=== PATIENT | female | born 1980 | race Caucasian/White ===

== ENCOUNTER 2016-10-17 14:05 | Emergency (ER) | payer OTHER ==
[~2016-10-17] VITALS: Ht 162.6 cm; Wt 75.7 kg
[~2016-10-17 14:05] MED LIST: CARI350T PO; CHOL20002 PO; CHOL500014 PO; FENO145T32 PO; INSU100C5 SC; INSU100C5 SQ-INSULIN; INSU100V8 SQ; INSU300I SQ; LACT1CAP40 PO; LISI5TAB7 PO; METH-356 PO; OXYC15TA PO; ZOLP10TA PO
[2016-10-17 15:13] LABS: HEMOGLOBIN 13.6 g/dL (11.7-16.4)
[2016-10-17 15:17] LABS: PATH.CAST-FLAG NOT PRESENT; SPERM-FLAG NOT PRESENT; SRC-FLAG NOT PRESENT; XTAL-FLAG NOT PRESENT; YLC-FLAG NOT PRESENT
[2016-10-17 15:25] LABS: BLOOD UREA NITROGEN 14 mg/dL (7-18)
[2016-10-17] MEDS ORDERED: LOSA25TA2 PO (15:30)
[2016-10-17] MEDS ORDERED: FLUO10TA PO (15:30)
[2016-10-17] MEDS ORDERED: KETOROLAC 30 MG/1 ML IVPush ONE (16:00)
[2016-10-17] MEDS ORDERED: SODIUM CHLORIDE 0.9% 1,000ML IVBOLUS ONE (16:00)
[2016-10-17] MEDS ORDERED: SODIUM CHLORIDE FLUSH 10ML SYR IVF ONE (16:00)
[2016-10-17] MEDS ORDERED: HYDROmorphone 1 MG/ML, 1ML ONE ×3 (16:12→18:35)
[2016-10-17] MEDS ORDERED: KETOROLAC 30 MG/1 ML ONE (16:12)
[2016-10-17] MEDS: HYDROmorphone 1 MG/ML, 1ML IVPush PRN ×2 (16:14→17:15)
[2016-10-17 18:39] VITALS: BP 137/82
[2016-10-17] MEDS ORDERED: HYDROmorphone 2 MG/ML, 1ML IVPush PRN (19:00)
[2016-10-17] MEDS ORDERED: HYDROmorphone 2 MG/ML, 1ML IVPush ONE (19:00)
== END 2016-10-17 18:46 | disposition home or self-care (01) ==
LOC: ED 16:22
DX: N13.2 Hydronephrosis with renal and ureteral calculous obstruction (principal); N23 Unspecified renal colic; E11.65 Type 2 diabetes mellitus with hyperglycemia; M54.9 Dorsalgia, unspecified; G89.29 Other chronic pain; Z90.49 Acquired absence of other specified parts of digestive tract; Z88.6 Allergy status to analgesic agent
CPT/HCPCS: 36415; 74000; 74176; 80048; 81001; 82040; 84703; 85025; 96361; 96374; 96375; 96376; 99285; J1170; J1885; J7030

== ENCOUNTER → 2016-10-25 | Outpatient (CLI) | payer OTHER ==
[~2016-10-25] MED LIST changes: +FLUO10CA13 PO; +FLUO10TA PO; +GABA300C10 PO; +LOSA25TA2 PO; +NORG1TAB26 PO; +ONDA4TAB7 PO; +SENN1TAB4 PO
[2016-10-25 15:14] LABS: ASPARTATE AMINO TRANSFERASE 12 U/L (15-37); BLOOD UREA NITROGEN 31 mg/dL (7-18)
[2016-10-25 15:18] LABS: PATH.CAST-FLAG NOT PRESENT; SPERM-FLAG NOT PRESENT; SRC-FLAG NOT PRESENT; XTAL-FLAG NOT PRESENT; YLC-FLAG NOT PRESENT
== END | disposition home or self-care (01) ==
LOC: STAR 14:07
PROVIDERS: ATTEND Neurological Surgery
DX: Z01.818 Encounter for other preprocedural examination (principal); M51.36 Other intervertebral disc degeneration, lumbar region; R91.8 Other nonspecific abnormal finding of lung field
CPT/HCPCS: 36415; 71020; 80053; 81001; 85025; 85610; 85730; 93005

== ENCOUNTER → 2016-10-27 | Outpatient (CLI) | payer OTHER | END | disposition home or self-care (01) | LOC: CFH 15:26 | PROVIDERS: ATTEND Physician Assistant Surgical | DX: M48.07 Spinal stenosis, lumbosacral region (principal); M43.17 Spondylolisthesis, lumbosacral region | CPT/HCPCS: 72131 ==

== ENCOUNTER 2016-11-04 07:26 | Inpatient (IN) | payer OTHER ==
[~2016-11-04] VITALS: Ht 162.6 cm; Wt 80.5 kg
[~2016-11-04 07:26] MED LIST changes: +BACITRACIN 50,000 UNIT ONE; +BUPIVACAINE/PF 0.25% ONE; +BUPIVACAINE/PF-EPI 0.5% 1:200K ONE; +THROMBIN 5,000 UNIT VIAL TP ONE
[2016-11-04 08:24] VITALS: BP 133/80
[2016-11-04] MEDS ORDERED: LIDOCAINE 1%, 2ML ONE (08:40)
[2016-11-04 08:43] LABS: HCG UR OBC PASS
[2016-11-04] MEDS ORDERED: LACTATED RINGERS 1,000 ML IV SCH (08:45)
[2016-11-04] MEDS ORDERED: LIDOCAINE 1%, 2ML SQ PRN (09:00)
[2016-11-04] MEDS ORDERED: SCOPOLAMINE PATCH, 1.5MG PATCH.TD72 TD ONE ×2 (10:31)
[2016-11-04] MEDS ORDERED: FENTANYL PF 250 MCG/5ML ONE (10:35)
[2016-11-04] MEDS ORDERED: HYDROmorphone 2 MG/ML, 1ML ONE ×2 (10:35→14:19)
[2016-11-04] MEDS ORDERED: MEPERIDINE/PF 25MG/0.5ML IVPush PRN (11:30)
[2016-11-04] MEDS ORDERED: hydrALAzine 20 MG/ML, 1ML IV PRN (11:30)
[2016-11-04] MEDS ORDERED: LABETALOL 5MG/ML, 20ML IV PRN (11:30)
[2016-11-04] MEDS ORDERED: MIDAZOLAM 1 MG/ML, 2ML IV PRN (11:30)
[2016-11-04] MEDS ORDERED: ONDANSETRON 2MG/ML, 2ML IVPush PRN (11:30)
[2016-11-04] MEDS ORDERED: OXYcodone 5 MG/5 ML ORAL.SOL UDC PO PRN (11:30)
[2016-11-04] MEDS ORDERED: FENTANYL PF 100 MCG/2ML EPIDPUSH ONE (11:40)
[2016-11-04] MEDS ORDERED: FENTANYL PF 100 MCG/2ML ONE ×2 (12:36→15:32)
[2016-11-04] MEDS ORDERED: THROMBIN 5,000 UNIT VIAL TP ONE ×2 (12:46→12:48)
[2016-11-04] MEDS ORDERED: ONDANSETRON 4 MG TABLET PO PRN (14:00)
[2016-11-04] MEDS ORDERED: DIPHENHYDRAMINE 50 MG/ML, 1ML IVPush PRN (14:00)
[2016-11-04] MEDS ORDERED: SENNA/DOCUSATE TABLET PO PRN (14:00)
[2016-11-04] MEDS ORDERED: BISACODYL 10 MG SUPP PR PRN (14:00)
[2016-11-04] MEDS ORDERED: PHARMACY MAY ADJ FOR RENAL FX MC PRN (14:00)
[2016-11-04] MEDS ORDERED: CYCLOBENZAPRINE 10 MG TABLET ONE (14:07)
[2016-11-04] MEDS ORDERED: METHADONE 10 MG TABLET ONE (14:07)
[2016-11-04] MEDS: CYCLOBENZAPRINE 10 MG TABLET PO PRN (14:10)
[2016-11-04] MEDS: HYDROmorphone 1 MG/ML, 1ML IV PRN ×4 (14:15→15:01)
[2016-11-04] MEDS: FENTANYL PF 100 MCG/2ML IV PRN ×2 (14:55→15:32)
[2016-11-04] MEDS ORDERED: OXYcodone 5 MG/5 ML ORAL.SOL UDC ONE (15:29)
[2016-11-04] MEDS ORDERED: NORGESTIMATE ETHINYL ESTRADIOL HOMEMEDPO SCH (16:30)
[2016-11-04] MEDS: morphine SULFATE 10 MG/ML, 1ML IVPush PRN ×6 (16:41→22:16)
[2016-11-04] MEDS ORDERED: SUCCINYLCHOLINE 20 MG/ML, 10ML ONE (16:42)
[2016-11-04] MEDS ORDERED: ROCURONIUM 10 MG/ML ONE (16:42)
[2016-11-04] MEDS ORDERED: ONDANSETRON 2MG/ML, 2ML ONE (16:42)
[2016-11-04] MEDS ORDERED: PROPOFOL 10 MG/ML, 50ML ONE (16:42)
[2016-11-04] MEDS ORDERED: PROPOFOL 10 MG/ML, 20ML ONE (16:42)
[2016-11-04] MEDS ORDERED: CEFAZOLIN 1,000 MG ONE (16:42)
[2016-11-04] MEDS: CARISOPRODOL 350 MG TABLET PO SCH ×2 (16:43→20:03)
[2016-11-04] MEDS: INSULIN ASPART 100 UNITS/ML, PEN SQ-INSULIN SCH ×2 (16:51→21:00)
[2016-11-04] MEDS: NS + 20MEQ KCL 1,000 ML IV SCH (17:28)
[2016-11-04] MEDS: CEFAZOLIN PMX 1GM/50ML 50 ML IVPB SCH (18:46)
[2016-11-04] MEDS: OXYcodone IR 5MG TABLET PO PRN ×2 (18:46→22:57)
[2016-11-04 19:13] VITALS: BP 95/59
[2016-11-04] MEDS: FENOFIBRATE 145 MG TABLET PO SCH (20:03)
[2016-11-04] MEDS: LACTOBACILLUS CHEW TABLET PO SCH (20:03)
[2016-11-04] MEDS: SODIUM CHLORIDE FLUSH 10ML SYR IVF SCH (20:06)
[2016-11-04] MEDS: INSULIN GLARGINE SQ SCH (21:00)
[2016-11-04] MEDS ORDERED: INSULIN DETEMIR 100 UNITS/ML, PEN SQ-INSULIN SCH (21:00)
[2016-11-04] MEDS ORDERED: METHADONE 10 MG TABLET PO ONE (22:30)
[2016-11-04 23:28] VITALS: BP 92/54
[2016-11-05] MEDS: morphine SULFATE 10 MG/ML, 1ML IVPush PRN ×7 (00:14→14:04)
[2016-11-05] MEDS: CYCLOBENZAPRINE 10 MG TABLET PO PRN (00:14)
[2016-11-05 01:18] VITALS: BP 105/62
[2016-11-05] MEDS: OXYcodone IR 5MG TABLET PO PRN (03:18)
[2016-11-05] MEDS: CEFAZOLIN PMX 1GM/50ML 50 ML IVPB SCH (03:18)
[2016-11-05] MEDS: NS + 20MEQ KCL 1,000 ML IV SCH ×3 (05:34→17:20)
[2016-11-05] MEDS ORDERED: METHADONE 10 MG TABLET PO ONE (06:00)
[2016-11-05] MEDS: CARISOPRODOL 350 MG TABLET PO SCH ×4 (06:04→21:26)
[2016-11-05] MEDS: INSULIN ASPART 100 UNITS/ML, PEN SQ-INSULIN SCH ×4 (07:15→21:35)
[2016-11-05 07:35] VITALS: BP 111/73
[2016-11-05] MEDS: LOSARTAN 25MG TABLET PO SCH (08:15)
[2016-11-05] MEDS: METHOCARBAMOL 1,000 MG in DEXTROSE 5% 100 ML IV SCH ×2 (08:27→16:36)
[2016-11-05] MEDS: GABAPENTIN 300 MG CAPSULE PO SCH (08:27)
[2016-11-05] MEDS: SODIUM CHLORIDE FLUSH 10ML SYR IVF SCH ×2 (08:27→20:12)
[2016-11-05] MEDS: OXYcodone IR 30 MG TABLET PO SCH ×5 (08:27→23:58)
[2016-11-05] MEDS: SENNA/DOCUSATE TABLET PO SCH (08:28)
[2016-11-05] MEDS: CHOLECALCIFEROL 1,000 UNIT TABLET PO SCH (08:28)
[2016-11-05] MEDS: FLUOXETINE 10 MG CAP PO SCH (08:30)
[2016-11-05] MEDS ORDERED: NORGESTIMATE ETHINYL ESTRADIOL HOMEMEDPO SCH (09:00)
[2016-11-05] MEDS ORDERED: METHADONE 10 MG TABLET PO SCH (09:00)
[2016-11-05] MEDS: METHADONE 10 MG TABLET PO SCH ×3 (12:27→23:58)
[2016-11-05 14:30] VITALS: BP 103/60
[2016-11-05] MEDS: NORGESTIMATE ETHINYL ESTRADIOL HOMEMEDPO SCH (16:31)
[2016-11-05 20:08] VITALS: BP 93/56
[2016-11-05] MEDS: FENOFIBRATE 145 MG TABLET PO SCH (21:26)
[2016-11-05] MEDS: LACTOBACILLUS CHEW TABLET PO SCH (21:26)
[2016-11-05] MEDS: INSULIN GLARGINE SQ SCH (21:36)
[2016-11-06] MEDS: METHOCARBAMOL 1,000 MG in DEXTROSE 5% 100 ML IV SCH
[2016-11-06] MEDS: morphine SULFATE 10 MG/ML, 1ML IVPush PRN ×7 (01:46→22:44)
[2016-11-06 01:48] VITALS: BP 94/50
[2016-11-06] MEDS: OXYcodone IR 30 MG TABLET PO SCH ×5 (04:24→20:03)
[2016-11-06] MEDS: NS + 20MEQ KCL 1,000 ML IV SCH ×2 (05:40→16:43)
[2016-11-06] MEDS: CARISOPRODOL 350 MG TABLET PO SCH ×4 (05:40→20:13)
[2016-11-06] MEDS: METHADONE 10 MG TABLET PO SCH ×3 (05:41→17:57)
[2016-11-06 07:35] VITALS: BP 109/62
[2016-11-06] MEDS: INSULIN ASPART 100 UNITS/ML, PEN SQ-INSULIN SCH ×4 (07:47→20:18)
[2016-11-06] MEDS: METHOCARBAMOL 750 MG in DEXTROSE 5% 100 ML IV SCH ×3 (08:49→21:41)
[2016-11-06] MEDS: NORGESTIMATE ETHINYL ESTRADIOL HOMEMEDPO SCH (08:50)
[2016-11-06] MEDS: SODIUM CHLORIDE FLUSH 10ML SYR IVF SCH ×2 (08:50→21:41)
[2016-11-06] MEDS: LOSARTAN 25MG TABLET PO SCH (08:51)
[2016-11-06] MEDS: CHOLECALCIFEROL 1,000 UNIT TABLET PO SCH (08:51)
[2016-11-06] MEDS: GABAPENTIN 300 MG CAPSULE PO SCH (08:52)
[2016-11-06] MEDS: SENNA/DOCUSATE TABLET PO SCH (08:52)
[2016-11-06] MEDS: FLUOXETINE 10 MG CAP PO SCH (08:52)
[2016-11-06 13:10] VITALS: BP 97/59
[2016-11-06] MEDS: FENOFIBRATE 145 MG TABLET PO SCH (20:13)
[2016-11-06] MEDS: INSULIN GLARGINE SQ SCH (20:13)
[2016-11-06] MEDS: LACTOBACILLUS CHEW TABLET PO SCH (20:13)
[2016-11-06 21:00] VITALS: BP 95/64
[2016-11-07] MEDS: OXYcodone IR 30 MG TABLET PO SCH ×6 (00:04→21:10)
[2016-11-07] MEDS: ZOLPIDEM 10MG TABLET PO PRN ×2 (00:04→21:19)
[2016-11-07] MEDS: METHADONE 10 MG TABLET PO SCH ×4 (00:05→18:48)
[2016-11-07] MEDS: morphine SULFATE 10 MG/ML, 1ML IVPush PRN ×3 (00:06→08:52)
[2016-11-07] MEDS: NS + 20MEQ KCL 1,000 ML IV SCH ×3 (01:30→19:17)
[2016-11-07] MEDS: METHOCARBAMOL 750 MG in DEXTROSE 5% 100 ML IV SCH ×4 (02:22→21:19)
[2016-11-07 03:30] VITALS: BP 104/61
[2016-11-07] MEDS: CARISOPRODOL 350 MG TABLET PO SCH ×4 (05:53→21:11)
[2016-11-07 07:56] VITALS: BP 115/67
[2016-11-07] MEDS: INSULIN ASPART 100 UNITS/ML, PEN SQ-INSULIN SCH ×4 (08:44→21:19)
[2016-11-07] MEDS: NORGESTIMATE ETHINYL ESTRADIOL HOMEMEDPO SCH (08:45)
[2016-11-07] MEDS: FLUOXETINE 10 MG CAP PO SCH (08:46)
[2016-11-07] MEDS: LOSARTAN 25MG TABLET PO SCH (08:46)
[2016-11-07] MEDS: GABAPENTIN 300 MG CAPSULE PO SCH (08:46)
[2016-11-07] MEDS: SODIUM CHLORIDE FLUSH 10ML SYR IVF SCH ×2 (08:46→21:22)
[2016-11-07] MEDS: CHOLECALCIFEROL 1,000 UNIT TABLET PO SCH (08:47)
[2016-11-07] MEDS: SENNA/DOCUSATE TABLET PO SCH (08:47)
[2016-11-07] MEDS ORDERED: MAGNESIUM CITRATE 300ML ORAL SOL PO ONE (09:30)
[2016-11-07] MEDS ORDERED: KETOROLAC 30 MG/1 ML IVPush ONE (09:30)
[2016-11-07] MEDS ORDERED: MAGNESIUM CITRATE 300ML ORAL SOL PO PRN (11:30)
[2016-11-07] MEDS: KETOROLAC 30 MG/1 ML IVPush SCH ×2 (15:59→21:22)
[2016-11-07 16:10] VITALS: BP 100/63
[2016-11-07 19:05] VITALS: BP 117/73
[2016-11-07] MEDS: LACTOBACILLUS CHEW TABLET PO SCH (21:11)
[2016-11-07] MEDS: FENOFIBRATE 145 MG TABLET PO SCH (21:11)
[2016-11-07] MEDS: INSULIN GLARGINE SQ SCH (21:18)
[2016-11-08] MEDS: METHADONE 10 MG TABLET PO SCH ×3 (00:14→12:08)
[2016-11-08] MEDS: METHOCARBAMOL 750 MG in DEXTROSE 5% 100 ML IV SCH ×2 (00:45→09:41)
[2016-11-08] MEDS: NS + 20MEQ KCL 1,000 ML IV SCH (00:46)
[2016-11-08] MEDS: OXYcodone IR 30 MG TABLET PO SCH ×4 (01:05→13:20)
[2016-11-08] MEDS: KETOROLAC 30 MG/1 ML IVPush SCH (03:50)
[2016-11-08 03:54] VITALS: BP 103/61
[2016-11-08] MEDS: CARISOPRODOL 350 MG TABLET PO SCH ×2 (06:16→12:09)
[2016-11-08] MEDS: INSULIN ASPART 100 UNITS/ML, PEN SQ-INSULIN SCH ×2 (06:21→11:00)
[2016-11-08 07:09] VITALS: BP 90/57
[2016-11-08] MEDS: NORGESTIMATE ETHINYL ESTRADIOL HOMEMEDPO SCH (09:00)
[2016-11-08] MEDS: SODIUM CHLORIDE FLUSH 10ML SYR IVF SCH (09:00)
[2016-11-08] MEDS ORDERED: BISACODYL 10 MG SUPP PR ONE (09:30)
[2016-11-08] MEDS: LOSARTAN 25MG TABLET PO SCH (09:40)
[2016-11-08] MEDS: SENNA/DOCUSATE TABLET PO SCH (09:40)
[2016-11-08] MEDS: CHOLECALCIFEROL 1,000 UNIT TABLET PO SCH (09:40)
[2016-11-08] MEDS: GABAPENTIN 300 MG CAPSULE PO SCH (09:40)
[2016-11-08] MEDS: FLUOXETINE 10 MG CAP PO SCH (09:41)
[2016-11-08 12:47] VITALS: BP 102/66
[2016-11-08] MEDS ORDERED: OXYC30TA PO (14:16)
[2016-11-08] MEDS ORDERED: CARI350T PO (14:17)
[2016-11-08] MEDS ORDERED: SULF1TAB24 PO (14:18)
== END 2016-11-08 14:40 | disposition home or self-care (01) | DRG 460 ==
LOC: ORIP 07:26 → 4NOR 16:12 → DCLOUNGE 11-08 14:00
PROVIDERS: ADMIT Neurological Surgery; ATTEND Neurological Surgery
PROC: 0SG0071 Fusion of Lumbar Vertebral Joint with Autologous Tissue Substitute, Posterior Approach, Posterior Column, Open Approach (ICD-10-PCS; 2016-11-04)
PROC: 0SG3071 Fusion of Lumbosacral Joint with Autologous Tissue Substitute, Posterior Approach, Posterior Column, Open Approach (ICD-10-PCS; 2016-11-04)
PROC: 0ST20ZZ Resection of Lumbar Vertebral Disc, Open Approach (ICD-10-PCS; 2016-11-04)
PROC: 01NB0ZZ Release Lumbar Nerve, Open Approach (ICD-10-PCS; 2016-11-04)
PROC: 4A11X4G Monitoring of Peripheral Nervous Electrical Activity, Intraoperative, External Approach (ICD-10-PCS; 2016-11-04)
PROC: XRGB092 Fusion of Lumbar Vertebral Joint using Nanotextured Surface Interbody Fusion Device, Open Approach, New Technology Group 2 (ICD-10-PCS; principal; 2016-11-04 10:30)
DX: M48.06 Spinal stenosis, lumbar region (principal); M43.17 Spondylolisthesis, lumbosacral region; M43.16 Spondylolisthesis, lumbar region; G89.4 Chronic pain syndrome; M54.17 Radiculopathy, lumbosacral region; Z88.8 Allergy status to other drugs, medicaments and biological substances
CPT/HCPCS: 36415; 72100; 81025; 82962; 86850; 86900; C1713; J0690; J1170; J1815; J1885; J2405; J2704; J3010; J3480; J3490; C1751; C1762; J0330; J2270; J2800

== ENCOUNTER 2016-12-31 12:07 | Day surgery (SDC) | payer OTHER ==
[2016-12-29 08:57] VITALS: BP 137/93
[2016-12-29 09:31] LABS: PATH.CAST-FLAG NOT PRESENT; SPERM-FLAG NOT PRESENT; SRC-FLAG NOT PRESENT; XTAL-FLAG NOT PRESENT; YLC-FLAG NOT PRESENT
[2016-12-29 09:43] LABS: BLOOD UREA NITROGEN 18 mg/dL (7-18)
[2016-12-29 09:44] LABS: ASPARTATE AMINO TRANSFERASE 15 U/L (15-37)
[~2016-12-31] VITALS: Ht 162.6 cm; Wt 70.5 kg
[~2016-12-31 12:07] MED LIST changes: -BACITRACIN 50,000 UNIT ONE; -BUPIVACAINE/PF 0.25% ONE; -BUPIVACAINE/PF-EPI 0.5% 1:200K ONE; +OXYC30TA PO; +SULF1TAB24 PO; -THROMBIN 5,000 UNIT VIAL TP ONE
[2016-12-31 13:17] LABS: HCG UR OBC PASS
[2016-12-31] MEDS ORDERED: ROCURONIUM 10 MG/ML ONE (13:30)
[2016-12-31] MEDS ORDERED: PROPOFOL 10 MG/ML, 20ML ONE (13:30)
[2016-12-31] MEDS ORDERED: CEFAZOLIN 1,000 MG ONE (13:30)
[2016-12-31] MEDS ORDERED: ONDANSETRON 2MG/ML, 2ML ONE (13:30)
[2016-12-31] MEDS ORDERED: SUCCINYLCHOLINE 20 MG/ML, 10ML ONE (13:30)
[2016-12-31] MEDS ORDERED: PROPOFOL 10 MG/ML, 50ML ONE (13:30)
[2016-12-31] MEDS ORDERED: FENTANYL PF 100 MCG/2ML ONE ×3 (13:45→16:16)
[2016-12-31] MEDS ORDERED: LABETALOL 5MG/ML, 20ML IV PRN (14:00)
[2016-12-31] MEDS ORDERED: hydrALAzine 20 MG/ML, 1ML IV PRN (14:00)
[2016-12-31] MEDS ORDERED: MIDAZOLAM 1 MG/ML, 2ML IV PRN (14:00)
[2016-12-31] MEDS ORDERED: OXYcodone 5 MG/5 ML ORAL.SOL UDC PO PRN (14:00)
[2016-12-31] MEDS ORDERED: LACTATED RINGERS 1,000 ML IV SCH (14:00)
[2016-12-31] MEDS ORDERED: ONDANSETRON 2MG/ML, 2ML IVPush PRN ×2 (14:00→18:15)
[2016-12-31] MEDS ORDERED: OXYcodone 5 MG/5 ML ORAL.SOL UDC ONE (15:14)
[2016-12-31] MEDS: FENTANYL PF 100 MCG/2ML IV PRN ×4 (15:15→16:23)
[2016-12-31] MEDS ORDERED: PHENAZOPYRIDINE 200 MG TABLET PO ONE (15:30)
[2016-12-31] MEDS ORDERED: HYDROmorphone 2 MG/ML, 1ML ONE ×2 (15:36→16:16)
[2016-12-31] MEDS ORDERED: PHENAZOPYRIDINE 200 MG TABLET ONE (15:37)
[2016-12-31] MEDS: HYDROmorphone 1 MG/ML, 1ML IV PRN ×6 (15:42→16:34)
[2016-12-31] MEDS ORDERED: HYDROcodone/APAP 5/325 TABLET PO PRN (17:30)
[2016-12-31] MEDS ORDERED: OXYcodone IR 5MG TABLET PO PRN (18:15)
[2016-12-31 19:51] VITALS: BP 130/81
[2016-12-31] MEDS ORDERED: PHEN-418 PO (20:14)
[2016-12-31] MEDS ORDERED: HYDR-3240 PO (20:15)
== END 2016-12-31 20:30 | disposition home or self-care (01) ==
LOC: OUT 12:07 → 4NOR 17:18 → OUT 20:30
PROVIDERS: ATTEND Urology
DX: N20.2 Calculus of kidney with calculus of ureter (principal); E11.9 Type 2 diabetes mellitus without complications; Z98.890 Other specified postprocedural states
CPT/HCPCS: 36415; 52356; 74420; 80053; 81001; 81025; 82360; 82962; 87086; 88300; C1758; C1769; C2617; J0330; J0690; J1170; J2405; J2704; J3010; J7120

== ENCOUNTER 2017-07-14 09:30 | Inpatient (IN) | payer OTHER ==
[~2017-07-14] VITALS: Ht 162.6 cm; Wt 69.3 kg
[~2017-07-14 09:30] MED LIST changes: -CHOL500014 PO; +CHOL500045 PO; +HYDR-3240 PO; +PHEN-418 PO; +SENN-123 PO; -SENN1TAB4 PO
[2017-07-14] MEDS ORDERED: SODIUM CHLORIDE 0.9% 1,000 ML IV ONE (10:53)
[2017-07-14] MEDS ORDERED: INSU100I32 SQ (10:58)
[2017-07-14] MEDS ORDERED: ONDANSETRON 2MG/ML, 2ML IVPush ONE (11:00)
[2017-07-14] MEDS ORDERED: SODIUM CHLORIDE FLUSH 10ML SYR IVF ONE (11:00)
[2017-07-14] MEDS ORDERED: SODIUM CHLORIDE 0.9% 1,000ML IVBOLUS ONE (11:00)
[2017-07-14] MEDS ORDERED: HYDROmorphone 2 MG/ML, 1ML ONE ×5 (11:06→18:02)
[2017-07-14] MEDS ORDERED: ONDANSETRON 2MG/ML, 2ML ONE ×2 (11:06→17:04)
[2017-07-14] MEDS: HYDROmorphone 1 MG/ML, 1ML IVPush PRN ×2 (11:17→11:54)
[2017-07-14 11:18] LABS: BASOPHILS # (AUTO) 0.04 x10^3/uL (0-0.1); BASOPHILS % (AUTO) 1 % (0-1); EOSINOPHILS # (AUTO) 0.11 x10^3/uL (0-0.4); EOSINOPHILS % (AUTO) 1 % (1-7); LYMPHOCYTES # (AUTO) 1.45 x10^3/uL (1-3.4); LYMPHOCYTES % (AUTO) 19 % (22-44); MD NO; MEAN CORPUSCULAR HEMOGLOBIN 29.2 pg (27.0-34.8); MEAN CORPUSCULAR VOLUME 85.8 fL (80-100); MEAN PLATELET VOLUME 8.9 fL (7.4-10.4); MONOCYTES # (AUTO) 0.66 x10^3/uL (0.2-0.8); MONOCYTES % (AUTO) 9 % (2-9); NEUTROPHILS # (AUTO) 5.26 x10^3/uL (1.8-6.8); NEUTROPHILS % (AUTO) 70 % (42-75); PLATELET COUNT 228 x10^3/uL (130-400); RED BLOOD COUNT 4.67 x10^6/uL (3.82-5.3); RED CELL DISTRIBUTION WIDTH 13.4 % (9.6-15.2)
[2017-07-14 11:22] LABS: MICROSCOPIC AUTO
[2017-07-14 11:28] LABS: CULTURE INDICATED? YES
[2017-07-14 11:30] LABS: ALBUMIN 3.2 g/dL (3.4-5.0); ANION GAP 10 mmol/L (5-15); CALCIUM 8.5 mg/dL (8.5-10.1); CHLORIDE 98 mmol/L (98-107)
[2017-07-14 11:36] LABS: ALANINE AMINOTRANSFERASE 21 U/L (12-78); ALKALINE PHOSPHATASE 123 U/L (45-117); BILIRUBIN,TOTAL 0.3 mg/dL (0.2-1.0); CREATININE 0.91 mg/dL (0.55-1.02); TOTAL PROTEIN 6.9 g/dL (6.4-8.2)
[2017-07-14 11:44] LABS: ACETONE, SERUM Trace (10mg/dL) mg/dL (Negative)
[2017-07-14] MEDS ORDERED: OMNIPAQUE 350 MG/ML, 100ML BOTTLE ONE (12:20)
[2017-07-14] MEDS ORDERED: INSULIN REGULAR 100 UNITS/ML, 3ML VIAL IVPush ONE (13:00)
[2017-07-14] MEDS ORDERED: KETOROLAC 30 MG/1 ML IVPush ONE (13:00)
[2017-07-14] MEDS ORDERED: HYDROmorphone 1 MG/ML, 1ML IV ONE (14:00)
[2017-07-14] MEDS ORDERED: HYDROcodone/APAP 5/325 TABLET PO PRN (14:30)
[2017-07-14] MEDS ORDERED: CARISOPRODOL 350 MG TABLET PO PRN (14:30)
[2017-07-14] MEDS ORDERED: hydrALAzine 20 MG/ML, 1ML IVPush PRN (14:30)
[2017-07-14] MEDS ORDERED: ONDANSETRON 2MG/ML, 2ML IVPush PRN ×2 (14:30→16:30)
[2017-07-14] MEDS ORDERED: CIPROFLOXACIN LACTATE 200 MG in DEXTROSE 5% 100 ML IV SCH (14:30)
[2017-07-14] MEDS ORDERED: ACETAMINOPHEN 325 MG TABLET PO PRN ×2 (14:30→16:30)
[2017-07-14 15:29] LABS: HEMOGLOBIN A1C 9.3 % (4.2-6.3)
[2017-07-14 15:32] VITALS: BP 152/89
[2017-07-14] MEDS ORDERED: INSULIN ASPART 100 UNITS/ML, PEN SQ-INSULIN SCH (16:00)
[2017-07-14] MEDS ORDERED: ENOXAPARIN 40 MG/0.4 ML SQ SCH (16:00)
[2017-07-14] MEDS ORDERED: LIDOCAINE GEL 2%, 5ML ONE (16:09)
[2017-07-14] MEDS ORDERED: MIDAZOLAM 1 MG/ML, 2ML ONE (16:10)
[2017-07-14] MEDS ORDERED: FENTANYL PF 250 MCG/5ML ONE (16:10)
[2017-07-14] MEDS ORDERED: LIDOCAINE-MPF 2% ,5ML ONE (16:13)
[2017-07-14] MEDS ORDERED: SCOPOLAMINE PATCH, 1.5MG PATCH.TD72 TD ONE (16:23)
[2017-07-14] MEDS ORDERED: LORazepam 2 MG/ML, 1ML IVPush PRN (16:30)
[2017-07-14] MEDS ORDERED: DIAZEPAM 5 MG/ML, 2ML IVPush PRN (16:30)
[2017-07-14] MEDS ORDERED: hydrALAzine 20 MG/ML, 1ML IV PRN (16:30)
[2017-07-14] MEDS ORDERED: OXYcodone 5 MG/5 ML ORAL.SOL UDC PO PRN (16:30)
[2017-07-14] MEDS ORDERED: ALBUTEROL/IPRATROPIUM 2.5MG/0.5MG, 3 ML NPPB PRN (16:30)
[2017-07-14] MEDS ORDERED: FENTANYL PF 100 MCG/2ML IV PRN (16:30)
[2017-07-14] MEDS ORDERED: MEPERIDINE/PF 25MG/0.5ML IVPush PRN (16:30)
[2017-07-14] MEDS ORDERED: MIDAZOLAM 1 MG/ML, 2ML IV PRN (16:30)
[2017-07-14] MEDS ORDERED: LABETALOL 5MG/ML, 20ML IV PRN (16:30)
[2017-07-14] MEDS ORDERED: OMNIPAQUE 350 MG/ML, 50 ML BOTTLE IV ONE (16:57)
[2017-07-14] MEDS ORDERED: FENTANYL PF 500 MCG/10ML ONE (17:03)
[2017-07-14] MEDS ORDERED: CEFAZOLIN 1,000 MG ONE (17:04)
[2017-07-14] MEDS ORDERED: PROPOFOL 10 MG/ML, 20ML ONE (17:04)
[2017-07-14] MEDS ORDERED: DEXAMETHASONE 4 MG/ML, 1ML ONE (17:04)
[2017-07-14] MEDS ORDERED: SUCCINYLCHOLINE 20 MG/ML, 10ML ONE (17:04)
[2017-07-14] MEDS ORDERED: EPHEDRINE 50 MG/ML, 1ML ONE (17:04)
[2017-07-14] MEDS: HYDROmorphone 1 MG/ML, 1ML IV PRN ×6 (17:39→18:12)
[2017-07-14] MEDS ORDERED: hydrALAzine 20 MG/ML, 1ML ONE (18:02)
[2017-07-14] MEDS: CIPROFLOXACIN/PMX 400MG/200ML 200 ML IV SCH (19:17)
[2017-07-14] MEDS: SODIUM CHLORIDE 0.9% 1,000 ML IV SCH (19:17)
[2017-07-14] MEDS: morphine SULFATE 10 MG/ML, 1ML IVPush PRN ×2 (19:18→23:26)
[2017-07-14] MEDS ORDERED: OXYcodone IR 30 MG TABLET PO PRN (19:30)
[2017-07-14 20:00] VITALS: BP 137/84
[2017-07-14] MEDS: PHENAZOPYRIDINE 200 MG TABLET PO SCH (20:59)
[2017-07-14] MEDS ORDERED: INSULIN GLARGINE 100 UNITS/ML, PEN SQ-INSULIN SCH (21:00)
[2017-07-14] MEDS ORDERED: ZOLPIDEM 10MG TABLET PO SCH (21:00)
[2017-07-14] MEDS ORDERED: LACTOBACILLUS CHEW TABLET PO SCH (21:00)
[2017-07-14] MEDS ORDERED: FENOFIBRATE 145 MG TABLET PO SCH (21:00)
[2017-07-14] MEDS ORDERED: INSULIN DEGLUDEC 45 UNIT HOMEINJ SCH (21:00)
[2017-07-14] MEDS: INSULIN LISPRO 100 UNITS/ML, PEN SQ-INSULIN SCH (21:22)
[2017-07-14] MEDS ORDERED: METHADONE 10 MG TABLET PO SCH (22:30)
[2017-07-14 23:39] VITALS: BP 154/86
[2017-07-15 02:00] VITALS: BP 154/90
[2017-07-15 04:56] LABS: BASOPHILS # (AUTO) 0.02 x10^3/uL (0-0.1); BASOPHILS % (AUTO) 0 % (0-1); EOSINOPHILS # (AUTO) 0.05 x10^3/uL (0-0.4); EOSINOPHILS % (AUTO) 1 % (1-7); LYMPHOCYTES # (AUTO) 1.98 x10^3/uL (1-3.4); LYMPHOCYTES % (AUTO) 24 % (22-44); MD NO; MEAN CORPUSCULAR HEMOGLOBIN 29.4 pg (27.0-34.8); MEAN CORPUSCULAR VOLUME 86.4 fL (80-100); MEAN PLATELET VOLUME 8.5 fL (7.4-10.4); MONOCYTES # (AUTO) 0.63 x10^3/uL (0.2-0.8); MONOCYTES % (AUTO) 8 % (2-9); NEUTROPHILS % (AUTO) 68 % (42-75); PLATELET COUNT 202 x10^3/uL (130-400); RED BLOOD COUNT 3.85 x10^6/uL (3.82-5.3)
[2017-07-15 05:00] LABS: ANION GAP 5 mmol/L (5-15); CALCIUM 7.7 mg/dL (8.5-10.1); CHLORIDE 102 mmol/L (98-107); CREATININE 0.81 mg/dL (0.55-1.02)
[2017-07-15] MEDS: CIPROFLOXACIN/PMX 400MG/200ML 200 ML IV SCH (05:46)
[2017-07-15] MEDS: SODIUM CHLORIDE 0.9% 1,000 ML IV SCH (05:46)
[2017-07-15] MEDS: morphine SULFATE 10 MG/ML, 1ML IVPush PRN (06:01)
[2017-07-15 07:20] VITALS: BP 133/86
[2017-07-15] MEDS: INSULIN LISPRO 100 UNITS/ML, PEN SQ-INSULIN SCH (08:52)
[2017-07-15] MEDS: PHENAZOPYRIDINE 200 MG TABLET PO SCH (08:53)
[2017-07-15] MEDS ORDERED: GABAPENTIN 300 MG CAPSULE PO SCH (09:00)
[2017-07-15] MEDS ORDERED: LOSARTAN 25MG TABLET PO SCH (09:00)
[2017-07-15] MEDS ORDERED: SENNA/DOCUSATE TABLET PO SCH (09:00)
[2017-07-15] MEDS ORDERED: INSULIN GLARGINE 100 UNITS/ML, PEN SQ-INSULIN SCH (09:00)
[2017-07-15] MEDS ORDERED: NORGESTIMATE ETHINYL ESTRADIOL HOMEMEDPO SCH (09:00)
[2017-07-15] MEDS ORDERED: METHADONE 10 MG TABLET PO SCH (09:00)
[2017-07-15] MEDS ORDERED: FLUOXETINE 10 MG CAP PO SCH (09:00)
[2017-07-15] MEDS ORDERED: OXYcodone IR 5MG TABLET ONE (09:04)
[2017-07-15] MEDS ORDERED: KETO10TA PO (10:16)
[2017-07-15] MEDS ORDERED: CIPR500T3 PO (10:16)
[2017-07-15] MEDS ORDERED: SIMV20TA PO (10:18)
== END 2017-07-15 11:50 | disposition home or self-care (01) | DRG 669 ==
LOC: ED 10:44 → EDIP 13:49 → SUATTDRO 13:56 → 4NOR 15:07 → DCLOUNGE 07-15 11:39
PROVIDERS: ADMIT Internal Medicine; ATTEND Internal Medicine
PROC: 0TC68ZZ Extirpation of Matter from Right Ureter, Via Natural or Artificial Opening Endoscopic (ICD-10-PCS; principal; 2017-07-14 16:15)
DX: N13.2 Hydronephrosis with renal and ureteral calculous obstruction (principal); E10.65 Type 1 diabetes mellitus with hyperglycemia; E87.0 Hyperosmolality and hypernatremia; N39.0 Urinary tract infection, site not specified; E28.2 Polycystic ovarian syndrome; G89.29 Other chronic pain; I10 Essential (primary) hypertension; Z79.4 Long term (current) use of insulin; Z79.891 Long term (current) use of opiate analgesic; Z87.442 Personal history of urinary calculi; Z90.411 Acquired partial absence of pancreas; Z90.49 Acquired absence of other specified parts of digestive tract; Z88.8 Allergy status to other drugs, medicaments and biological substances
CPT/HCPCS: 36415; 74177; 76000; 80048; 80053; 81001; 82010; 82360; 82947; 82962; 83036; 83690; 84703; 85025; 87086; 88300; 96361; 96374; 96375; 96376; J0690; J0744; J1100; J1170; J1650; J2250; J2405; J2704; J3010; J3490; Q9967; J0330; J0360; J1815; J2270; J7030

== ENCOUNTER → 2017-08-03 | Outpatient (CLI) | payer OTHER ==
[~2017-08-03] MED LIST changes: +CIPR500T3 PO; +INSU100I32 SQ; +KETO10TA PO; +SIMV20TA PO
== END | disposition home or self-care (01) ==
LOC: CFH 12:11
PROVIDERS: ATTEND Urology
DX: N20.0 Calculus of kidney (principal); K59.00 Constipation, unspecified
CPT/HCPCS: 74018

== ENCOUNTER 2018-03-08 15:00 | Inpatient (IN) | payer OTHER ==
[~2018-03-08] VITALS: Ht 167.6 cm; Wt 70.3 kg
[~2018-03-08 15:00] MED LIST changes: -CHOL20002 PO; +CHOL200052 PO
[2018-03-08] MEDS ORDERED: SODIUM CHLORIDE 0.9% 1,000ML IVBOLUS ONE (15:30)
[2018-03-08 15:36] LABS: PH, VENOUS 7.445 pH (7.320-7.420)
[2018-03-08 15:43] LABS: BASOPHILS # (AUTO) 0.03 x10^3/uL (0-0.1); BASOPHILS % (AUTO) 0 % (0-1); EOSINOPHILS # (AUTO) 0.03 x10^3/uL (0-0.4); EOSINOPHILS % (AUTO) 0 % (1-7); LYMPHOCYTES # (AUTO) 0.96 x10^3/uL (1-3.4); LYMPHOCYTES % (AUTO) 10 % (22-44); MD NO; MEAN CORPUSCULAR HEMOGLOBIN 29.8 pg (27.0-34.8); MEAN CORPUSCULAR VOLUME 87.7 fL (80-100); MEAN PLATELET VOLUME 8.2 fL (7.4-10.4); MONOCYTES # (AUTO) 0.58 x10^3/uL (0.2-0.8); MONOCYTES % (AUTO) 6 % (2-9); NEUTROPHILS # (AUTO) 8.15 x10^3/uL (1.8-6.8); NEUTROPHILS % (AUTO) 84 % (42-75); PLATELET COUNT 278 x10^3/uL (130-400); RED BLOOD COUNT 4.44 x10^6/uL (3.82-5.3); RED CELL DISTRIBUTION WIDTH 13.7 % (9.6-15.2)
[2018-03-08 15:46] LABS: ALBUMIN 2.7 g/dL (3.4-5.0); ANION GAP 10 mmol/L (5-15); CALCIUM 9.3 mg/dL (8.5-10.1); CHLORIDE 93 mmol/L (98-107)
[2018-03-08 15:49] LABS: ALANINE AMINOTRANSFERASE 37 U/L (12-78); ALKALINE PHOSPHATASE 261 U/L (45-117); BILIRUBIN,TOTAL 0.2 mg/dL (0.2-1.0); CREATININE 1.02 mg/dL (0.55-1.02); TOTAL PROTEIN 6.7 g/dL (6.4-8.2)
[2018-03-08 15:53] LABS: MICROSCOPIC INDICATED
[2018-03-08 16:18] LABS: CULTURE INDICATED? NO
[2018-03-08 16:29] LABS: ACETONE, SERUM Moderate(40mg/dL) mg/dL (Negative)
[2018-03-08] MEDS: SODIUM CHLORIDE 0.9% 1,000 ML IV SCH ×2 (16:38→23:35)
[2018-03-08] MEDS ORDERED: DEXTROSE 4 GM TAB.CHEW PO PRN (17:00)
[2018-03-08] MEDS ORDERED: DEXTROSE 50%, 50ML SYRINGE IVPush PRN (17:00)
[2018-03-08] MEDS ORDERED: BISACODYL 10 MG SUPP PR PRN (17:00)
[2018-03-08] MEDS ORDERED: GLUCAGON 1 MG IM PRN (17:00)
[2018-03-08] MEDS ORDERED: INSULIN REGULAR 100 UNITS/ML, 3ML VIAL IVPush ONE (17:00)
[2018-03-08] MEDS ORDERED: POLYETHYLENE GLYCOL 17 GM PACKET PO PRN (17:00)
[2018-03-08] MEDS ORDERED: DOCUSATE 100 MG CAPSULE PO PRN (17:00)
[2018-03-08] MEDS ORDERED: ONDANSETRON 2MG/ML, 2ML IVPush PRN (17:00)
[2018-03-08] MEDS ORDERED: LABETALOL 5MG/ML, 20ML IVPush PRN (17:00)
[2018-03-08] MEDS ORDERED: hydrALAzine 20 MG/ML, 1ML IVPush PRN (17:00)
[2018-03-08] MEDS ORDERED: ENALAPRILAT 1.25 MG/ML, 2ML IVPush PRN (17:00)
[2018-03-08] MEDS ORDERED: INSULIN REGULAR 100 UNITS/ML, 3ML VIAL ONE (17:10)
[2018-03-08] MEDS ORDERED: OMNIPAQUE 350 MG/ML, 100ML BOTTLE ONE (17:30)
[2018-03-08 17:47] LABS: HEMOGLOBIN A1C 12.6 % (4.2-6.3)
[2018-03-08] MEDS: morphine SULFATE 10 MG/ML, 1ML IVPush PRN ×2 (18:47→21:28)
[2018-03-08 19:15] VITALS: BP 145/89
[2018-03-08] MEDS: ONDANSETRON ODT 4 MG PO PRN (19:52)
[2018-03-08] MEDS: SODIUM CHLORIDE FLUSH 10ML SYR IVF SCH (20:59)
[2018-03-08] MEDS: ENOXAPARIN 40 MG/0.4 ML SQ SCH (20:59)
[2018-03-08] MEDS: FAMOTIDINE 20 MG/2 ML IVPush SCH (20:59)
[2018-03-08] MEDS: INSULIN LISPRO 100 UNITS/ML, PEN SQ-INSULIN SCH (21:41)
[2018-03-08 22:04] LABS: CLOSTRIDIUM DIFFICILE ANTIGEN NEGATIVE; CLOSTRIDIUM DIFFICILE TOXIN NEGATIVE (Negative)
[2018-03-09 00:17] LABS: ANION GAP 4 mmol/L (5-15); CALCIUM 7.7 mg/dL (8.5-10.1); CHLORIDE 107 mmol/L (98-107); CREATININE 0.46 mg/dL (0.55-1.02)
[2018-03-09] MEDS: morphine SULFATE 10 MG/ML, 1ML IVPush PRN ×6 (00:51→20:47)
[2018-03-09 01:22] VITALS: BP 149/97
[2018-03-09] MEDS: INSULIN LISPRO 100 UNITS/ML, PEN SQ-INSULIN SCH ×4 (03:40→20:41)
[2018-03-09] MEDS: SODIUM CHLORIDE 0.9% 1,000 ML IV SCH ×3 (04:26→16:16)
[2018-03-09 05:20] LABS: BASOPHILS # (AUTO) 0.03 x10^3/uL (0-0.1); BASOPHILS % (AUTO) 0 % (0-1); EOSINOPHILS % (AUTO) 3 % (1-7); LYMPHOCYTES # (AUTO) 1.94 x10^3/uL (1-3.4); LYMPHOCYTES % (AUTO) 26 % (22-44); MD NO; MEAN CORPUSCULAR HEMOGLOBIN 29.2 pg (27.0-34.8); MEAN CORPUSCULAR HGB CONC 34.2 g/dL (32.4-35.8); MEAN CORPUSCULAR VOLUME 85.4 fL (80-100); MONOCYTES # (AUTO) 0.53 x10^3/uL (0.2-0.8); MONOCYTES % (AUTO) 7 % (2-9); NEUTROPHILS # (AUTO) 4.82 x10^3/uL (1.8-6.8); NEUTROPHILS % (AUTO) 64 % (42-75); PLATELET COUNT 239 x10^3/uL (130-400); RED BLOOD COUNT 3.93 x10^6/uL (3.82-5.3); RED CELL DISTRIBUTION WIDTH 13.8 % (9.6-15.2)
[2018-03-09 05:21] LABS: ANION GAP 6 mmol/L (5-15); CHLORIDE 105 mmol/L (98-107)
[2018-03-09 05:28] LABS: ALANINE AMINOTRANSFERASE 28 U/L (12-78); ALBUMIN 2.3 g/dL (3.4-5.0); ALKALINE PHOSPHATASE 175 U/L (45-117); BILIRUBIN,TOTAL 0.3 mg/dL (0.2-1.0); CALCIUM 7.3 mg/dL (8.5-10.1); CHOL/HDL RATIO 9.5; CHOLESTEROL, TOTAL 238 mg/dL (140-239); CREATININE 0.43 mg/dL (0.55-1.02); HDL CHOL % 11 % (28-40); HDL CHOLESTEROL (DIRECT) 25 mg/dL (40-60); TOTAL PROTEIN 5.9 g/dL (6.4-8.2); TRIGLYCERIDES 910 mg/dL (50-200)
[2018-03-09] MEDS ORDERED: POTASSIUM PHOSPHATE 44 MEQ in SODIUM CHLORIDE 0.9% 500 ML IV ONE (08:00)
[2018-03-09] MEDS ORDERED: MAGNESIUM SULFATE PMX 2GM/50ML 50 ML IV ONE (08:00)
[2018-03-09 08:30] VITALS: BP 148/67
[2018-03-09] MEDS: FAMOTIDINE 20 MG/2 ML IVPush SCH ×2 (09:00→20:47)
[2018-03-09] MEDS: SODIUM CHLORIDE FLUSH 10ML SYR IVF SCH ×2 (09:00→20:47)
[2018-03-09 13:51] VITALS: BP 156/95
[2018-03-09 20:36] VITALS: BP 162/100
[2018-03-09] MEDS: ENOXAPARIN 40 MG/0.4 ML SQ SCH (20:47)
[2018-03-10] VITALS (7 sets, daily range): BP systolic 143–160; BP diastolic 92–105
[2018-03-10] MEDS: SODIUM CHLORIDE 0.9% 1,000 ML IV SCH ×4 (00:03→20:49)
[2018-03-10] MEDS: morphine SULFATE 10 MG/ML, 1ML IVPush PRN ×2 (01:10→05:38)
[2018-03-10] MEDS: ONDANSETRON ODT 4 MG PO PRN (05:38)
[2018-03-10 05:54] LABS: BASOPHILS # (AUTO) 0.03 x10^3/uL (0-0.1); BASOPHILS % (AUTO) 0 % (0-1); EOSINOPHILS # (AUTO) 0.15 x10^3/uL (0-0.4); EOSINOPHILS % (AUTO) 2 % (1-7); LYMPHOCYTES # (AUTO) 1.07 x10^3/uL (1-3.4); LYMPHOCYTES % (AUTO) 15 % (22-44); MD NO; MEAN CORPUSCULAR HEMOGLOBIN 29.8 pg (27.0-34.8); MEAN CORPUSCULAR HGB CONC 34.7 g/dL (32.4-35.8); MEAN CORPUSCULAR VOLUME 85.8 fL (80-100); MEAN PLATELET VOLUME 7.4 fL (7.4-10.4); MONOCYTES # (AUTO) 0.58 x10^3/uL (0.2-0.8); MONOCYTES % (AUTO) 8 % (2-9); NEUTROPHILS # (AUTO) 5.21 x10^3/uL (1.8-6.8); NEUTROPHILS % (AUTO) 74 % (42-75); PLATELET COUNT 242 x10^3/uL (130-400); RED BLOOD COUNT 3.96 x10^6/uL (3.82-5.3); RED CELL DISTRIBUTION WIDTH 13.7 % (9.6-15.2)
[2018-03-10 06:19] LABS: CHLORIDE 104 mmol/L (98-107)
[2018-03-10 06:35] LABS: ALANINE AMINOTRANSFERASE 37 U/L (12-78); ALBUMIN 2.2 g/dL (3.4-5.0); ALKALINE PHOSPHATASE 154 U/L (45-117); ANION GAP 11 mmol/L (5-15); BILIRUBIN,TOTAL 0.3 mg/dL (0.2-1.0); CALCIUM 7.2 mg/dL (8.5-10.1); CREATININE 0.41 mg/dL (0.55-1.02); TOTAL PROTEIN 5.7 g/dL (6.4-8.2); TRIGLYCERIDES 831 mg/dL (50-200)
[2018-03-10] MEDS: LOSARTAN POTASSIUM 25 MG PO SCH (09:00)
[2018-03-10] MEDS: SODIUM CHLORIDE FLUSH 10ML SYR IVF SCH ×2 (09:00→20:48)
[2018-03-10] MEDS: INSULIN LISPRO 100 UNITS/ML, PEN SQ-INSULIN SCH ×4 (09:54→20:47)
[2018-03-10] MEDS: GABAPENTIN 300 MG CAPSULE PO SCH (09:54)
[2018-03-10] MEDS: FAMOTIDINE 20 MG/2 ML IVPush SCH ×2 (09:54→20:47)
[2018-03-10] MEDS: OXYcodone IR 5MG TABLET PO PRN ×2 (12:18→20:48)
[2018-03-10] MEDS: ENOXAPARIN 40 MG/0.4 ML SQ SCH (20:47)
[2018-03-10] MEDS ORDERED: NIACIN 500 MG TABLET.ER PO SCH (21:00)
[2018-03-10] MEDS ORDERED: ATORVASTATIN 40 MG TABLET PO SCH (21:00)
[2018-03-10] MEDS ORDERED: FENOFIBRATE 145 MG TABLET PO SCH (21:00)
[2018-03-10] MEDS ORDERED: ZOLPIDEM 10MG TABLET PO PRN (21:00)
[2018-03-10] MEDS ORDERED: SIMVASTATIN 20 MG TABLET PO SCH (21:00)
[2018-03-11 01:16] VITALS: BP 158/93
[2018-03-11] MEDS: OXYcodone IR 5MG TABLET PO PRN ×2 (04:54→12:28)
[2018-03-11 05:26] LABS: CHLORIDE 107 mmol/L (98-107)
[2018-03-11 05:32] LABS: ALANINE AMINOTRANSFERASE 32 U/L (12-78); ALBUMIN 2.4 g/dL (3.4-5.0); ALKALINE PHOSPHATASE 164 U/L (45-117); ANION GAP 6 mmol/L (5-15); BILIRUBIN,TOTAL 0.5 mg/dL (0.2-1.0); CALCIUM 7.9 mg/dL (8.5-10.1); CREATININE 0.54 mg/dL (0.55-1.02); TOTAL PROTEIN 6.1 g/dL (6.4-8.2); TRIGLYCERIDES 655 mg/dL (50-200)
[2018-03-11 07:53] VITALS: BP 153/94
[2018-03-11] MEDS: INSULIN LISPRO 100 UNITS/ML, PEN SQ-INSULIN SCH ×2 (08:40→12:29)
[2018-03-11] MEDS: GABAPENTIN 300 MG CAPSULE PO SCH (08:41)
[2018-03-11] MEDS: FAMOTIDINE 20 MG/2 ML IVPush SCH (08:42)
[2018-03-11] MEDS: SODIUM CHLORIDE FLUSH 10ML SYR IVF SCH (08:42)
[2018-03-11] MEDS: LOSARTAN POTASSIUM 25 MG PO SCH (08:43)
[2018-03-11] MEDS: ACETAMINOPHEN 325 MG TABLET PO PRN ×2 (08:53→12:28)
== END 2018-03-11 15:09 | disposition home or self-care (01) | DRG 637 ==
LOC: ED 16:06 → EDIP 16:07 → ED 16:16 → 3NE 18:03 → NICU 18:12
PROVIDERS: ADMIT Hospitalist; ATTEND Hospitalist
DX: E10.65 Type 1 diabetes mellitus with hyperglycemia (principal); K85.00 Idiopathic acute pancreatitis without necrosis or infection; F11.20 Opioid dependence, uncomplicated; E87.0 Hyperosmolality and hypernatremia; E87.1 Hypo-osmolality and hyponatremia; K86.1 Other chronic pancreatitis; G89.29 Other chronic pain; E86.0 Dehydration; E28.2 Polycystic ovarian syndrome; M54.9 Dorsalgia, unspecified; I10 Essential (primary) hypertension; F32.9 Major depressive disorder, single episode, unspecified; R00.0 Tachycardia, unspecified; E78.1 Pure hyperglyceridemia; E87.6 Hypokalemia; E83.42 Hypomagnesemia; E83.39 Other disorders of phosphorus metabolism; N20.0 Calculus of kidney; Z87.442 Personal history of urinary calculi; Z90.49 Acquired absence of other specified parts of digestive tract; Z79.4 Long term (current) use of insulin; Z79.899 Other long term (current) drug therapy; Z88.6 Allergy status to analgesic agent; Z88.8 Allergy status to other drugs, medicaments and biological substances
CPT/HCPCS: 36415; 84145; 99285; S0028; 74178; 80048; 80053; 80061; 81001; 82010; 82803; 82962; 83036; 83690; 83735; 83930; 84100; 84478; 85025; 87324; 96361; 96374; G0378; J1650; J1815; Q0162; Q9967; J2270; J3475; J7030; J7040

== ENCOUNTER 2018-07-13 20:34 | Inpatient (IN) | payer OTHER ==
[~2018-07-13] VITALS: Ht 157.5 cm; Wt 73.3 kg
[~2018-07-13 20:34] MED LIST changes: +BUSP5TAB2 PO; +LURA20TA PO; -METH-356 PO; +METH10TA2 PO
--- NOTE | 2018-07-13 20:45 | NUR ---
PT AMBULATED WITH STEADY GAIT TO ROOM FROM TRIAGE. PT REPORTS SHE GOT A "CILIAC BLOCK" TODAY TO TREAT HER PANCREATITIS. PT STATES BACK SPASMS STARTED AFTER PROCEDURE AND HAVE GOTTEN WORSE THROUGHOUT THE DAY. PT REPORTS SHE HAD THIS DONE X3 MONTHS AGO WELL BUT SHE HAD SOMA MUSCLE RELAXERS SHE TOOK LAST TIME WHICH HELP WITH THE BACK SPASMS. PT STATES SHE DOES NOT HAVE ANY SOMA AT THIS TIME AND DOES NOT GET MORE UNTIL "TUESDAY." PT REPORTS BACK PAIN FROM SPASMS CAUSED HER TO HAVE N/V. PT HAVING N/V IN ROOM. PT HAS BANDAGE TO BACK WHERE PT HAD PROCEDURE. PT STATES SHE HAD A "PANCREATITIS ATTACK" TODAY BEFORE THE PROCEDURE BUT SHE DID NOT TELL HER DR AND DID THE BLOCK ANYWAYS. PT A/OX4, BREATHING E/U. PT CONVERSING WELL. AWAITING MD LEE.
--- NOTE | 2018-07-13 20:48 | NUR ---
PT AMBULATED TO RESTROOM WITH STEADY GAIT FOR URINE SAMPLE.
--- NOTE | 2018-07-13 20:55 | NUR ---
PT AMBULATED BACK TO ROOM WITH STEADY GAIT. MD TO BEDSIDE FOR PT EVAL.
[2018-07-13] MEDS ORDERED: SODIUM CHLORIDE FLUSH 10ML SYR IVF ONE (21:00)
[2018-07-13] MEDS ORDERED: ONDANSETRON 2MG/ML, 2ML IVPush ONE (21:00)
[2018-07-13] MEDS ORDERED: SODIUM CHLORIDE 0.9% 1,000ML IVBOLUS ONE ×2 (21:00→23:00)
[2018-07-13 21:15] LABS: PH, VENOUS 7.504 pH (7.320-7.420)
--- NOTE | 2018-07-13 21:16 | NUR ---
IV PLACED. BLOOD DRAWN. URINE SENT TO LAB. PT RESTING IN BED WITH FAMILY AT BEDSIDE. PT TO HAVE MEDS.
[2018-07-13 21:17] LABS: BASOPHILS % (AUTO) 0 % (0-1); EOSINOPHILS % (AUTO) 0 % (1-7); LYMPHOCYTES % (AUTO) 7 % (22-44); MD NO; MEAN CORPUSCULAR HEMOGLOBIN 28.6 pg (27.0-34.8); MEAN CORPUSCULAR HGB CONC 33.8 g/dL (32.4-35.8); MEAN CORPUSCULAR VOLUME 84.7 fL (80-100); MEAN PLATELET VOLUME 8.2 fL (7.4-10.4); MONOCYTES # (AUTO) 0.44 x10^3/uL (0.2-0.8); MONOCYTES % (AUTO) 4 % (2-9); NEUTROPHILS # (AUTO) 9.85 x10^3/uL (1.8-6.8); NEUTROPHILS % (AUTO) 89 % (42-75); PLATELET COUNT 382 x10^3/uL (130-400); RED BLOOD COUNT 4.94 x10^6/uL (3.82-5.3); RED CELL DISTRIBUTION WIDTH 14.4 % (9.6-15.2)
[2018-07-13] MEDS ORDERED: ONDANSETRON 2MG/ML, 2ML ONE (21:18)
[2018-07-13] MEDS ORDERED: MORPHINE SULFATE 4 MG/ML, 1ML ONE ×2 (21:19→22:06)
[2018-07-13 21:23] LABS: ACETONE, SERUM Small (20mg/dL) mg/dL (Negative)
[2018-07-13] MEDS: MORPHINE SULFATE 4 MG/ML, 1ML IVPush PRN ×2 (21:24→22:09)
[2018-07-13 21:28] LABS: INTERNATIONAL NORMALIZED RATIO 0.93 (0.93-1.1); PROTHROMBIN TIME 9.9 Seconds (9.6-11.5)
[2018-07-13 21:29] LABS: ALANINE AMINOTRANSFERASE 59 U/L (12-78); ALBUMIN 2.9 g/dL (3.4-5.0); ANION GAP 13 mmol/L (5-15); CALCIUM 8.7 mg/dL (8.5-10.1); CHLORIDE 82 mmol/L (98-107); CREATININE 1.26 mg/dL (0.55-1.02)
[2018-07-13 21:32] LABS: ALKALINE PHOSPHATASE 265 U/L (45-117); BILIRUBIN,TOTAL 0.3 mg/dL (0.2-1.0); TOTAL PROTEIN 7.6 g/dL (6.4-8.2)
[2018-07-13 21:54] LABS: MICROSCOPIC AUTO
[2018-07-13 21:56] LABS: CULTURE INDICATED? NO
--- NOTE | 2018-07-13 21:56 | NUR ---
PT REPORTS SLIGHT IMPROVEMENT OF PAIN, 7/10 AT THIS TIME. NS CONTINUES TO INFUSE WITHOUT DIFFICULTY, APPROX 350MLS REMAINING. PT APPEARS COMFORTABLE, CONVERSING WITH FAMILY AT BEDSIDE. WILL MONITOR.
--- NOTE | 2018-07-13 22:16 | NUR ---
PT RECIEVED MORPHINE PER ORDERS, SEE EMAR. PT CBG CHECKED, READING "HIGH" ON METER. NOTIFIED. NO NEW ORDERS. PT REQUESTING ICE CHIPS. OK WITH PT HAVING ICE CHIPS, ICE CHIPS GIVEN TO PT.
--- NOTE | 2018-07-13 22:35 | NUR ---
MD TO BEDSIDE FOR PT UPDATE. PT TO HAVE MORE NS.
[2018-07-13] MEDS ORDERED: REGULAR INSULIN 62.5 UNITS in SODIUM CHLORIDE 0.9% 249.375 ML IV PRN (23:00)
--- NOTE | 2018-07-13 23:11 | NUR ---
insulin drip requested from pharmacy.
--- NOTE | 2018-07-13 23:37 | NUR ---
[facility] TO BEDSIDE FOR EVAL. INSULIN DRIP STARTED AT 5UNITS/HR, 20MLS/HR. INSULIN VERIFIED BY CORTNEY CARVALHO. BLOOD SUGAR 980 AT BLOOD DRAW, CBG JUST TAKEN STILL READING "HIGH' ON METER. WILL MONITOR.
[2018-07-13] MEDS: SODIUM CHLORIDE 0.9% 1,000 ML IV SCH (23:51)
--- NOTE | 2018-07-13 23:54 | NUR ---
SECOND IV PLACED, NS INFUSING. SECOND LITER TO BE HUNG WHEN FIRST COMPLETE, APPROX 100MLS REMAINING.
[2018-07-13] MEDS ORDERED: GABA-827 PO (23:57)
[2018-07-14] MEDS ORDERED: PROMETHAZINE 25 MG/ML, 1ML IM PRN
[2018-07-14] MEDS ORDERED: ACETAMINOPHEN 325 MG TABLET PO PRN
[2018-07-14] MEDS ORDERED: ONDANSETRON ODT 4 MG PO PRN
[2018-07-14] MEDS ORDERED: POLYETHYLENE GLYCOL 17 GM PACKET PO PRN
[2018-07-14] MEDS ORDERED: hydrALAzine 20 MG/ML, 1ML IVPush PRN
[2018-07-14] MEDS ORDERED: ONDANSETRON 2MG/ML, 2ML IVPush PRN
[2018-07-14] MEDS ORDERED: SIMVASTATIN 20 MG TABLET PO SCH
[2018-07-14] MEDS ORDERED: BISACODYL 10 MG SUPP PR PRN
--- NOTE | 2018-07-14 00:02 | NUR ---
insulin drip to be d/c per [facility] order. PT REQUESTING PAIN MEDS, [facility] TO BE NOTIFIED. REPORT TO DARÍO CARVALHO.
--- NOTE | 2018-07-14 00:04 | NUR ---
INSULIN DRIP STOPPED PER [facility] ORDER. AND SQ INSULIN TO BE INITIATED WHILE IN HOSPITAL. GIVEN ICE CHIPS PER PT REQUEST. NO IMMEDIATE NEEDS. VSS. CALL LIGHT WITHIN REACH. AWAITING ADMIT BED.
[2018-07-14 00:28] LABS: FREE T4 (FREE THYROXINE) 0.76 ng/dL (0.76-1.46); THYROID STIMULATING HORMONE 1.43 mIU/L (0.358-3.740)
[2018-07-14 00:33] LABS: HEMOGLOBIN A1C 11.6 % (4.2-6.3)
--- NOTE | 2018-07-14 00:41 | NUR ---
[facility] NOTIFIED OF PT PAIN AND REQUEST FOR PAIN MEDS. PER MD NO NEW ORDERS, GIVE TYLENOL ON EMAR.
--- NOTE | 2018-07-14 00:42 | NUR ---
REPORT FROM DARÍO CARVALHO.
--- NOTE | 2018-07-14 00:46 | NUR ---
THIS RN OFFERED PT TYLENOL. PT STATES TYLENOL DOES NOT HELP WITH HER PAIN, PT TAKES OXYCODONE AND MUSCLE RELAXERS AT HOME FOR PAIN CONTROL. PT STATES SHE DOES NOT WANT TO STAY IF HER PAIN WILL NOT BE TREATED, PT REQUESTING TO SPEAK WITH MD. GRAVES TO BEDSIDE AT THIS TIME TO SPEAK WITH PT.
--- NOTE | 2018-07-14 00:56 | NUR ---
PARTIAL REPORT GIVEN TO ESTIVEN CARVALHO. ESTIVEN STATES HE NEEDS TO SPEAK WITH HIS BOSS AND WILL CALL ME BACK.
--- NOTE | 2018-07-14 01:15 | NUR ---
AWAITING TO HEAR WHERE PT WILL BE ADMITTED TO. PER VICE PRESIDENT [facility] PT TO HAVE LANTUS IN ED. REQUEST SENT TO PHARMACY.
[2018-07-14] MEDS ORDERED: KETOROLAC 30 MG/1 ML ONE (01:16)
[2018-07-14] MEDS: KETOROLAC 30 MG/1 ML IVPush PRN (01:18)
--- NOTE | 2018-07-14 01:21 | NUR ---
CBG CHECKED, METER CONTINUES TO READ "HIGH".
[2018-07-14] MEDS: INSULIN GLARGINE 100 UNITS/ML, PEN SQ-INSULIN SCH (01:34)
--- NOTE | 2018-07-14 01:34 | NUR ---
PT RECIEVED LANTUS PER ORDERS, SEE EMAR. VERIFIED BY CORTNEY CARVALHO.
--- NOTE | 2018-07-14 01:44 | NUR ---
MD BEDOYA NOTIFIED OF PT BS 963. VERBAL ORDER TO GIVE 15 UNITS INSULIN PER SLIDING SCALE ORDERS X1 NOW, WAIT 1 HOUR THEN RECHECK BS.
[2018-07-14] MEDS ORDERED: INSULIN LISPRO 100 UNITS/ML, PEN ONE (01:48)
[2018-07-14] MEDS: INSULIN LISPRO 100 UNITS/ML, PEN SQ-INSULIN SCH ×3 (01:52→16:00)
--- NOTE | 2018-07-14 01:56 | NUR ---
PT RECIEVED HUMALOG 15UNITS PER SLIDING SCALE AND MD BEDOYA PER VERBAL ORDER. SEE EMAR. PT TO HAVE CBG CHECKED X1 HOUR. PT RESTING, BREATHNG E/U. DENIES NEEDS AT THIS TIME. WILL MONITOR. VSS.
--- NOTE | 2018-07-14 02:18 | NUR ---
PT TO RESTROOM WITH STEADY GAIT AND BACK TO ROOM. NO DISTRESS NOTED.
[2018-07-14] MEDS ORDERED: HEPARIN 5,000 UNITS/ML, 1ML ONE (02:49)
--- NOTE | 2018-07-14 02:51 | NUR ---
MED REQUEST SENT TO PHARMACY FOR MEDS DUE.
[2018-07-14] MEDS: HEPARIN 5,000 UNITS/ML, 1ML SQ SCH ×3 (02:53→22:14)
[2018-07-14] MEDS: FENOFIBRATE 145 MG TABLET PO SCH ×2 (03:03→22:13)
[2018-07-14] MEDS: BUSPIRONE 5 MG TABLET PO SCH ×3 (03:04→22:13)
--- NOTE | 2018-07-14 03:06 | NUR ---
PT RECIEVED REMAINDER OF MEDS ORDERED FOR 0000, PT STATES SHE DID NOT TAKE THOSE HS MEDS LAST NIGHT. CBG CONTINUES TO READ "HIGH", SERUM GLUCOSE TO BE TAKEN. PT AGREEABLE. PT RESTING COMFORTABLY. NS BOLUSES COMPLETED. WILL CONTINUE TO MONITOR.
--- NOTE | 2018-07-14 03:20 | NUR ---
BLOOD DRAWN FOR SERUM BS.
--- NOTE | 2018-07-14 03:35 | NUR ---
BS 813. MD BEDOYA NOTIFIED OF BS, NO NEW ORDERS, PER MD GIVE PT TIME FOR BS TO COME DOWN, CBG CHECK QHR.
--- NOTE | 2018-07-14 03:51 | NUR ---
PT PLACED ON HOSPITAL BED INSTEAD OF GURNEY, PILLOWS PROVIDED. PT RESTING COMFORTABLY. NO DISTRESS NOTED.
--- NOTE | 2018-07-14 04:28 | NUR ---
CBG 545. WILL CONTINUE TO MONITOR CBG. PT CONTINUES TO REST COMFORTABLY WATCHING TV. NO DISTRESS NOTED.
--- NOTE | 2018-07-14 05:06 | NUR ---
CBG 486, CALLING REPORT.
--- NOTE | 2018-07-14 05:16 | NUR ---
COMPLETED REPORT TO ESTIVEN CARVALHO. PT TO GO TO ROOM.
[2018-07-14 05:29] VITALS: BP 147/100
[2018-07-14] MEDS: SODIUM CHLORIDE 0.9% 1,000 ML IV SCH ×2 (06:31→08:02)
[2018-07-14 07:20] VITALS: BP 138/91
[2018-07-14 07:58] LABS: BASOPHILS # (AUTO) 0.03 x10^3/uL (0-0.1); BASOPHILS % (AUTO) 0 % (0-1); EOSINOPHILS # (AUTO) 0.08 x10^3/uL (0-0.4); EOSINOPHILS % (AUTO) 1 % (1-7); LYMPHOCYTES # (AUTO) 2.13 x10^3/uL (1-3.4); LYMPHOCYTES % (AUTO) 22 % (22-44); MD NO; MEAN CORPUSCULAR HEMOGLOBIN 28.2 pg (27.0-34.8); MEAN CORPUSCULAR HGB CONC 33.8 g/dL (32.4-35.8); MEAN CORPUSCULAR VOLUME 83.3 fL (80-100); MEAN PLATELET VOLUME 7.4 fL (7.4-10.4); MONOCYTES # (AUTO) 0.84 x10^3/uL (0.2-0.8); MONOCYTES % (AUTO) 9 % (2-9); NEUTROPHILS # (AUTO) 6.83 x10^3/uL (1.8-6.8); NEUTROPHILS % (AUTO) 69 % (42-75); PLATELET COUNT 326 x10^3/uL (130-400); RED BLOOD COUNT 3.91 x10^6/uL (3.82-5.3); RED CELL DISTRIBUTION WIDTH 13.8 % (9.6-15.2)
[2018-07-14 08:00] LABS: ALANINE AMINOTRANSFERASE 40 U/L (12-78); ALBUMIN 2.4 g/dL (3.4-5.0); ANION GAP 6 mmol/L (5-15); CALCIUM 8.1 mg/dL (8.5-10.1); CHLORIDE 102 mmol/L (98-107); CHOLESTEROL, TOTAL 196 mg/dL (140-239); CREATININE 0.82 mg/dL (0.55-1.02)
[2018-07-14 08:04] LABS: ALKALINE PHOSPHATASE 172 U/L (45-117); BILIRUBIN,TOTAL 0.2 mg/dL (0.2-1.0); HDL CHOLESTEROL (DIRECT) 20 mg/dL (40-60); TOTAL PROTEIN 5.8 g/dL (6.4-8.2); TRIGLYCERIDES 737 mg/dL (50-200)
[2018-07-14] MEDS: LOSARTAN 25MG TABLET PO SCH (09:00)
[2018-07-14] MEDS: LURASIDONE 20 MG TABLET PO SCH (09:00)
[2018-07-14] MEDS: GABAPENTIN 300 MG CAPSULE PO SCH (09:00)
[2018-07-14] MEDS: NORGESTIMATE ETHINYL ESTRADIOL HOMEMEDPO SCH (09:00)
[2018-07-14] MEDS: SENNA/DOCUSATE TABLET PO SCH (09:00)
[2018-07-14] MEDS ORDERED: POTASSIUM CHLORIDE 40 MEQ in SODIUM CHLORIDE 0.9% 500 ML IV ONE (11:00)
[2018-07-14] MEDS: OXYcodone IR 5MG TABLET PO PRN ×2 (13:16→22:15)
[2018-07-14 14:19] VITALS: BP 144/97
[2018-07-14 17:08] LABS: CHOL/HDL RATIO 9.8; HDL CHOL % 10 % (28-40)
[2018-07-14 19:00] VITALS: BP 126/78
[2018-07-14] MEDS ORDERED: SIMVASTATIN 40 MG TABLET PO SCH (21:00)
[2018-07-14] MEDS ORDERED: POTASSIUM CHLORIDE 20 MEQ TAB.ER.PRT PO ONE (21:00)
[2018-07-14] MEDS ORDERED: BUSPIRONE 10 MG TABLET ONE (22:03)
[2018-07-14] MEDS ORDERED: MAGNESIUM SULFATE PMX 2GM/50ML 50 ML IV ONE (22:30)
[2018-07-15] MEDS: INSULIN GLARGINE 100 UNITS/ML, PEN SQ-INSULIN SCH (00:28)
[2018-07-15] MEDS: INSULIN LISPRO 100 UNITS/ML, PEN SQ-INSULIN SCH ×3 (00:28→11:00)
[2018-07-15 00:33] VITALS: BP 151/91
[2018-07-15 05:00] LABS: BASOPHILS # (AUTO) 0.03 x10^3/uL (0-0.1); BASOPHILS % (AUTO) 0 % (0-1); EOSINOPHILS # (AUTO) 0.36 x10^3/uL (0-0.4); EOSINOPHILS % (AUTO) 5 % (1-7); LYMPHOCYTES # (AUTO) 2.54 x10^3/uL (1-3.4); LYMPHOCYTES % (AUTO) 32 % (22-44); MD NO; MEAN CORPUSCULAR HEMOGLOBIN 29.1 pg (27.0-34.8); MEAN CORPUSCULAR HGB CONC 34.7 g/dL (32.4-35.8); MEAN CORPUSCULAR VOLUME 83.8 fL (80-100); MEAN PLATELET VOLUME 7.9 fL (7.4-10.4); MONOCYTES % (AUTO) 6 % (2-9); NEUTROPHILS # (AUTO) 4.44 x10^3/uL (1.8-6.8); NEUTROPHILS % (AUTO) 56 % (42-75); PLATELET COUNT 284 x10^3/uL (130-400); RED BLOOD COUNT 3.62 x10^6/uL (3.82-5.3); RED CELL DISTRIBUTION WIDTH 14.3 % (9.6-15.2)
[2018-07-15 05:11] LABS: ANION GAP 5 mmol/L (5-15); CALCIUM 7.8 mg/dL (8.5-10.1); CHLORIDE 107 mmol/L (98-107)
[2018-07-15 05:13] LABS: CREATININE 0.45 mg/dL (0.55-1.02)
[2018-07-15] MEDS: KETOROLAC 30 MG/1 ML IVPush PRN (06:18)
[2018-07-15] MEDS: OXYcodone IR 5MG TABLET PO PRN ×2 (06:19→14:11)
[2018-07-15] MEDS: HEPARIN 5,000 UNITS/ML, 1ML SQ SCH ×2 (06:19→14:00)
[2018-07-15 06:36] VITALS: BP 138/91
[2018-07-15] MEDS ORDERED: BUSPIRONE 10 MG TABLET ONE (08:06)
[2018-07-15] MEDS: LURASIDONE 20 MG TABLET PO SCH (08:09)
[2018-07-15] MEDS: BUSPIRONE 5 MG TABLET PO SCH (08:10)
[2018-07-15] MEDS: GABAPENTIN 300 MG CAPSULE PO SCH (08:11)
[2018-07-15] MEDS: SENNA/DOCUSATE TABLET PO SCH (08:11)
[2018-07-15] MEDS: LOSARTAN 25MG TABLET PO SCH (08:11)
[2018-07-15] MEDS: NORGESTIMATE ETHINYL ESTRADIOL HOMEMEDPO SCH (08:11)
[2018-07-15] MEDS ORDERED: INSU100I11 SQ-INSULIN (13:56)
[2018-07-15] MEDS ORDERED: INSU100I13 SQ-INSULIN (13:56)
[2018-07-15] MEDS ORDERED: ONDA4TAB7 PO (13:56)
[2018-07-15 14:17] VITALS: BP 151/92
== END 2018-07-15 14:50 | disposition home or self-care (01) | DRG 637 ==
LOC: ED 21:20 → EDIP 23:05 → 4NOR 07-14 05:20
PROVIDERS: ADMIT Internal Medicine; ATTEND Internal Medicine
PROC: BD15YZZ Fluoroscopy of Upper GI using Other Contrast (ICD-10-PCS; principal; 2018-07-15)
DX: E11.00 Type 2 diabetes mellitus with hyperosmolarity without nonketotic hyperglycemic-hyperosmolar coma (NKHHC) (principal); E43 Unspecified severe protein-calorie malnutrition; N17.0 Acute kidney failure with tubular necrosis; K86.1 Other chronic pancreatitis; E78.1 Pure hyperglyceridemia; F32.9 Major depressive disorder, single episode, unspecified; I10 Essential (primary) hypertension; E66.9 Obesity, unspecified; Z79.4 Long term (current) use of insulin; Z87.442 Personal history of urinary calculi; Z90.49 Acquired absence of other specified parts of digestive tract; Z88.6 Allergy status to analgesic agent; Z87.891 Personal history of nicotine dependence; Z68.29 Body mass index [BMI] 29.0-29.9, adult
CPT/HCPCS: 36415; 74241; 78264; 80048; 80053; 80061; 80307; 81001; 82010; 82150; 82803; 82947; 82962; 83036; 83690; 83735; 83930; 84439; 84443; 84703; 85025; 85610; 85730; 99291; G0378; J1644; J1885; J2405; J3480; A9541; C9898; J1815; J3475; J7030; J7040

== ENCOUNTER 2018-08-11 18:50 | Emergency (ER) | payer OTHER ==
[~2018-08-11] VITALS: Ht 154.9 cm; Wt 76.0 kg
[~2018-08-11 18:50] MED LIST changes: +GABA-827 PO; +INSU100I11 SQ-INSULIN; +INSU100I13 SQ-INSULIN
--- NOTE | 2018-08-11 19:04 | NUR ---
Pt ambulated to room with EDT.
--- NOTE | 2018-08-11 19:06 | NUR ---
Dr. Lunsford at bedside to evaluate pt.
[2018-08-11] MEDS ORDERED: SODIUM CHLORIDE 0.9% 1,000 ML IV ONE (19:09)
--- NOTE | 2018-08-11 19:12 | NUR ---
PIV started, labs drawn and sent with screedman/laborer. Pt medicated per AUG.
[2018-08-11] MEDS ORDERED: ONDANSETRON 2MG/ML, 2ML ONE (19:15)
[2018-08-11] MEDS ORDERED: HYDROmorphone 1 MG/ML, 1ML ONE ×2 (19:15→20:08)
[2018-08-11] MEDS ORDERED: SODIUM CHLORIDE FLUSH 10ML SYR IVF ONE (19:30)
[2018-08-11] MEDS ORDERED: ONDANSETRON 2MG/ML, 2ML IVPush ONE (19:30)
[2018-08-11] MEDS: HYDROmorphone 2 MG/ML, 1ML IVPush PRN ×2 (19:30→20:40)
[2018-08-11 19:41] LABS: BASOPHILS # (AUTO) 0.02 x10^3/uL (0-0.1); BASOPHILS % (AUTO) 0 % (0-1); EOSINOPHILS % (AUTO) 1 % (1-7); LYMPHOCYTES # (AUTO) 1.03 x10^3/uL (1-3.4); LYMPHOCYTES % (AUTO) 13 % (22-44); MD NO; MEAN CORPUSCULAR HGB CONC 32.8 g/dL (32.4-35.8); MEAN CORPUSCULAR VOLUME 85.2 fL (80-100); MEAN PLATELET VOLUME 8.5 fL (7.4-10.4); MONOCYTES # (AUTO) 0.59 x10^3/uL (0.2-0.8); MONOCYTES % (AUTO) 8 % (2-9); NEUTROPHILS # (AUTO) 5.97 x10^3/uL (1.8-6.8); NEUTROPHILS % (AUTO) 77 % (42-75); PLATELET COUNT 306 x10^3/uL (130-400); RED BLOOD COUNT 4.28 x10^6/uL (3.82-5.3); RED CELL DISTRIBUTION WIDTH 14.9 % (9.6-15.2)
[2018-08-11 19:47] LABS: INTERNATIONAL NORMALIZED RATIO 0.93 (0.93-1.1); PROTHROMBIN TIME 9.9 Seconds (9.6-11.5)
[2018-08-11 19:48] LABS: ALANINE AMINOTRANSFERASE 40 U/L (12-78); ALBUMIN 2.7 g/dL (3.4-5.0); ANION GAP 9 mmol/L (5-15); CALCIUM 8.6 mg/dL (8.5-10.1); CHLORIDE 99 mmol/L (98-107)
[2018-08-11 19:51] LABS: ALKALINE PHOSPHATASE 219 U/L (45-117); CREATININE 1.25 mg/dL (0.55-1.02); TOTAL PROTEIN 6.9 g/dL (6.4-8.2)
[2018-08-11 19:55] LABS: BILIRUBIN,TOTAL < 0.1 mg/dL (0.2-1.0)
[2018-08-11 20:08] LABS: HCG UR SG 1.038 (1.003-1.030); MICROSCOPIC AUTO
[2018-08-11 20:09] LABS: CULTURE INDICATED? NO
[2018-08-11] MEDS ORDERED: INSULIN LISPRO 100 UNITS/ML, PEN ONE (20:14)
[2018-08-11 20:16] LABS: ACETONE, SERUM Negative (Negative)
--- NOTE | 2018-08-11 20:19 | NUR ---
Pt to imaging, with tech, via [place].
[2018-08-11] MEDS ORDERED: SODIUM CHLORIDE 0.9% 1,000ML IVBOLUS ONE (20:30)
[2018-08-11] MEDS ORDERED: INSULIN REGULAR 100 UNITS/ML, 3ML VIAL SQ-INSULIN ONE (20:30)
--- NOTE | 2018-08-11 20:41 | NUR ---
Pt medicated per MAR, with insulin. BS to be checked in 1 hour.
[2018-08-11] MEDS ORDERED: POTASSIUM CHLORIDE 20 MEQ TAB.ER.PRT PO ONE (21:30)
--- NOTE | 2018-08-11 21:45 | NUR ---
FS: 253. MD made aware, pt to be monitored for hypoglycemia, recheck BS in 1 hour.
[2018-08-11] MEDS ORDERED: POTASSIUM CHLORIDE 20 MEQ TAB.ER.PRT ONE (22:00)
--- NOTE | 2018-08-11 22:02 | NUR ---
Pt medicated per MAR for pain. Addendum: 08/12/18 at 0024 by RRODEMILIEUEZ Medicated per MAR for potassium replacement.
--- NOTE | 2018-08-11 22:09 | NUR ---
Dr. Lunsford at bedside to discuss ED findings and POC.
--- NOTE | 2018-08-11 22:45 | NUR ---
FS 150, made aware, pt to continue to be watched x 1 more hour.
[2018-08-11] MEDS ORDERED: KETOROLAC 30 MG/1 ML ONE (22:54)
[2018-08-11] MEDS ORDERED: KETOROLAC 30 MG/1 ML IVPush ONE (23:00)
--- NOTE | 2018-08-11 23:01 | NUR ---
Pt medicated, per MAR. Labs drawn.
--- NOTE | 2018-08-11 23:45 | NUR ---
FS 87, pt to be given juice and discharged. Pt given instructions to eat some food [facility].
[2018-08-11 23:57] VITALS: BP 135/84
--- NOTE | 2018-08-12 00:01 | NUR ---
Pt given juice.
--- NOTE | 2018-08-12 00:21 | NUR ---
Patient/Caregiver given discharge instructions and they have confirmed that they understand the instructions. Patient ambulatory with steady gait.
[2018-08-12] MEDS ORDERED: OMNIPAQUE 350 MG/ML, 100ML BOTTLE ONE (01:47)
== END 2018-08-12 00:28 | disposition home or self-care (01) ==
LOC: ED 19:05
DX: K52.9 Noninfective gastroenteritis and colitis, unspecified (principal); E10.65 Type 1 diabetes mellitus with hyperglycemia; G89.29 Other chronic pain; Z88.5 Allergy status to narcotic agent
CPT/HCPCS: 36415; 74177; 80053; 81001; 81025; 82010; 82962; 83605; 83690; 85025; 85610; 85730; 96361; 96372; 96374; 96375; 96376; 99284; J1170; J1885; J2405; J7030; Q9967

== ENCOUNTER 2018-09-02 00:35 | Emergency (ER) | payer OTHER ==
[~2018-09-02] VITALS: Ht 157.5 cm; Wt 73.1 kg
[2018-09-02 00:41] VITALS: BP 170/103
[2018-09-02] MEDS ORDERED: MORPHINE SULFATE 4 MG/ML, 1ML IVPush PRN (01:30)
[2018-09-02] MEDS ORDERED: ONDANSETRON 2MG/ML, 2ML IVPush ONE (01:30)
[2018-09-02] MEDS ORDERED: MORPHINE SULFATE 4 MG/ML, 1ML ONE ×2 (01:46→03:30)
[2018-09-02] MEDS ORDERED: ONDANSETRON 2MG/ML, 2ML ONE (01:46)
[2018-09-02 01:48] LABS: BASOPHILS # (AUTO) 0.02 x10^3/uL (0-0.1); BASOPHILS % (AUTO) 0 % (0-1); EOSINOPHILS # (AUTO) 0.15 x10^3/uL (0-0.4); EOSINOPHILS % (AUTO) 2 % (1-7); LYMPHOCYTES # (AUTO) 1.32 x10^3/uL (1-3.4); LYMPHOCYTES % (AUTO) 20 % (22-44); MD NO; MEAN CORPUSCULAR HEMOGLOBIN 27.8 pg (27.0-34.8); MEAN CORPUSCULAR HGB CONC 34.1 g/dL (32.4-35.8); MEAN CORPUSCULAR VOLUME 81.6 fL (80-100); MEAN PLATELET VOLUME 8.4 fL (7.4-10.4); MONOCYTES # (AUTO) 0.62 x10^3/uL (0.2-0.8); MONOCYTES % (AUTO) 9 % (2-9); NEUTROPHILS # (AUTO) 4.52 x10^3/uL (1.8-6.8); NEUTROPHILS % (AUTO) 68 % (42-75); PLATELET COUNT 273 x10^3/uL (130-400); RED BLOOD COUNT 4.28 x10^6/uL (3.82-5.3); RED CELL DISTRIBUTION WIDTH 15.3 % (9.6-15.2)
[2018-09-02 01:56] LABS: ALANINE AMINOTRANSFERASE 19 U/L (12-78); ALBUMIN 2.6 g/dL (3.4-5.0); ANION GAP 9 mmol/L (5-15); CALCIUM 8.3 mg/dL (8.5-10.1); CHLORIDE 93 mmol/L (98-107); CREATININE 1.04 mg/dL (0.55-1.02)
[2018-09-02 01:58] LABS: ALKALINE PHOSPHATASE 142 U/L (45-117); BILIRUBIN,TOTAL 0.2 mg/dL (0.2-1.0); TOTAL PROTEIN 6.5 g/dL (6.4-8.2)
[2018-09-02] MEDS ORDERED: INSULIN REGULAR 100 UNITS/ML, 3ML VIAL IVPush ONE (02:30)
[2018-09-02] MEDS ORDERED: SODIUM CHLORIDE 0.9% 1,000ML IVBOLUS ONE (02:30)
--- NOTE | 2018-09-02 02:30 | NUR ---
pt in gown in [facility]. pt attached to vs machines. iv access obtained. pt medicated per aug. call light is within reach at this time. mother at bs with pt.
[2018-09-02] MEDS ORDERED: INSULIN REGULAR 100 UNITS/ML, 3ML VIAL ONE (02:39)
--- NOTE | 2018-09-02 02:52 | NUR ---
pt medicated per mar.
--- NOTE | 2018-09-02 04:24 | NUR ---
pt d/c with d/c summary and scripts. all questions answered. pt ambulated to registration desk with steady gait for d/c home. pt denies any other needs pertaining to this visit.
== END 2018-09-02 04:35 | disposition home or self-care (01) ==
LOC: ED 03:50
DX: E10.65 Type 1 diabetes mellitus with hyperglycemia (principal); R11.2 Nausea with vomiting, unspecified; R10.13 Epigastric pain; R10.12 Left upper quadrant pain
CPT/HCPCS: 36415; 80053; 82962; 83690; 85025; 96374; 96375; 99283; J2405; J7030

== ENCOUNTER 2018-10-25 16:48 | Emergency (ER) | payer OTHER ==
[~2018-10-25] VITALS: Ht 157.5 cm; Wt 68.4 kg
--- NOTE | 2018-10-25 17:19 | NUR ---
URINE COLLECTED/SENT TO LAB. WAYS OPERATOR IN TO DRAW BLOOD. BP CUFF, PULSE OX IN PLACE, CALL LIGHT WITHIN REACH. WARM BLANKET PROVIDED.
[2018-10-25 17:29] LABS: BASOPHILS # (AUTO) 0.06 x10^3/uL (0-0.1); BASOPHILS % (AUTO) 1 % (0-1); EOSINOPHILS % (AUTO) 2 % (1-7); LYMPHOCYTES # (AUTO) 1.64 x10^3/uL (1-3.4); LYMPHOCYTES % (AUTO) 14 % (22-44); MD NO; MEAN CORPUSCULAR HEMOGLOBIN 28.3 pg (27.0-34.8); MEAN CORPUSCULAR HGB CONC 33.7 g/dL (32.4-35.8); MEAN CORPUSCULAR VOLUME 83.8 fL (80-100); MEAN PLATELET VOLUME 8.5 fL (7.4-10.4); MONOCYTES # (AUTO) 0.58 x10^3/uL (0.2-0.8); MONOCYTES % (AUTO) 5 % (2-9); NEUTROPHILS # (AUTO) 9.19 x10^3/uL (1.8-6.8); NEUTROPHILS % (AUTO) 79 % (42-75); PLATELET COUNT 326 x10^3/uL (130-400); RED BLOOD COUNT 4.91 x10^6/uL (3.82-5.3)
[2018-10-25 17:30] LABS: MICROSCOPIC AUTO
[2018-10-25 17:31] LABS: CULTURE INDICATED? YES
[2018-10-25 17:43] LABS: ALBUMIN 2.9 g/dL (3.4-5.0); ANION GAP 8 mmol/L (5-15); CALCIUM 8.9 mg/dL (8.5-10.1); CHLORIDE 102 mmol/L (98-107)
[2018-10-25 17:50] LABS: ALANINE AMINOTRANSFERASE 23 U/L (12-78); ALKALINE PHOSPHATASE 181 U/L (45-117); CREATININE 0.64 mg/dL (0.55-1.02); TOTAL PROTEIN 7.4 g/dL (6.4-8.2)
[2018-10-25 17:58] LABS: BILIRUBIN,TOTAL < 0.1 mg/dL (0.2-1.0)
[2018-10-25] MEDS ORDERED: SODIUM CHLORIDE 0.9% 1,000ML IVBOLUS ONE (18:00)
[2018-10-25] MEDS ORDERED: ONDANSETRON 2MG/ML, 2ML IVPush ONE (18:00)
[2018-10-25] MEDS ORDERED: SODIUM CHLORIDE FLUSH 10ML SYR IVF ONE (18:00)
[2018-10-25 18:11] LABS: ACETONE, SERUM Negative (Negative)
[2018-10-25] MEDS ORDERED: ONDANSETRON 2MG/ML, 2ML ONE (19:00)
[2018-10-25] MEDS ORDERED: MORPHINE SULFATE 4 MG/ML, 1ML ONE ×2 (19:01→19:36)
[2018-10-25] MEDS: MORPHINE SULFATE 4 MG/ML, 1ML IVPush PRN ×2 (19:05→19:38)
--- NOTE | 2018-10-25 19:05 | NUR ---
PT MEDICATED FOR 8/10 ABD PAIN, N/V. CALL LIGHT WITHIN REACH.
--- NOTE | 2018-10-25 19:19 | NUR ---
ADD ON ORDER XRAY.
--- NOTE | 2018-10-25 19:39 | NUR ---
PAIN RATED 7/10, PT REMEDICATED PER ERP ORDER
--- NOTE | 2018-10-25 20:09 | NUR ---
ADD ON CXR ORDER
[2018-10-25] MEDS ORDERED: METHYLNALTREXONE 12 MG/0.6 ML SYR SQ ONE (20:33)
--- NOTE | 2018-10-25 20:38 | NUR ---
PT STATES PAIN IMPROVED, RATED 6/10. RELISTOR GIVEN PER ERP ORDER. AWAITING DISCHARGE PAPERWORK.
[2018-10-25] MEDS ORDERED: METHYLNALTREXONE 12 MG/0.6 ML SQ ONE (21:00)
[2018-10-25 21:18] VITALS: BP 122/61
== END 2018-10-25 21:20 | disposition home or self-care (01) ==
LOC: ED 18:01
DX: K59.00 Constipation, unspecified (principal); R11.2 Nausea with vomiting, unspecified; G89.29 Other chronic pain; E10.65 Type 1 diabetes mellitus with hyperglycemia
CPT/HCPCS: 36415; 71046; 74021; 80053; 81001; 82010; 83690; 83735; 84703; 85025; 87077; 87086; 87147; 96372; 96374; 96375; 96376; 99284; J2405; J7030

== ENCOUNTER 2018-11-21 18:32 | Inpatient (IN) | payer OTHER ==
[~2018-11-21] VITALS: Ht 162.6 cm; Wt 73.4 kg
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
[2018-11-21] MEDS ORDERED: SODIUM CHLORIDE 0.9% 1,000ML IVBOLUS ONE (19:00)
--- NOTE | 2018-11-21 19:12 | NUR ---
REPORT RECEIVED FROM MAIA BETTENCOURT. ASSUMED CARE OF PT. PT RESTLESS AND MOANING. PT RESPONDS TO HER NAME BEING CALLED BUT IS NOT ANSWERING QUESTIONS APPROPRIATELY AT THIS TIME. PER DAUGHTER AT BEDSIDE, THIS IS SIMILAR TO HOW PATIENT ACTS WITH SOMA OVERDOSES. PER PT'S DAUGHTER AND FATHER IN LAW, PT HAS NEVER BEEN SUICIDAL OR EXPRESSED THOSE THOUGHTS RECENTLY. SKIN SLIGHTLY DIAPHORETIC, COOL TO TOUCH AND PINK. PT ON CONT BP, CARDIAC AND O2 MONITORS. WILL CONT TO MONITOR PT.
[2018-11-21 19:14] LABS: BASOPHILS # (AUTO) 0.01 x10^3/uL (0-0.1); BASOPHILS % (AUTO) 0 % (0-1); EOSINOPHILS # (AUTO) 0.05 x10^3/uL (0-0.4); EOSINOPHILS % (AUTO) 0 % (1-7); LYMPHOCYTES # (AUTO) 1.51 x10^3/uL (1-3.4); LYMPHOCYTES % (AUTO) 11 % (22-44); MD NO; MEAN CORPUSCULAR HEMOGLOBIN 28.8 pg (27.0-34.8); MEAN CORPUSCULAR HGB CONC 33.3 g/dL (32.4-35.8); MEAN CORPUSCULAR VOLUME 86.5 fL (80-100); MEAN PLATELET VOLUME 7.6 fL (7.4-10.4); MONOCYTES # (AUTO) 0.49 x10^3/uL (0.2-0.8); MONOCYTES % (AUTO) 4 % (2-9); NEUTROPHILS # (AUTO) 11.15 x10^3/uL (1.8-6.8); NEUTROPHILS % (AUTO) 84 % (42-75); PLATELET COUNT 411 x10^3/uL (130-400); RED BLOOD COUNT 4.74 x10^6/uL (3.82-5.3); RED CELL DISTRIBUTION WIDTH 16.3 % (9.6-15.2)
[2018-11-21] MEDS ORDERED: LORazepam 2 MG/ML, 1ML ONE ×2 (19:19→20:34)
[2018-11-21 19:21] LABS: ALBUMIN 2.9 g/dL (3.4-5.0); ANION GAP 11 mmol/L (5-15); CALCIUM 8.8 mg/dL (8.5-10.1); CHLORIDE 100 mmol/L (98-107)
[2018-11-21 19:23] LABS: SALICYLATE LEVEL < 1.7 mg/dL (2.8-20.0)
[2018-11-21 19:24] LABS: ACETAMINOPHEN < 2 mcg/mL (10-30); ALANINE AMINOTRANSFERASE 20 U/L (12-78); ALKALINE PHOSPHATASE 218 U/L (45-117); BILIRUBIN,TOTAL 0.2 mg/dL (0.2-1.0); CREATININE 0.91 mg/dL (0.55-1.02); TOTAL PROTEIN 7.3 g/dL (6.4-8.2)
[2018-11-21] MEDS ORDERED: LORazepam 2 MG/ML, 1ML IVPush ONE ×2 (19:30→21:00)
[2018-11-21 20:13] LABS: AMPHETAMINE SCREEN, URINE Negative (Negative); BARBITURATE SCREEN, URINE Negative (Negative); BENZODIAZEPINE SCREEN, URINE Negative (Negative); CANNABINOID SCREEN, URINE Negative (Negative); COCAINE SCREEN, URINE Negative (Negative); METHADONE SCREEN, URINE Negative (Negative); OPIATE SCREEN, URINE Positive (Negative)
[2018-11-21 20:21] LABS: MICROSCOPIC AUTO
--- NOTE | 2018-11-21 20:30 | NUR ---
PT CONT TO BE RESTLESS. PT IS AO X SELF BUT MAKES INCOMPREHENSIBLE SOUNDS IN RESPONSE. SKIN COOL TO TOUCH, DIAPHORETIC AND PINK. PT'S VS DIFFICULT TO ASSESS D/T PT'S RESTLESS MOVEMENTS, PULLING OFF STICKERS AND DIAPHORESIS. SITTER AT BEDSIDE WITH PT. DISCUSSED WITH XOCHITL MAY. WILL REMEDICATE PT ORDERED.
[2018-11-21 20:31] LABS: CULTURE INDICATED? YES
[2018-11-21 20:56] LABS: ACETONE, SERUM Negative (Negative)
[2018-11-21] MEDS ORDERED: SODIUM CHLORIDE 0.9%, 500ML IVBOLUS ONE (21:00)
[2018-11-21] MEDS ORDERED: INSULIN REGULAR 100 UNITS/ML, 3ML VIAL SQ-INSULIN ONE (21:00)
--- NOTE | 2018-11-21 21:01 | NUR ---
PT REMEDICATED WITH NO CHANGE IN MENTAL STATUS. PT CONT TO BE ALTERED, RESTLESS, AND UNABLE TO MONITOR OR RUN IVF D/T PT'S CONSTANT MUSCLES SPASMS, RESTLESSNESS AND PULLING OFF STICKERS. DISCUSSED WITH XOCHITL MAY AND PT MOVED TO TR04. REPORT TO MAIA CRUZ WHO ASSUMED CARE OF PT.
[2018-11-21] MEDS ORDERED: ACETAMINOPHEN 325 MG TABLET PO PRN (21:30)
[2018-11-21] MEDS ORDERED: PROPOFOL 10 MG/ML, 20ML IVPush ONE (21:30)
[2018-11-21] MEDS ORDERED: DOCUSATE 100 MG CAPSULE PO PRN (21:30)
[2018-11-21] MEDS ORDERED: BISACODYL 10 MG SUPP PR PRN (21:30)
[2018-11-21] MEDS ORDERED: ONDANSETRON ODT 4 MG PO PRN (21:30)
[2018-11-21] MEDS ORDERED: hydrALAzine 20 MG/ML, 1ML IVPush PRN (21:30)
[2018-11-21] MEDS ORDERED: PROPOFOL 100 ML IV SCH (21:30)
[2018-11-21] MEDS ORDERED: ONDANSETRON 2MG/ML, 2ML IVPush PRN (21:30)
[2018-11-21] MEDS ORDERED: POLYETHYLENE GLYCOL 17 GM PACKET PO PRN (21:30)
[2018-11-21] MEDS ORDERED: morphine SULFATE 10 MG/ML, 1ML IVPush PRN (21:30)
[2018-11-21] MEDS ORDERED: SUCCINYLCHOLINE 20 MG/ML, 10ML IVPush ONE (21:30)
[2018-11-21] MEDS ORDERED: PROMETHAZINE 25 MG/ML, 1ML IM PRN (21:30)
[2018-11-21] MEDS ORDERED: FAMOTIDINE 20 MG/2 ML ONE (21:44)
[2018-11-21] MEDS ORDERED: HEPARIN 5,000 UNITS/ML, 1ML ONE (21:44)
[2018-11-21] MEDS ORDERED: INSULIN SINGLE DOSE, ER SQ-INSULIN ONE (21:45)
[2018-11-21] MEDS: FAMOTIDINE 20 MG/2 ML IVPush SCH (21:46)
[2018-11-21] MEDS: HEPARIN 5,000 UNITS/ML, 1ML SQ SCH (21:46)
[2018-11-21] MEDS ORDERED: MIDAZOLAM 1 MG/ML, 5ML IVPush ONE (22:00)
[2018-11-21] MEDS ORDERED: FENTANYL PF 100 MCG/2ML ONE (22:04)
[2018-11-21 22:07] LABS: FREE T4 (FREE THYROXINE) 1.27 ng/dL (0.76-1.46); THYROID STIMULATING HORMONE 4.07 mIU/L (0.358-3.740)
[2018-11-21 22:15] LABS: HEMOGLOBIN A1C 12.4 % (4.2-6.3)
[2018-11-21] MEDS ORDERED: PHARMACY MAY ADJ FOR RENAL FX MC SCH (22:30)
[2018-11-21] MEDS ORDERED: LIDOCAINE-MPF 1%, 2ML ENDO PRN (22:30)
[2018-11-21] MEDS ORDERED: FENTANYL PF 100 MCG/2ML IVPush ONE (22:30)
[2018-11-21] MEDS ORDERED: VECURONIUM 10 MG IVPush ONE (22:30)
--- NOTE | 2018-11-21 22:50 | NUR ---
LATE ENTRY: PT REMAINED AGITATED DESPITE RECEIVING MAXIMUM DOSE OF PROPOFOL. ERMD ORDERED [id number] WHICH ALSO HAD NO EFFECT ON THE PTS AGITATION. PT REMAINED HYPERTENSIVE. MD INFORMED. PT GIVEN 100MCGFENTANYL AT WHICH POINT PT BECAME HYPOTENSIVE WITH SYSTOLIC IN THE 70S. MD INFORMED. NS GIVEN VIA PRESSURE BAG. PER MD BRING PT TO CT PRIOR TO TRANSPORT TO ADMIT BED. ERMD ORDERED VECURONIUM 10MG TO BE GIVEN PRIOR TO HEAD CT. VEC GIVEN. THIS RN, RT, AND SINKER WINDER ACCOMPANIED PT TO CT AND THEN TO CCU WITHOUT INCIDENT. BEDSIDE REPORT GIVEN TO TIA CCU RN.
[2018-11-21] MEDS: SODIUM CHLORIDE 0.9% 1,000 ML IV SCH (23:17)
[2018-11-22] MEDS ORDERED: PROPOFOL 10 MG/ML, 20ML ONE
[2018-11-22] MEDS ORDERED: VECURONIUM 10 MG ONE
[2018-11-22] MEDS ORDERED: SUCCINYLCHOLINE 20 MG/ML, 10ML ONE
[2018-11-22] MEDS ORDERED: PROPOFOL 10 MG/ML, 100ML IV ONE
[2018-11-22] MEDS ORDERED: MIDAZOLAM 1 MG/ML, 5ML ONE
[2018-11-22] MEDS: PROPOFOL 100 ML IV PRN ×2 (01:06→06:03)
[2018-11-22] MEDS ORDERED: INSULIN LISPRO 100 UNITS/ML, PEN SQ-INSULIN SCH (03:00)
[2018-11-22 04:20] LABS: BASOPHILS # (AUTO) 0.04 x10^3/uL (0-0.1); BASOPHILS % (AUTO) 0 % (0-1); EOSINOPHILS # (AUTO) 0.02 x10^3/uL (0-0.4); EOSINOPHILS % (AUTO) 0 % (1-7); LYMPHOCYTES # (AUTO) 1.58 x10^3/uL (1-3.4); LYMPHOCYTES % (AUTO) 13 % (22-44); MD NO; MEAN CORPUSCULAR HEMOGLOBIN 27.9 pg (27.0-34.8); MEAN CORPUSCULAR HGB CONC 32.1 g/dL (32.4-35.8); MEAN CORPUSCULAR VOLUME 86.9 fL (80-100); MEAN PLATELET VOLUME 7.4 fL (7.4-10.4); MONOCYTES # (AUTO) 0.65 x10^3/uL (0.2-0.8); MONOCYTES % (AUTO) 5 % (2-9); NEUTROPHILS # (AUTO) 10.34 x10^3/uL (1.8-6.8); NEUTROPHILS % (AUTO) 82 % (42-75); PLATELET COUNT 294 x10^3/uL (130-400); RED BLOOD COUNT 3.32 x10^6/uL (3.82-5.3); RED CELL DISTRIBUTION WIDTH 15.8 % (9.6-15.2)
[2018-11-22 04:29] LABS: ALBUMIN 1.9 g/dL (3.4-5.0); ANION GAP 6 mmol/L (5-15); CALCIUM 7.4 mg/dL (8.5-10.1); CHLORIDE 114 mmol/L (98-107)
[2018-11-22 04:35] LABS: ALANINE AMINOTRANSFERASE 15 U/L (12-78); ALKALINE PHOSPHATASE 139 U/L (45-117); CHOL/HDL RATIO 6.9; CHOLESTEROL, TOTAL 158 mg/dL (140-239); CREATININE 0.49 mg/dL (0.55-1.02); HDL CHOL % 15 % (28-40); HDL CHOLESTEROL (DIRECT) 23 mg/dL (40-60); TOTAL PROTEIN 4.9 g/dL (6.4-8.2); TRIGLYCERIDES 534 mg/dL (50-200)
[2018-11-22 04:37] LABS: BILIRUBIN,TOTAL < 0.1 mg/dL (0.2-1.0)
[2018-11-22] MEDS: HEPARIN 5,000 UNITS/ML, 1ML SQ SCH ×3 (05:49→21:02)
[2018-11-22] MEDS: SODIUM CHLORIDE 0.9% 1,000 ML IV SCH ×2 (06:03→13:22)
[2018-11-22] MEDS: INSULIN LISPRO 100 UNITS/ML, PEN SQ-INSULIN SCH ×4 (07:00→21:11)
[2018-11-22] MEDS: FAMOTIDINE 20 MG/2 ML IVPush SCH ×2 (08:00→21:01)
[2018-11-22] MEDS ORDERED: MAGNESIUM SULFATE PMX 2GM/50ML 50 ML IV ONE (09:00)
[2018-11-22] MEDS: PIPERACILLIN/TAZO/PMX 3.375GM 50 ML IV SCH ×3 (09:28→21:02)
[2018-11-22] MEDS: MIDAZOLAM HCL 25 MG in SODIUM CHLORIDE 0.9% 245 ML IV PRN ×2 (09:29→13:33)
[2018-11-22] MEDS ORDERED: DEXTROSE 50%, 50ML SYRINGE IVPush ONE ×3 (11:30→16:00)
[2018-11-22] MEDS: D5%-0.9% NACL 1,000 ML IV SCH (15:59)
[2018-11-22] MEDS: OXYcodone IR 5MG TABLET PO PRN ×2 (16:35→21:01)
[2018-11-23] MEDS: OXYcodone IR 5MG TABLET PO PRN ×4 (01:00→17:48)
[2018-11-23] MEDS: D5%-0.9% NACL 1,000 ML IV SCH (03:03)
[2018-11-23 04:31] LABS: BASOPHILS # (AUTO) 0.03 x10^3/uL (0-0.1); BASOPHILS % (AUTO) 0 % (0-1); EOSINOPHILS # (AUTO) 0.27 x10^3/uL (0-0.4); EOSINOPHILS % (AUTO) 3 % (1-7); LYMPHOCYTES # (AUTO) 1.62 x10^3/uL (1-3.4); LYMPHOCYTES % (AUTO) 16 % (22-44); MD NO; MEAN CORPUSCULAR HEMOGLOBIN 28.8 pg (27.0-34.8); MEAN CORPUSCULAR HGB CONC 33.1 g/dL (32.4-35.8); MEAN CORPUSCULAR VOLUME 87.2 fL (80-100); MEAN PLATELET VOLUME 7.3 fL (7.4-10.4); MONOCYTES # (AUTO) 0.54 x10^3/uL (0.2-0.8); MONOCYTES % (AUTO) 5 % (2-9); NEUTROPHILS # (AUTO) 7.87 x10^3/uL (1.8-6.8); NEUTROPHILS % (AUTO) 76 % (42-75); PLATELET COUNT 297 x10^3/uL (130-400); RED BLOOD COUNT 3.51 x10^6/uL (3.82-5.3); RED CELL DISTRIBUTION WIDTH 16.3 % (9.6-15.2)
[2018-11-23] MEDS: PIPERACILLIN/TAZO/PMX 3.375GM 50 ML IV SCH ×4 (05:02→22:21)
[2018-11-23] MEDS: HEPARIN 5,000 UNITS/ML, 1ML SQ SCH (05:02)
[2018-11-23] MEDS: INSULIN LISPRO 100 UNITS/ML, PEN SQ-INSULIN SCH ×4 (07:54→20:31)
[2018-11-23] MEDS: FAMOTIDINE 20 MG/2 ML IVPush SCH (08:59)
[2018-11-23 11:43] LABS: MEAN CORPUSCULAR HEMOGLOBIN 28.5 pg (27.0-34.8); MEAN CORPUSCULAR HGB CONC 32.7 g/dL (32.4-35.8); MEAN CORPUSCULAR VOLUME 87.3 fL (80-100); MEAN PLATELET VOLUME 7.3 fL (7.4-10.4); PLATELET COUNT 305 x10^3/uL (130-400); RED BLOOD COUNT 4.15 x10^6/uL (3.82-5.3); RED CELL DISTRIBUTION WIDTH 15.9 % (9.6-15.2)
[2018-11-23 11:48] LABS: ANION GAP 8 mmol/L (5-15); CALCIUM 8.1 mg/dL (8.5-10.1); CHLORIDE 106 mmol/L (98-107)
[2018-11-23 11:49] LABS: CREATININE 0.68 mg/dL (0.55-1.02)
[2018-11-23] MEDS: ENOXAPARIN 40 MG/0.4 ML SQ SCH (11:53)
[2018-11-23] MEDS: LOSARTAN 25MG TABLET PO SCH (11:54)
[2018-11-23 12:06] LABS: BASOPHILS # (AUTO) 0.02 x10^3/uL (0-0.1); BASOPHILS % (AUTO) 0 % (0-1); EOSINOPHILS # (AUTO) 0.22 x10^3/uL (0-0.4); EOSINOPHILS % (AUTO) 2 % (1-7); LYMPHOCYTES # (AUTO) 0.89 x10^3/uL (1-3.4); LYMPHOCYTES % (AUTO) 9 % (22-44); MD SCAN; MONOCYTES # (AUTO) 0.46 x10^3/uL (0.2-0.8); MONOCYTES % (AUTO) 5 % (2-9); NEUTROPHILS # (AUTO) 8.13 x10^3/uL (1.8-6.8); NEUTROPHILS % (AUTO) 84 % (42-75)
[2018-11-23] MEDS ORDERED: OXYcodone IR 5MG TABLET PO PRN (13:30)
[2018-11-23] MEDS: GABAPENTIN 400 MG CAPSULE PO SCH ×2 (16:38→19:39)
[2018-11-23] MEDS: FENOFIBRATE 145 MG TABLET PO SCH (19:39)
[2018-11-23] MEDS: SIMVASTATIN 20 MG TABLET PO SCH (19:39)
[2018-11-23 19:40] VITALS: BP 148/91
[2018-11-24] MEDS: OXYcodone IR 5MG TABLET PO PRN ×4 (00:05→19:23)
[2018-11-24 00:22] VITALS: BP 155/79
[2018-11-24] MEDS: PIPERACILLIN/TAZO/PMX 3.375GM 50 ML IV SCH ×2 (04:26→10:43)
[2018-11-24 05:59] LABS: BASOPHILS # (AUTO) 0.03 x10^3/uL (0-0.1); BASOPHILS % (AUTO) 0 % (0-1); EOSINOPHILS % (AUTO) 5 % (1-7); LYMPHOCYTES # (AUTO) 1.88 x10^3/uL (1-3.4); LYMPHOCYTES % (AUTO) 21 % (22-44); MD NO; MEAN CORPUSCULAR HGB CONC 33.4 g/dL (32.4-35.8); MEAN CORPUSCULAR VOLUME 86.6 fL (80-100); MONOCYTES # (AUTO) 0.67 x10^3/uL (0.2-0.8); MONOCYTES % (AUTO) 8 % (2-9); NEUTROPHILS # (AUTO) 5.82 x10^3/uL (1.8-6.8); NEUTROPHILS % (AUTO) 66 % (42-75); PLATELET COUNT 317 x10^3/uL (130-400); RED BLOOD COUNT 3.81 x10^6/uL (3.82-5.3); RED CELL DISTRIBUTION WIDTH 16.3 % (9.6-15.2)
[2018-11-24 06:08] LABS: CHLORIDE 107 mmol/L (98-107)
[2018-11-24 06:15] LABS: ANION GAP 8 mmol/L (5-15); CALCIUM 8.4 mg/dL (8.5-10.1); CREATININE 0.57 mg/dL (0.55-1.02); TRIGLYCERIDES 458 mg/dL (50-200)
[2018-11-24] MEDS: LOSARTAN 25MG TABLET PO SCH (08:36)
[2018-11-24] MEDS: GABAPENTIN 400 MG CAPSULE PO SCH ×3 (08:36→21:17)
[2018-11-24] MEDS: SENNA/DOCUSATE TABLET PO SCH (08:36)
[2018-11-24] MEDS: LURASIDONE 20 MG TABLET PO SCH ×3 (08:36→09:00)
[2018-11-24] MEDS: INSULIN LISPRO 100 UNITS/ML, PEN SQ-INSULIN SCH ×4 (08:37→21:16)
[2018-11-24 09:04] VITALS: BP 138/83
[2018-11-24] MEDS ORDERED: POTASSIUM CHLORIDE 40 MEQ in SODIUM CHLORIDE 0.9% 500 ML IV ONE (10:00)
[2018-11-24] MEDS: ENOXAPARIN 40 MG/0.4 ML SQ SCH (12:20)
[2018-11-24 13:39] VITALS: BP 151/90
[2018-11-24 19:20] VITALS: BP 143/93
[2018-11-24] MEDS: AMOXICILLIN/CLAV 875-125MG TABLET PO SCH (21:17)
[2018-11-24] MEDS: FENOFIBRATE 145 MG TABLET PO SCH (21:17)
[2018-11-24] MEDS: SIMVASTATIN 20 MG TABLET PO SCH (21:17)
[2018-11-25] MEDS: OXYcodone IR 5MG TABLET PO PRN ×3 (01:21→14:25)
[2018-11-25 01:52] VITALS: BP 151/89
[2018-11-25 06:15] LABS: BASOPHILS # (AUTO) 0.04 x10^3/uL (0-0.1); BASOPHILS % (AUTO) 1 % (0-1); EOSINOPHILS # (AUTO) 0.25 x10^3/uL (0-0.4); EOSINOPHILS % (AUTO) 3 % (1-7); LYMPHOCYTES # (AUTO) 1.53 x10^3/uL (1-3.4); LYMPHOCYTES % (AUTO) 21 % (22-44); MD NO; MEAN CORPUSCULAR HGB CONC 32.1 g/dL (32.4-35.8); MEAN CORPUSCULAR VOLUME 86.9 fL (80-100); MONOCYTES # (AUTO) 0.63 x10^3/uL (0.2-0.8); MONOCYTES % (AUTO) 9 % (2-9); NEUTROPHILS # (AUTO) 4.72 x10^3/uL (1.8-6.8); NEUTROPHILS % (AUTO) 66 % (42-75); PLATELET COUNT 310 x10^3/uL (130-400); RED CELL DISTRIBUTION WIDTH 15.7 % (9.6-15.2)
[2018-11-25 07:10] VITALS: BP 144/88
[2018-11-25] MEDS: AMOXICILLIN/CLAV 875-125MG TABLET PO SCH (08:48)
[2018-11-25] MEDS: GABAPENTIN 400 MG CAPSULE PO SCH ×2 (08:48→16:41)
[2018-11-25] MEDS: SENNA/DOCUSATE TABLET PO SCH (08:48)
[2018-11-25] MEDS: LOSARTAN 25MG TABLET PO SCH (08:48)
[2018-11-25] MEDS: LURASIDONE 20 MG TABLET PO SCH (08:48)
[2018-11-25] MEDS: INSULIN LISPRO 100 UNITS/ML, PEN SQ-INSULIN SCH ×3 (08:49→16:42)
[2018-11-25] MEDS: ENOXAPARIN 40 MG/0.4 ML SQ SCH (08:53)
[2018-11-25 14:22] VITALS: BP 146/93
[2018-11-25] MEDS ORDERED: AMOX1TAB12 PO (17:12)
== END 2018-11-25 18:36 | disposition home or self-care (01) | DRG 917 ==
LOC: ED 20:48 → EDIP 20:50 → CCU 22:30 → 3NE 11-23 14:58
PROVIDERS: ADMIT Internal Medicine; ATTEND Internal Medicine
PROC: 5A1935Z Respiratory Ventilation, Less than 24 Consecutive Hours (ICD-10-PCS; principal; 2018-11-21)
PROC: 0BH17EZ Insertion of Endotracheal Airway into Trachea, Via Natural or Artificial Opening (ICD-10-PCS; 2018-11-21)
DX: T42.8X1A Poisoning by antiparkinsonism drugs and other central muscle-tone depressants, accidental (unintentional), initial encounter (principal); E43 Unspecified severe protein-calorie malnutrition; G92 Toxic encephalopathy; J96.00 Acute respiratory failure, unspecified whether with hypoxia or hypercapnia; J18.1 Lobar pneumonia, unspecified organism; S22.32XA Fracture of one rib, left side, initial encounter for closed fracture; J90 Pleural effusion, not elsewhere classified; K86.1 Other chronic pancreatitis; Q33.0 Congenital cystic lung; D63.8 Anemia in other chronic diseases classified elsewhere; E11.43 Type 2 diabetes mellitus with diabetic autonomic (poly)neuropathy; E11.649 Type 2 diabetes mellitus with hypoglycemia without coma; E11.65 Type 2 diabetes mellitus with hyperglycemia; E28.2 Polycystic ovarian syndrome; E78.1 Pure hyperglyceridemia; F32.9 Major depressive disorder, single episode, unspecified; G89.29 Other chronic pain; M54.9 Dorsalgia, unspecified; Z88.5 Allergy status to narcotic agent; Z88.8 Allergy status to other drugs, medicaments and biological substances; I10 Essential (primary) hypertension; I45.81 Long QT syndrome; K31.84 Gastroparesis; N20.0 Calculus of kidney; X58.XXXA Exposure to other specified factors, initial encounter; Y93.89 Activity, other specified; Y92.89 Other specified places as the place of occurrence of the external cause; Y99.8 Other external cause status; Z68.27 Body mass index [BMI] 27.0-27.9, adult
CPT/HCPCS: 36415; 36600; 96361; 99291; J3490; J7042; 70450; 71045; 71250; 80048; 80053; 80061; 80307; 81001; 82010; 82550; 82803; 82962; 83036; 83735; 84100; 84439; 84443; 84478; 84703; 85025; 87070; 87081; 87086; 87147; 87205; 93005; 94002; 94003; 96374; 96375; 96376; G0378; J1644; J1650; J2250; J2543; J2704; J3010; J3480; J0330; J0360; J1815; J2060; J3475; J7030; J7040; J7050

== ENCOUNTER 2019-06-27 20:26 | Inpatient (IN) | payer OTHER ==
[~2019-06-27] VITALS: Ht 157.5 cm; Wt 73.9 kg
[~2019-06-27 20:26] MED LIST changes: +AMOX1TAB12 PO; -NORG1TAB26 PO; +NORG1TAB77 PO
--- NOTE | 2019-06-27 20:56 | NUR ---
PT REPORTS UPPER ABDOMINAL PAIN SINCE TUESDAY AFTER WAS ADMITTED TO HOSPITAL. PT REPORTS HX OF PANCREATITIS, WORSENING PAIN WITH STRESS. N/V/D SINCE THEN WELL. RESPIRATIONS EVEN AND UNLABORED ON RA. NO NOTED V/D SINCE COMING TO ED.
[2019-06-27] MEDS ORDERED: DULO60CA7 PO (21:02)
[2019-06-27] MEDS ORDERED: ONDANSETRON 2MG/ML, 2ML ONE (21:22)
[2019-06-27] MEDS ORDERED: FAMOTIDINE 20 MG/2 ML ONE (21:22)
[2019-06-27] MEDS ORDERED: HYDROmorphone 1 MG/ML, 1ML INJ ONE ×2 (21:22→23:46)
[2019-06-27] MEDS ORDERED: ONDANSETRON 2MG/ML, 2ML IVPush ONE (21:30)
[2019-06-27] MEDS ORDERED: FAMOTIDINE 20 MG/2 ML IV ONE (21:30)
[2019-06-27] MEDS ORDERED: SODIUM CHLORIDE FLUSH 10ML SYR IVF ONE (21:30)
[2019-06-27] MEDS ORDERED: SODIUM CHLORIDE 0.9% 1,000ML IVBOLUS ONE ×2 (21:30→23:00)
[2019-06-27] MEDS: HYDROmorphone 2 MG/ML, 1ML IVPush PRN ×2 (21:36→23:48)
[2019-06-27 21:45] LABS: BASOPHILS # (AUTO) 0.02 x10^3/uL (0-0.1); BASOPHILS % (AUTO) 0 % (0-1); EOSINOPHILS # (AUTO) 0.19 x10^3/uL (0-0.4); EOSINOPHILS % (AUTO) 3 % (1-7); LYMPHOCYTES # (AUTO) 1.49 x10^3/uL (1-3.4); LYMPHOCYTES % (AUTO) 22 % (22-44); MD NO; MEAN CORPUSCULAR HEMOGLOBIN 26.7 pg (27.0-34.8); MEAN CORPUSCULAR HGB CONC 33.3 g/dL (32.4-35.8); MEAN CORPUSCULAR VOLUME 80.1 fL (80-100); MEAN PLATELET VOLUME 7.7 fL (7.4-10.4); MONOCYTES # (AUTO) 0.45 x10^3/uL (0.2-0.8); MONOCYTES % (AUTO) 7 % (2-9); NEUTROPHILS # (AUTO) 4.65 x10^3/uL (1.8-6.8); NEUTROPHILS % (AUTO) 68 % (42-75); PLATELET COUNT 372 x10^3/uL (130-400); RED BLOOD COUNT 3.85 x10^6/uL (3.82-5.3); RED CELL DISTRIBUTION WIDTH 15.9 % (9.6-15.2)
[2019-06-27 21:56] LABS: ALANINE AMINOTRANSFERASE 28 U/L (12-78); ALBUMIN 2.3 g/dL (3.4-5.0); ANION GAP 6 mmol/L (5-15); CALCIUM 8.2 mg/dL (8.5-10.1); CHLORIDE 104 mmol/L (98-107)
[2019-06-27 21:59] LABS: ALKALINE PHOSPHATASE 215 U/L (45-117); BILIRUBIN,TOTAL 0.2 mg/dL (0.2-1.0); CREATININE 0.63 mg/dL (0.55-1.02); TOTAL PROTEIN 6.4 g/dL (6.4-8.2)
[2019-06-27] MEDS ORDERED: ENALAPRILAT 1.25 MG/ML, 2ML IV ONE (22:30)
--- NOTE | 2019-06-27 22:30 | NUR ---
PT AMBULATES WELL INDEPENDENTLY TO BATHROOM FOR UA. NAD NOTED AT THIS TIME.
[2019-06-27 22:50] LABS: MICROSCOPIC AUTO
[2019-06-27 22:52] LABS: CULTURE INDICATED? YES
--- NOTE | 2019-06-27 23:51 | NUR ---
PT C/O INCREASED PAIN, MEDICATED PER EMAR. LIGHTS DIMMED FOR PT COMFORT, TELEVISION ON. CHART UP FOR RECHECK.
--- NOTE | 2019-06-28 00:07 | NUR ---
Pt report from Mary jin. This rn to assume care of pt. Awaiting adm orders.
[2019-06-28] MEDS ORDERED: ONDANSETRON ODT 4 MG PO PRN (00:30)
[2019-06-28] MEDS ORDERED: POLYETHYLENE GLYCOL 17 GM PACKET PO PRN (00:30)
[2019-06-28] MEDS ORDERED: ACETAMINOPHEN 325 MG TABLET PO PRN (00:30)
[2019-06-28] MEDS: KETOROLAC 30 MG/1 ML IV PRN ×2 (02:12→19:45)
[2019-06-28] MEDS: D5%-0.45NACL+KCL 20MEQ 1,000 ML IV SCH ×2 (02:12→09:41)
[2019-06-28] MEDS: ENOXAPARIN 40 MG/0.4 ML SQ SCH (02:14)
[2019-06-28 02:21] VITALS: BP 163/92
[2019-06-28 02:26] VITALS: BP 163/92
[2019-06-28] MEDS ORDERED: HYDROmorphone 2 MG/ML, 1ML ONE ×4 (04:05→17:05)
[2019-06-28] MEDS: HYDROmorphone 1 MG/ML, 1ML INJ IV PRN ×5 (04:09→21:20)
[2019-06-28] MEDS ORDERED: INSULIN LISPRO 100 UNITS/ML, PEN SQ-INSULIN SCH (07:00)
[2019-06-28 07:15] VITALS: BP 166/102
[2019-06-28] MEDS: INSULIN LISPRO 100 UNITS/ML, PEN SQ-INSULIN SCH ×3 (07:30→20:32)
[2019-06-28 07:45] VITALS: BP 144/77
[2019-06-28] MEDS: ONDANSETRON 2MG/ML, 2ML IVPush PRN ×2 (08:19→17:19)
[2019-06-28 13:25] VITALS: BP 143/92
[2019-06-28 19:17] VITALS: BP 148/93
[2019-06-28 21:07] LABS: AMPHETAMINE SCREEN, URINE Negative (Negative); BARBITURATE SCREEN, URINE Negative (Negative); BENZODIAZEPINE SCREEN, URINE Positive (Negative); CANNABINOID SCREEN, URINE Negative (Negative); COCAINE SCREEN, URINE Negative (Negative); METHADONE SCREEN, URINE Negative (Negative); OPIATE SCREEN, URINE Positive (Negative)
[2019-06-28] MEDS: ZOLPIDEM 5MG TABLET PO PRN (22:57)
[2019-06-29 00:21] VITALS: BP 123/74
[2019-06-29] MEDS: INSULIN LISPRO 100 UNITS/ML, PEN SQ-INSULIN SCH ×5 (01:30→23:30)
[2019-06-29] MEDS ORDERED: HYDROmorphone 2 MG/ML, 1ML ONE ×6 (01:30→23:21)
[2019-06-29] MEDS: ONDANSETRON 2MG/ML, 2ML IVPush PRN ×3 (01:38→23:31)
[2019-06-29] MEDS: ENOXAPARIN 40 MG/0.4 ML SQ SCH (01:38)
[2019-06-29] MEDS: HYDROmorphone 1 MG/ML, 1ML INJ IV PRN ×6 (01:38→23:31)
[2019-06-29] MEDS: KETOROLAC 30 MG/1 ML IV PRN (05:20)
[2019-06-29 05:34] LABS: BASOPHILS # (AUTO) 0.03 x10^3/uL (0-0.1); BASOPHILS % (AUTO) 0 % (0-1); EOSINOPHILS # (AUTO) 0.16 x10^3/uL (0-0.4); EOSINOPHILS % (AUTO) 2 % (1-7); LYMPHOCYTES # (AUTO) 1.61 x10^3/uL (1-3.4); LYMPHOCYTES % (AUTO) 21 % (22-44); MD NO; MEAN CORPUSCULAR HEMOGLOBIN 26.4 pg (27.0-34.8); MEAN CORPUSCULAR HGB CONC 32.5 g/dL (32.4-35.8); MEAN CORPUSCULAR VOLUME 81.2 fL (80-100); MEAN PLATELET VOLUME 7.3 fL (7.4-10.4); MONOCYTES # (AUTO) 0.49 x10^3/uL (0.2-0.8); MONOCYTES % (AUTO) 7 % (2-9); NEUTROPHILS # (AUTO) 5.29 x10^3/uL (1.8-6.8); NEUTROPHILS % (AUTO) 70 % (42-75); PLATELET COUNT 303 x10^3/uL (130-400); RED BLOOD COUNT 3.52 x10^6/uL (3.82-5.3); RED CELL DISTRIBUTION WIDTH 15.8 % (9.6-15.2)
[2019-06-29 05:48] LABS: CHLORIDE 108 mmol/L (98-107)
[2019-06-29 05:55] LABS: ALANINE AMINOTRANSFERASE 22 U/L (12-78); ALKALINE PHOSPHATASE 147 U/L (45-117); ANION GAP 3 mmol/L (5-15); BILIRUBIN,TOTAL 0.2 mg/dL (0.2-1.0); CALCIUM 7.3 mg/dL (8.5-10.1); CREATININE 0.54 mg/dL (0.55-1.02)
[2019-06-29] MEDS: D5%-0.45NACL+KCL 20MEQ 1,000 ML IV SCH ×2 (09:28→15:48)
[2019-06-29 09:36] VITALS: BP 160/97
[2019-06-29 13:43] VITALS: BP 147/88
[2019-06-29 19:02] VITALS: BP 127/83
[2019-06-29] MEDS: ZOLPIDEM 5MG TABLET PO PRN (21:52)
[2019-06-29] MEDS: FENOFIBRATE 145 MG TABLET PO SCH (21:52)
[2019-06-30] MEDS: D5%-0.45NACL+KCL 20MEQ 1,000 ML IV SCH ×3 (00:11→16:28)
[2019-06-30 00:46] VITALS: BP 145/87
[2019-06-30] MEDS: ENOXAPARIN 40 MG/0.4 ML SQ SCH (01:24)
[2019-06-30] MEDS ORDERED: HYDROmorphone 2 MG/ML, 1ML ONE ×5 (05:41→22:18)
[2019-06-30] MEDS: KETOROLAC 30 MG/1 ML IV PRN ×2 (05:45→13:59)
[2019-06-30] MEDS: HYDROmorphone 1 MG/ML, 1ML INJ IV PRN ×5 (05:46→22:26)
[2019-06-30] MEDS: INSULIN LISPRO 100 UNITS/ML, PEN SQ-INSULIN SCH ×3 (05:46→18:00)
[2019-06-30 06:33] VITALS: BP 147/98
[2019-06-30 07:37] LABS: BASOPHILS # (AUTO) 0.02 x10^3/uL (0-0.1); BASOPHILS % (AUTO) 0 % (0-1); EOSINOPHILS # (AUTO) 0.16 x10^3/uL (0-0.4); EOSINOPHILS % (AUTO) 3 % (1-7); LYMPHOCYTES # (AUTO) 1.15 x10^3/uL (1-3.4); LYMPHOCYTES % (AUTO) 19 % (22-44); MD NO; MEAN CORPUSCULAR HEMOGLOBIN 26.5 pg (27.0-34.8); MEAN CORPUSCULAR HGB CONC 32.2 g/dL (32.4-35.8); MEAN CORPUSCULAR VOLUME 82.2 fL (80-100); MEAN PLATELET VOLUME 7.5 fL (7.4-10.4); MONOCYTES # (AUTO) 0.53 x10^3/uL (0.2-0.8); MONOCYTES % (AUTO) 9 % (2-9); NEUTROPHILS # (AUTO) 4.19 x10^3/uL (1.8-6.8); NEUTROPHILS % (AUTO) 69 % (42-75); PLATELET COUNT 289 x10^3/uL (130-400); RED CELL DISTRIBUTION WIDTH 16.2 % (9.6-15.2)
[2019-06-30 07:49] LABS: ALANINE AMINOTRANSFERASE 30 U/L (12-78); ALBUMIN 2.2 g/dL (3.4-5.0); ANION GAP 5 mmol/L (5-15); CALCIUM 7.8 mg/dL (8.5-10.1); CHLORIDE 115 mmol/L (98-107); CREATININE 0.47 mg/dL (0.55-1.02)
[2019-06-30 07:51] LABS: ALKALINE PHOSPHATASE 147 U/L (45-117); BILIRUBIN,TOTAL 0.2 mg/dL (0.2-1.0); TOTAL PROTEIN 5.4 g/dL (6.4-8.2)
[2019-06-30] MEDS: LOSARTAN 25MG TABLET PO SCH (08:22)
[2019-06-30] MEDS ORDERED: PANTOPRAZOLE 40 MG IV IVPush SCH (09:00)
[2019-06-30 12:14] VITALS: BP 144/95
[2019-06-30 19:46] VITALS: BP 148/95
[2019-06-30] MEDS: FENOFIBRATE 145 MG TABLET PO SCH (20:10)
[2019-06-30] MEDS: ONDANSETRON 2MG/ML, 2ML IVPush PRN (22:26)
[2019-07-01 00:15] VITALS: BP 148/92
[2019-07-01] MEDS: ZOLPIDEM 5MG TABLET PO PRN (00:32)
[2019-07-01] MEDS: D5%-0.45NACL+KCL 20MEQ 1,000 ML IV SCH ×3 (00:39→16:00)
[2019-07-01] MEDS: ENOXAPARIN 40 MG/0.4 ML SQ SCH (01:15)
[2019-07-01] MEDS ORDERED: HYDROmorphone 2 MG/ML, 1ML ONE ×5 (02:37→23:56)
[2019-07-01] MEDS: HYDROmorphone 1 MG/ML, 1ML INJ IV PRN ×5 (02:40→19:57)
[2019-07-01 05:54] LABS: BASOPHILS # (AUTO) 0.02 x10^3/uL (0-0.1); BASOPHILS % (AUTO) 1 % (0-1); EOSINOPHILS # (AUTO) 0.15 x10^3/uL (0-0.4); EOSINOPHILS % (AUTO) 3 % (1-7); LYMPHOCYTES # (AUTO) 1.48 x10^3/uL (1-3.4); LYMPHOCYTES % (AUTO) 27 % (22-44); MD NO; MEAN CORPUSCULAR VOLUME 81.2 fL (80-100); MEAN PLATELET VOLUME 8.2 fL (7.4-10.4); MONOCYTES # (AUTO) 0.55 x10^3/uL (0.2-0.8); MONOCYTES % (AUTO) 10 % (2-9); NEUTROPHILS # (AUTO) 3.31 x10^3/uL (1.8-6.8); NEUTROPHILS % (AUTO) 60 % (42-75); PLATELET COUNT 321 x10^3/uL (130-400); RED BLOOD COUNT 3.93 x10^6/uL (3.82-5.3); RED CELL DISTRIBUTION WIDTH 16.1 % (9.6-15.2)
[2019-07-01] MEDS: PANTOPROZOLE 40MG TABLET PO SCH (05:58)
[2019-07-01 06:04] LABS: ALANINE AMINOTRANSFERASE 32 U/L (12-78); ALBUMIN 2.4 g/dL (3.4-5.0); ANION GAP 3 mmol/L (5-15); CALCIUM 8.2 mg/dL (8.5-10.1); CHLORIDE 108 mmol/L (98-107); CREATININE 0.62 mg/dL (0.55-1.02)
[2019-07-01 06:06] LABS: ALKALINE PHOSPHATASE 153 U/L (45-117); BILIRUBIN,TOTAL 0.2 mg/dL (0.2-1.0)
[2019-07-01] MEDS: INSULIN LISPRO 100 UNITS/ML, PEN SQ-INSULIN SCH ×4 (06:09→16:47)
[2019-07-01] MEDS: KETOROLAC 30 MG/1 ML IV PRN (06:22)
[2019-07-01 06:38] VITALS: BP 138/87
[2019-07-01] MEDS: LOSARTAN 25MG TABLET PO SCH (07:40)
[2019-07-01 12:09] VITALS: BP 147/92
[2019-07-01] MEDS: FENOFIBRATE 145 MG TABLET PO SCH (19:57)
[2019-07-01 20:22] VITALS: BP 175/109
[2019-07-02] MEDS: D5%-0.45NACL+KCL 20MEQ 1,000 ML IV SCH (00:01)
[2019-07-02] MEDS: HYDROmorphone 1 MG/ML, 1ML INJ IV PRN ×6 (00:01→22:24)
[2019-07-02] MEDS: ENOXAPARIN 40 MG/0.4 ML SQ SCH (01:30)
[2019-07-02 01:58] VITALS: BP 136/81
[2019-07-02] MEDS: ZOLPIDEM 5MG TABLET PO PRN (02:16)
[2019-07-02] MEDS ORDERED: HYDROmorphone 2 MG/ML, 1ML ONE ×5 (05:17→22:22)
[2019-07-02] MEDS: PANTOPROZOLE 40MG TABLET PO SCH (05:22)
[2019-07-02] MEDS: INSULIN LISPRO 100 UNITS/ML, PEN SQ-INSULIN SCH ×4 (06:00→18:21)
[2019-07-02 07:10] VITALS: BP 134/79
[2019-07-02 07:26] LABS: ALANINE AMINOTRANSFERASE 26 U/L (12-78); ALBUMIN 2.2 g/dL (3.4-5.0); CALCIUM 8.3 mg/dL (8.5-10.1); CREATININE 0.51 mg/dL (0.55-1.02)
[2019-07-02 07:55] LABS: ANION GAP 3 mmol/L (5-15); CHLORIDE 112 mmol/L (98-107)
[2019-07-02 08:38] LABS: ALKALINE PHOSPHATASE 126 U/L (45-117); BILIRUBIN,TOTAL 0.1 mg/dL (0.2-1.0); TOTAL PROTEIN 5.3 g/dL (6.4-8.2)
[2019-07-02] MEDS: LOSARTAN 25MG TABLET PO SCH (09:31)
[2019-07-02] MEDS: GABAPENTIN 400 MG CAPSULE PO SCH ×3 (09:31→21:06)
[2019-07-02] MEDS: DULOXETINE 30 MG CAPSULE.DR PO SCH ×2 (09:31→21:06)
[2019-07-02 12:08] VITALS: BP 154/96
[2019-07-02 20:02] VITALS: BP 147/92
[2019-07-02] MEDS: FENOFIBRATE 145 MG TABLET PO SCH (21:06)
[2019-07-03] MEDS: ENOXAPARIN 40 MG/0.4 ML SQ SCH (00:14)
[2019-07-03] MEDS: ZOLPIDEM 5MG TABLET PO PRN (00:30)
[2019-07-03 02:11] VITALS: BP 136/81
[2019-07-03] MEDS ORDERED: HYDROmorphone 2 MG/ML, 1ML ONE ×3 (03:49→14:30)
[2019-07-03] MEDS: HYDROmorphone 1 MG/ML, 1ML INJ IV PRN ×3 (03:52→14:37)
[2019-07-03 05:30] LABS: BASOPHILS # (AUTO) 0.04 x10^3/uL (0-0.1); BASOPHILS % (AUTO) 1 % (0-1); EOSINOPHILS # (AUTO) 0.24 x10^3/uL (0-0.4); EOSINOPHILS % (AUTO) 4 % (1-7); LYMPHOCYTES # (AUTO) 1.72 x10^3/uL (1-3.4); LYMPHOCYTES % (AUTO) 26 % (22-44); MD NO; MEAN CORPUSCULAR HEMOGLOBIN 26.4 pg (27.0-34.8); MEAN CORPUSCULAR HGB CONC 32.4 g/dL (32.4-35.8); MEAN CORPUSCULAR VOLUME 81.6 fL (80-100); MEAN PLATELET VOLUME 8.2 fL (7.4-10.4); MONOCYTES # (AUTO) 0.61 x10^3/uL (0.2-0.8); MONOCYTES % (AUTO) 9 % (2-9); NEUTROPHILS % (AUTO) 60 % (42-75); PLATELET COUNT 350 x10^3/uL (130-400); RED BLOOD COUNT 3.71 x10^6/uL (3.82-5.3); RED CELL DISTRIBUTION WIDTH 16.1 % (9.6-15.2)
[2019-07-03 05:37] LABS: ANION GAP 4 mmol/L (5-15); CALCIUM 8.2 mg/dL (8.5-10.1); CHLORIDE 109 mmol/L (98-107)
[2019-07-03 05:40] LABS: CREATININE 0.67 mg/dL (0.55-1.02)
[2019-07-03] MEDS: PANTOPROZOLE 40MG TABLET PO SCH (06:04)
[2019-07-03] MEDS: OXYcodone IR 30 MG TABLET PO PRN ×2 (06:05→13:32)
[2019-07-03] MEDS: INSULIN LISPRO 100 UNITS/ML, PEN SQ-INSULIN SCH ×3 (06:05→13:31)
[2019-07-03 07:52] VITALS: BP 142/92
[2019-07-03] MEDS: DULOXETINE 30 MG CAPSULE.DR PO SCH (09:55)
[2019-07-03] MEDS: GABAPENTIN 400 MG CAPSULE PO SCH ×2 (09:55→17:05)
[2019-07-03] MEDS: LOSARTAN 25MG TABLET PO SCH (09:55)
[2019-07-03 13:00] VITALS: BP 144/96
[2019-07-03] MEDS ORDERED: INSU100I32 SQ (15:11)
[2019-07-03] MEDS ORDERED: OXYC5TAB3 PO (15:14)
[2019-07-03] MEDS ORDERED: FERR325T5 PO (15:21)
== END 2019-07-03 17:49 | disposition home or self-care (01) | DRG 439 ==
LOC: ED 21:26 → EDIP 06-28 00:15 → 3N 06-28 01:00
PROVIDERS: ADMIT Family Medicine; ATTEND Family Medicine
DX: K85.90 Acute pancreatitis without necrosis or infection, unspecified (principal); E44.0 Moderate protein-calorie malnutrition; D64.9 Anemia, unspecified; E10.65 Type 1 diabetes mellitus with hyperglycemia; E28.2 Polycystic ovarian syndrome; E78.1 Pure hyperglyceridemia; E78.5 Hyperlipidemia, unspecified; E83.51 Hypocalcemia; F32.9 Major depressive disorder, single episode, unspecified; G89.29 Other chronic pain; I10 Essential (primary) hypertension; Z88.5 Allergy status to narcotic agent; Z88.8 Allergy status to other drugs, medicaments and biological substances; K86.1 Other chronic pancreatitis; Z79.891 Long term (current) use of opiate analgesic; Z87.442 Personal history of urinary calculi; Z90.49 Acquired absence of other specified parts of digestive tract; Z68.29 Body mass index [BMI] 29.0-29.9, adult
CPT/HCPCS: 36415; J3490; 76700; 80048; 80053; 80307; 81001; 82962; 83036; 83690; 83735; 84100; 84478; 85025; 87086; 93005; G0378; J1170; J1650; J1885; J2405; C9113; J1815; J3480; J7030

== ENCOUNTER 2019-07-08 12:50 | Inpatient (IN) | payer OTHER ==
[~2019-07-08] VITALS: Ht 157.5 cm; Wt 72.7 kg
[~2019-07-08 12:50] MED LIST changes: +DULO60CA7 PO; +FERR325T5 PO; +OXYC5TAB3 PO
--- NOTE | 2019-07-08 12:58 | NUR ---
Blood glucose about 699 at this time. informed.
[2019-07-08] MEDS ORDERED: ONDANSETRON 2MG/ML, 2ML IVPush ONE (13:30)
[2019-07-08] MEDS ORDERED: SODIUM CHLORIDE 0.9% 1,000ML IVBOLUS ONE ×2 (13:30→14:00)
[2019-07-08] MEDS ORDERED: ONDANSETRON 2MG/ML, 2ML ONE (13:30)
[2019-07-08 13:31] LABS: PH, VENOUS 7.399 pH (7.320-7.420)
[2019-07-08 13:38] LABS: BASOPHILS # (AUTO) 0.03 x10^3/uL (0-0.1); BASOPHILS % (AUTO) 0 % (0-1); EOSINOPHILS # (AUTO) 0.02 x10^3/uL (0-0.4); EOSINOPHILS % (AUTO) 0 % (1-7); LYMPHOCYTES # (AUTO) 0.79 x10^3/uL (1-3.4); LYMPHOCYTES % (AUTO) 11 % (22-44); MD NO; MEAN CORPUSCULAR HEMOGLOBIN 25.8 pg (27.0-34.8); MEAN CORPUSCULAR HGB CONC 31.5 g/dL (32.4-35.8); MEAN CORPUSCULAR VOLUME 81.7 fL (80-100); MEAN PLATELET VOLUME 8.5 fL (7.4-10.4); MONOCYTES # (AUTO) 0.51 x10^3/uL (0.2-0.8); MONOCYTES % (AUTO) 7 % (2-9); NEUTROPHILS # (AUTO) 5.85 x10^3/uL (1.8-6.8); NEUTROPHILS % (AUTO) 81 % (42-75); PLATELET COUNT 348 x10^3/uL (130-400); RED BLOOD COUNT 4.82 x10^6/uL (3.82-5.3)
[2019-07-08] MEDS ORDERED: MORPHINE SULFATE 4 MG/ML, 1ML ONE (13:42)
[2019-07-08 13:45] LABS: ALANINE AMINOTRANSFERASE 17 U/L (12-78); ALBUMIN 3.2 g/dL (3.4-5.0); ANION GAP 13 mmol/L (5-15); CALCIUM 8.9 mg/dL (8.5-10.1); CHLORIDE 98 mmol/L (98-107); CREATININE 1.15 mg/dL (0.55-1.02)
[2019-07-08 13:47] LABS: ALKALINE PHOSPHATASE 186 U/L (45-117); BILIRUBIN,TOTAL 0.3 mg/dL (0.2-1.0); TOTAL PROTEIN 7.7 g/dL (6.4-8.2)
[2019-07-08 13:57] LABS: ACETONE, SERUM Moderate(40mg/dL) mg/dL (Negative)
--- NOTE | 2019-07-08 13:57 | NUR ---
REPORT RECEIVED FROM MAIA ECKERT. PLAN OF CARE DISCUSSED. PATIENT MEDICATED PER EMAR BY MAIA ECKERT.
--- NOTE | 2019-07-08 13:59 | NUR ---
PATIENT AMBULATORY WITH STEADY GAIT TO RESTROOM, PROVIDED PATIENT WITH URINE CUP AND GIVEN INSTRUCTIONS ON HOW TO OBTAIN CLEAN CATCH UA.
[2019-07-08] MEDS ORDERED: MORPHINE SULFATE 4 MG/ML, 1ML IVPush PRN (14:00)
--- NOTE | 2019-07-08 14:17 | NUR ---
UA COLLECTED AND SENT TO LAB, PATIENT BACK ON [facility], PLACED BACK ON 1.5L NC, CONTINUOUS SPO2 AND BP CUFF. NEEDS ADDRESSED AT THIS TIME. SECOND LITER OF IVF STARTED
[2019-07-08 14:23] LABS: MICROSCOPIC AUTO
[2019-07-08 14:25] LABS: CULTURE INDICATED? NO
[2019-07-08] MEDS ORDERED: HYDROmorphone 1 MG/ML, 1ML INJ ONE (14:28)
[2019-07-08] MEDS ORDERED: HYDROmorphone 1 MG/ML, 1ML INJ IV ONE (14:30)
[2019-07-08] MEDS ORDERED: SODIUM CHLORIDE 0.9% 100 ML IV ONE ×2 (14:30)
--- NOTE | 2019-07-08 14:45 | NUR ---
PATIENT MEDICATED PER EMAR, TOLERATED WELL. VSS, NAD, GIVEN ICE CHIPS. NEEDS ADDRESSED
[2019-07-08] MEDS ORDERED: INSULIN REGULAR 100 UNITS/ML, 3ML VIAL IVPush ONE (15:00)
--- NOTE | 2019-07-08 15:15 | NUR ---
PATIENT MEDICATED PER EMAR, TOELRATED WELL. STATES PAIN IS DOWN TO 7/10, WHICH IS HER BASELINE. PATIENT TO BE ADMITTED. ROMA MACKAY, CALL LIGHT IN REACH Addendum: 07/08/19 at 1536 by JOSE FINGER STICK GLUCOSE DONE PRIOR TO GIVEN INSULIN PER EMAR. RESULTS ARE GREATER THAN 600 AT THIS TIME.
[2019-07-08] MEDS ORDERED: hydrALAzine 20 MG/ML, 1ML IVPush PRN (15:30)
[2019-07-08] MEDS ORDERED: LABETALOL 5MG/ML, 20ML IVPush PRN (15:30)
[2019-07-08 15:51] LABS: ANION GAP 7 mmol/L (5-15); CALCIUM 7.8 mg/dL (8.5-10.1); CHLORIDE 105 mmol/L (98-107); CHOLESTEROL, TOTAL 178 mg/dL (140-239); TRIGLYCERIDES 348 mg/dL (50-200); VLDL CHOLESTEROL 70 mg/dL (0-25)
[2019-07-08 15:53] LABS: CHOL/HDL RATIO 8.1; HDL CHOL % 12 % (28-40); HDL CHOLESTEROL (DIRECT) 22 mg/dL (40-60); LDL CHOLESTEROL,CALCULATED 86 mg/dL (54-169); LDL/HDL RATIO 3.9 (0.5-3.0)
--- NOTE | 2019-07-08 15:57 | NUR ---
MED REC DONE BY ADMITTING MD. REPEAT LABS DRAWN, BLOOD GLOCOSE PULLED OFF THAT.
--- NOTE | 2019-07-08 16:14 | NUR ---
CRITICAL CALLED FROM LAB. BLOOD GLUCOSE 573. ADMITTING RNMARY NOTIFIED.
[2019-07-08 16:45] VITALS: BP 145/90
[2019-07-08] MEDS ORDERED: HYDROmorphone 1 MG/ML, 1ML INJ IV PRN (17:00)
[2019-07-08] MEDS: HEPARIN 5,000 UNITS/ML, 1ML SQ SCH (17:15)
[2019-07-08] MEDS: GABAPENTIN 400 MG CAPSULE PO SCH ×2 (17:15→21:27)
[2019-07-08] MEDS: SODIUM CHLORIDE 0.9% 1,000 ML IV SCH ×3 (17:15→19:50)
[2019-07-08] MEDS ORDERED: HYDROmorphone 2 MG/ML, 1ML IV PRN (17:30)
[2019-07-08] MEDS: INSULIN GLARGINE 100 UNITS/ML, PEN SQ-INSULIN SCH ×2 (17:46→21:00)
[2019-07-08] MEDS: INSULIN LISPRO 100 UNITS/ML, PEN SQ-INSULIN SCH ×2 (17:47→21:31)
[2019-07-08] MEDS: OXYcodone IR 5MG TABLET PO PRN ×2 (17:55→22:14)
[2019-07-08] MEDS: HYDROmorphone 2 MG/ML, 1ML IV PRN ×3 (18:42→23:22)
[2019-07-08 19:15] VITALS: BP 137/82
[2019-07-08] MEDS ORDERED: GLUCAGON 1 MG IM PRN (19:30)
[2019-07-08 21:18] LABS: ANION GAP 6 mmol/L (5-15); CALCIUM 7.3 mg/dL (8.5-10.1); CHLORIDE 113 mmol/L (98-107); CREATININE 0.55 mg/dL (0.55-1.02)
[2019-07-08] MEDS: SODIUM CHLORIDE FLUSH 10ML SYR IVF SCH (21:27)
[2019-07-08] MEDS: ZOLPIDEM 10MG TABLET PO SCH (21:27)
[2019-07-08] MEDS: DULOXETINE 30 MG CAPSULE.DR PO SCH (21:27)
[2019-07-08] MEDS: DEXTROSE 50%, 50ML SYRINGE IVPush PRN (22:12)
[2019-07-08] MEDS: ONDANSETRON 2MG/ML, 2ML IVPush PRN (22:26)
[2019-07-08] MEDS: morphine SULFATE 10 MG/ML, 1ML IVPush PRN (22:27)
[2019-07-09 00:12] VITALS: BP 131/79
[2019-07-09] MEDS: OXYcodone IR 5MG TABLET PO PRN ×2 (02:30→14:22)
[2019-07-09] MEDS: HEPARIN 5,000 UNITS/ML, 1ML SQ SCH ×3 (02:30→16:42)
[2019-07-09] MEDS: DEXTROSE 50%, 50ML SYRINGE IVPush PRN ×3 (02:39→18:15)
[2019-07-09 03:06] LABS: BASOPHILS # (AUTO) 0.04 x10^3/uL (0-0.1); BASOPHILS % (AUTO) 1 % (0-1); EOSINOPHILS # (AUTO) 0.18 x10^3/uL (0-0.4); EOSINOPHILS % (AUTO) 3 % (1-7); LYMPHOCYTES # (AUTO) 2.01 x10^3/uL (1-3.4); LYMPHOCYTES % (AUTO) 30 % (22-44); MD NO; MEAN CORPUSCULAR HEMOGLOBIN 25.9 pg (27.0-34.8); MEAN CORPUSCULAR HGB CONC 32.6 g/dL (32.4-35.8); MEAN CORPUSCULAR VOLUME 79.7 fL (80-100); MEAN PLATELET VOLUME 7.6 fL (7.4-10.4); MONOCYTES # (AUTO) 0.81 x10^3/uL (0.2-0.8); MONOCYTES % (AUTO) 12 % (2-9); NEUTROPHILS # (AUTO) 3.57 x10^3/uL (1.8-6.8); NEUTROPHILS % (AUTO) 54 % (42-75); PLATELET COUNT 277 x10^3/uL (130-400); RED BLOOD COUNT 3.61 x10^6/uL (3.82-5.3); RED CELL DISTRIBUTION WIDTH 15.9 % (9.6-15.2)
[2019-07-09 03:12] LABS: ALANINE AMINOTRANSFERASE 23 U/L (12-78); ALBUMIN 2.4 g/dL (3.4-5.0); ANION GAP 8 mmol/L (5-15); CALCIUM 7.4 mg/dL (8.5-10.1); CHLORIDE 112 mmol/L (98-107); CREATININE 0.53 mg/dL (0.55-1.02)
[2019-07-09 03:13] LABS: ALKALINE PHOSPHATASE 130 U/L (45-117); BILIRUBIN,TOTAL 0.1 mg/dL (0.2-1.0); TOTAL PROTEIN 5.6 g/dL (6.4-8.2)
[2019-07-09] MEDS: DEXTROSE 4 GM TAB.CHEW PO PRN (03:48)
[2019-07-09] MEDS: HYDROmorphone 2 MG/ML, 1ML IV PRN ×5 (03:48→20:47)
[2019-07-09] MEDS: morphine SULFATE 10 MG/ML, 1ML IVPush PRN (06:04)
[2019-07-09 07:12] VITALS: BP 139/85
[2019-07-09] MEDS: GABAPENTIN 400 MG CAPSULE PO SCH ×3 (08:06→20:38)
[2019-07-09] MEDS: AMLODIPINE 5 MG TABLET PO SCH (08:06)
[2019-07-09] MEDS: DULOXETINE 30 MG CAPSULE.DR PO SCH ×2 (08:06→20:39)
[2019-07-09] MEDS ORDERED: POTASSIUM CHLORIDE 40 MEQ in SODIUM CHLORIDE 0.9% 500 ML IV ONE (08:30)
[2019-07-09 08:44] LABS: ANION GAP 6 mmol/L (5-15); CALCIUM 7.3 mg/dL (8.5-10.1); CHLORIDE 112 mmol/L (98-107); CREATININE 0.53 mg/dL (0.55-1.02)
[2019-07-09] MEDS: SODIUM CHLORIDE FLUSH 10ML SYR IVF SCH ×2 (09:00→20:41)
[2019-07-09] MEDS ORDERED: LOSARTAN 25MG TABLET PO SCH (09:00)
[2019-07-09 12:38] VITALS: BP 124/83
[2019-07-09] MEDS: INSULIN LISPRO 100 UNITS/ML, PEN SQ-INSULIN SCH ×3 (14:00→20:47)
[2019-07-09] MEDS: POTASSIUM CHLORIDE 20 MEQ TAB.ER.PRT PO SCH (16:41)
[2019-07-09] MEDS: D5%-0.45% NACL 1,000 ML IV SCH (17:48)
[2019-07-09 18:09] LABS: ANION GAP 6 mmol/L (5-15); CALCIUM 7.5 mg/dL (8.5-10.1); CHLORIDE 110 mmol/L (98-107); CREATININE 0.64 mg/dL (0.55-1.02)
[2019-07-09 20:01] VITALS: BP 134/86
[2019-07-09] MEDS: ZOLPIDEM 10MG TABLET PO SCH (20:38)
[2019-07-10] MEDS: HYDROmorphone 2 MG/ML, 1ML IV PRN ×6 (01:22→22:04)
[2019-07-10] MEDS: HEPARIN 5,000 UNITS/ML, 1ML SQ SCH ×3 (01:25→16:48)
[2019-07-10 02:26] VITALS: BP 132/70
[2019-07-10] MEDS: D5%-0.45% NACL 1,000 ML IV SCH (03:06)
[2019-07-10 06:03] LABS: BASOPHILS # (AUTO) 0.03 x10^3/uL (0-0.1); BASOPHILS % (AUTO) 1 % (0-1); EOSINOPHILS # (AUTO) 0.34 x10^3/uL (0-0.4); EOSINOPHILS % (AUTO) 8 % (1-7); LYMPHOCYTES # (AUTO) 1.49 x10^3/uL (1-3.4); LYMPHOCYTES % (AUTO) 35 % (22-44); MD NO; MEAN CORPUSCULAR HEMOGLOBIN 26.1 pg (27.0-34.8); MEAN CORPUSCULAR HGB CONC 32.1 g/dL (32.4-35.8); MEAN CORPUSCULAR VOLUME 81.3 fL (80-100); MEAN PLATELET VOLUME 8.2 fL (7.4-10.4); MONOCYTES # (AUTO) 0.47 x10^3/uL (0.2-0.8); MONOCYTES % (AUTO) 11 % (2-9); NEUTROPHILS # (AUTO) 1.96 x10^3/uL (1.8-6.8); NEUTROPHILS % (AUTO) 46 % (42-75); PLATELET COUNT 239 x10^3/uL (130-400); RED BLOOD COUNT 3.65 x10^6/uL (3.82-5.3); RED CELL DISTRIBUTION WIDTH 15.9 % (9.6-15.2)
[2019-07-10 06:12] LABS: ALBUMIN 2.3 g/dL (3.4-5.0); ANION GAP 5 mmol/L (5-15); CALCIUM 7.9 mg/dL (8.5-10.1); CHLORIDE 108 mmol/L (98-107)
[2019-07-10 06:15] LABS: ALANINE AMINOTRANSFERASE 53 U/L (12-78); ALKALINE PHOSPHATASE 123 U/L (45-117); BILIRUBIN,TOTAL 0.3 mg/dL (0.2-1.0); CREATININE 0.51 mg/dL (0.55-1.02); TOTAL PROTEIN 5.5 g/dL (6.4-8.2)
[2019-07-10] MEDS: ONDANSETRON 2MG/ML, 2ML IVPush PRN (07:40)
[2019-07-10] MEDS: INSULIN LISPRO 100 UNITS/ML, PEN SQ-INSULIN SCH ×4 (07:40→20:53)
[2019-07-10] MEDS: DULOXETINE 30 MG CAPSULE.DR PO SCH ×2 (07:41→20:53)
[2019-07-10] MEDS: SODIUM CHLORIDE FLUSH 10ML SYR IVF SCH ×2 (07:41→20:53)
[2019-07-10] MEDS: GABAPENTIN 400 MG CAPSULE PO SCH ×3 (07:41→20:53)
[2019-07-10] MEDS: AMLODIPINE 5 MG TABLET PO SCH (07:41)
[2019-07-10] MEDS: POTASSIUM CHLORIDE 20 MEQ TAB.ER.PRT PO SCH ×2 (07:41→16:48)
[2019-07-10 08:44] VITALS: BP 136/87
[2019-07-10 12:58] VITALS: BP 120/83
[2019-07-10 19:01] VITALS: BP 129/81
[2019-07-10] MEDS: OXYcodone IR 5MG TABLET PO PRN (20:52)
[2019-07-10] MEDS ORDERED: INSULIN GLARGINE 100 UNITS/ML, PEN SQ-INSULIN SCH (21:00)
[2019-07-10] MEDS: ZOLPIDEM 10MG TABLET PO SCH (23:15)
[2019-07-11 00:44] VITALS: BP 106/73
[2019-07-11] MEDS: HEPARIN 5,000 UNITS/ML, 1ML SQ SCH ×3 (01:15→16:09)
[2019-07-11] MEDS: HYDROmorphone 2 MG/ML, 1ML IV PRN ×5 (03:57→20:00)
[2019-07-11] MEDS: ONDANSETRON 2MG/ML, 2ML IVPush PRN ×2 (04:50→14:35)
[2019-07-11 06:33] LABS: ALANINE AMINOTRANSFERASE 44 U/L (12-78); ALBUMIN 2.5 g/dL (3.4-5.0); ANION GAP 2 mmol/L (5-15); CALCIUM 8.7 mg/dL (8.5-10.1); CHLORIDE 110 mmol/L (98-107); CREATININE 0.49 mg/dL (0.55-1.02)
[2019-07-11 06:35] LABS: ALKALINE PHOSPHATASE 125 U/L (45-117); BILIRUBIN,TOTAL 0.2 mg/dL (0.2-1.0); TOTAL PROTEIN 5.8 g/dL (6.4-8.2)
[2019-07-11] MEDS: INSULIN LISPRO 100 UNITS/ML, PEN SQ-INSULIN SCH ×4 (07:00→21:00)
[2019-07-11 07:47] VITALS: BP 125/81
[2019-07-11] MEDS: DULOXETINE 30 MG CAPSULE.DR PO SCH ×2 (08:11→20:00)
[2019-07-11] MEDS: AMLODIPINE 5 MG TABLET PO SCH (08:11)
[2019-07-11] MEDS: GABAPENTIN 400 MG CAPSULE PO SCH ×3 (08:11→20:00)
[2019-07-11] MEDS: SODIUM CHLORIDE FLUSH 10ML SYR IVF SCH ×2 (08:11→20:01)
[2019-07-11] MEDS: OXYcodone IR 5MG TABLET PO PRN ×2 (10:34→22:00)
[2019-07-11 12:47] VITALS: BP 127/85
[2019-07-11 19:13] VITALS: BP 115/77
[2019-07-11] MEDS: ZOLPIDEM 10MG TABLET PO SCH (20:00)
[2019-07-11] MEDS ORDERED: INSULIN GLARGINE 100 UNITS/ML, PEN SQ-INSULIN SCH (21:00)
[2019-07-11] MEDS: DEXTROSE 50%, 50ML SYRINGE IVPush PRN (21:35)
[2019-07-12] MEDS: HYDROmorphone 2 MG/ML, 1ML IV PRN ×6 (00:13→22:30)
[2019-07-12 00:33] VITALS: BP 134/88
[2019-07-12] MEDS: HEPARIN 5,000 UNITS/ML, 1ML SQ SCH ×3 (01:15→16:44)
[2019-07-12] MEDS: OXYcodone IR 5MG TABLET PO PRN ×2 (06:12→16:41)
[2019-07-12] MEDS: INSULIN LISPRO 100 UNITS/ML, PEN SQ-INSULIN SCH ×4 (07:00→21:00)
[2019-07-12 07:35] VITALS: BP 134/88
[2019-07-12] MEDS: AMLODIPINE 5 MG TABLET PO SCH (08:00)
[2019-07-12] MEDS: GABAPENTIN 400 MG CAPSULE PO SCH ×3 (08:00→21:08)
[2019-07-12] MEDS ORDERED: D5%-0.45% NACL 1,000 ML IV SCH (08:00)
[2019-07-12] MEDS: SODIUM CHLORIDE FLUSH 10ML SYR IVF SCH ×2 (08:01→21:00)
[2019-07-12] MEDS: DULOXETINE 30 MG CAPSULE.DR PO SCH ×2 (08:01→21:07)
[2019-07-12] MEDS: ONDANSETRON 2MG/ML, 2ML IVPush PRN (09:49)
[2019-07-12 13:26] VITALS: BP 116/75
[2019-07-12] MEDS: DEXTROSE 4 GM TAB.CHEW PO PRN (16:56)
[2019-07-12 19:57] VITALS: BP 131/86
[2019-07-12] MEDS: ZOLPIDEM 10MG TABLET PO SCH (21:07)
[2019-07-13] MEDS: HEPARIN 5,000 UNITS/ML, 1ML SQ SCH ×3 (01:15→17:15)
[2019-07-13 01:33] VITALS: BP 117/78
[2019-07-13] MEDS: HYDROmorphone 2 MG/ML, 1ML IV PRN ×5 (02:46→19:29)
[2019-07-13 06:48] LABS: MEAN CORPUSCULAR HEMOGLOBIN 25.7 pg (27.0-34.8); MEAN CORPUSCULAR HGB CONC 31.9 g/dL (32.4-35.8); MEAN CORPUSCULAR VOLUME 80.5 fL (80-100); RED BLOOD COUNT 3.73 x10^6/uL (3.82-5.3); RED CELL DISTRIBUTION WIDTH 16.2 % (9.6-15.2)
[2019-07-13 06:50] LABS: ALANINE AMINOTRANSFERASE 22 U/L (12-78); ALBUMIN 2.2 g/dL (3.4-5.0); ANION GAP 7 mmol/L (5-15); CALCIUM 8.2 mg/dL (8.5-10.1); CHLORIDE 105 mmol/L (98-107); CREATININE 0.54 mg/dL (0.55-1.02)
[2019-07-13 06:52] LABS: ALKALINE PHOSPHATASE 109 U/L (45-117); BILIRUBIN,TOTAL < 0.1 mg/dL (0.2-1.0); TOTAL PROTEIN 5.4 g/dL (6.4-8.2)
[2019-07-13] MEDS: INSULIN LISPRO 100 UNITS/ML, PEN SQ-INSULIN SCH ×4 (07:00→19:59)
[2019-07-13 07:55] LABS: MEAN PLATELET VOLUME 9.3 fL (7.4-10.4)
[2019-07-13 07:56] LABS: MD YES; PLATELET COUNT 152 x10^3/uL (130-400)
[2019-07-13 07:58] LABS: BASOS#(MANUAL) 0.07 x10^3/uL (0-0.1); BASOS% (MANUAL) 1 % (0-1); EOS#(MANUAL) 0.36 x10^3/uL (0.0-0.4); EOS% (MANUAL) 5 % (1-7); LYMPH#(MANUAL) 2.63 x10^3/uL (1-3.4); LYMPHS% (MANUAL) 37 % (22-44); MONOS#(MANUAL) 0.36 x10^3/uL (0.3-2.7); MONOS% (MANUAL) 5 % (2-9); REACTIVE LYMPHS # (MANUAL) 0.07 x10^3/uL (0-0); REACTIVE LYMPHS % (MANUAL) 1 % (0-0); SEG#(MANUAL) 3.62 x10^3/uL (1.8-6.8); SEGS% (MANUAL) 51 % (42-75)
[2019-07-13 08:00] LABS: <PLATELET ESTIMATE> ADEQUATE; <PLT MORPHOLOGY> NORMAL PLT MORPH; ANISOCYTOSIS 1+; POLYCHROMASIA 1+
[2019-07-13] MEDS: GABAPENTIN 400 MG CAPSULE PO SCH ×3 (08:02→19:58)
[2019-07-13] MEDS: DULOXETINE 30 MG CAPSULE.DR PO SCH ×2 (08:02→19:58)
[2019-07-13] MEDS: AMLODIPINE 5 MG TABLET PO SCH (08:02)
[2019-07-13] MEDS: SODIUM CHLORIDE FLUSH 10ML SYR IVF SCH ×2 (08:03→19:58)
[2019-07-13 09:10] VITALS: BP 123/85
[2019-07-13 12:45] VITALS: BP 120/79
[2019-07-13] MEDS ORDERED: LORazepam 1MG TABLET ONE (13:16)
[2019-07-13] MEDS: PANCRELIPASE 24,000 CAPSULE.DR PO SCH ×2 (13:16→17:35)
[2019-07-13] MEDS ORDERED: LORazepam 1MG TABLET PO ONE (13:30)
[2019-07-13] MEDS: OMEPRAZOLE 10 MG CAPSULE.DR PO SCH (17:36)
[2019-07-13] MEDS: ZOLPIDEM 10MG TABLET PO SCH (19:58)
[2019-07-13 20:24] VITALS: BP 108/75
[2019-07-14] MEDS: HEPARIN 5,000 UNITS/ML, 1ML SQ SCH ×3 (01:15→16:12)
[2019-07-14 02:13] VITALS: BP 135/82
[2019-07-14] MEDS: HYDROmorphone 2 MG/ML, 1ML IV PRN ×5 (02:24→20:01)
[2019-07-14] MEDS: OXYcodone IR 5MG TABLET PO PRN (04:24)
[2019-07-14] MEDS: INSULIN LISPRO 100 UNITS/ML, PEN SQ-INSULIN SCH ×4 (07:00→20:38)
[2019-07-14 08:09] VITALS: BP 143/93
[2019-07-14] MEDS: GABAPENTIN 400 MG CAPSULE PO SCH ×3 (08:12→20:01)
[2019-07-14] MEDS: OMEPRAZOLE 10 MG CAPSULE.DR PO SCH ×2 (08:12→16:11)
[2019-07-14] MEDS: PANCRELIPASE 24,000 CAPSULE.DR PO SCH ×3 (08:12→16:11)
[2019-07-14] MEDS: AMLODIPINE 5 MG TABLET PO SCH (08:13)
[2019-07-14] MEDS: DULOXETINE 30 MG CAPSULE.DR PO SCH ×2 (08:13→20:01)
[2019-07-14] MEDS ORDERED: PINK LADY ENEMA 490 ML BOTTLE PR ONE (08:30)
[2019-07-14] MEDS: ONDANSETRON 2MG/ML, 2ML IVPush PRN (12:08)
[2019-07-14] MEDS: SODIUM CHLORIDE FLUSH 10ML SYR IVF SCH ×2 (12:29→20:01)
[2019-07-14 13:30] VITALS: BP 120/78
[2019-07-14 19:10] VITALS: BP 116/70
[2019-07-14] MEDS: ZOLPIDEM 10MG TABLET PO SCH (20:00)
[2019-07-15] MEDS: HYDROmorphone 2 MG/ML, 1ML IV PRN ×4 (00:02→13:55)
[2019-07-15 00:56] VITALS: BP 102/63
[2019-07-15] MEDS: HEPARIN 5,000 UNITS/ML, 1ML SQ SCH ×2 (01:15→08:38)
[2019-07-15] MEDS: INSULIN LISPRO 100 UNITS/ML, PEN SQ-INSULIN SCH ×2 (07:00→12:33)
[2019-07-15 07:33] VITALS: BP 105/67
[2019-07-15] MEDS: PANCRELIPASE 24,000 CAPSULE.DR PO SCH ×2 (08:28→12:33)
[2019-07-15] MEDS: AMLODIPINE 5 MG TABLET PO SCH (08:28)
[2019-07-15] MEDS: GABAPENTIN 400 MG CAPSULE PO SCH (08:28)
[2019-07-15] MEDS: DULOXETINE 30 MG CAPSULE.DR PO SCH (08:29)
[2019-07-15] MEDS: OMEPRAZOLE 10 MG CAPSULE.DR PO SCH (08:29)
[2019-07-15] MEDS: SODIUM CHLORIDE FLUSH 10ML SYR IVF SCH (08:29)
[2019-07-15] MEDS: OXYcodone IR 5MG TABLET PO PRN ×2 (08:30→08:32)
[2019-07-15] MEDS ORDERED: DOCUSATE 100 MG CAPSULE PO SCH (09:00)
[2019-07-15] MEDS ORDERED: LIPA1CAP61 PO (11:43)
[2019-07-15] MEDS ORDERED: OMEP10CA5 PO (11:43)
[2019-07-15] MEDS ORDERED: ONDA4TAB7 PO (11:43)
[2019-07-15 14:20] VITALS: BP 116/70
[2019-07-15] MEDS ORDERED: MAGNESIUM HYDROXIDE 8%, 30ML UDC PO SCH (21:00)
== END 2019-07-15 15:40 | disposition home or self-care (01) | DRG 682 ==
LOC: ED 13:19 → EDIP 15:27 → 3N 15:44 → DCLOUNGE 07-15 15:34
PROVIDERS: ADMIT Internal Medicine; ATTEND Internal Medicine
DX: N17.9 Acute kidney failure, unspecified (principal); K85.90 Acute pancreatitis without necrosis or infection, unspecified; K86.1 Other chronic pancreatitis; E10.65 Type 1 diabetes mellitus with hyperglycemia; G89.29 Other chronic pain; E10.43 Type 1 diabetes mellitus with diabetic autonomic (poly)neuropathy; K31.84 Gastroparesis; F32.9 Major depressive disorder, single episode, unspecified; E10.649 Type 1 diabetes mellitus with hypoglycemia without coma; E86.0 Dehydration; K52.9 Noninfective gastroenteritis and colitis, unspecified; E87.6 Hypokalemia; K59.00 Constipation, unspecified; I10 Essential (primary) hypertension; Z79.4 Long term (current) use of insulin; Z88.6 Allergy status to analgesic agent; Z88.8 Allergy status to other drugs, medicaments and biological substances; Z90.411 Acquired partial absence of pancreas; Z79.899 Other long term (current) drug therapy
CPT/HCPCS: 36415; 74018; 74181; 76705; 80048; 80053; 80061; 80307; 81001; 82010; 82803; 82947; 82962; 83036; 83690; 83930; 85025; 96361; 96374; 96375; G0378; J1170; J1644; J1815; J2405; J3480; J2270; J7030; J7040

== ENCOUNTER 2019-07-23 21:12 | Emergency (ER) | payer OTHER ==
[~2019-07-23] VITALS: Ht 157.5 cm; Wt 67.6 kg
[~2019-07-23 21:12] MED LIST changes: +LIPA1CAP61 PO; +OMEP10CA5 PO
--- NOTE | 2019-07-23 21:36 | NUR ---
PT C/O N/V/D WITH HX OF SAME, WAS SEEN X1 WEEK AGO IN ED FOR SAME. PT REPORTS NO RELIEF. DENIES OTHER C/O AT THIS TIME. PT CONNECTED TO ALL MONITORING, CALL LIGHT WITHIN REACH, ALL SAFETY MEASURES IN PLACE.
[2019-07-23] MEDS ORDERED: ONDANSETRON 2MG/ML, 2ML ONE (21:43)
[2019-07-23] MEDS ORDERED: MORPHINE SULFATE 4 MG/ML, 1ML ONE ×2 (21:43→22:36)
[2019-07-23] MEDS: MORPHINE SULFATE 4 MG/ML, 1ML IVPush PRN (21:55)
[2019-07-23 21:57] LABS: BASOPHILS # (AUTO) 0.04 x10^3/uL (0-0.1); BASOPHILS % (AUTO) 1 % (0-1); EOSINOPHILS # (AUTO) 0.22 x10^3/uL (0-0.4); EOSINOPHILS % (AUTO) 3 % (1-7); LYMPHOCYTES # (AUTO) 1.38 x10^3/uL (1-3.4); LYMPHOCYTES % (AUTO) 17 % (22-44); MD NO; MEAN CORPUSCULAR HEMOGLOBIN 25.7 pg (27.0-34.8); MEAN CORPUSCULAR HGB CONC 31.7 g/dL (32.4-35.8); MEAN PLATELET VOLUME 8.1 fL (7.4-10.4); MONOCYTES # (AUTO) 0.58 x10^3/uL (0.2-0.8); MONOCYTES % (AUTO) 7 % (2-9); NEUTROPHILS # (AUTO) 6.14 x10^3/uL (1.8-6.8); NEUTROPHILS % (AUTO) 74 % (42-75); PLATELET COUNT 360 x10^3/uL (130-400); RED BLOOD COUNT 4.16 x10^6/uL (3.82-5.3); RED CELL DISTRIBUTION WIDTH 16.9 % (9.6-15.2)
[2019-07-23] MEDS ORDERED: ONDANSETRON 2MG/ML, 2ML IVPush ONE (22:00)
[2019-07-23 22:06] LABS: MICROSCOPIC INDICATED
[2019-07-23 22:10] LABS: ALANINE AMINOTRANSFERASE 18 U/L (12-78); ALBUMIN 2.8 g/dL (3.4-5.0); ANION GAP 8 mmol/L (5-15); CALCIUM 8.2 mg/dL (8.5-10.1); CHLORIDE 91 mmol/L (98-107); CREATININE 1.05 mg/dL (0.55-1.02)
[2019-07-23 22:15] LABS: ALKALINE PHOSPHATASE 160 U/L (45-117); BILIRUBIN,TOTAL 0.2 mg/dL (0.2-1.0); TOTAL PROTEIN 7.1 g/dL (6.4-8.2); TROPONIN I < 0.015 ng/mL (0.000-0.045)
[2019-07-23 22:17] LABS: CULTURE INDICATED? NO
[2019-07-23] MEDS ORDERED: INSULIN SINGLE DOSE, ER ONE (22:55)
[2019-07-23] MEDS ORDERED: INSULIN REGULAR 100 UNITS/ML, 3ML VIAL IVPush ONE (23:00)
[2019-07-23] MEDS ORDERED: SODIUM CHLORIDE 0.9% 1,000ML IVBOLUS ONE (23:00)
[2019-07-23 23:12] VITALS: BP 155/98
[2019-07-24] MEDS: MORPHINE SULFATE 4 MG/ML, 1ML IVPush PRN (00:26)
== END 2019-07-24 00:41 | disposition home or self-care (01) ==
LOC: ED 22:08
DX: R10.13 Epigastric pain (principal); R11.2 Nausea with vomiting, unspecified; E11.65 Type 2 diabetes mellitus with hyperglycemia; I10 Essential (primary) hypertension; E78.5 Hyperlipidemia, unspecified; Z90.49 Acquired absence of other specified parts of digestive tract
CPT/HCPCS: 36415; 80053; 81001; 82962; 83690; 84484; 84703; 85025; 93005; 96361; 96374; 96375; 96376; 99284; J1815; J2270; J2405; J7030

== ENCOUNTER 2019-08-26 11:38 | Inpatient (IN) | payer OTHER ==
[~2019-08-26] VITALS: Ht 157.5 cm; Wt 76.3 kg
--- NOTE | 2019-08-26 11:51 | NUR ---
PT BROUGHT BACK FROM TRIAGE WITH CHIEF COMPLAINT OF RIGHT ABDOMEN PAIN RADIATING TO RIGHT BACK. PATIENT IS ALERT, ORIENTED, WARM AND DRY.
--- NOTE | 2019-08-26 12:00 | NUR ---
PAIN STARTED TUESDAY, PT REPORTS N/V BUT DENIES CP, & SOB, OR RECENT TRAUMA. XOCHITL ADHIKARI AT BEDSIDE TO EVALUATE.
[2019-08-26 12:21] LABS: MEAN CORPUSCULAR HEMOGLOBIN 25.9 pg (27.0-34.8); MEAN CORPUSCULAR HGB CONC 31.8 g/dL (32.4-35.8); MEAN CORPUSCULAR VOLUME 81.4 fL (80-100); PLATELET COUNT 269 x10^3/uL (130-400); RED BLOOD COUNT 4.22 x10^6/uL (3.82-5.3); RED CELL DISTRIBUTION WIDTH 18.5 % (9.6-15.2)
[2019-08-26] MEDS ORDERED: HYDROmorphone 1 MG/ML, 1ML INJ ONE ×3 (12:21→15:04)
[2019-08-26] MEDS ORDERED: ONDANSETRON 2MG/ML, 2ML ONE (12:21)
[2019-08-26] MEDS: HYDROmorphone 2 MG/ML, 1ML IVPush PRN ×7 (12:22→21:37)
--- NOTE | 2019-08-26 12:28 | NUR ---
PT TO IMAGING
[2019-08-26 12:30] LABS: ALBUMIN 2.7 g/dL (3.4-5.0); ANION GAP 7 mmol/L (5-15); CALCIUM 8.5 mg/dL (8.5-10.1); CHLORIDE 108 mmol/L (98-107)
[2019-08-26] MEDS ORDERED: ONDANSETRON 2MG/ML, 2ML IVPush ONE (12:30)
[2019-08-26] MEDS ORDERED: SODIUM CHLORIDE 0.9% 1,000ML IVBOLUS ONE (12:30)
[2019-08-26] MEDS ORDERED: SODIUM CHLORIDE FLUSH 10ML SYR IVF ONE (12:30)
[2019-08-26 12:34] LABS: MICROSCOPIC AUTO
[2019-08-26 12:35] LABS: CULTURE INDICATED? NO
[2019-08-26 12:36] LABS: ALANINE AMINOTRANSFERASE 32 U/L (12-78); ALKALINE PHOSPHATASE 120 U/L (45-117); BILIRUBIN,TOTAL 0.2 mg/dL (0.2-1.0); CREATININE 0.74 mg/dL (0.55-1.02); TOTAL PROTEIN 6.3 g/dL (6.4-8.2)
[2019-08-26 12:40] LABS: BASOPHILS # (AUTO) 0.02 x10^3/uL (0-0.1); BASOPHILS % (AUTO) 0 % (0-1); EOSINOPHILS # (AUTO) 0.19 x10^3/uL (0-0.4); EOSINOPHILS % (AUTO) 1 % (1-7); LYMPHOCYTES # (AUTO) 0.69 x10^3/uL (1-3.4); LYMPHOCYTES % (AUTO) 4 % (22-44); MD SCAN; MONOCYTES # (AUTO) 0.55 x10^3/uL (0.2-0.8); MONOCYTES % (AUTO) 3 % (2-9); NEUTROPHILS # (AUTO) 17.86 x10^3/uL (1.8-6.8); NEUTROPHILS % (AUTO) 93 % (42-75)
--- NOTE | 2019-08-26 13:12 | NUR ---
PTS FSBS MONITOR ALARMING LOW, RECHECKED WITH [facility] GLUCOMETER- FRBS 47. XOCHITL ADHIKARI NOTIFIED.
[2019-08-26] MEDS ORDERED: DEXTROSE 50%, 50ML SYRINGE ONE (13:13)
[2019-08-26] MEDS ORDERED: DEXTROSE 50%, 50ML SYRINGE IVPush ONE (13:30)
--- NOTE | 2019-08-26 13:34 | NUR ---
REPORT RECEIVED FROM MAIA OCAMPO.
--- NOTE | 2019-08-26 13:50 | NUR ---
PT CURRENTLY RESTING ON GURNEY. NO ACUTE DISTRESS NOTED. PT AO X 4. SKIN PWD. RESP EVEN AND UNLABORED. BS RECHECKED AND IS CURRENTLY 94. XOCHITL ADHIKARI NOTIFIED. NO NEW ORDERS RECEIVED. PT REQUESTED AND WAS PROVIDED WITH SOME ICE CHIPS WITH OKAY BY XOCHITL ADHIKARI. PT AND FAMILY AT BEDSIDE AWARE WE ARE WAITING FOR RESULTS. PT DENIES ANY OTHER NEEDS AT THIS TIME. CALL LIGHT WITHIN REACH. WILL CONT TO MONITOR PT.
[2019-08-26] MEDS ORDERED: PIPERACILLIN/TAZO/PMX 3.375GM 50 ML ONE (14:15)
[2019-08-26] MEDS ORDERED: ALPR0.5T7 PO (14:29)
[2019-08-26] MEDS ORDERED: PIPERACILLIN/TAZO/PMX 3.375GM 50 ML IV ONE (14:30)
[2019-08-26] MEDS ORDERED: VANCOMYCIN PER PHARMACY MC PRN (14:30)
[2019-08-26] MEDS ORDERED: VANCOMYCIN 1,500 MG in SODIUM CHLORIDE 0.9% 250 ML IV ONE (14:30)
--- NOTE | 2019-08-26 14:37 | NUR ---
ADMITTING MD FRIAS AT BEDSIDE FOR EVAL. PT AWARE THAT WE ARE WAITING FOR ADMISSION. PT AO X 4. SKIN PWD. RESP EVEN AND UNLABORED. FAMILY AT BEDSIDE. CALL LIGHT WITHIN REACH.
[2019-08-26] MEDS ORDERED: ACETAMINOPHEN 325 MG TABLET PO PRN (15:00)
[2019-08-26] MEDS: SODIUM CHLORIDE 0.9% 1,000 ML IV SCH (15:11)
--- NOTE | 2019-08-26 15:15 | NUR ---
PT'S PERSONAL GLUCOMETER READING 50'S. FS FROM HOSPITAL GLUCOMETER 41. CALLED ADMITTING MD FRIAS. PT PROVIDED WITH JUICE AND SNACKS. MEAL TRAY ORDERED. PT SLIGHTLY SHAKING. NO CONFUSION OR DIAPHORESIS NOTED AT THIS TIME. PT AO X 4. SKIN PWD. RESP EVEN AND UNLABORED. PT AND FAMILY AWARE WE ARE WAITING FOR ADMISSION. CALL LIGHT WITHIN REACH.
[2019-08-26] MEDS ORDERED: ENOXAPARIN 40 MG/0.4 ML ONE (15:23)
[2019-08-26] MEDS: ENOXAPARIN 40 MG/0.4 ML SQ SCH (15:27)
[2019-08-26 15:49] LABS: HCT (SEDRATE) 34.3 % (34.6-47.8)
--- NOTE | 2019-08-26 16:02 | NUR ---
BLOOD SUGAR IMPROVED TO 101. ADMITTING MD FRIAS NOTIFIED. NO NEW ORDERS RECEIVED.
[2019-08-26] MEDS: INSULIN LISPRO 100 UNITS/ML, PEN SQ-INSULIN SCH ×2 (16:11→20:39)
[2019-08-26] MEDS ORDERED: GABAPENTIN 400 MG CAPSULE ONE (16:12)
[2019-08-26] MEDS: GABAPENTIN 400 MG CAPSULE PO SCH ×2 (16:14→20:39)
--- NOTE | 2019-08-26 16:15 | NUR ---
REPORT TO MAIA JEROME ON MED/SURG.
[2019-08-26] MEDS: OMEPRAZOLE 10 MG CAPSULE.DR PO SCH (16:55)
[2019-08-26] MEDS: PANCRELIPASE 24,000 CAPSULE.DR PO SCH (16:55)
[2019-08-26] MEDS: CEFTRIAXONE PMX 2GM/50ML 50 ML IV SCH (17:21)
[2019-08-26] MEDS ORDERED: OXYcodone IR 5MG TABLET PO PRN (18:00)
[2019-08-26 19:20] VITALS: BP 131/83
[2019-08-26] MEDS: DULOXETINE 30 MG CAPSULE.DR PO SCH (20:39)
[2019-08-26] MEDS: ZOLPIDEM 10MG TABLET PO SCH (20:39)
[2019-08-26] MEDS: FENOFIBRATE 145 MG TABLET PO SCH (20:39)
[2019-08-27] MEDS: SODIUM CHLORIDE 0.9% 1,000 ML IV SCH ×3 (00:40→16:26)
[2019-08-27] MEDS: HYDROmorphone 2 MG/ML, 1ML IVPush PRN ×5 (01:02→14:08)
[2019-08-27 03:24] VITALS: BP 127/83
[2019-08-27 05:30] LABS: ANION GAP 3 mmol/L (5-15); CALCIUM 7.5 mg/dL (8.5-10.1); CHLORIDE 113 mmol/L (98-107); CREATININE 0.62 mg/dL (0.55-1.02)
[2019-08-27 05:36] LABS: MEAN CORPUSCULAR HEMOGLOBIN 26.5 pg (27.0-34.8); MEAN CORPUSCULAR HGB CONC 32.5 g/dL (32.4-35.8); MEAN CORPUSCULAR VOLUME 81.6 fL (80-100); MEAN PLATELET VOLUME 8.8 fL (7.4-10.4); PLATELET COUNT 198 x10^3/uL (130-400); RED BLOOD COUNT 3.32 x10^6/uL (3.82-5.3); RED CELL DISTRIBUTION WIDTH 18.7 % (9.6-15.2)
[2019-08-27 06:09] LABS: BASOPHILS # (AUTO) 0.01 x10^3/uL (0-0.1); BASOPHILS % (AUTO) 0 % (0-1); EOSINOPHILS # (AUTO) 0.34 x10^3/uL (0-0.4); EOSINOPHILS % (AUTO) 2 % (1-7); LYMPHOCYTES # (AUTO) 1.34 x10^3/uL (1-3.4); LYMPHOCYTES % (AUTO) 8 % (22-44); MD SCAN; MONOCYTES # (AUTO) 0.93 x10^3/uL (0.2-0.8); MONOCYTES % (AUTO) 6 % (2-9); NEUTROPHILS # (AUTO) 14.25 x10^3/uL (1.8-6.8); NEUTROPHILS % (AUTO) 85 % (42-75)
[2019-08-27] MEDS: INSULIN LISPRO 100 UNITS/ML, PEN SQ-INSULIN SCH ×4 (07:48→21:00)
[2019-08-27] MEDS: AZITHROMYCIN 500 MG TABLET PO SCH (07:49)
[2019-08-27] MEDS: LOSARTAN 25MG TABLET PO SCH (07:49)
[2019-08-27] MEDS: OMEPRAZOLE 10 MG CAPSULE.DR PO SCH ×2 (07:49→17:32)
[2019-08-27] MEDS: PANCRELIPASE 24,000 CAPSULE.DR PO SCH ×3 (07:49→17:32)
[2019-08-27] MEDS: DULOXETINE 30 MG CAPSULE.DR PO SCH ×2 (07:49→20:38)
[2019-08-27] MEDS: GABAPENTIN 400 MG CAPSULE PO SCH ×3 (07:49→20:38)
[2019-08-27 07:56] VITALS: BP 151/98
[2019-08-27 15:47] VITALS: BP 146/90
[2019-08-27] MEDS: ENOXAPARIN 40 MG/0.4 ML SQ SCH (16:25)
[2019-08-27] MEDS: CEFTRIAXONE PMX 2GM/50ML 50 ML IV SCH (18:30)
[2019-08-27] MEDS: OXYcodone IR 5MG TABLET PO PRN (19:17)
[2019-08-27 20:22] VITALS: BP 147/91
[2019-08-27] MEDS: FENOFIBRATE 145 MG TABLET PO SCH (20:37)
[2019-08-27] MEDS: ZOLPIDEM 10MG TABLET PO SCH (20:38)
[2019-08-28 00:48] VITALS: BP 160/91
[2019-08-28] MEDS: OXYcodone IR 5MG TABLET PO PRN ×4 (01:00→21:01)
[2019-08-28] MEDS: SODIUM CHLORIDE 0.9% 1,000 ML IV SCH ×2 (01:01→16:21)
[2019-08-28 05:12] LABS: ALANINE AMINOTRANSFERASE 23 U/L (12-78); ALBUMIN 2.1 g/dL (3.4-5.0); ANION GAP 3 mmol/L (5-15); CALCIUM 7.7 mg/dL (8.5-10.1); CHLORIDE 107 mmol/L (98-107); CREATININE 0.64 mg/dL (0.55-1.02)
[2019-08-28 05:14] LABS: ALKALINE PHOSPHATASE 85 U/L (45-117); BILIRUBIN,TOTAL 0.3 mg/dL (0.2-1.0); TOTAL PROTEIN 5.4 g/dL (6.4-8.2)
[2019-08-28 05:18] LABS: BASOPHILS # (AUTO) 0.03 x10^3/uL (0-0.1); BASOPHILS % (AUTO) 0 % (0-1); EOSINOPHILS # (AUTO) 0.37 x10^3/uL (0-0.4); EOSINOPHILS % (AUTO) 4 % (1-7); LYMPHOCYTES # (AUTO) 1.33 x10^3/uL (1-3.4); LYMPHOCYTES % (AUTO) 14 % (22-44); MD NO; MEAN CORPUSCULAR HEMOGLOBIN 26.2 pg (27.0-34.8); MEAN CORPUSCULAR VOLUME 81.8 fL (80-100); MEAN PLATELET VOLUME 8.6 fL (7.4-10.4); MONOCYTES # (AUTO) 0.67 x10^3/uL (0.2-0.8); MONOCYTES % (AUTO) 7 % (2-9); NEUTROPHILS # (AUTO) 7.47 x10^3/uL (1.8-6.8); NEUTROPHILS % (AUTO) 76 % (42-75); PLATELET COUNT 225 x10^3/uL (130-400); RED BLOOD COUNT 3.35 x10^6/uL (3.82-5.3); RED CELL DISTRIBUTION WIDTH 18.9 % (9.6-15.2)
[2019-08-28] MEDS: OMEPRAZOLE 10 MG CAPSULE.DR PO SCH ×2 (07:38→16:43)
[2019-08-28] MEDS: AZITHROMYCIN 500 MG TABLET PO SCH (07:39)
[2019-08-28] MEDS: LOSARTAN 25MG TABLET PO SCH (07:39)
[2019-08-28] MEDS: GABAPENTIN 400 MG CAPSULE PO SCH ×3 (07:39→21:01)
[2019-08-28] MEDS: DULOXETINE 30 MG CAPSULE.DR PO SCH ×2 (07:39→21:00)
[2019-08-28] MEDS: PANCRELIPASE 24,000 CAPSULE.DR PO SCH ×3 (07:39→16:43)
[2019-08-28] MEDS: INSULIN LISPRO 100 UNITS/ML, PEN SQ-INSULIN SCH ×4 (08:03→21:07)
[2019-08-28] MEDS ORDERED: FERROUS SULFATE 325 MG TABLET PO SCH (09:00)
[2019-08-28 13:49] VITALS: BP 187/112
[2019-08-28] MEDS: hydrALAzine 20 MG/ML, 1ML IV PRN (13:53)
[2019-08-28] MEDS ORDERED: ONDANSETRON 2MG/ML, 2ML IVPush PRN (15:00)
[2019-08-28] MEDS: ENOXAPARIN 40 MG/0.4 ML SQ SCH (15:00)
[2019-08-28] MEDS ORDERED: ONDANSETRON 0.8 MG/ML ORAL SOL PO PRN (15:30)
[2019-08-28] MEDS: CEFTRIAXONE PMX 2GM/50ML 50 ML IV SCH (18:48)
[2019-08-28 19:18] VITALS: BP 166/109
[2019-08-28] MEDS: ZOLPIDEM 10MG TABLET PO SCH (21:01)
[2019-08-28] MEDS: FENOFIBRATE 145 MG TABLET PO SCH (21:01)
[2019-08-29 01:52] VITALS: BP 116/73
[2019-08-29] MEDS: SODIUM CHLORIDE 0.9% 1,000 ML IV SCH (02:13)
[2019-08-29 05:51] LABS: BASOPHILS # (AUTO) 0.06 x10^3/uL (0-0.1); BASOPHILS % (AUTO) 1 % (0-1); EOSINOPHILS # (AUTO) 0.17 x10^3/uL (0-0.4); EOSINOPHILS % (AUTO) 2 % (1-7); LYMPHOCYTES # (AUTO) 1.45 x10^3/uL (1-3.4); LYMPHOCYTES % (AUTO) 20 % (22-44); MD NO; MEAN CORPUSCULAR HGB CONC 32.4 g/dL (32.4-35.8); MEAN CORPUSCULAR VOLUME 80.2 fL (80-100); MONOCYTES # (AUTO) 0.61 x10^3/uL (0.2-0.8); MONOCYTES % (AUTO) 9 % (2-9); NEUTROPHILS # (AUTO) 4.82 x10^3/uL (1.8-6.8); NEUTROPHILS % (AUTO) 68 % (42-75); PLATELET COUNT 239 x10^3/uL (130-400); RED BLOOD COUNT 3.91 x10^6/uL (3.82-5.3); RED CELL DISTRIBUTION WIDTH 18.6 % (9.6-15.2)
[2019-08-29 05:59] LABS: ANION GAP 2 mmol/L (5-15); CALCIUM 8.5 mg/dL (8.5-10.1); CHLORIDE 109 mmol/L (98-107)
[2019-08-29 07:07] VITALS: BP 170/107
[2019-08-29] MEDS: INSULIN LISPRO 100 UNITS/ML, PEN SQ-INSULIN SCH (07:50)
[2019-08-29] MEDS: OMEPRAZOLE 10 MG CAPSULE.DR PO SCH (07:51)
[2019-08-29] MEDS: AZITHROMYCIN 500 MG TABLET PO SCH (07:51)
[2019-08-29] MEDS: DULOXETINE 30 MG CAPSULE.DR PO SCH (07:51)
[2019-08-29] MEDS: PANCRELIPASE 24,000 CAPSULE.DR PO SCH (07:51)
[2019-08-29] MEDS: hydrALAzine 20 MG/ML, 1ML IV PRN (07:51)
[2019-08-29] MEDS: OXYcodone IR 5MG TABLET PO PRN (07:52)
[2019-08-29] MEDS: LOSARTAN 25MG TABLET PO SCH (07:52)
[2019-08-29] MEDS: GABAPENTIN 400 MG CAPSULE PO SCH (07:52)
[2019-08-29] MEDS ORDERED: AZIT500T10 PO (08:57)
[2019-08-29] MEDS ORDERED: CEFD300C37 PO (08:57)
== END 2019-08-29 10:21 | disposition home or self-care (01) | DRG 871 ==
LOC: ED 12:31 → EDIP 14:32 → 3N 16:25 → DCLOUNGE 08-29 10:18
PROVIDERS: ADMIT Internal Medicine Infectious Disease; ATTEND Hospitalist
DX: A41.9 Sepsis, unspecified organism (principal); J18.0 Bronchopneumonia, unspecified organism; K86.1 Other chronic pancreatitis; E10.649 Type 1 diabetes mellitus with hypoglycemia without coma; I10 Essential (primary) hypertension; R09.1 Pleurisy; E28.2 Polycystic ovarian syndrome; G89.29 Other chronic pain; Z79.4 Long term (current) use of insulin; Z87.442 Personal history of urinary calculi
CPT/HCPCS: 36415; 71045; 74022; 76700; 80048; 80053; 81001; 82962; 83605; 83690; 83735; 84100; 84703; 85025; 85651; 86140; 86738; 87040; 87449; 93005; 96361; 96365; 96372; 96375; 96376; 99291; G0378; J0696; J1170; J1650; J2405; J2543; J3370; J0360; J7030; J7050

== ENCOUNTER 2019-09-28 20:27 | Emergency (ER) | payer OTHER ==
[~2019-09-28] VITALS: Ht 162.6 cm; Wt 67.6 kg
[~2019-09-28 20:27] MED LIST changes: +ALPR0.5T7 PO; +AZIT500T10 PO; +CEFD300C37 PO
[2019-09-28] MEDS: MORPHINE SULFATE 4 MG/ML, 1ML IVPush PRN ×2 (21:00→22:17)
[2019-09-28] MEDS ORDERED: ONDANSETRON 2MG/ML, 2ML ONE (21:10)
[2019-09-28] MEDS ORDERED: MORPHINE SULFATE 4 MG/ML, 1ML ONE ×2 (21:10→22:14)
[2019-09-28 21:14] LABS: BASOPHILS # (AUTO) 0.03 x10^3/uL (0-0.1); BASOPHILS % (AUTO) 0 % (0-1); EOSINOPHILS # (AUTO) 0.14 x10^3/uL (0-0.4); EOSINOPHILS % (AUTO) 2 % (1-7); LYMPHOCYTES # (AUTO) 1.74 x10^3/uL (1-3.4); LYMPHOCYTES % (AUTO) 19 % (22-44); MD NO; MEAN CORPUSCULAR HEMOGLOBIN 26.4 pg (27.0-34.8); MEAN CORPUSCULAR HGB CONC 32.7 g/dL (32.4-35.8); MEAN CORPUSCULAR VOLUME 80.5 fL (80-100); MEAN PLATELET VOLUME 8.1 fL (7.4-10.4); MONOCYTES # (AUTO) 0.66 x10^3/uL (0.2-0.8); MONOCYTES % (AUTO) 7 % (2-9); NEUTROPHILS # (AUTO) 6.43 x10^3/uL (1.8-6.8); NEUTROPHILS % (AUTO) 71 % (42-75); PLATELET COUNT 248 x10^3/uL (130-400); RED BLOOD COUNT 4.52 x10^6/uL (3.82-5.3); RED CELL DISTRIBUTION WIDTH 18.6 % (9.6-15.2)
[2019-09-28] MEDS ORDERED: ONDANSETRON 2MG/ML, 2ML IVPush ONE (21:30)
[2019-09-28] MEDS ORDERED: SODIUM CHLORIDE FLUSH 10ML SYR IVF ONE (21:30)
[2019-09-28 22:02] LABS: ALANINE AMINOTRANSFERASE 18 U/L (12-78); ALBUMIN 2.8 g/dL (3.4-5.0); ALKALINE PHOSPHATASE 110 U/L (45-117); ANION GAP 5 mmol/L (5-15); BILIRUBIN,TOTAL 0.2 mg/dL (0.2-1.0); CALCIUM 8.8 mg/dL (8.5-10.1); CHLORIDE 106 mmol/L (98-107); CREATININE 0.76 mg/dL (0.55-1.02); TOTAL PROTEIN 6.6 g/dL (6.4-8.2)
--- NOTE | 2019-09-28 22:10 | NUR ---
PT MEDICATED PRIOR TO CT. PT STATES PAIN MEDICINE IS NOT EFFECTIVE. PROVIDER NOTIFIED. VITALS WNL. MONITOR IN PLACE.
[2019-09-28 22:27] LABS: MICROSCOPIC AUTO
[2019-09-28 22:29] LABS: CULTURE INDICATED? YES
--- NOTE | 2019-09-28 22:59 | NUR ---
PT LYING IN BED MOANING. NON PHARMACOLOGICAL METHODS DENIES BY PT.
[2019-09-28] MEDS ORDERED: HYDROmorphone 1 MG/ML, 1ML INJ IVPush ONE (23:00)
[2019-09-28] MEDS ORDERED: HYDROmorphone 1 MG/ML, 1ML INJ ONE (23:02)
[2019-09-28] MEDS ORDERED: OMNIPAQUE 350 MG/ML, 100ML BOTTLE ONE (23:08)
[2019-09-28 23:20] VITALS: BP 131/85
== END 2019-09-28 23:23 | disposition home or self-care (01) ==
LOC: ED 22:33
DX: K86.1 Other chronic pancreatitis (principal); K59.00 Constipation, unspecified; E78.5 Hyperlipidemia, unspecified; G89.29 Other chronic pain; E11.65 Type 2 diabetes mellitus with hyperglycemia
CPT/HCPCS: 36415; 74177; 80053; 81001; 83690; 84703; 85025; 87086; 93005; 96374; 96375; 96376; 99285; J1170; J2270; J2405; Q9967

== ENCOUNTER 2019-10-08 02:37 | Inpatient (IN) | payer OTHER ==
[~2019-10-08] VITALS: Ht 157.5 cm; Wt 72.0 kg
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
[2019-10-08 03:26] LABS: CULTURE INDICATED? NO; MICROSCOPIC AUTO
[2019-10-08] MEDS ORDERED: HYDROmorphone 1 MG/ML, 1ML INJ ONE ×2 (03:39→04:36)
[2019-10-08] MEDS ORDERED: ONDANSETRON 2MG/ML, 2ML ONE (03:40)
[2019-10-08 03:48] LABS: HCG UR SG 1.034 (1.003-1.030)
[2019-10-08 03:52] LABS: BASOPHILS # (AUTO) 0.05 x10^3/uL (0-0.1); BASOPHILS % (AUTO) 1 % (0-1); EOSINOPHILS # (AUTO) 0.07 x10^3/uL (0-0.4); EOSINOPHILS % (AUTO) 1 % (1-7); LYMPHOCYTES % (AUTO) 13 % (22-44); MD NO; MEAN CORPUSCULAR HEMOGLOBIN 26.5 pg (27.0-34.8); MEAN CORPUSCULAR HGB CONC 32.5 g/dL (32.4-35.8); MEAN CORPUSCULAR VOLUME 81.4 fL (80-100); MEAN PLATELET VOLUME 8.9 fL (7.4-10.4); MONOCYTES # (AUTO) 0.54 x10^3/uL (0.2-0.8); MONOCYTES % (AUTO) 7 % (2-9); NEUTROPHILS # (AUTO) 6.14 x10^3/uL (1.8-6.8); NEUTROPHILS % (AUTO) 79 % (42-75); PLATELET COUNT 303 x10^3/uL (130-400); RED CELL DISTRIBUTION WIDTH 17.9 % (9.6-15.2)
[2019-10-08] MEDS ORDERED: HYDROmorphone 2 MG/ML, 1ML IVPush PRN (04:00)
[2019-10-08] MEDS ORDERED: ONDANSETRON 2MG/ML, 2ML IVPush ONE (04:00)
[2019-10-08] MEDS ORDERED: SODIUM CHLORIDE 0.9% 1,000ML IVBOLUS ONE ×2 (04:00→05:30)
[2019-10-08 04:02] LABS: ALANINE AMINOTRANSFERASE 24 U/L (12-78); ALBUMIN 2.8 g/dL (3.4-5.0); ANION GAP 7 mmol/L (5-15); CALCIUM 9.3 mg/dL (8.5-10.1); CHLORIDE 89 mmol/L (98-107); CREATININE 1.06 mg/dL (0.55-1.02)
[2019-10-08 04:04] LABS: ALKALINE PHOSPHATASE 235 U/L (45-117); BILIRUBIN,TOTAL 0.2 mg/dL (0.2-1.0); TOTAL PROTEIN 7.4 g/dL (6.4-8.2)
[2019-10-08] MEDS ORDERED: INSULIN LISPRO 100 UNIT/ML, 3ML VIAL SQ-INSULIN ONE (04:30)
--- NOTE | 2019-10-08 04:32 | NUR ---
PT. AMBULATED TO BR WITH STEADY GAIT. PT. RECONNECTED TO MONITORS AND IVF INFUSING WELL. PT. AWARE OF NEED FOR INSULIN R/T BLOOD GLUCOSE. VS UPDATED. PT. REPORTS SINCE SHE HASN'T BEEN FEELING WELL SHE HAS NOT BEEN TAKING FSBS AT HOME AND ONLY TAKING LONG ACTING INSULIN, NO SHORT ACTING. EDUCATION ON IMPORTANCE OF MANAGING BLOOD SUGAR PROVIDED. PT. VERBALIZED UNDERSTANDING.
[2019-10-08] MEDS ORDERED: INSULIN LISPRO SINGLE DOSE, ER SQ-INSULIN ONE (04:35)
--- NOTE | 2019-10-08 04:42 | NUR ---
UNABLE TO SCAN HUMALOG; DOUBLE VERIFICATION DONE WITH MAIA BARRIENTOS FOR BLOOD GLUCOSE OF [phone].
[2019-10-08] MEDS ORDERED: HYDROmorphone 1 MG/ML, 1ML INJ IV ONE (05:00)
--- NOTE | 2019-10-08 05:48 | NUR ---
REPORT WAS CALLED TO MAIA BLAIR. FLOOR READY FOR PT. TRANSPORT. PT. TO CT VIA ANÍBAL AT THIS TIME. WILL TRANSPORT TO FLOOR UPON RETURN FROM CT.
[2019-10-08] MEDS ORDERED: ONDANSETRON 2MG/ML, 2ML IVPush PRN (06:00)
[2019-10-08] MEDS ORDERED: ACETAMINOPHEN 325 MG TABLET PO PRN (06:00)
[2019-10-08 06:20] VITALS: BP 151/93
[2019-10-08] MEDS: SODIUM CHLORIDE 0.9% 1,000 ML IV SCH ×2 (06:27→14:01)
[2019-10-08] MEDS: morphine SULFATE 10 MG/ML, 1ML IVPush PRN ×5 (06:28→21:07)
[2019-10-08] MEDS ORDERED: DEXTROSE 50%, 50ML SYRINGE IVPush PRN (08:00)
[2019-10-08] MEDS ORDERED: GLUCAGON 1 MG IM PRN (08:00)
[2019-10-08] MEDS ORDERED: DEXTROSE 4 GM TAB.CHEW PO PRN (08:00)
[2019-10-08 09:27] LABS: ANION GAP 4 mmol/L (5-15); CALCIUM 9.2 mg/dL (8.5-10.1); CHLORIDE 101 mmol/L (98-107); CREATININE 0.66 mg/dL (0.55-1.02)
[2019-10-08] MEDS: DULOXETINE 30 MG CAPSULE.DR PO SCH ×2 (09:36→21:06)
[2019-10-08] MEDS: PANTOPRAZOLE 40 MG IV IVPush SCH (09:36)
[2019-10-08] MEDS: PANCRELIPASE 24,000 CAPSULE.DR PO SCH ×3 (09:37→17:21)
[2019-10-08] MEDS: GABAPENTIN 400 MG CAPSULE PO SCH ×3 (09:37→21:06)
[2019-10-08] MEDS: LOSARTAN 50MG TABLET PO SCH (09:37)
[2019-10-08] MEDS: SODIUM CHLORIDE FLUSH 10ML SYR IVF SCH ×2 (09:38→21:06)
[2019-10-08] MEDS: INSULIN GLARGINE 100 UNITS/ML, PEN SQ-INSULIN SCH (09:38)
[2019-10-08] MEDS ORDERED: OXYcodone IR 5MG TABLET PO PRN (10:30)
[2019-10-08] MEDS ORDERED: KETOROLAC 30 MG/1 ML IM PRN (10:30)
[2019-10-08] MEDS: INSULIN LISPRO 100 UNITS/ML, PEN SQ-INSULIN SCH ×3 (11:57→21:00)
[2019-10-08] MEDS: ENOXAPARIN 40 MG/0.4 ML SQ SCH (11:57)
[2019-10-08 16:22] VITALS: BP 143/84
[2019-10-08 20:52] VITALS: BP 119/76
[2019-10-08] MEDS ORDERED: ZOLPIDEM 10MG TABLET PO SCH (21:00)
[2019-10-08] MEDS: FENOFIBRATE 145 MG TABLET PO SCH (21:06)
[2019-10-08 22:14] VITALS: BP 122/75
[2019-10-08] MEDS: ZOLPIDEM 10MG TABLET PO PRN (22:14)
[2019-10-09] MEDS: morphine SULFATE 10 MG/ML, 1ML IVPush PRN ×3 (00:21→07:41)
[2019-10-09] MEDS: SODIUM CHLORIDE 0.9% 1,000 ML IV SCH ×3 (00:22→20:13)
[2019-10-09 02:09] VITALS: BP 131/85
[2019-10-09 05:14] LABS: CHLORIDE 108 mmol/L (98-107)
[2019-10-09 05:16] LABS: BASOPHILS # (AUTO) 0.04 x10^3/uL (0-0.1); BASOPHILS % (AUTO) 1 % (0-1); EOSINOPHILS # (AUTO) 0.29 x10^3/uL (0-0.4); EOSINOPHILS % (AUTO) 5 % (1-7); LYMPHOCYTES # (AUTO) 1.87 x10^3/uL (1-3.4); LYMPHOCYTES % (AUTO) 34 % (22-44); MD NO; MEAN CORPUSCULAR HEMOGLOBIN 26.9 pg (27.0-34.8); MEAN CORPUSCULAR HGB CONC 33.2 g/dL (32.4-35.8); MEAN CORPUSCULAR VOLUME 81.2 fL (80-100); MEAN PLATELET VOLUME 8.4 fL (7.4-10.4); MONOCYTES # (AUTO) 0.44 x10^3/uL (0.2-0.8); MONOCYTES % (AUTO) 8 % (2-9); NEUTROPHILS # (AUTO) 2.85 x10^3/uL (1.8-6.8); NEUTROPHILS % (AUTO) 52 % (42-75); PLATELET COUNT 252 x10^3/uL (130-400); RED BLOOD COUNT 3.96 x10^6/uL (3.82-5.3); RED CELL DISTRIBUTION WIDTH 18.2 % (9.6-15.2)
[2019-10-09 05:18] LABS: ANION GAP 4 mmol/L (5-15); CREATININE 0.53 mg/dL (0.55-1.02)
[2019-10-09] MEDS: INSULIN LISPRO 100 UNITS/ML, PEN SQ-INSULIN SCH ×4 (07:00→20:14)
[2019-10-09 07:16] VITALS: BP 155/95
[2019-10-09] MEDS: DULOXETINE 30 MG CAPSULE.DR PO SCH ×2 (07:41→20:12)
[2019-10-09] MEDS: PANCRELIPASE 24,000 CAPSULE.DR PO SCH ×3 (07:41→16:40)
[2019-10-09] MEDS: SODIUM CHLORIDE FLUSH 10ML SYR IVF SCH ×2 (08:44→20:13)
[2019-10-09] MEDS: INSULIN GLARGINE 100 UNITS/ML, PEN SQ-INSULIN SCH (08:44)
[2019-10-09] MEDS: LOSARTAN 50MG TABLET PO SCH (08:45)
[2019-10-09] MEDS: GABAPENTIN 400 MG CAPSULE PO SCH ×3 (08:45→20:12)
[2019-10-09] MEDS: PANTOPRAZOLE 40 MG IV IVPush SCH (08:45)
[2019-10-09] MEDS ORDERED: OXYcodone IR 5MG TABLET PO PRN ×2 (10:30→16:30)
[2019-10-09] MEDS: PREGABALIN 75 MG CAPSULE PO SCH ×2 (11:24→20:12)
[2019-10-09] MEDS: ENOXAPARIN 40 MG/0.4 ML SQ SCH (12:01)
[2019-10-09] MEDS: MORPHINE SULFATE 4 MG/ML, 1ML IVPush PRN ×4 (12:01→21:35)
[2019-10-09 13:54] VITALS: BP 134/83
[2019-10-09 19:08] VITALS: BP 148/93
[2019-10-09] MEDS: FENOFIBRATE 145 MG TABLET PO SCH (20:12)
[2019-10-09] MEDS: ZOLPIDEM 10MG TABLET PO PRN (21:34)
[2019-10-10] MEDS: MORPHINE SULFATE 4 MG/ML, 1ML IVPush PRN ×6 (00:35→20:23)
[2019-10-10 00:41] VITALS: BP 146/97
[2019-10-10] MEDS: SODIUM CHLORIDE 0.9% 1,000 ML IV SCH (04:54)
[2019-10-10 05:24] LABS: BASOPHILS # (AUTO) 0.03 x10^3/uL (0-0.1); BASOPHILS % (AUTO) 1 % (0-1); EOSINOPHILS # (AUTO) 0.28 x10^3/uL (0-0.4); EOSINOPHILS % (AUTO) 6 % (1-7); LYMPHOCYTES # (AUTO) 1.59 x10^3/uL (1-3.4); LYMPHOCYTES % (AUTO) 31 % (22-44); MD NO; MEAN CORPUSCULAR HGB CONC 33.1 g/dL (32.4-35.8); MEAN CORPUSCULAR VOLUME 81.6 fL (80-100); MEAN PLATELET VOLUME 8.3 fL (7.4-10.4); MONOCYTES % (AUTO) 10 % (2-9); NEUTROPHILS # (AUTO) 2.68 x10^3/uL (1.8-6.8); NEUTROPHILS % (AUTO) 53 % (42-75); PLATELET COUNT 256 x10^3/uL (130-400); RED BLOOD COUNT 3.86 x10^6/uL (3.82-5.3); RED CELL DISTRIBUTION WIDTH 18.1 % (9.6-15.2)
[2019-10-10 05:34] LABS: ALANINE AMINOTRANSFERASE 29 U/L (12-78); ALKALINE PHOSPHATASE 121 U/L (45-117); BILIRUBIN,TOTAL 0.3 mg/dL (0.2-1.0); CREATININE 0.55 mg/dL (0.55-1.02); TOTAL PROTEIN 5.3 g/dL (6.4-8.2)
[2019-10-10 05:45] LABS: ANION GAP 4 mmol/L (5-15); CHLORIDE 111 mmol/L (98-107)
[2019-10-10] MEDS: INSULIN LISPRO 100 UNITS/ML, PEN SQ-INSULIN SCH ×4 (08:10→20:26)
[2019-10-10 08:11] VITALS: BP 147/92
[2019-10-10] MEDS: DULOXETINE 30 MG CAPSULE.DR PO SCH ×2 (08:14→20:23)
[2019-10-10] MEDS: PREGABALIN 75 MG CAPSULE PO SCH ×2 (08:14→20:23)
[2019-10-10] MEDS: PANTOPRAZOLE 40 MG IV IVPush SCH (08:14)
[2019-10-10] MEDS: PANCRELIPASE 24,000 CAPSULE.DR PO SCH ×3 (08:15→17:14)
[2019-10-10] MEDS: SODIUM CHLORIDE FLUSH 10ML SYR IVF SCH ×2 (08:15→20:31)
[2019-10-10] MEDS: GABAPENTIN 400 MG CAPSULE PO SCH ×3 (08:15→20:26)
[2019-10-10] MEDS: LOSARTAN 50MG TABLET PO SCH (08:15)
[2019-10-10] MEDS: INSULIN GLARGINE 100 UNITS/ML, PEN SQ-INSULIN SCH (08:36)
[2019-10-10] MEDS: OXYcodone IR 5MG TABLET PO PRN ×2 (11:55→23:27)
[2019-10-10] MEDS: KETOROLAC 30 MG/1 ML IV PRN (11:55)
[2019-10-10] MEDS: ENOXAPARIN 40 MG/0.4 ML SQ SCH (11:56)
[2019-10-10 14:35] VITALS: BP 180/111
[2019-10-10 15:30] VITALS: BP 174/102
[2019-10-10] MEDS: hydrALAzine 20 MG/ML, 1ML IV PRN (15:41)
[2019-10-10] MEDS ORDERED: OXYcodone IR 5MG TABLET PO PRN (16:30)
[2019-10-10 17:12] VITALS: BP 142/87
[2019-10-10 19:55] VITALS: BP 153/95
[2019-10-10] MEDS: FENOFIBRATE 145 MG TABLET PO SCH (20:23)
[2019-10-10] MEDS: ZOLPIDEM 10MG TABLET PO PRN (20:27)
[2019-10-11] VITALS (8 sets, daily range): BP systolic 125–185; BP diastolic 88–108
[2019-10-11] MEDS: MORPHINE SULFATE 4 MG/ML, 1ML IVPush PRN ×7 (00:28→23:00)
[2019-10-11] MEDS: KETOROLAC 30 MG/1 ML IV PRN ×3 (05:06→21:07)
[2019-10-11 05:32] LABS: ANION GAP 3 mmol/L (5-15); CALCIUM 7.7 mg/dL (8.5-10.1); CHLORIDE 111 mmol/L (98-107)
[2019-10-11] MEDS: PANTOPRAZOLE 40MG TABLET PO SCH (05:35)
[2019-10-11] MEDS ORDERED: SODIUM CHLORIDE 0.9% 1,000 ML IV SCH (05:46)
[2019-10-11] MEDS: INSULIN LISPRO 100 UNITS/ML, PEN SQ-INSULIN SCH ×4 (07:59→21:10)
[2019-10-11] MEDS: DULOXETINE 30 MG CAPSULE.DR PO SCH ×2 (08:15→21:08)
[2019-10-11] MEDS: PANCRELIPASE 24,000 CAPSULE.DR PO SCH ×3 (08:15→16:58)
[2019-10-11] MEDS: GABAPENTIN 400 MG CAPSULE PO SCH ×3 (08:15→21:08)
[2019-10-11] MEDS: LOSARTAN 50MG TABLET PO SCH (08:15)
[2019-10-11] MEDS: PREGABALIN 75 MG CAPSULE PO SCH ×2 (08:15→21:08)
[2019-10-11] MEDS: INSULIN GLARGINE 100 UNITS/ML, PEN SQ-INSULIN SCH (08:16)
[2019-10-11] MEDS: SODIUM CHLORIDE FLUSH 10ML SYR IVF SCH ×2 (08:16→21:09)
[2019-10-11] MEDS ORDERED: ONDANSETRON ODT 4 MG PO PRN (11:00)
[2019-10-11] MEDS: ENOXAPARIN 40 MG/0.4 ML SQ SCH (12:52)
[2019-10-11] MEDS: OXYcodone IR 5MG TABLET PO PRN ×2 (12:53→21:08)
[2019-10-11] MEDS: hydrALAzine 20 MG/ML, 1ML IV PRN (15:39)
[2019-10-11] MEDS: FENOFIBRATE 145 MG TABLET PO SCH (21:08)
[2019-10-12 00:26] VITALS: BP 121/82
[2019-10-12] MEDS: OXYcodone IR 5MG TABLET PO PRN ×3 (03:13→20:02)
[2019-10-12] MEDS: PANTOPRAZOLE 40MG TABLET PO SCH (06:32)
[2019-10-12] MEDS: MORPHINE SULFATE 4 MG/ML, 1ML IVPush PRN ×5 (06:36→20:44)
[2019-10-12] MEDS: INSULIN LISPRO 100 UNITS/ML, PEN SQ-INSULIN SCH ×5 (07:00→21:10)
[2019-10-12 07:28] VITALS: BP 161/101
[2019-10-12] MEDS: PREGABALIN 75 MG CAPSULE PO SCH ×2 (07:48→20:01)
[2019-10-12] MEDS: GABAPENTIN 400 MG CAPSULE PO SCH ×3 (07:48→20:03)
[2019-10-12] MEDS: PANCRELIPASE 24,000 CAPSULE.DR PO SCH ×3 (07:48→17:17)
[2019-10-12] MEDS: DULOXETINE 30 MG CAPSULE.DR PO SCH ×2 (07:49→20:02)
[2019-10-12] MEDS: LOSARTAN 50MG TABLET PO SCH (07:49)
[2019-10-12] MEDS: SODIUM CHLORIDE FLUSH 10ML SYR IVF SCH ×2 (07:50→20:07)
[2019-10-12] MEDS: INSULIN GLARGINE 100 UNITS/ML, PEN SQ-INSULIN SCH (07:54)
[2019-10-12] MEDS: ENOXAPARIN 40 MG/0.4 ML SQ SCH (11:55)
[2019-10-12 13:58] VITALS: BP 148/84
[2019-10-12] MEDS ORDERED: SODIUM CHLORIDE 0.9% 1,000 ML IV ONE (17:30)
[2019-10-12] MEDS ORDERED: INSULIN LISPRO 100 UNITS/ML, PEN SQ-INSULIN ONE (17:30)
[2019-10-12 19:26] VITALS: BP 148/96
[2019-10-12] MEDS: ZOLPIDEM 10MG TABLET PO PRN (20:01)
[2019-10-12] MEDS: FENOFIBRATE 145 MG TABLET PO SCH (20:01)
[2019-10-13] MEDS: MORPHINE SULFATE 4 MG/ML, 1ML IVPush PRN ×4 (00:17→09:29)
[2019-10-13 00:20] VITALS: BP 124/86
[2019-10-13] MEDS: OXYcodone IR 5MG TABLET PO PRN ×2 (02:12→08:32)
[2019-10-13] MEDS: PANTOPRAZOLE 40MG TABLET PO SCH (06:23)
[2019-10-13 06:41] VITALS: BP 158/88
[2019-10-13] MEDS: INSULIN LISPRO 100 UNITS/ML, PEN SQ-INSULIN SCH ×2 (08:05→11:35)
[2019-10-13] MEDS: PANCRELIPASE 24,000 CAPSULE.DR PO SCH ×2 (08:05→11:35)
[2019-10-13] MEDS: SODIUM CHLORIDE FLUSH 10ML SYR IVF SCH (08:30)
[2019-10-13] MEDS: LOSARTAN 50MG TABLET PO SCH (08:30)
[2019-10-13] MEDS: PREGABALIN 75 MG CAPSULE PO SCH (08:31)
[2019-10-13] MEDS: DULOXETINE 30 MG CAPSULE.DR PO SCH (08:32)
[2019-10-13] MEDS: GABAPENTIN 400 MG CAPSULE PO SCH (08:32)
[2019-10-13] MEDS: INSULIN GLARGINE 100 UNITS/ML, PEN SQ-INSULIN SCH (08:33)
[2019-10-13 08:35] VITALS: BP 148/89
[2019-10-13] MEDS: ENOXAPARIN 40 MG/0.4 ML SQ SCH (11:35)
[2019-10-13] MEDS ORDERED: LOSA25TA2 PO (12:13)
== END 2019-10-13 12:26 | disposition home or self-care (01) | DRG 438 ==
LOC: ED 04:51 → EDIP 05:09 → 3N 06:07
PROVIDERS: ADMIT Internal Medicine; ATTEND Internal Medicine
DX: K85.90 Acute pancreatitis without necrosis or infection, unspecified (principal); E43 Unspecified severe protein-calorie malnutrition; S22.41XA Multiple fractures of ribs, right side, initial encounter for closed fracture; F13.20 Sedative, hypnotic or anxiolytic dependence, uncomplicated; E10.43 Type 1 diabetes mellitus with diabetic autonomic (poly)neuropathy; E10.65 Type 1 diabetes mellitus with hyperglycemia; K86.1 Other chronic pancreatitis; E78.5 Hyperlipidemia, unspecified; G89.29 Other chronic pain; I10 Essential (primary) hypertension; K31.84 Gastroparesis; K76.0 Fatty (change of) liver, not elsewhere classified; E28.2 Polycystic ovarian syndrome; F41.9 Anxiety disorder, unspecified; W18.2XXA Fall in (into) shower or empty bathtub, initial encounter; F32.9 Major depressive disorder, single episode, unspecified; Z79.899 Other long term (current) drug therapy; Z88.8 Allergy status to other drugs, medicaments and biological substances; Z87.442 Personal history of urinary calculi; Z90.49 Acquired absence of other specified parts of digestive tract; Z88.5 Allergy status to narcotic agent; Y93.E1 Activity, personal bathing and showering; Y92.098 Other place in other non-institutional residence as the place of occurrence of the external cause; Y99.8 Other external cause status; Z68.29 Body mass index [BMI] 29.0-29.9, adult
CPT/HCPCS: 36415; 71045; 71250; 76705; 80048; 80053; 81001; 81025; 82947; 82962; 83036; 83690; 85025; 93005; 96361; 96372; 96374; 96375; G0378; J1170; J1650; J1885; J2405; C9113; J0360; J1815; J2270; J7030

== ENCOUNTER 2019-10-16 03:48 | Emergency (ER) | payer OTHER ==
[~2019-10-16] VITALS: Ht 157.5 cm; Wt 68.0 kg
--- NOTE | 2019-10-16 04:16 | NUR ---
pt ambulates to room from triage with steady gait.
[2019-10-16] MEDS ORDERED: HYDROmorphone 1 MG/ML, 1ML INJ ONE (04:49)
[2019-10-16] MEDS ORDERED: FAMOTIDINE 20 MG/2 ML ONE (04:49)
[2019-10-16] MEDS ORDERED: ONDANSETRON 2MG/ML, 2ML ONE (04:49)
[2019-10-16] MEDS ORDERED: ONDANSETRON 2MG/ML, 2ML IVPush ONE (05:00)
[2019-10-16] MEDS ORDERED: SODIUM CHLORIDE 0.9% 1,000ML IVBOLUS ONE (05:00)
[2019-10-16] MEDS ORDERED: FAMOTIDINE 20 MG/2 ML IV ONE (05:00)
[2019-10-16] MEDS ORDERED: HYDROmorphone 2 MG/ML, 1ML IVPush PRN (05:00)
--- NOTE | 2019-10-16 05:03 | NUR ---
IV ACCESS ESTABLISHED. LABS DRAWN. PT MEDICATED PER AUG. PT RESTING IN [facility] AT THIS TIME;
[2019-10-16 05:12] LABS: BASOPHILS # (AUTO) 0.03 x10^3/uL (0-0.1); BASOPHILS % (AUTO) 0 % (0-1); EOSINOPHILS # (AUTO) 0.13 x10^3/uL (0-0.4); EOSINOPHILS % (AUTO) 2 % (1-7); LYMPHOCYTES # (AUTO) 1.18 x10^3/uL (1-3.4); LYMPHOCYTES % (AUTO) 14 % (22-44); MD NO; MEAN CORPUSCULAR HEMOGLOBIN 26.8 pg (27.0-34.8); MEAN CORPUSCULAR HGB CONC 32.8 g/dL (32.4-35.8); MEAN CORPUSCULAR VOLUME 81.6 fL (80-100); MEAN PLATELET VOLUME 8.9 fL (7.4-10.4); MONOCYTES # (AUTO) 0.63 x10^3/uL (0.2-0.8); MONOCYTES % (AUTO) 7 % (2-9); NEUTROPHILS # (AUTO) 6.78 x10^3/uL (1.8-6.8); NEUTROPHILS % (AUTO) 78 % (42-75); PLATELET COUNT 274 x10^3/uL (130-400); RED CELL DISTRIBUTION WIDTH 18.2 % (9.6-15.2)
[2019-10-16 05:17] LABS: ALANINE AMINOTRANSFERASE 24 U/L (12-78); ALBUMIN 2.8 g/dL (3.4-5.0); ANION GAP 8 mmol/L (5-15); CALCIUM 8.7 mg/dL (8.5-10.1); CHLORIDE 101 mmol/L (98-107)
[2019-10-16 05:22] LABS: ALKALINE PHOSPHATASE 171 U/L (45-117); CREATININE 0.99 mg/dL (0.55-1.02); TOTAL PROTEIN 6.8 g/dL (6.4-8.2)
[2019-10-16 05:23] LABS: BILIRUBIN,TOTAL < 0.1 mg/dL (0.2-1.0)
[2019-10-16] MEDS ORDERED: INSULIN SINGLE DOSE, ER ONE (05:45)
--- NOTE | 2019-10-16 05:51 | NUR ---
PT VSS. PT MEDICATED WITH INSULIN PER AUG. DR VÁZQUEZ AT BS
[2019-10-16 05:57] VITALS: BP 155/97
[2019-10-16] MEDS ORDERED: OXYcodone IR 5MG TABLET PO ONE (06:00)
[2019-10-16] MEDS ORDERED: INSULIN SINGLE DOSE, ER SQ-INSULIN ONE (06:00)
[2019-10-16] MEDS ORDERED: OXYcodone IR 5MG TABLET ONE (06:02)
--- NOTE | 2019-10-16 06:09 | NUR ---
PT MEDICATED PER MAR.
[2019-10-16] MEDS ORDERED: INSULIN REGULAR 100 UNITS/ML, 3ML VIAL SQ-INSULIN SCH (07:00)
--- NOTE | 2019-10-16 07:05 | NUR ---
PT D/C WITH D/C SUMMARY AND SCRIPTS. ALL QUESTIONS ANSWERED. PT AMBULATES TO REGISTRATION DESK WI STEADY GAIT FOR D/C HOME. PT DENIES ANY OTHER NEEDS PERTAINING TO THIS VISIT.
== END 2019-10-16 07:07 | disposition home or self-care (01) ==
LOC: ED 05:20
DX: G89.29 Other chronic pain (principal); R10.13 Epigastric pain; E10.65 Type 1 diabetes mellitus with hyperglycemia; R11.2 Nausea with vomiting, unspecified; I10 Essential (primary) hypertension
CPT/HCPCS: 36415; 76700; 80053; 82962; 83690; 84703; 85025; 96361; 96374; 96375; 99284; J1815; J2405; J3490; J7030

== ENCOUNTER 2019-10-17 14:11 | Emergency (ER) | payer OTHER ==
[~2019-10-17] VITALS: Ht 157.5 cm; Wt 68.1 kg
--- NOTE | 2019-10-17 14:37 | NUR ---
outbound telemarketer note: POC glucose check done; 366. ekg completed in triage.
[2019-10-17] MEDS ORDERED: ONDANSETRON 2MG/ML, 2ML ONE (14:59)
[2019-10-17] MEDS ORDERED: HYDROmorphone 1 MG/ML, 1ML INJ ONE ×2 (14:59→16:58)
[2019-10-17] MEDS ORDERED: SODIUM CHLORIDE FLUSH 10ML SYR IVF ONE (15:00)
[2019-10-17] MEDS ORDERED: ONDANSETRON 2MG/ML, 2ML IVPush ONE (15:00)
[2019-10-17] MEDS ORDERED: SODIUM CHLORIDE 0.9% 1,000ML IVBOLUS ONE (15:00)
[2019-10-17 15:08] LABS: BASOPHILS # (AUTO) 0.03 x10^3/uL (0-0.1); BASOPHILS % (AUTO) 1 % (0-1); EOSINOPHILS # (AUTO) 0.09 x10^3/uL (0-0.4); EOSINOPHILS % (AUTO) 1 % (1-7); LYMPHOCYTES # (AUTO) 1.08 x10^3/uL (1-3.4); LYMPHOCYTES % (AUTO) 17 % (22-44); MD NO; MEAN CORPUSCULAR HEMOGLOBIN 27.2 pg (27.0-34.8); MEAN CORPUSCULAR HGB CONC 32.9 g/dL (32.4-35.8); MEAN CORPUSCULAR VOLUME 82.4 fL (80-100); MEAN PLATELET VOLUME 8.3 fL (7.4-10.4); MONOCYTES # (AUTO) 0.45 x10^3/uL (0.2-0.8); MONOCYTES % (AUTO) 7 % (2-9); NEUTROPHILS # (AUTO) 4.83 x10^3/uL (1.8-6.8); NEUTROPHILS % (AUTO) 75 % (42-75); PLATELET COUNT 270 x10^3/uL (130-400); RED BLOOD COUNT 4.51 x10^6/uL (3.82-5.3); RED CELL DISTRIBUTION WIDTH 17.9 % (9.6-15.2)
[2019-10-17 15:17] LABS: ALANINE AMINOTRANSFERASE 18 U/L (12-78); ALBUMIN 2.9 g/dL (3.4-5.0); ANION GAP 5 mmol/L (5-15); CALCIUM 8.9 mg/dL (8.5-10.1); CHLORIDE 104 mmol/L (98-107)
[2019-10-17 15:22] LABS: ALKALINE PHOSPHATASE 152 U/L (45-117); BILIRUBIN,TOTAL 0.2 mg/dL (0.2-1.0); CREATININE 0.75 mg/dL (0.55-1.02); TOTAL PROTEIN 6.5 g/dL (6.4-8.2)
[2019-10-17] MEDS: HYDROmorphone 2 MG/ML, 1ML IVPush PRN ×2 (15:26→17:02)
--- NOTE | 2019-10-17 15:35 | NUR ---
PT HAS CO ABDOMINAL PAIN, N/V. LUQ PAIN. PT STATES IT STARTED LAST NIGHT, TRIED TO GO TO [facility], BUT THEY COULD NOT HELP HER. BLOOD SUGARS HAVE BEEN HIGH 200-300. PT STATES SHE HAS HARD TIME CONTROLLING SUGARS. A1C IS 8. MD AT BEDSIDE IV ESTABLISHED. MEDICATED PER ORDERS
[2019-10-17 16:07] LABS: MICROSCOPIC AUTO
[2019-10-17 16:10] LABS: CULTURE INDICATED? NO
[2019-10-17] MEDS ORDERED: INSULIN REGULAR 100 UNITS/ML, 3ML VIAL SQ-INSULIN ONE (16:30)
[2019-10-17 16:53] VITALS: BP 170/96
[2019-10-17] MEDS ORDERED: INSULIN SINGLE DOSE, ER ONE (16:59)
--- NOTE | 2019-10-17 17:11 | NUR ---
MEDICATED FOR PAIN PER ORDERS. READY TO DC SOON. VSS
--- NOTE | 2019-10-17 17:31 | NUR ---
Patient/Caregiver given discharge instructions and they have confirmed that they understand the instructions. Patient ambulatory with steady gait.
== END 2019-10-17 17:48 | disposition home or self-care (01) ==
LOC: ED 14:41
DX: R10.13 Epigastric pain (principal); E11.65 Type 2 diabetes mellitus with hyperglycemia; I10 Essential (primary) hypertension; E78.5 Hyperlipidemia, unspecified; M19.90 Unspecified osteoarthritis, unspecified site; Z90.49 Acquired absence of other specified parts of digestive tract
CPT/HCPCS: 80053; 81001; 82962; 83690; 84703; 85025; 93005; 96361; 96374; 96375; 96376; 99284; J1170; J1815; J2405; J7030

== ENCOUNTER 2019-10-18 22:45 | Emergency (ER) | payer OTHER ==
[~2019-10-18] VITALS: Ht 157.5 cm; Wt 69.3 kg
--- NOTE | 2019-10-18 23:11 | NUR ---
CALLED FOR ROOM, NO ANSWER, NEXT PT ROOMED.
--- NOTE | 2019-10-18 23:13 | NUR ---
jose rafael mcwilliams screener: urine collected, labeled with pt. and sent to lab.
[2019-10-18 23:21] LABS: BASOPHILS # (AUTO) 0.02 x10^3/uL (0-0.1); BASOPHILS % (AUTO) 0 % (0-1); EOSINOPHILS # (AUTO) 0.04 x10^3/uL (0-0.4); EOSINOPHILS % (AUTO) 1 % (1-7); LYMPHOCYTES # (AUTO) 1.19 x10^3/uL (1-3.4); LYMPHOCYTES % (AUTO) 16 % (22-44); MD NO; MEAN CORPUSCULAR HEMOGLOBIN 26.7 pg (27.0-34.8); MEAN CORPUSCULAR HGB CONC 32.4 g/dL (32.4-35.8); MEAN CORPUSCULAR VOLUME 82.4 fL (80-100); MEAN PLATELET VOLUME 9.1 fL (7.4-10.4); MONOCYTES # (AUTO) 0.72 x10^3/uL (0.2-0.8); MONOCYTES % (AUTO) 10 % (2-9); NEUTROPHILS # (AUTO) 5.59 x10^3/uL (1.8-6.8); NEUTROPHILS % (AUTO) 74 % (42-75); PLATELET COUNT 294 x10^3/uL (130-400); RED BLOOD COUNT 4.85 x10^6/uL (3.82-5.3); RED CELL DISTRIBUTION WIDTH 17.1 % (9.6-15.2)
[2019-10-18 23:24] LABS: CULTURE INDICATED? NO; MICROSCOPIC AUTO
[2019-10-18 23:33] LABS: ALANINE AMINOTRANSFERASE 24 U/L (12-78); ALBUMIN 3.2 g/dL (3.4-5.0); ANION GAP 8 mmol/L (5-15); CALCIUM 9.1 mg/dL (8.5-10.1); CHLORIDE 94 mmol/L (98-107); CREATININE 1.19 mg/dL (0.55-1.02)
[2019-10-18 23:37] LABS: ALKALINE PHOSPHATASE 212 U/L (45-117); BILIRUBIN,TOTAL 0.1 mg/dL (0.2-1.0); TOTAL PROTEIN 7.5 g/dL (6.4-8.2)
--- NOTE | 2019-10-18 23:47 | NUR ---
LAB CALLS WITH 740 MD KEVIN AWARE
[2019-10-19] MEDS ORDERED: SODIUM CHLORIDE 0.9% 1,000ML IVBOLUS ONE
[2019-10-19] MEDS ORDERED: INSULIN REGULAR 100 UNITS/ML, 3ML VIAL IV ONE
[2019-10-19 00:04] LABS: ACETONE, SERUM Trace (Negative)
[2019-10-19] MEDS ORDERED: INSULIN SINGLE DOSE, ER ONE (00:11)
[2019-10-19 00:13] LABS: PH, VENOUS 7.411 pH (7.320-7.420)
[2019-10-19] MEDS ORDERED: ONDANSETRON 2MG/ML, 2ML ONE (00:41)
[2019-10-19] MEDS ORDERED: HYDROmorphone 1 MG/ML, 1ML INJ ONE ×2 (00:41→01:56)
[2019-10-19] MEDS: HYDROmorphone 2 MG/ML, 1ML IVPush PRN ×2 (00:43→01:59)
[2019-10-19] MEDS ORDERED: ONDANSETRON 2MG/ML, 2ML IVPush ONE (01:00)
[2019-10-19 01:01] VITALS: BP 145/98
--- NOTE | 2019-10-19 02:15 | NUR ---
FSBS 422 PRIOR TO FRANCK MINOR UPDATED
== END 2019-10-19 02:17 | disposition home or self-care (01) ==
LOC: ED 10-19 00:13
DX: R10.13 Epigastric pain (principal); R11.2 Nausea with vomiting, unspecified; E87.1 Hypo-osmolality and hyponatremia; E11.65 Type 2 diabetes mellitus with hyperglycemia; I10 Essential (primary) hypertension; E78.5 Hyperlipidemia, unspecified
CPT/HCPCS: 36415; 80053; 81001; 82010; 82803; 82962; 83690; 84703; 85025; 96361; 96374; 96375; 96376; 99284; J1170; J1815; J2405; J7030

== ENCOUNTER 2019-10-26 22:38 | Emergency (ER) | payer OTHER ==
[~2019-10-26] VITALS: Ht 157.5 cm; Wt 71.1 kg
[2019-10-26] MEDS ORDERED: SODIUM CHLORIDE FLUSH 10ML SYR IVF ONE (23:00)
[2019-10-26] MEDS ORDERED: ONDANSETRON 2MG/ML, 2ML IVPush ONE (23:00)
[2019-10-26] MEDS ORDERED: ONDANSETRON 2MG/ML, 2ML ONE (23:09)
[2019-10-26] MEDS ORDERED: MORPHINE SULFATE 4 MG/ML, 1ML ONE (23:09)
[2019-10-26 23:21] LABS: BASOPHILS # (AUTO) 0.03 x10^3/uL (0-0.1); BASOPHILS % (AUTO) 0 % (0-1); EOSINOPHILS # (AUTO) 0.03 x10^3/uL (0-0.4); EOSINOPHILS % (AUTO) 0 % (1-7); LYMPHOCYTES # (AUTO) 1.11 x10^3/uL (1-3.4); LYMPHOCYTES % (AUTO) 13 % (22-44); MD NO; MEAN CORPUSCULAR HEMOGLOBIN 27.2 pg (27.0-34.8); MEAN CORPUSCULAR HGB CONC 33.1 g/dL (32.4-35.8); MEAN CORPUSCULAR VOLUME 82.1 fL (80-100); MEAN PLATELET VOLUME 8.4 fL (7.4-10.4); MONOCYTES # (AUTO) 0.83 x10^3/uL (0.2-0.8); MONOCYTES % (AUTO) 9 % (2-9); NEUTROPHILS # (AUTO) 6.91 x10^3/uL (1.8-6.8); NEUTROPHILS % (AUTO) 78 % (42-75); PLATELET COUNT 276 x10^3/uL (130-400); RED BLOOD COUNT 4.33 x10^6/uL (3.82-5.3)
[2019-10-26] MEDS: MORPHINE SULFATE 4 MG/ML, 1ML IVPush PRN (23:29)
[2019-10-26] MEDS ORDERED: SODIUM CHLORIDE 0.9% 1,000ML IVBOLUS ONE (23:30)
--- NOTE | 2019-10-26 23:30 | NUR ---
PT RESTING ON GURNEY, TEARFUL. MONITORS APPLIED, SIDERAIL SUP X2, CALL LIGHT WITHIN REACH. IV SITE STARTED, PT REFUSED MORPHINE STATED " THEY ALWAYS GIVE ME DILAUDID BECAUSE MORPHINE DOES NOT WORK, REQUESTING DOCTOR CHANGE PAIN MED ORDER, ERP UPDATED, NO NEW ORDERS RECEIVED AT THIS TIME. PT MEDICATED PER AUG. PT TO CT
[2019-10-26 23:31] LABS: ALBUMIN 2.6 g/dL (3.4-5.0); ANION GAP 9 mmol/L (5-15); CALCIUM 8.7 mg/dL (8.5-10.1); CHLORIDE 97 mmol/L (98-107)
[2019-10-26 23:34] LABS: MICROSCOPIC AUTO
[2019-10-26 23:35] LABS: CULTURE INDICATED? NO
[2019-10-26 23:37] LABS: ALANINE AMINOTRANSFERASE 25 U/L (12-78); ALKALINE PHOSPHATASE 143 U/L (45-117); BILIRUBIN,TOTAL 0.3 mg/dL (0.2-1.0); CREATININE 1.08 mg/dL (0.55-1.02); TOTAL PROTEIN 6.7 g/dL (6.4-8.2)
[2019-10-26] MEDS ORDERED: OMNIPAQUE 350 MG/ML, 100ML BOTTLE ONE (23:48)
--- NOTE | 2019-10-27 00:14 | NUR ---
PT CRYING INSURANCE CLAIMS CLERK LIGHT, REQUESTING MORE PAIN MEDICATION, STATED THE MORPHINE DOES NOT WORK BUT THEN PT AGREES TO ANOTHER DOSE
[2019-10-27] MEDS ORDERED: MORPHINE SULFATE 4 MG/ML, 1ML ONE ×2 (00:16→00:39)
[2019-10-27] MEDS: MORPHINE SULFATE 4 MG/ML, 1ML IVPush PRN (00:18)
[2019-10-27] MEDS ORDERED: INSULIN SINGLE DOSE, ER ONE (00:25)
[2019-10-27] MEDS ORDERED: INSULIN SINGLE DOSE, ER IVPush ONE (00:30)
[2019-10-27 00:35] VITALS: BP 157/97
--- NOTE | 2019-10-27 00:36 | NUR ---
ERP AT PT'S BEDSIDE FOR RECHECK
[2019-10-27] MEDS: morphine SULFATE 10 MG/ML, 1ML IVPush ONE (00:43)
--- NOTE | 2019-10-27 00:44 | NUR ---
PT MEDICATED WITH 4 MG IV MORPHINE PER ERP VERBAL ORDER
== END 2019-10-27 00:54 | disposition home or self-care (01) ==
LOC: ED 23:10
DX: N83.291 Other ovarian cyst, right side (principal); N20.1 Calculus of ureter; E10.65 Type 1 diabetes mellitus with hyperglycemia; R93.5 Abnormal findings on diagnostic imaging of other abdominal regions, including retroperitoneum; E78.5 Hyperlipidemia, unspecified; I10 Essential (primary) hypertension; Z90.49 Acquired absence of other specified parts of digestive tract
CPT/HCPCS: 36415; 74177; 80053; 81001; 83690; 84703; 85025; 96374; 96375; 96376; 99285; J1815; J2270; J2405; J7030; Q9967; 96361

== ENCOUNTER 2019-11-09 02:33 | Inpatient (IN) | payer OTHER ==
[~2019-11-09] VITALS: Ht 157.5 cm; Wt 71.4 kg
--- NOTE | 2019-11-09 02:55 | NUR ---
PA AT BEDSIDE
[2019-11-09] MEDS ORDERED: SODIUM CHLORIDE FLUSH 10ML SYR IVF ONE (03:00)
[2019-11-09] MEDS ORDERED: ONDANSETRON 2MG/ML, 2ML IVPush ONE (03:00)
[2019-11-09] MEDS ORDERED: MORPHINE SULFATE 4 MG/ML, 1ML IVPush PRN ×2 (03:00→05:30)
[2019-11-09] MEDS ORDERED: SODIUM CHLORIDE 0.9% 1,000ML IVBOLUS ONE (03:00)
[2019-11-09] MEDS ORDERED: ONDANSETRON 2MG/ML, 2ML ONE (03:01)
[2019-11-09] MEDS ORDERED: MORPHINE SULFATE 4 MG/ML, 1ML ONE ×2 (03:01→05:17)
--- NOTE | 2019-11-09 03:16 | NUR ---
PIV STARTED FLUIDS INFUSING, PT MEDICATE PER MAR, US AT BS NOW.
[2019-11-09 03:23] LABS: MEAN CORPUSCULAR HEMOGLOBIN 26.7 pg (27.0-34.8); MEAN CORPUSCULAR HGB CONC 32.7 g/dL (32.4-35.8); MEAN CORPUSCULAR VOLUME 81.6 fL (80-100); PLATELET COUNT 432 x10^3/uL (130-400); RED BLOOD COUNT 5.36 x10^6/uL (3.82-5.3); RED CELL DISTRIBUTION WIDTH 17.3 % (9.6-15.2)
[2019-11-09 03:34] LABS: ALANINE AMINOTRANSFERASE 29 U/L (12-78); ALBUMIN 3.6 g/dL (3.4-5.0); ANION GAP 8 mmol/L (5-15); CALCIUM 9.9 mg/dL (8.5-10.1); CHLORIDE 99 mmol/L (98-107); CREATININE 2.01 mg/dL (0.55-1.02)
[2019-11-09 03:39] LABS: ALKALINE PHOSPHATASE 186 U/L (45-117); BILIRUBIN,TOTAL 0.4 mg/dL (0.2-1.0); TOTAL PROTEIN 8.8 g/dL (6.4-8.2)
[2019-11-09 04:13] LABS: BASOPHILS # (AUTO) 0.07 x10^3/uL (0-0.1); BASOPHILS % (AUTO) 0 % (0-1); EOSINOPHILS # (AUTO) 0.29 x10^3/uL (0-0.4); EOSINOPHILS % (AUTO) 2 % (1-7); LYMPHOCYTES # (AUTO) 3.09 x10^3/uL (1-3.4); LYMPHOCYTES % (AUTO) 16 % (22-44); MD SCAN; MONOCYTES # (AUTO) 1.26 x10^3/uL (0.2-0.8); MONOCYTES % (AUTO) 7 % (2-9); NEUTROPHILS # (AUTO) 14.23 x10^3/uL (1.8-6.8); NEUTROPHILS % (AUTO) 75 % (42-75)
--- NOTE | 2019-11-09 04:35 | NUR ---
PT REPORTS IMPROVEMENT IN PAIN AND NAUSEA
--- NOTE | 2019-11-09 04:35 | NUR ---
PT UP TO RESTROOM FOR URINE SAMPLE AT THIS TIME
[2019-11-09 04:50] LABS: MICROSCOPIC AUTO
[2019-11-09] MEDS ORDERED: CEFTRIAXONE PMX 1GM/50ML 50 ML IV ONE (05:00)
[2019-11-09] MEDS ORDERED: CEFTRIAXONE PMX 1GM/50ML 50 ML ONE (05:08)
--- NOTE | 2019-11-09 05:15 | NUR ---
PT MEDICATED PER KERRY ABParish HUNG AT THIS TIME, CECY
--- NOTE | 2019-11-09 06:57 | NUR ---
REPORT RECEIVED FROM NITA CARVALHO. ADMITTING PROVIDER IN ROOM.
[2019-11-09] MEDS ORDERED: ONDANSETRON 2MG/ML, 2ML IVPush PRN (07:00)
[2019-11-09] MEDS ORDERED: POLYETHYLENE GLYCOL 17 GM PACKET PO PRN (07:00)
[2019-11-09] MEDS ORDERED: SODIUM CHLORIDE 0.9% 1,000 ML IV SCH (07:00)
[2019-11-09] MEDS ORDERED: ONDANSETRON ODT 4 MG PO PRN (07:00)
[2019-11-09] MEDS: INSULIN LISPRO 100 UNITS/ML, PEN SQ-INSULIN SCH ×4 (07:00→20:09)
[2019-11-09] MEDS ORDERED: ACETAMINOPHEN 500 MG TABLET PO PRN (07:00)
[2019-11-09] MEDS ORDERED: CEFTRIAXONE PMX 1GM/50ML 50 ML IV SCH (07:00)
[2019-11-09] MEDS ORDERED: BISACODYL 10 MG SUPP PR PRN (07:00)
[2019-11-09] MEDS: HEPARIN 5,000 UNITS/ML, 1ML SQ SCH ×3 (07:00→22:37)
--- NOTE | 2019-11-09 07:03 | NUR ---
PER NITA AVIATION ELECTRICIAN MD DID NOT WANT BLOOD CULTURES. ABX HUNG AT 0512, ADMITTING PROVIDER ORDERED CULTURES AT 0634. NOTIFIED THAT ABX HAVE BEEN GIVEN ALREADY, STATES HE STILL WANTS CULTURES DRAWN.
--- NOTE | 2019-11-09 07:22 | NUR ---
ASKED IF HE WOULD BE ORDERING LACTIC, HE REPORTS NOT AT THIS TIME DUE TO VS BEING STABLE.
--- NOTE | 2019-11-09 07:31 | NUR ---
ATTEMPT TO CALL HEATHER CARVALHO FOR REPORT. UNAVAILABLE AT THIS TIME. WILL CALL ME BACK.
--- NOTE | 2019-11-09 07:48 | NUR ---
REPORT GIVEN TO HEATHER CARVALHO, PT IS READY FOR TRANSPORT AT THIS TIME.
[2019-11-09 08:41] VITALS: BP 101/75
[2019-11-09 08:44] VITALS: BP 101/75
[2019-11-09] MEDS: PANCRELIPASE 24,000 CAPSULE.DR PO SCH ×3 (09:20→16:29)
[2019-11-09] MEDS: OMEPRAZOLE 10 MG CAPSULE.DR PO SCH ×2 (09:20→16:29)
[2019-11-09] MEDS: FERROUS SULFATE 325 MG TABLET PO SCH (09:20)
[2019-11-09] MEDS: DULOXETINE 30 MG CAPSULE.DR PO SCH ×2 (09:20→21:44)
[2019-11-09] MEDS: TAMSULOSIN 0.4 MG CAP.ER.24H PO SCH (09:20)
[2019-11-09] MEDS: HYDROmorphone 2 MG/ML, 1ML IVPush PRN ×5 (09:20→23:11)
[2019-11-09] MEDS: GABAPENTIN 400 MG CAPSULE PO SCH ×3 (09:21→21:44)
[2019-11-09] MEDS: SODIUM CHLORIDE 0.9% 1,000 ML IV SCH ×2 (09:21→17:41)
[2019-11-09] MEDS: SENNA/DOCUSATE TABLET PO SCH (09:21)
[2019-11-09 12:50] VITALS: BP 102/66
[2019-11-09 18:44] VITALS: BP 118/77
[2019-11-09] MEDS: ZOLPIDEM 10MG TABLET PO SCH (21:44)
[2019-11-09] MEDS: FENOFIBRATE 145 MG TABLET PO SCH (21:44)
[2019-11-09] MEDS: INSULIN GLARGINE 100 UNITS/ML, PEN SQ-INSULIN SCH (21:45)
[2019-11-10] MEDS: HYDROmorphone 2 MG/ML, 1ML IVPush PRN ×7 (02:09→21:46)
[2019-11-10 02:30] VITALS: BP 116/76
[2019-11-10 04:03] VITALS: BP 116/76
[2019-11-10] MEDS: SODIUM CHLORIDE 0.9% 1,000 ML IV SCH ×2 (05:01→15:09)
[2019-11-10 05:06] LABS: BASOPHILS # (AUTO) 0.03 x10^3/uL (0-0.1); BASOPHILS % (AUTO) 0 % (0-1); EOSINOPHILS # (AUTO) 0.29 x10^3/uL (0-0.4); EOSINOPHILS % (AUTO) 4 % (1-7); LYMPHOCYTES # (AUTO) 1.88 x10^3/uL (1-3.4); LYMPHOCYTES % (AUTO) 28 % (22-44); MD NO; MEAN CORPUSCULAR HEMOGLOBIN 26.6 pg (27.0-34.8); MEAN CORPUSCULAR HGB CONC 32.3 g/dL (32.4-35.8); MEAN CORPUSCULAR VOLUME 82.3 fL (80-100); MEAN PLATELET VOLUME 8.2 fL (7.4-10.4); MONOCYTES % (AUTO) 9 % (2-9); NEUTROPHILS # (AUTO) 3.96 x10^3/uL (1.8-6.8); NEUTROPHILS % (AUTO) 59 % (42-75); PLATELET COUNT 256 x10^3/uL (130-400); RED BLOOD COUNT 3.81 x10^6/uL (3.82-5.3)
[2019-11-10 05:08] LABS: ALBUMIN 2.2 g/dL (3.4-5.0); ANION GAP 5 mmol/L (5-15); CALCIUM 7.8 mg/dL (8.5-10.1); CHLORIDE 106 mmol/L (98-107)
[2019-11-10 05:12] LABS: ALANINE AMINOTRANSFERASE 18 U/L (12-78); ALKALINE PHOSPHATASE 106 U/L (45-117); CREATININE 0.62 mg/dL (0.55-1.02); TOTAL PROTEIN 5.6 g/dL (6.4-8.2)
[2019-11-10 05:37] LABS: BILIRUBIN,TOTAL < 0.1 mg/dL (0.2-1.0)
[2019-11-10] MEDS: INSULIN LISPRO 100 UNITS/ML, PEN SQ-INSULIN SCH ×4 (07:00→20:38)
[2019-11-10] MEDS: HEPARIN 5,000 UNITS/ML, 1ML SQ SCH ×3 (07:00→23:00)
[2019-11-10 08:13] VITALS: BP 122/82
[2019-11-10] MEDS: DULOXETINE 30 MG CAPSULE.DR PO SCH ×2 (08:19→21:34)
[2019-11-10] MEDS: GABAPENTIN 400 MG CAPSULE PO SCH ×3 (08:19→21:35)
[2019-11-10] MEDS: SENNA/DOCUSATE TABLET PO SCH (08:19)
[2019-11-10] MEDS: PANCRELIPASE 24,000 CAPSULE.DR PO SCH ×3 (08:19→17:20)
[2019-11-10] MEDS: TAMSULOSIN 0.4 MG CAP.ER.24H PO SCH (08:19)
[2019-11-10] MEDS: OMEPRAZOLE 10 MG CAPSULE.DR PO SCH ×2 (08:19→17:20)
[2019-11-10] MEDS: CEFTRIAXONE PMX 1GM/50ML 50 ML IV SCH (09:47)
[2019-11-10 13:27] VITALS: BP 130/89
[2019-11-10 19:09] VITALS: BP 121/79
[2019-11-10] MEDS: INSULIN GLARGINE 100 UNITS/ML, PEN SQ-INSULIN SCH (20:38)
[2019-11-10] MEDS: ZOLPIDEM 10MG TABLET PO SCH (21:35)
[2019-11-10] MEDS: FENOFIBRATE 145 MG TABLET PO SCH (21:35)
[2019-11-11] MEDS: SODIUM CHLORIDE 0.9% 1,000 ML IV SCH (00:43)
[2019-11-11 00:44] VITALS: BP 177/108
[2019-11-11] MEDS: HYDROmorphone 2 MG/ML, 1ML IVPush PRN ×3 (00:52→06:53)
[2019-11-11 04:55] LABS: BASOPHILS # (AUTO) 0.02 x10^3/uL (0-0.1); BASOPHILS % (AUTO) 0 % (0-1); EOSINOPHILS # (AUTO) 0.17 x10^3/uL (0-0.4); EOSINOPHILS % (AUTO) 3 % (1-7); LYMPHOCYTES # (AUTO) 1.69 x10^3/uL (1-3.4); LYMPHOCYTES % (AUTO) 28 % (22-44); MD NO; MEAN CORPUSCULAR HGB CONC 32.8 g/dL (32.4-35.8); MEAN CORPUSCULAR VOLUME 82.4 fL (80-100); MEAN PLATELET VOLUME 8.1 fL (7.4-10.4); MONOCYTES # (AUTO) 0.54 x10^3/uL (0.2-0.8); MONOCYTES % (AUTO) 9 % (2-9); NEUTROPHILS # (AUTO) 3.68 x10^3/uL (1.8-6.8); NEUTROPHILS % (AUTO) 60 % (42-75); PLATELET COUNT 223 x10^3/uL (130-400); RED BLOOD COUNT 3.78 x10^6/uL (3.82-5.3)
[2019-11-11 05:03] LABS: ANION GAP 4 mmol/L (5-15); CALCIUM 7.9 mg/dL (8.5-10.1); CHLORIDE 107 mmol/L (98-107)
[2019-11-11 05:05] LABS: CREATININE 0.69 mg/dL (0.55-1.02)
[2019-11-11] MEDS: INSULIN LISPRO 100 UNITS/ML, PEN SQ-INSULIN SCH ×4 (07:00→20:57)
[2019-11-11] MEDS: HEPARIN 5,000 UNITS/ML, 1ML SQ SCH ×3 (07:00→21:10)
[2019-11-11 07:25] VITALS: BP_SYST 164; BP_SYST 171; BP_DIAS 101; BP_DIAS 103
[2019-11-11] MEDS: CEFTRIAXONE PMX 1GM/50ML 50 ML IV SCH (07:52)
[2019-11-11] MEDS: GABAPENTIN 400 MG CAPSULE PO SCH ×3 (07:53→20:52)
[2019-11-11] MEDS: PANCRELIPASE 24,000 CAPSULE.DR PO SCH ×3 (07:53→16:21)
[2019-11-11] MEDS: SENNA/DOCUSATE TABLET PO SCH (07:53)
[2019-11-11] MEDS: OMEPRAZOLE 10 MG CAPSULE.DR PO SCH ×2 (07:53→16:21)
[2019-11-11] MEDS: DULOXETINE 30 MG CAPSULE.DR PO SCH ×2 (07:54→20:52)
[2019-11-11] MEDS: FERROUS SULFATE 325 MG TABLET PO SCH (07:54)
[2019-11-11] MEDS: TAMSULOSIN 0.4 MG CAP.ER.24H PO SCH (07:54)
[2019-11-11] MEDS ORDERED: KETOROLAC 30 MG/1 ML IVPush PRN (09:30)
[2019-11-11] MEDS ORDERED: HYDROmorphone 2 MG/ML, 1ML IVPush PRN (10:00)
[2019-11-11] MEDS: OXYcodone IR 30 MG TABLET PO PRN ×2 (10:42→17:14)
[2019-11-11] MEDS: HYDROmorphone 1 MG/ML, 1ML INJ IVPush PRN ×3 (12:52→19:11)
[2019-11-11 14:15] VITALS: BP 108/70
[2019-11-11 18:57] VITALS: BP 132/87
[2019-11-11] MEDS: FENOFIBRATE 145 MG TABLET PO SCH (20:52)
[2019-11-11] MEDS: ZOLPIDEM 10MG TABLET PO SCH (20:52)
[2019-11-11] MEDS: CEFDINIR 300 MG CAPSULE PO SCH (20:52)
[2019-11-11] MEDS: INSULIN GLARGINE 100 UNITS/ML, PEN SQ-INSULIN SCH (21:09)
[2019-11-12] MEDS: HYDROmorphone 1 MG/ML, 1ML INJ IVPush PRN ×3 (01:23→12:56)
[2019-11-12 01:45] VITALS: BP 138/90
[2019-11-12] MEDS: OXYcodone IR 30 MG TABLET PO PRN (04:02)
[2019-11-12] MEDS: HEPARIN 5,000 UNITS/ML, 1ML SQ SCH (07:00)
[2019-11-12] MEDS: INSULIN LISPRO 100 UNITS/ML, PEN SQ-INSULIN SCH ×2 (07:00→11:00)
[2019-11-12 07:33] VITALS: BP 130/88
[2019-11-12] MEDS: OMEPRAZOLE 10 MG CAPSULE.DR PO SCH (07:41)
[2019-11-12] MEDS: CEFDINIR 300 MG CAPSULE PO SCH (07:41)
[2019-11-12] MEDS: DULOXETINE 30 MG CAPSULE.DR PO SCH (07:42)
[2019-11-12] MEDS: PANCRELIPASE 24,000 CAPSULE.DR PO SCH ×2 (07:42→11:08)
[2019-11-12] MEDS: GABAPENTIN 400 MG CAPSULE PO SCH (07:42)
[2019-11-12] MEDS: SENNA/DOCUSATE TABLET PO SCH (07:43)
[2019-11-12] MEDS: TAMSULOSIN 0.4 MG CAP.ER.24H PO SCH (07:43)
[2019-11-12] MEDS ORDERED: CEFD300C37 PO (09:19)
[2019-11-12] MEDS ORDERED: INSU100I13 SQ-INSULIN (09:19)
[2019-11-12] MEDS ORDERED: TAMS-11 PO (09:19)
== END 2019-11-12 13:26 | disposition home or self-care (01) | DRG 871 ==
LOC: ED 06:28 → EDIP 06:41 → 3N 08:02
PROVIDERS: ADMIT Family Medicine; ATTEND Family Medicine
DX: A41.9 Sepsis, unspecified organism (principal); N17.0 Acute kidney failure with tubular necrosis; K86.1 Other chronic pancreatitis; D50.9 Iron deficiency anemia, unspecified; E10.22 Type 1 diabetes mellitus with diabetic chronic kidney disease; E10.43 Type 1 diabetes mellitus with diabetic autonomic (poly)neuropathy; K31.84 Gastroparesis; E78.5 Hyperlipidemia, unspecified; F32.9 Major depressive disorder, single episode, unspecified; G89.29 Other chronic pain; K59.00 Constipation, unspecified; N18.9 Chronic kidney disease, unspecified; I12.9 Hypertensive chronic kidney disease with stage 1 through stage 4 chronic kidney disease, or unspecified chronic kidney disease; N20.0 Calculus of kidney; N30.91 Cystitis, unspecified with hematuria; Z79.4 Long term (current) use of insulin; Z88.8 Allergy status to other drugs, medicaments and biological substances; Z88.6 Allergy status to analgesic agent; Z82.49 Family history of ischemic heart disease and other diseases of the circulatory system
CPT/HCPCS: 36415; 74176; 76770; 80048; 80053; 81001; 82962; 83605; 83690; 84703; 85025; 87040; 87086; 96361; 96365; 96375; 96376; 99285; G0378; J0696; J1170; J1885; J2405; J1815; J2270; J7030

== ENCOUNTER 2019-12-04 21:34 | Emergency (ER) | payer OTHER ==
[~2019-12-04] VITALS: Ht 157.5 cm; Wt 64.1 kg
[~2019-12-04 21:34] MED LIST changes: -OXYC15TA PO; +OXYC15TA3 PO; -OXYC30TA PO; +OXYC30TA3 PO; +TAMS-11 PO
[2019-12-04 21:41] VITALS: BP 150/94
[2019-12-04 22:16] LABS: HCG UR SG 1.036 (1.003-1.030)
--- NOTE | 2019-12-04 22:27 | NUR ---
CT PENDING NEG. HCG.
[2019-12-04] MEDS ORDERED: MORPHINE SULFATE 4 MG/ML, 1ML IVPush PRN ×2 (22:30)
[2019-12-04] MEDS ORDERED: ONDANSETRON 2MG/ML, 2ML IVPush ONE ×2 (22:30→23:30)
[2019-12-04] MEDS ORDERED: SODIUM CHLORIDE FLUSH 10ML SYR IVF ONE (22:30)
[2019-12-04] MEDS ORDERED: ONDANSETRON 2MG/ML, 2ML ONE ×2 (22:31→23:30)
[2019-12-04] MEDS ORDERED: MORPHINE SULFATE 4 MG/ML, 1ML ONE ×2 (22:31→23:30)
[2019-12-04 22:40] LABS: MICROSCOPIC INDICATED
[2019-12-04 22:57] LABS: BASOPHILS # (AUTO) 0.03 x10^3/uL (0-0.1); BASOPHILS % (AUTO) 0 % (0-1); EOSINOPHILS # (AUTO) 0.09 x10^3/uL (0-0.4); EOSINOPHILS % (AUTO) 1 % (1-7); LYMPHOCYTES # (AUTO) 1.48 x10^3/uL (1-3.4); LYMPHOCYTES % (AUTO) 21 % (22-44); MD NO; MEAN CORPUSCULAR HEMOGLOBIN 27.5 pg (27.0-34.8); MEAN CORPUSCULAR HGB CONC 33.3 g/dL (32.4-35.8); MEAN CORPUSCULAR VOLUME 82.6 fL (80-100); MEAN PLATELET VOLUME 9.5 fL (7.4-10.4); MONOCYTES # (AUTO) 0.39 x10^3/uL (0.2-0.8); MONOCYTES % (AUTO) 5 % (2-9); NEUTROPHILS # (AUTO) 5.22 x10^3/uL (1.8-6.8); NEUTROPHILS % (AUTO) 72 % (42-75); PLATELET COUNT 251 x10^3/uL (130-400); RED BLOOD COUNT 4.78 x10^6/uL (3.82-5.3); RED CELL DISTRIBUTION WIDTH 16.8 % (9.6-15.2)
[2019-12-04 22:58] LABS: ALBUMIN 2.9 g/dL (3.4-5.0); ANION GAP 9 mmol/L (5-15); CALCIUM 8.6 mg/dL (8.5-10.1); CHLORIDE 94 mmol/L (98-107); CREATININE 1.12 mg/dL (0.55-1.02)
[2019-12-04 23:11] LABS: ALANINE AMINOTRANSFERASE 39 U/L (12-78)
[2019-12-04 23:12] LABS: BILIRUBIN, DIRECT < 0.1 mg/dL (0.1-0.2)
[2019-12-04] MEDS ORDERED: INSULIN SINGLE DOSE, ER ONE (23:13)
[2019-12-04 23:14] LABS: ALKALINE PHOSPHATASE 217 U/L (45-117); BILIRUBIN,INDIRECT 0.2 mg/dL (0.0-2.0); BILIRUBIN,TOTAL 0.3 mg/dL (0.2-1.0); TOTAL PROTEIN 7.1 g/dL (6.4-8.2)
[2019-12-04] MEDS ORDERED: MORPHINE SULFATE 4 MG/ML, 1ML IVPush ONE (23:30)
[2019-12-04] MEDS ORDERED: SODIUM CHLORIDE 0.9% 1,000ML IVBOLUS ONE (23:30)
--- NOTE | 2019-12-04 23:51 | NUR ---
Pt states her pain is unrelieved by the additional pain medications. Pt states she is "scared to go home because of the pain." Pt educated on pain management goals and realistic expectations.
[2019-12-05] MEDS ORDERED: ONDANSETRON 2MG/ML, 2ML ONE (00:11)
[2019-12-05] MEDS ORDERED: HYDROmorphone 2 MG/ML, 1ML ONE (00:11)
--- NOTE | 2019-12-05 00:24 | NUR ---
Pt given dc/rx. Pt signeed controlled substance prescription informed consent paperwork. Pt ambulated to dc desk without assistance
--- NOTE | 2019-12-05 00:26 | NUR ---
Blood sugar 149 on dc
[2019-12-05] MEDS ORDERED: HYDROmorphone 1 MG/ML, 1ML INJ IV ONE (00:30)
[2019-12-05] MEDS ORDERED: ONDANSETRON 2MG/ML, 2ML IVPush ONE (00:30)
[2019-12-05] MEDS ORDERED: INSULIN REGULAR 100 UNITS/ML, 3ML VIAL SQ-INSULIN SCH (07:00)
== END 2019-12-05 00:28 | disposition home or self-care (01) ==
LOC: ED 23:03
DX: N20.0 Calculus of kidney (principal); R11.0 Nausea; R10.9 Unspecified abdominal pain; I10 Essential (primary) hypertension; E11.9 Type 2 diabetes mellitus without complications; E78.5 Hyperlipidemia, unspecified; M19.90 Unspecified osteoarthritis, unspecified site; Z90.49 Acquired absence of other specified parts of digestive tract
CPT/HCPCS: 36415; 74176; 80048; 80076; 81001; 81025; 82040; 82962; 83690; 85025; 87086; 96361; 96374; 96375; 96376; 99284; J1170; J1815; J2270; J2405; J7030

== ENCOUNTER 2019-12-10 20:59 | Inpatient (IN) | payer OTHER ==
[~2019-12-10] VITALS: Ht 160 cm; Wt 71.1 kg
--- NOTE | 2019-12-10 21:17 | NUR ---
FSBS IN TRIAGE READS "HI"
[2019-12-10] MEDS ORDERED: ONDANSETRON 2MG/ML, 2ML IVPush ONE (21:30)
[2019-12-10] MEDS ORDERED: HYDROmorphone 1 MG/ML, 1ML INJ ONE ×2 (21:50→22:30)
[2019-12-10] MEDS ORDERED: ONDANSETRON 2MG/ML, 2ML ONE (21:50)
[2019-12-10 21:54] LABS: BASOPHILS # (AUTO) 0.02 x10^3/uL (0-0.1); BASOPHILS % (AUTO) 0 % (0-1); EOSINOPHILS # (AUTO) 0.17 x10^3/uL (0-0.4); EOSINOPHILS % (AUTO) 2 % (1-7); LYMPHOCYTES # (AUTO) 1.33 x10^3/uL (1-3.4); LYMPHOCYTES % (AUTO) 17 % (22-44); MD NO; MEAN CORPUSCULAR HGB CONC 32.3 g/dL (32.4-35.8); MEAN CORPUSCULAR VOLUME 86.7 fL (80-100); MEAN PLATELET VOLUME 9.6 fL (7.4-10.4); MONOCYTES # (AUTO) 0.58 x10^3/uL (0.2-0.8); MONOCYTES % (AUTO) 8 % (2-9); NEUTROPHILS # (AUTO) 5.68 x10^3/uL (1.8-6.8); NEUTROPHILS % (AUTO) 73 % (42-75); PLATELET COUNT 300 x10^3/uL (130-400); RED BLOOD COUNT 4.74 x10^6/uL (3.82-5.3); RED CELL DISTRIBUTION WIDTH 16.5 % (9.6-15.2)
[2019-12-10] MEDS ORDERED: SODIUM CHLORIDE 0.9% 1,000ML IVBOLUS ONE ×2 (22:00→23:00)
[2019-12-10 22:01] LABS: ALBUMIN 3.1 g/dL (3.4-5.0); ANION GAP 10 mmol/L (5-15); CHLORIDE 80 mmol/L (98-107)
[2019-12-10 22:04] LABS: ALANINE AMINOTRANSFERASE 34 U/L (12-78); ALKALINE PHOSPHATASE 261 U/L (45-117); BILIRUBIN,TOTAL 0.3 mg/dL (0.2-1.0); CREATININE 1.47 mg/dL (0.55-1.02); TOTAL PROTEIN 7.4 g/dL (6.4-8.2)
[2019-12-10] MEDS: HYDROmorphone 2 MG/ML, 1ML IVPush PRN ×2 (22:09→22:35)
--- NOTE | 2019-12-10 22:14 | NUR ---
Patient presents to ER c/o left flank pain x 3 hours. Patient states pain came on suddenly. She has had N/V with it. Patient has a hx of kidney stones. She states she passed one recently. Patient is in obvious pain. Respirations even and unlabored. Medicated patient per aug.
--- NOTE | 2019-12-10 22:14 | NUR ---
Izabel MACKEY RN INFORMED OF CRITICAL RESULTS.
[2019-12-10 22:22] LABS: MICROSCOPIC NOT IND
[2019-12-10] MEDS ORDERED: INSULIN SINGLE DOSE, ER ONE (22:56)
[2019-12-10] MEDS ORDERED: INSULIN SINGLE DOSE, ER SQ-INSULIN ONE (23:00)
--- NOTE | 2019-12-10 23:25 | NUR ---
REPORT FROM MAIA GREENBERG. PT CARE ASSUMED.
--- NOTE | 2019-12-10 23:28 | NUR ---
Report given to MAIA Dumont. Care transferred.
--- NOTE | 2019-12-11 00:01 | NUR ---
PT UP TO RESTROOM AND BACK, NO ASSISTANCE NECESSARY. CALL LIGHT IN REACH.
[2019-12-11] MEDS: INSULIN GLARGINE 100 UNITS/ML, PEN SQ-INSULIN SCH ×2 (00:30→22:56)
[2019-12-11 00:57] LABS: ANION GAP 7 mmol/L (5-15); CALCIUM 8.7 mg/dL (8.5-10.1); CHLORIDE 93 mmol/L (98-107); CREATININE 1.16 mg/dL (0.55-1.02)
[2019-12-11] MEDS ORDERED: HYDROmorphone 1 MG/ML, 1ML INJ ONE (01:07)
[2019-12-11] MEDS: HYDROmorphone 2 MG/ML, 1ML IV PRN ×6 (01:09→22:55)
[2019-12-11] MEDS: SODIUM CHLORIDE 0.9% 1,000 ML IV SCH ×4 (02:50→22:46)
[2019-12-11 03:12] VITALS: BP 105/68
[2019-12-11] MEDS ORDERED: ONDANSETRON 2MG/ML, 2ML IVPush ONE (03:30)
[2019-12-11] MEDS ORDERED: hydrALAzine 20 MG/ML, 1ML IVPush PRN (04:00)
[2019-12-11] MEDS ORDERED: ACETAMINOPHEN 325 MG TABLET PO PRN (04:00)
[2019-12-11] MEDS ORDERED: ONDANSETRON 2MG/ML, 2ML IVPush PRN (04:00)
[2019-12-11] MEDS: OXYcodone IR 5MG TABLET PO PRN ×3 (05:12→21:04)
[2019-12-11 06:07] LABS: ANION GAP 4 mmol/L (5-15); CALCIUM 8.8 mg/dL (8.5-10.1); CHLORIDE 102 mmol/L (98-107)
[2019-12-11 06:09] LABS: CREATININE 0.81 mg/dL (0.55-1.02)
[2019-12-11] MEDS: INSULIN LISPRO 100 UNITS/ML, PEN SQ-INSULIN SCH ×4 (06:26→22:44)
[2019-12-11 07:10] VITALS: BP 99/60
[2019-12-11] MEDS: DULOXETINE 30 MG CAPSULE.DR PO SCH ×2 (07:43→22:41)
[2019-12-11] MEDS: GABAPENTIN 400 MG CAPSULE PO SCH ×3 (07:43→22:42)
[2019-12-11] MEDS: OMEPRAZOLE 10 MG CAPSULE.DR PO SCH ×2 (07:43→16:31)
[2019-12-11] MEDS: PANCRELIPASE 24,000 CAPSULE.DR PO SCH ×3 (07:43→16:35)
[2019-12-11] MEDS: LOSARTAN 25MG TABLET PO SCH (07:45)
[2019-12-11] MEDS ORDERED: KETOROLAC 30 MG/1 ML IVPush PRN (08:30)
[2019-12-11] MEDS ORDERED: FERROUS SULFATE 325 MG TABLET PO SCH (09:00)
[2019-12-11] MEDS ORDERED: LACTULOSE 10 GM/15 ML UDC PO PRN (11:30)
[2019-12-11] MEDS: DOCUSATE 100 MG CAPSULE PO SCH ×2 (12:19→22:41)
[2019-12-11 13:50] VITALS: BP 115/77
[2019-12-11 19:20] VITALS: BP 109/71
[2019-12-11] MEDS ORDERED: ZOLPIDEM 10MG TABLET PO SCH (21:00)
[2019-12-11] MEDS ORDERED: FENOFIBRATE 145 MG TABLET PO SCH (21:00)
[2019-12-12 01:10] VITALS: BP 127/79
[2019-12-12] MEDS: HYDROmorphone 2 MG/ML, 1ML IV PRN ×2 (02:53→08:35)
[2019-12-12] MEDS: SODIUM CHLORIDE 0.9% 1,000 ML IV SCH (05:04)
[2019-12-12 05:13] LABS: BASOPHILS # (AUTO) 0.02 x10^3/uL (0-0.1); BASOPHILS % (AUTO) 0 % (0-1); EOSINOPHILS # (AUTO) 0.23 x10^3/uL (0-0.4); EOSINOPHILS % (AUTO) 4 % (1-7); LYMPHOCYTES # (AUTO) 1.69 x10^3/uL (1-3.4); LYMPHOCYTES % (AUTO) 30 % (22-44); MD NO; MEAN CORPUSCULAR HEMOGLOBIN 27.7 pg (27.0-34.8); MEAN CORPUSCULAR HGB CONC 33.1 g/dL (32.4-35.8); MEAN CORPUSCULAR VOLUME 83.9 fL (80-100); MEAN PLATELET VOLUME 8.6 fL (7.4-10.4); MONOCYTES # (AUTO) 0.54 x10^3/uL (0.2-0.8); MONOCYTES % (AUTO) 10 % (2-9); NEUTROPHILS # (AUTO) 3.13 x10^3/uL (1.8-6.8); NEUTROPHILS % (AUTO) 56 % (42-75); PLATELET COUNT 194 x10^3/uL (130-400); RED BLOOD COUNT 3.65 x10^6/uL (3.82-5.3); RED CELL DISTRIBUTION WIDTH 17.1 % (9.6-15.2)
[2019-12-12 05:19] LABS: ANION GAP 2 mmol/L (5-15); CALCIUM 7.7 mg/dL (8.5-10.1); CHLORIDE 108 mmol/L (98-107); CREATININE 0.59 mg/dL (0.55-1.02)
[2019-12-12] MEDS: INSULIN LISPRO 100 UNITS/ML, PEN SQ-INSULIN SCH (07:00)
[2019-12-12 08:06] VITALS: BP 126/83
[2019-12-12] MEDS: DULOXETINE 30 MG CAPSULE.DR PO SCH (08:34)
[2019-12-12] MEDS: GABAPENTIN 400 MG CAPSULE PO SCH (08:34)
[2019-12-12] MEDS: PANCRELIPASE 24,000 CAPSULE.DR PO SCH (08:34)
[2019-12-12] MEDS: OMEPRAZOLE 10 MG CAPSULE.DR PO SCH (08:34)
[2019-12-12] MEDS: LOSARTAN 25MG TABLET PO SCH (08:35)
[2019-12-12] MEDS: DOCUSATE 100 MG CAPSULE PO SCH (08:36)
[2019-12-12] MEDS ORDERED: INSU100I13 SQ-INSULIN (09:12)
== END 2019-12-12 10:35 | disposition home or self-care (01) | DRG 637 ==
LOC: ED 23:19 → EDIP 12-11 00:06 → 4NE 12-11 02:14 → 3N 12-11 15:10 → DCLOUNGE 12-12 10:30
PROVIDERS: ADMIT Family Medicine; ATTEND Family Medicine
DX: E10.65 Type 1 diabetes mellitus with hyperglycemia (principal); N17.0 Acute kidney failure with tubular necrosis; K86.1 Other chronic pancreatitis; F11.20 Opioid dependence, uncomplicated; E10.43 Type 1 diabetes mellitus with diabetic autonomic (poly)neuropathy; E10.649 Type 1 diabetes mellitus with hypoglycemia without coma; E78.5 Hyperlipidemia, unspecified; E86.0 Dehydration; F32.9 Major depressive disorder, single episode, unspecified; F41.9 Anxiety disorder, unspecified; G89.29 Other chronic pain; I10 Essential (primary) hypertension; K31.84 Gastroparesis; K59.00 Constipation, unspecified; N20.0 Calculus of kidney; Z79.4 Long term (current) use of insulin; Z82.49 Family history of ischemic heart disease and other diseases of the circulatory system; Z87.442 Personal history of urinary calculi; Z87.440 Personal history of urinary (tract) infections; Z87.01 Personal history of pneumonia (recurrent)
CPT/HCPCS: 36415; 74176; 76770; 80048; 80053; 81003; 82962; 83036; 83690; 83930; 85025; G0378; J1170; J2405; J1815; J7030

== ENCOUNTER 2019-12-30 05:58 | Emergency (ER) | payer OTHER ==
[~2019-12-30] VITALS: Ht 157.5 cm; Wt 65.0 kg
[2019-12-30] MEDS ORDERED: ONDANSETRON ODT 4 MG ONE ×2 (06:07→09:13)
--- NOTE | 2019-12-30 06:10 | NUR ---
ZOFRAN GIVEN IN TRIAGE
[2019-12-30] MEDS ORDERED: ONDANSETRON ODT 4 MG PO ONE ×2 (06:30→09:30)
[2019-12-30 06:42] LABS: BASOPHILS # (AUTO) 0.03 x10^3/uL (0-0.1); BASOPHILS % (AUTO) 0 % (0-1); EOSINOPHILS # (AUTO) 0.21 x10^3/uL (0-0.4); EOSINOPHILS % (AUTO) 3 % (1-7); LYMPHOCYTES # (AUTO) 1.75 x10^3/uL (1-3.4); LYMPHOCYTES % (AUTO) 23 % (22-44); MD NO; MEAN CORPUSCULAR HEMOGLOBIN 28.3 pg (27.0-34.8); MEAN CORPUSCULAR HGB CONC 33.4 g/dL (32.4-35.8); MEAN CORPUSCULAR VOLUME 84.8 fL (80-100); MEAN PLATELET VOLUME 8.1 fL (7.4-10.4); MONOCYTES # (AUTO) 0.38 x10^3/uL (0.2-0.8); MONOCYTES % (AUTO) 5 % (2-9); NEUTROPHILS # (AUTO) 5.21 x10^3/uL (1.8-6.8); NEUTROPHILS % (AUTO) 69 % (42-75); PLATELET COUNT 284 x10^3/uL (130-400); RED BLOOD COUNT 4.82 x10^6/uL (3.82-5.3); RED CELL DISTRIBUTION WIDTH 17.7 % (9.6-15.2)
[2019-12-30 06:53] LABS: ALANINE AMINOTRANSFERASE 28 U/L (12-78); ANION GAP 5 mmol/L (5-15); CALCIUM 9.4 mg/dL (8.5-10.1); CHLORIDE 106 mmol/L (98-107)
[2019-12-30 06:54] LABS: ACETONE, SERUM Trace (Negative)
--- NOTE | 2019-12-30 06:55 | NUR ---
LIMB DRIVER: PT TO TRIAGE ROOM AND EKG COMPLETED. URINE CUP GIVEN AND DIRECTIONS FOR CLEAN CATCH REVIEWED.
--- NOTE | 2019-12-30 06:57 | NUR ---
SKIFF OPERATOR: PT RPTS NAUSEA IMPROVED AFTER ZOFRAN
[2019-12-30 07:02] LABS: ALKALINE PHOSPHATASE 154 U/L (45-117); BILIRUBIN,TOTAL 0.2 mg/dL (0.2-1.0); TOTAL PROTEIN 7.3 g/dL (6.4-8.2)
--- NOTE | 2019-12-30 07:08 | NUR ---
BANKING SERVICES ADVISOR: URINED COLLECTED AND SENT TO LAB
[2019-12-30 07:28] LABS: MICROSCOPIC INDICATED
--- NOTE | 2019-12-30 08:28 | NUR ---
Pt to room from [facility], ambulatory with steady gait.
--- NOTE | 2019-12-30 08:40 | NUR ---
First contact with pt. Pt c/o epigastric pain with N/V since last night. Pt rates pain 8/10 currently. Pt states hx of pancreatitis. Pt able to position self for comfort in bed, denies other needs.
[2019-12-30 09:10] VITALS: BP 146/94
== END 2019-12-30 09:17 | disposition home or self-care (01) ==
LOC: ED 09:02
DX: N30.00 Acute cystitis without hematuria (principal); R10.13 Epigastric pain; R00.0 Tachycardia, unspecified; E78.5 Hyperlipidemia, unspecified; E11.9 Type 2 diabetes mellitus without complications
CPT/HCPCS: 36415; 76700; 80053; 81001; 82010; 82803; 82962; 83690; 85025; 87086; 93005; 99285; Q0162

== ENCOUNTER 2020-01-01 21:44 | Inpatient (IN) | payer OTHER ==
[~2020-01-01] VITALS: Ht 157.5 cm; Wt 79.9 kg
--- NOTE | 2020-01-01 22:01 | NUR ---
HR 120s. PT IN ACUTE DISTRESS D/T R FLANK PAIN. EKG DONE IN TRIAGE.
--- NOTE | 2020-01-01 22:09 | NUR ---
PT AMBULATED TO BR, INSTRUCTED ON CLEAN CATCH URINE SAMPLE.
[2020-01-01] MEDS ORDERED: KETOROLAC 60 MG/2 ML ONE ×2 (22:21→23:50)
[2020-01-01] MEDS ORDERED: ONDANSETRON ODT 4 MG ONE (22:21)
[2020-01-01 22:25] LABS: BASOPHILS # (AUTO) 0.04 x10^3/uL (0-0.1); BASOPHILS % (AUTO) 1 % (0-1); EOSINOPHILS # (AUTO) 0.12 x10^3/uL (0-0.4); EOSINOPHILS % (AUTO) 2 % (1-7); LYMPHOCYTES # (AUTO) 1.02 x10^3/uL (1-3.4); LYMPHOCYTES % (AUTO) 15 % (22-44); MD NO; MEAN CORPUSCULAR HEMOGLOBIN 28.1 pg (27.0-34.8); MEAN CORPUSCULAR HGB CONC 31.5 g/dL (32.4-35.8); MEAN CORPUSCULAR VOLUME 89.1 fL (80-100); MEAN PLATELET VOLUME 8.6 fL (7.4-10.4); MONOCYTES # (AUTO) 0.46 x10^3/uL (0.2-0.8); MONOCYTES % (AUTO) 7 % (2-9); NEUTROPHILS # (AUTO) 5.19 x10^3/uL (1.8-6.8); NEUTROPHILS % (AUTO) 76 % (42-75); PLATELET COUNT 249 x10^3/uL (130-400); RED BLOOD COUNT 4.32 x10^6/uL (3.82-5.3); RED CELL DISTRIBUTION WIDTH 16.9 % (9.6-15.2)
[2020-01-01 22:30] LABS: HCG UR SG 1.037 (1.003-1.030); MICROSCOPIC NOT IND
[2020-01-01] MEDS ORDERED: KETOROLAC 30 MG/1 ML IM ONE (22:30)
[2020-01-01] MEDS ORDERED: ONDANSETRON ODT 4 MG PO ONE (22:30)
--- NOTE | 2020-01-01 22:30 | NUR ---
PT REFUSING TORADOL AND CT IMAGING. REPORTS "I HAVE A KIDNEY STONE, I WANT FLOMAX AND TO GO HOME". PT EDUCATED THAT FLOMAX WILL NOT HELP IF PT DOESN'T HAVE KIDNEY STONE, VERBALIZED UNDERSTANDING.
[2020-01-01 22:36] LABS: ALBUMIN 2.6 g/dL (3.4-5.0); ANION GAP 9 mmol/L (5-15); CALCIUM 7.5 mg/dL (8.5-10.1); CHLORIDE 96 mmol/L (98-107); CREATININE 1.39 mg/dL (0.55-1.02)
[2020-01-01] MEDS ORDERED: INSULIN SINGLE DOSE, ER ONE (22:52)
[2020-01-01] MEDS ORDERED: SODIUM CHLORIDE 0.9% 1,000ML IVBOLUS ONE (23:00)
[2020-01-01] MEDS ORDERED: SODIUM CHLORIDE FLUSH 10ML SYR IVF ONE (23:00)
[2020-01-01] MEDS ORDERED: INSULIN REGULAR 100 UNITS/ML, 3ML VIAL SQ-INSULIN ONE (23:00)
--- NOTE | 2020-01-01 23:25 | NUR ---
PT UPDATED ON LAB RESULTS, NOW CONSENTING TO CT AND WANTS TORADOL.
[2020-01-02] MEDS ORDERED: hydrALAzine 20 MG/ML, 1ML IVPush PRN (00:30)
[2020-01-02] MEDS ORDERED: OXYcodone IR 5MG TABLET PO PRN (00:30)
[2020-01-02] MEDS ORDERED: METHOCARBAMOL 500 MG TABLET PO PRN (00:30)
[2020-01-02] MEDS ORDERED: ACETAMINOPHEN 325 MG TABLET PO PRN (00:30)
[2020-01-02] MEDS ORDERED: DOCUSATE 100 MG CAPSULE PO PRN (00:30)
[2020-01-02] MEDS ORDERED: KETOROLAC 30 MG/1 ML IM PRN (00:30)
[2020-01-02] MEDS: HEPARIN 5,000 UNITS/ML, 1ML SQ SCH ×3 (00:30→16:53)
[2020-01-02] MEDS ORDERED: TAMSULOSIN 0.4 MG CAP.ER.24H PO ONE (00:30)
[2020-01-02] MEDS ORDERED: HYDROmorphone 2 MG/ML, 1ML IVPush PRN (00:30)
[2020-01-02] MEDS ORDERED: INSULIN GLARGINE 100 UNITS/ML, PEN SQ-INSULIN SCH ×2 (00:30→21:00)
[2020-01-02] MEDS ORDERED: KETOROLAC 30 MG/1 ML IVPush ONE (00:30)
[2020-01-02] MEDS: SODIUM CHLORIDE 0.9% 1,000 ML IV SCH ×4 (01:20→14:53)
[2020-01-02] MEDS: FENOFIBRATE 145 MG TABLET PO SCH ×2 (02:06→21:19)
[2020-01-02] MEDS: HYDROmorphone 2 MG/ML, 1ML IVPush PRN ×8 (02:06→21:21)
[2020-01-02 03:51] VITALS: BP 143/95
[2020-01-02] MEDS: ZOLPIDEM 10MG TABLET PO SCH ×2 (03:53→22:15)
[2020-01-02] MEDS: ONDANSETRON 2MG/ML, 2ML IVPush PRN (05:29)
[2020-01-02] MEDS ORDERED: INSULIN LISPRO 100 UNITS/ML, PEN SQ-INSULIN SCH (07:00)
[2020-01-02] MEDS ORDERED: INSULIN REGULAR 100 UNITS/ML, 3ML VIAL SQ-INSULIN SCH (07:00)
[2020-01-02 07:30] VITALS: BP 153/99
[2020-01-02] MEDS ORDERED: OMEPRAZOLE 10 MG CAPSULE.DR PO SCH (07:30)
[2020-01-02] MEDS: GABAPENTIN 400 MG CAPSULE PO SCH ×3 (08:39→21:19)
[2020-01-02] MEDS: FERROUS SULFATE 325 MG TABLET PO SCH (08:39)
[2020-01-02] MEDS: LOSARTAN 100 MG TAB PO SCH (08:39)
[2020-01-02] MEDS: PANCRELIPASE 24,000 CAPSULE.DR PO SCH ×3 (08:39→16:52)
[2020-01-02] MEDS: NORGESTIMATE ETHINYL ESTRADIOL HOMEMEDPO SCH (08:40)
[2020-01-02 09:01] LABS: BASOPHILS # (AUTO) 0.03 x10^3/uL (0-0.1); BASOPHILS % (AUTO) 0 % (0-1); EOSINOPHILS # (AUTO) 0.22 x10^3/uL (0-0.4); EOSINOPHILS % (AUTO) 3 % (1-7); LYMPHOCYTES # (AUTO) 1.68 x10^3/uL (1-3.4); LYMPHOCYTES % (AUTO) 26 % (22-44); MD NO; MEAN CORPUSCULAR HEMOGLOBIN 28.1 pg (27.0-34.8); MEAN CORPUSCULAR HGB CONC 32.3 g/dL (32.4-35.8); MEAN CORPUSCULAR VOLUME 86.8 fL (80-100); MEAN PLATELET VOLUME 8.7 fL (7.4-10.4); MONOCYTES # (AUTO) 0.46 x10^3/uL (0.2-0.8); MONOCYTES % (AUTO) 7 % (2-9); NEUTROPHILS % (AUTO) 64 % (42-75); PLATELET COUNT 215 x10^3/uL (130-400); RED BLOOD COUNT 4.01 x10^6/uL (3.82-5.3); RED CELL DISTRIBUTION WIDTH 16.6 % (9.6-15.2)
[2020-01-02 09:04] LABS: CALCIUM 7.6 mg/dL (8.5-10.1); CHLORIDE 109 mmol/L (98-107)
[2020-01-02 09:05] LABS: CREATININE 0.66 mg/dL (0.55-1.02)
[2020-01-02] MEDS: INSULIN LISPRO 100 UNITS/ML, PEN SQ-INSULIN SCH ×4 (09:05→21:20)
[2020-01-02 09:52] LABS: ANION GAP 5 mmol/L (5-15)
[2020-01-02 13:56] VITALS: BP 143/84
[2020-01-02 16:00] LABS: MICROSCOPIC AUTO
[2020-01-02] MEDS ORDERED: GADOTERATE 7.5 MMOL/15 ML SYR ONE (16:15)
[2020-01-02 19:15] VITALS: BP_SYST 93
[2020-01-02] MEDS: LACTOBACILLUS CHEW TABLET PO SCH (21:19)
[2020-01-03 00:17] VITALS: BP 141/90
[2020-01-03] MEDS: HEPARIN 5,000 UNITS/ML, 1ML SQ SCH ×4 (00:30→16:20)
[2020-01-03] MEDS: SODIUM CHLORIDE 0.9% 1,000 ML IV SCH ×3 (00:32→21:33)
[2020-01-03] MEDS: HYDROmorphone 2 MG/ML, 1ML IVPush PRN ×8 (00:32→22:30)
[2020-01-03 05:32] LABS: BASOPHILS # (AUTO) 0.06 x10^3/uL (0-0.1); BASOPHILS % (AUTO) 1 % (0-1); EOSINOPHILS # (AUTO) 0.43 x10^3/uL (0-0.4); EOSINOPHILS % (AUTO) 4 % (1-7); LYMPHOCYTES # (AUTO) 2.29 x10^3/uL (1-3.4); LYMPHOCYTES % (AUTO) 23 % (22-44); MD NO; MEAN CORPUSCULAR HGB CONC 32.5 g/dL (32.4-35.8); MEAN CORPUSCULAR VOLUME 86.1 fL (80-100); MEAN PLATELET VOLUME 8.6 fL (7.4-10.4); MONOCYTES # (AUTO) 0.65 x10^3/uL (0.2-0.8); MONOCYTES % (AUTO) 7 % (2-9); NEUTROPHILS # (AUTO) 6.56 x10^3/uL (1.8-6.8); NEUTROPHILS % (AUTO) 66 % (42-75); PLATELET COUNT 221 x10^3/uL (130-400); RED BLOOD COUNT 3.84 x10^6/uL (3.82-5.3); RED CELL DISTRIBUTION WIDTH 16.8 % (9.6-15.2)
[2020-01-03 05:37] LABS: ANION GAP 4 mmol/L (5-15); C-REACTIVE PROTEIN, QUANT 0.48 mg/dL (0.02-0.49); CALCIUM 8.6 mg/dL (8.5-10.1); CHLORIDE 109 mmol/L (98-107); CREATININE 0.51 mg/dL (0.55-1.02)
[2020-01-03 05:38] LABS: HCT (SEDRATE) 33.1 % (34.6-47.8)
[2020-01-03] MEDS: ONDANSETRON 2MG/ML, 2ML IVPush PRN ×3 (06:38→22:30)
[2020-01-03] MEDS: INSULIN LISPRO 100 UNITS/ML, PEN SQ-INSULIN SCH ×4 (07:00→21:11)
[2020-01-03 07:12] VITALS: BP 131/81
[2020-01-03] MEDS: PANCRELIPASE 24,000 CAPSULE.DR PO SCH ×3 (08:29→16:16)
[2020-01-03] MEDS: GABAPENTIN 400 MG CAPSULE PO SCH ×3 (08:29→21:29)
[2020-01-03] MEDS: LOSARTAN 100 MG TAB PO SCH (08:29)
[2020-01-03] MEDS: NORGESTIMATE ETHINYL ESTRADIOL HOMEMEDPO SCH (08:59)
[2020-01-03] MEDS: INSULIN GLARGINE 100 UNITS/ML, PEN SQ-INSULIN SCH (09:50)
[2020-01-03 14:06] VITALS: BP 142/84
[2020-01-03] MEDS ORDERED: OMNIPAQUE 350 MG/ML, 100ML BOTTLE ONE (16:06)
[2020-01-03 16:20] LABS: OCCULT BLOOD NEGATIVE (NEGATIVE)
[2020-01-03 16:55] LABS: STOOL FOR LEUKOCYTES FEW (2-5/HPF) (NEGATIVE)
[2020-01-03 19:50] VITALS: BP 144/89
[2020-01-03] MEDS ORDERED: INSULIN GLARGINE 100 UNITS/ML, PEN SQ-INSULIN SCH (21:00)
[2020-01-03] MEDS: FENOFIBRATE 145 MG TABLET PO SCH (21:29)
[2020-01-03] MEDS: LACTOBACILLUS CHEW TABLET PO SCH (21:29)
[2020-01-03] MEDS: ZOLPIDEM 10MG TABLET PO SCH (21:33)
[2020-01-04] MEDS: HEPARIN 5,000 UNITS/ML, 1ML SQ SCH ×3 (00:30→16:30)
[2020-01-04] MEDS: HYDROmorphone 2 MG/ML, 1ML IVPush PRN ×7 (01:38→20:58)
[2020-01-04 01:55] VITALS: BP 120/81
[2020-01-04] MEDS: INSULIN LISPRO 100 UNITS/ML, PEN SQ-INSULIN SCH ×4 (07:00→20:58)
[2020-01-04] MEDS: FERROUS SULFATE 325 MG TABLET PO SCH (07:32)
[2020-01-04] MEDS: LOSARTAN 100 MG TAB PO SCH (07:32)
[2020-01-04] MEDS: PANCRELIPASE 24,000 CAPSULE.DR PO SCH ×3 (07:32→15:43)
[2020-01-04] MEDS: GABAPENTIN 400 MG CAPSULE PO SCH ×3 (07:32→20:58)
[2020-01-04] MEDS: SODIUM CHLORIDE 0.9% 1,000 ML IV SCH ×2 (07:33→17:19)
[2020-01-04] MEDS: NORGESTIMATE ETHINYL ESTRADIOL HOMEMEDPO SCH (07:34)
[2020-01-04 07:37] VITALS: BP 148/95
[2020-01-04] MEDS: INSULIN GLARGINE 100 UNITS/ML, PEN SQ-INSULIN SCH (09:00)
[2020-01-04] MEDS: ONDANSETRON 2MG/ML, 2ML IVPush PRN ×2 (09:20→19:34)
[2020-01-04 13:49] VITALS: BP 130/85
[2020-01-04 18:58] VITALS: BP 113/73
[2020-01-04] MEDS: FENOFIBRATE 145 MG TABLET PO SCH (20:57)
[2020-01-04] MEDS: LACTOBACILLUS CHEW TABLET PO SCH (20:58)
[2020-01-04] MEDS ORDERED: INSULIN GLARGINE 100 UNITS/ML, PEN SQ-INSULIN SCH ×2 (21:00)
[2020-01-04] MEDS: ZOLPIDEM 10MG TABLET PO SCH (21:39)
[2020-01-05] MEDS: HYDROmorphone 2 MG/ML, 1ML IVPush PRN ×6 (00:29→20:04)
[2020-01-05] MEDS: HEPARIN 5,000 UNITS/ML, 1ML SQ SCH ×3 (00:30→16:30)
[2020-01-05 01:27] VITALS: BP 108/70
[2020-01-05] MEDS: SODIUM CHLORIDE 0.9% 1,000 ML IV SCH ×2 (03:48→16:02)
[2020-01-05] MEDS: INSULIN LISPRO 100 UNITS/ML, PEN SQ-INSULIN SCH ×4 (07:00→21:34)
[2020-01-05 07:28] VITALS: BP 135/85
[2020-01-05 08:01] LABS: ANION GAP 3 mmol/L (5-15); CALCIUM 8.6 mg/dL (8.5-10.1); CHLORIDE 110 mmol/L (98-107); CREATININE 0.57 mg/dL (0.55-1.02)
[2020-01-05] MEDS: LOSARTAN 100 MG TAB PO SCH (08:09)
[2020-01-05] MEDS: PANCRELIPASE 24,000 CAPSULE.DR PO SCH ×3 (08:10→16:02)
[2020-01-05] MEDS: GABAPENTIN 400 MG CAPSULE PO SCH ×3 (08:10→21:33)
[2020-01-05] MEDS: NORGESTIMATE ETHINYL ESTRADIOL HOMEMEDPO SCH (08:15)
[2020-01-05] MEDS: INSULIN GLARGINE 100 UNITS/ML, PEN SQ-INSULIN SCH ×2 (08:16→21:34)
[2020-01-05] MEDS ORDERED: ERYTHROMYCIN 250 MG in SODIUM CHLORIDE 0.9% 100 ML IV SCH (09:30)
[2020-01-05] MEDS: ERYTHROMYCIN 250 MG in SODIUM CHLORIDE 0.9% 100 ML IV SCH ×2 (10:26→17:20)
[2020-01-05 13:24] VITALS: BP 137/85
[2020-01-05 19:55] VITALS: BP 113/74
[2020-01-05] MEDS: LACTOBACILLUS CHEW TABLET PO SCH (21:33)
[2020-01-05] MEDS: FENOFIBRATE 145 MG TABLET PO SCH (21:33)
[2020-01-05] MEDS: ZOLPIDEM 10MG TABLET PO SCH (22:09)
[2020-01-06] MEDS: HYDROmorphone 2 MG/ML, 1ML IVPush PRN ×5 (00:17→20:16)
[2020-01-06 00:20] VITALS: BP 119/71
[2020-01-06] MEDS: HEPARIN 5,000 UNITS/ML, 1ML SQ SCH ×4 (00:30→23:43)
[2020-01-06] MEDS: ERYTHROMYCIN 250 MG in SODIUM CHLORIDE 0.9% 100 ML IV SCH ×3 (01:38→17:26)
[2020-01-06] MEDS: SODIUM CHLORIDE 0.9% 1,000 ML IV SCH ×2 (01:38→14:54)
[2020-01-06] MEDS: ONDANSETRON 2MG/ML, 2ML IVPush PRN ×2 (04:00→14:43)
[2020-01-06] MEDS: INSULIN LISPRO 100 UNITS/ML, PEN SQ-INSULIN SCH ×4 (07:00→23:39)
[2020-01-06 07:28] VITALS: BP 116/74
[2020-01-06] MEDS: PANCRELIPASE 24,000 CAPSULE.DR PO SCH ×3 (07:46→16:45)
[2020-01-06] MEDS: LOSARTAN 100 MG TAB PO SCH (07:46)
[2020-01-06] MEDS: NORGESTIMATE ETHINYL ESTRADIOL HOMEMEDPO SCH (07:46)
[2020-01-06] MEDS: GABAPENTIN 400 MG CAPSULE PO SCH ×3 (07:46→22:11)
[2020-01-06] MEDS: INSULIN GLARGINE 100 UNITS/ML, PEN SQ-INSULIN SCH ×2 (10:34→23:38)
[2020-01-06 14:23] VITALS: BP 123/82
[2020-01-06 19:16] VITALS: BP 140/84
[2020-01-06] MEDS: ZOLPIDEM 10MG TABLET PO SCH (22:11)
[2020-01-06] MEDS: FENOFIBRATE 145 MG TABLET PO SCH (22:11)
[2020-01-06] MEDS: LACTOBACILLUS CHEW TABLET PO SCH (22:11)
[2020-01-06] MEDS ORDERED: HYDROmorphone 2MG TABLET ONE (22:51)
[2020-01-06] MEDS: HYDROmorphone 4MG TABLET PO PRN (23:04)
[2020-01-07 00:28] VITALS: BP 149/88
[2020-01-07] MEDS: HYDROmorphone 2 MG/ML, 1ML IVPush PRN ×6 (00:34→22:53)
[2020-01-07] MEDS: ERYTHROMYCIN 250 MG in SODIUM CHLORIDE 0.9% 100 ML IV SCH (01:25)
[2020-01-07] MEDS: SODIUM CHLORIDE 0.9% 1,000 ML IV SCH ×2 (01:28→14:49)
[2020-01-07] MEDS ORDERED: HYDROmorphone 2MG TABLET ONE ×3 (02:55→11:22)
[2020-01-07] MEDS: HYDROmorphone 4MG TABLET PO PRN ×2 (03:01→06:45)
[2020-01-07] MEDS: HEPARIN 5,000 UNITS/ML, 1ML SQ SCH ×2 (08:11→15:54)
[2020-01-07] MEDS: NORGESTIMATE ETHINYL ESTRADIOL HOMEMEDPO SCH (08:12)
[2020-01-07] MEDS: INSULIN GLARGINE 100 UNITS/ML, PEN SQ-INSULIN SCH ×2 (08:33→21:12)
[2020-01-07] MEDS: INSULIN LISPRO 100 UNITS/ML, PEN SQ-INSULIN SCH ×4 (08:34→21:12)
[2020-01-07] MEDS: GABAPENTIN 400 MG CAPSULE PO SCH ×3 (08:34→20:53)
[2020-01-07] MEDS: LOSARTAN 100 MG TAB PO SCH (08:34)
[2020-01-07] MEDS: PANCRELIPASE 24,000 CAPSULE.DR PO SCH ×3 (08:35→16:45)
[2020-01-07 09:24] VITALS: BP 158/93
[2020-01-07 14:11] VITALS: BP 142/89
[2020-01-07] MEDS: HYDROmorphone 2MG TABLET PO PRN ×2 (14:48→19:32)
[2020-01-07] MEDS: ZOLPIDEM 10MG TABLET PO SCH (20:53)
[2020-01-07] MEDS: FENOFIBRATE 145 MG TABLET PO SCH (20:53)
[2020-01-07] MEDS: LACTOBACILLUS CHEW TABLET PO SCH (20:53)
[2020-01-07 21:13] VITALS: BP 145/90
[2020-01-08] MEDS: HEPARIN 5,000 UNITS/ML, 1ML SQ SCH ×2 (00:30→08:26)
[2020-01-08] MEDS: HYDROmorphone 2MG TABLET PO PRN ×2 (00:34→08:22)
[2020-01-08] MEDS: SODIUM CHLORIDE 0.9% 1,000 ML IV SCH ×2 (00:38→09:54)
[2020-01-08 00:41] VITALS: BP 125/80
[2020-01-08] MEDS: HYDROmorphone 2 MG/ML, 1ML IVPush PRN (05:52)
[2020-01-08 06:44] VITALS: BP 127/80
[2020-01-08] MEDS: PANCRELIPASE 24,000 CAPSULE.DR PO SCH (08:22)
[2020-01-08] MEDS: GABAPENTIN 400 MG CAPSULE PO SCH (08:22)
[2020-01-08] MEDS: INSULIN GLARGINE 100 UNITS/ML, PEN SQ-INSULIN SCH (08:23)
[2020-01-08] MEDS: INSULIN LISPRO 100 UNITS/ML, PEN SQ-INSULIN SCH (08:24)
[2020-01-08] MEDS: NORGESTIMATE ETHINYL ESTRADIOL HOMEMEDPO SCH (08:26)
[2020-01-08] MEDS ORDERED: LOSARTAN 50MG TABLET PO SCH (09:00)
== END 2020-01-08 10:57 | disposition home or self-care (01) | DRG 638 ==
LOC: ED 22:01 → EDIP 01-02 00:11 → 3N 01-02 01:29 → DCLOUNGE 01-08 10:47
PROVIDERS: ADMIT Internal Medicine; ATTEND Family Medicine
DX: E10.65 Type 1 diabetes mellitus with hyperglycemia (principal); N17.9 Acute kidney failure, unspecified; K86.1 Other chronic pancreatitis; F41.9 Anxiety disorder, unspecified; F32.9 Major depressive disorder, single episode, unspecified; R63.1 Polydipsia; K21.9 Gastro-esophageal reflux disease without esophagitis; E87.8 Other disorders of electrolyte and fluid balance, not elsewhere classified; E80.6 Other disorders of bilirubin metabolism; E10.41 Type 1 diabetes mellitus with diabetic mononeuropathy; E10.43 Type 1 diabetes mellitus with diabetic autonomic (poly)neuropathy; K86.89 Other specified diseases of pancreas; E78.1 Pure hyperglyceridemia; G89.29 Other chronic pain; E78.5 Hyperlipidemia, unspecified; E28.2 Polycystic ovarian syndrome; N20.0 Calculus of kidney; Z90.49 Acquired absence of other specified parts of digestive tract; Z88.8 Allergy status to other drugs, medicaments and biological substances; Z79.4 Long term (current) use of insulin
CPT/HCPCS: 36415; 72158; 74176; 74177; 80048; 81001; 81003; 81025; 82040; 82272; 82947; 82962; 83036; 83690; 83735; 84443; 85025; 85651; 86140; 87046; 87427; 89055; 93005; 96361; 96374; G0378; J1170; J1364; J1644; J1885; J2405; Q0162; Q9967; A9575; J1815; J7030

== ENCOUNTER 2020-01-21 13:45 | Emergency (ER) | payer OTHER ==
[~2020-01-21] VITALS: Ht 157.5 cm; Wt 68.3 kg
[2020-01-21] MEDS ORDERED: SODIUM CHLORIDE 0.9% 1,000ML IVBOLUS ONE (14:30)
[2020-01-21 14:51] LABS: BASOPHILS # (AUTO) 0.02 x10^3/uL (0-0.1); BASOPHILS % (AUTO) 0 % (0-1); EOSINOPHILS # (AUTO) 0.11 x10^3/uL (0-0.4); EOSINOPHILS % (AUTO) 2 % (1-7); LYMPHOCYTES # (AUTO) 0.92 x10^3/uL (1-3.4); LYMPHOCYTES % (AUTO) 13 % (22-44); MD NO; MEAN CORPUSCULAR HEMOGLOBIN 27.5 pg (27.0-34.8); MEAN CORPUSCULAR HGB CONC 32.3 g/dL (32.4-35.8); MEAN PLATELET VOLUME 8.1 fL (7.4-10.4); MONOCYTES # (AUTO) 0.45 x10^3/uL (0.2-0.8); MONOCYTES % (AUTO) 6 % (2-9); NEUTROPHILS # (AUTO) 5.85 x10^3/uL (1.8-6.8); NEUTROPHILS % (AUTO) 80 % (42-75); PH, VENOUS 7.428 pH (7.320-7.420); PLATELET COUNT 313 x10^3/uL (130-400); RED BLOOD COUNT 4.36 x10^6/uL (3.82-5.3); RED CELL DISTRIBUTION WIDTH 16.4 % (9.6-15.2)
[2020-01-21 15:08] LABS: ALANINE AMINOTRANSFERASE 29 U/L (12-78); ALBUMIN 2.4 g/dL (3.4-5.0); ANION GAP 10 mmol/L (5-15); CHLORIDE 101 mmol/L (98-107); CREATININE 1.15 mg/dL (0.55-1.02)
[2020-01-21 15:10] LABS: ALKALINE PHOSPHATASE 117 U/L (45-117); BILIRUBIN,TOTAL 0.2 mg/dL (0.2-1.0); TOTAL PROTEIN 6.8 g/dL (6.4-8.2)
[2020-01-21 15:23] LABS: ACETONE, SERUM Negative (Negative)
[2020-01-21] MEDS ORDERED: ONDANSETRON ODT 4 MG PO ONE (15:30)
--- NOTE | 2020-01-21 15:42 | NUR ---
THIS NURSE ATTEMPTED TO PLACE AN IV x 2, PT HAS DIFFICULT VASCULATURE. ULTRASOUND LINE REQUESTED, SUPPLIES AT BEDSIDE. PT DENIES ANY FURTHER NEEDS OR CONCERNS. CALL LIGHT IN REACH.
[2020-01-21 16:00] LABS: MICROSCOPIC INDICATED
[2020-01-21] MEDS ORDERED: KETOROLAC 30 MG/1 ML ONE (16:09)
[2020-01-21] MEDS ORDERED: ONDANSETRON ODT 4 MG ONE (16:09)
[2020-01-21] MEDS ORDERED: HYDROmorphone 1 MG/ML, 1ML INJ ONE ×2 (16:10→17:11)
[2020-01-21] MEDS: HYDROmorphone 1 MG/ML, 1ML INJ IVPush PRN ×2 (16:16→17:17)
[2020-01-21] MEDS ORDERED: KETOROLAC 30 MG/1 ML IVPush ONE (17:00)
[2020-01-21 17:07] LABS: HCG UR SG 1.039 (1.003-1.030)
[2020-01-21 17:18] VITALS: BP 124/70
--- NOTE | 2020-01-21 17:18 | NUR ---
erp at bedside for reeval of pt condition. pt denies any needs or concerns at this time.call light in reach.
== END 2020-01-21 17:47 | disposition home or self-care (01) ==
LOC: ED 17:09
DX: R10.9 Unspecified abdominal pain (principal); E11.65 Type 2 diabetes mellitus with hyperglycemia; R11.2 Nausea with vomiting, unspecified; R00.0 Tachycardia, unspecified; E78.5 Hyperlipidemia, unspecified; M19.90 Unspecified osteoarthritis, unspecified site
CPT/HCPCS: 36415; 74018; 76770; 80053; 81001; 81025; 82010; 82803; 82962; 83690; 85025; 96361; 96374; 96375; 96376; 99285; J1170; J1885; J7030; Q0162

== ENCOUNTER 2020-01-22 02:41 | Emergency (ER) | payer OTHER ==
[~2020-01-22] VITALS: Ht 157.5 cm; Wt 71.6 kg
[2020-01-22] MEDS ORDERED: METHYLNALTREXONE 12 MG/0.6 ML SYR SQ STA (03:11)
[2020-01-22] MEDS ORDERED: ONDANSETRON ODT 4 MG ONE (03:12)
[2020-01-22] MEDS ORDERED: OXYcodone/APAP 5/325MG TABLET ONE (03:13)
[2020-01-22] MEDS ORDERED: METHYLNALTREXONE 12 MG/0.6 ML SYR SQ ONE (03:14)
--- NOTE | 2020-01-22 03:25 | NUR ---
pt refusing relistor and percocet at this time stating she "does no want a shot and can't keep anything orally down and would prefer IV"
[2020-01-22 03:29] LABS: MICROSCOPIC NOT IND
[2020-01-22] MEDS ORDERED: OXYcodone/APAP 5/325MG TABLET PO ONE (03:30)
[2020-01-22] MEDS ORDERED: ONDANSETRON ODT 4 MG PO ONE (03:30)
[2020-01-22] MEDS ORDERED: MORPHINE SULFATE 4 MG/ML, 1ML IVPush ONE (03:30)
[2020-01-22] MEDS ORDERED: MORPHINE SULFATE 4 MG/ML, 1ML ONE (03:33)
[2020-01-22 03:44] LABS: MEAN CORPUSCULAR HEMOGLOBIN 27.6 pg (27.0-34.8); MEAN CORPUSCULAR HGB CONC 31.8 g/dL (32.4-35.8); MEAN PLATELET VOLUME 8.6 fL (7.4-10.4); PLATELET COUNT 259 x10^3/uL (130-400); RED BLOOD COUNT 3.93 x10^6/uL (3.82-5.3)
[2020-01-22 03:53] LABS: ALANINE AMINOTRANSFERASE 23 U/L (12-78); ALBUMIN 2.3 g/dL (3.4-5.0); ANION GAP 11 mmol/L (5-15); CALCIUM 7.9 mg/dL (8.5-10.1); CHLORIDE 92 mmol/L (98-107); CREATININE 1.39 mg/dL (0.55-1.02)
[2020-01-22 03:55] LABS: ALKALINE PHOSPHATASE 136 U/L (45-117); BILIRUBIN,TOTAL 0.2 mg/dL (0.2-1.0); TOTAL PROTEIN 6.3 g/dL (6.4-8.2)
[2020-01-22 04:03] LABS: BASOPHILS # (AUTO) 0.05 x10^3/uL (0-0.1); BASOPHILS % (AUTO) 0 % (0-1); EOSINOPHILS # (AUTO) 0.15 x10^3/uL (0-0.4); EOSINOPHILS % (AUTO) 1 % (1-7); LYMPHOCYTES # (AUTO) 1.01 x10^3/uL (1-3.4); LYMPHOCYTES % (AUTO) 9 % (22-44); MD SCAN; MONOCYTES % (AUTO) 7 % (2-9); NEUTROPHILS # (AUTO) 8.94 x10^3/uL (1.8-6.8); NEUTROPHILS % (AUTO) 82 % (42-75)
[2020-01-22] MEDS ORDERED: INSULIN SINGLE DOSE, ER ONE (04:10)
--- NOTE | 2020-01-22 04:20 | NUR ---
fingerstick bgl >600 on hospital glucometer. Insulin administered per aug
[2020-01-22] MEDS ORDERED: INSULIN SINGLE DOSE, ER IVPush ONE (04:30)
[2020-01-22] MEDS ORDERED: SODIUM CHLORIDE 0.9% 1,000ML IVBOLUS ONE (04:30)
[2020-01-22] MEDS ORDERED: ONDANSETRON 2MG/ML, 2ML ONE (05:18)
[2020-01-22] MEDS ORDERED: KETOROLAC 30 MG/1 ML ONE (05:26)
[2020-01-22] MEDS ORDERED: KETOROLAC 30 MG/1 ML IVPush ONE (05:30)
[2020-01-22] MEDS ORDERED: ONDANSETRON 2MG/ML, 2ML IVPush ONE (05:30)
[2020-01-22 06:04] VITALS: BP 162/98
== END 2020-01-22 06:06 | disposition home or self-care (01) ==
LOC: ED 03:00
DX: E10.65 Type 1 diabetes mellitus with hyperglycemia (principal); E10.43 Type 1 diabetes mellitus with diabetic autonomic (poly)neuropathy; K31.84 Gastroparesis; R11.2 Nausea with vomiting, unspecified; R10.84 Generalized abdominal pain; R31.9 Hematuria, unspecified; I10 Essential (primary) hypertension; E78.5 Hyperlipidemia, unspecified; M19.90 Unspecified osteoarthritis, unspecified site; Z90.49 Acquired absence of other specified parts of digestive tract
CPT/HCPCS: 36415; 80053; 81003; 82962; 83690; 85025; 96361; 96374; 96375; 99284; J1815; J1885; J2270; J2405; J7030; Q0162

== ENCOUNTER 2020-01-23 20:40 | Inpatient (IN) | payer OTHER ==
[~2020-01-23] VITALS: Ht 157.5 cm; Wt 73.1 kg
--- NOTE | 2020-01-23 21:30 | NUR ---
BULB BRANDER: PT. TO ROOM FROM LOBBY AT THIS TIME.
[2020-01-23] MEDS ORDERED: HYDROmorphone 1 MG/ML, 1ML INJ ONE (21:55)
[2020-01-23] MEDS ORDERED: ONDANSETRON 2MG/ML, 2ML ONE (21:55)
[2020-01-23] MEDS ORDERED: SODIUM CHLORIDE FLUSH 10ML SYR IVF ONE (22:00)
[2020-01-23] MEDS ORDERED: SODIUM CHLORIDE 0.9% 1,000ML IVBOLUS ONE (22:00)
[2020-01-23] MEDS ORDERED: HYDROmorphone 2 MG/ML, 1ML IVPush PRN (22:00)
[2020-01-23] MEDS ORDERED: ONDANSETRON 2MG/ML, 2ML IVPush ONE (22:00)
[2020-01-23 22:01] LABS: MICROSCOPIC NOT IND
[2020-01-23 22:34] LABS: ALBUMIN 2.5 g/dL (3.4-5.0); ANION GAP 8 mmol/L (5-15); CALCIUM 8.2 mg/dL (8.5-10.1); CHLORIDE 98 mmol/L (98-107)
[2020-01-23 22:39] LABS: ALANINE AMINOTRANSFERASE 22 U/L (12-78); ALKALINE PHOSPHATASE 149 U/L (45-117); BILIRUBIN,TOTAL 0.2 mg/dL (0.2-1.0); CREATININE 1.07 mg/dL (0.55-1.02); TOTAL PROTEIN 6.7 g/dL (6.4-8.2)
[2020-01-23 22:40] LABS: BASOPHILS # (AUTO) 0.03 x10^3/uL (0-0.1); BASOPHILS % (AUTO) 1 % (0-1); EOSINOPHILS # (AUTO) 0.18 x10^3/uL (0-0.4); EOSINOPHILS % (AUTO) 3 % (1-7); LYMPHOCYTES # (AUTO) 1.72 x10^3/uL (1-3.4); LYMPHOCYTES % (AUTO) 29 % (22-44); MD SCAN; MEAN CORPUSCULAR HEMOGLOBIN 27.5 pg (27.0-34.8); MEAN CORPUSCULAR HGB CONC 32.4 g/dL (32.4-35.8); MEAN PLATELET VOLUME 9.1 fL (7.4-10.4); MONOCYTES # (AUTO) 0.68 x10^3/uL (0.2-0.8); MONOCYTES % (AUTO) 12 % (2-9); NEUTROPHILS # (AUTO) 3.27 x10^3/uL (1.8-6.8); NEUTROPHILS % (AUTO) 56 % (42-75); PLATELET COUNT 287 x10^3/uL (130-400); RED BLOOD COUNT 4.13 x10^6/uL (3.82-5.3); RED CELL DISTRIBUTION WIDTH 16.6 % (9.6-15.2)
[2020-01-23 22:54] LABS: ACETONE, SERUM Negative (Negative)
[2020-01-23] MEDS ORDERED: INSULIN REGULAR 100 UNITS/ML, 3ML VIAL IV ONE (23:00)
[2020-01-23] MEDS ORDERED: INSULIN LISPRO SINGLE DOSE, ER SQ-INSULIN ONE (23:00)
[2020-01-23 23:05] LABS: PH, VENOUS 7.343 pH (7.320-7.420)
[2020-01-24] MEDS ORDERED: HYDROmorphone 1 MG/ML, 1ML INJ ONE (00:13)
[2020-01-24] MEDS ORDERED: SODIUM CHLORIDE FLUSH 10ML SYR IVF PRN (01:30)
[2020-01-24] MEDS ORDERED: GABAPENTIN 300 MG CAPSULE PO PRN (02:00)
[2020-01-24] MEDS ORDERED: ACETAMINOPHEN 325 MG TABLET PO PRN (02:00)
[2020-01-24] MEDS ORDERED: LABETALOL 5MG/ML, 20ML IVPush PRN (02:00)
[2020-01-24] MEDS ORDERED: ONDANSETRON 2MG/ML, 2ML IVPush PRN (02:00)
[2020-01-24] MEDS ORDERED: ZOLPIDEM 10MG TABLET PO PRN (03:00)
[2020-01-24] MEDS: HYDROmorphone 2 MG/ML, 1ML IVPush PRN ×6 (03:11→23:06)
[2020-01-24] MEDS: SODIUM CHLORIDE 0.9% 1,000 ML IV SCH ×2 (03:12→09:51)
[2020-01-24 03:13] VITALS: BP 125/84
[2020-01-24 05:10] LABS: AMPHETAMINE SCREEN, URINE Negative (Negative); BARBITURATE SCREEN, URINE Negative (Negative); BENZODIAZEPINE SCREEN, URINE Positive (Negative); CANNABINOID SCREEN, URINE Negative (Negative); COCAINE SCREEN, URINE Negative (Negative); METHADONE SCREEN, URINE Negative (Negative); OPIATE SCREEN, URINE Positive (Negative)
[2020-01-24] MEDS: INSULIN LISPRO 100 UNITS/ML, PEN SQ-INSULIN SCH ×4 (07:00→20:09)
[2020-01-24] MEDS: OMEPRAZOLE 10 MG CAPSULE.DR PO SCH ×2 (07:30→20:18)
[2020-01-24 07:51] VITALS: BP 124/85
[2020-01-24] MEDS: LOSARTAN 100 MG TAB PO SCH (09:00)
[2020-01-24] MEDS: PANCRELIPASE 24,000 CAPSULE.DR PO SCH ×3 (10:21→17:00)
[2020-01-24] MEDS: DULOXETINE 30 MG CAPSULE.DR PO SCH ×2 (10:21→20:18)
[2020-01-24 15:25] VITALS: BP 132/82
[2020-01-24] MEDS ORDERED: MAGNESIUM HYDROXIDE 8%, 30ML UDC PO PRN (16:30)
[2020-01-24] MEDS ORDERED: SENNA/DOCUSATE TABLET PO PRN (16:30)
[2020-01-24] MEDS ORDERED: FENOFIBRATE 145 MG TABLET PO SCH (21:00)
[2020-01-24] MEDS ORDERED: INSULIN GLARGINE 100 UNITS/ML, PEN SQ-INSULIN SCH (21:00)
[2020-01-24 21:28] VITALS: BP 152/93
[2020-01-25 00:15] VITALS: BP 170/116
[2020-01-25 00:25] VITALS: BP 170/110
[2020-01-25 02:09] VITALS: BP 143/92
[2020-01-25] MEDS: HYDROmorphone 2 MG/ML, 1ML IVPush PRN ×3 (03:24→13:29)
[2020-01-25 05:50] LABS: BASOPHILS # (AUTO) 0.02 x10^3/uL (0-0.1); BASOPHILS % (AUTO) 1 % (0-1); EOSINOPHILS # (AUTO) 0.25 x10^3/uL (0-0.4); EOSINOPHILS % (AUTO) 5 % (1-7); LYMPHOCYTES # (AUTO) 1.44 x10^3/uL (1-3.4); LYMPHOCYTES % (AUTO) 26 % (22-44); MD NO; MEAN CORPUSCULAR HEMOGLOBIN 27.6 pg (27.0-34.8); MEAN CORPUSCULAR HGB CONC 32.4 g/dL (32.4-35.8); MEAN PLATELET VOLUME 8.2 fL (7.4-10.4); MONOCYTES # (AUTO) 0.65 x10^3/uL (0.2-0.8); MONOCYTES % (AUTO) 12 % (2-9); NEUTROPHILS # (AUTO) 3.15 x10^3/uL (1.8-6.8); NEUTROPHILS % (AUTO) 57 % (42-75); PLATELET COUNT 235 x10^3/uL (130-400); RED BLOOD COUNT 3.76 x10^6/uL (3.82-5.3); RED CELL DISTRIBUTION WIDTH 16.3 % (9.6-15.2)
[2020-01-25 05:52] LABS: ANION GAP 5 mmol/L (5-15); CALCIUM 7.7 mg/dL (8.5-10.1); CHLORIDE 110 mmol/L (98-107); CREATININE 0.51 mg/dL (0.55-1.02)
[2020-01-25 06:34] VITALS: BP 142/92
[2020-01-25] MEDS: INSULIN LISPRO 100 UNITS/ML, PEN SQ-INSULIN SCH ×2 (07:00→11:00)
[2020-01-25] MEDS ORDERED: LOSARTAN 50MG TABLET ONE (08:40)
[2020-01-25] MEDS: DULOXETINE 30 MG CAPSULE.DR PO SCH (08:47)
[2020-01-25] MEDS: PANCRELIPASE 24,000 CAPSULE.DR PO SCH ×2 (08:47→13:29)
[2020-01-25] MEDS: LOSARTAN 100 MG TAB PO SCH (08:48)
[2020-01-25] MEDS: OMEPRAZOLE 10 MG CAPSULE.DR PO SCH (08:48)
[2020-01-25 12:07] VITALS: BP 152/99
== END 2020-01-25 15:45 | disposition home or self-care (01) | DRG 638 ==
LOC: ED 23:11 → INTOOBSV 01-24 01:10 → EDIP 01-24 01:10 → 3N 01-24 02:37 → OBSVTOIN 01-24 09:38 → DCLOUNGE 01-25 15:44
PROVIDERS: ADMIT Family Medicine; ATTEND Hospitalist
DX: E10.65 Type 1 diabetes mellitus with hyperglycemia (principal); K86.1 Other chronic pancreatitis; E10.43 Type 1 diabetes mellitus with diabetic autonomic (poly)neuropathy; E78.1 Pure hyperglyceridemia; E78.5 Hyperlipidemia, unspecified; F32.9 Major depressive disorder, single episode, unspecified; K31.84 Gastroparesis; K73.9 Chronic hepatitis, unspecified; Z79.899 Other long term (current) drug therapy; I10 Essential (primary) hypertension; G89.29 Other chronic pain; K21.9 Gastro-esophageal reflux disease without esophagitis; K59.03 Drug induced constipation; F41.9 Anxiety disorder, unspecified; T40.2X5A Adverse effect of other opioids, initial encounter; Z79.4 Long term (current) use of insulin; Z87.442 Personal history of urinary calculi; Z91.14 Patient's other noncompliance with medication regimen; Y92.89 Other specified places as the place of occurrence of the external cause
CPT/HCPCS: 36415; 80048; 80053; 80307; 81003; 82010; 82803; 82962; 83036; 83690; 84703; 85025; G0378; J1170; J1815; J2405; J7030

== ENCOUNTER 2020-01-29 03:14 | Emergency (ER) | payer OTHER ==
[~2020-01-29] VITALS: Ht 157.5 cm; Wt 70.9 kg
[2020-01-29] MEDS ORDERED: MORPHINE SULFATE 4 MG/ML, 1ML IVPush PRN (04:00)
[2020-01-29] MEDS ORDERED: ONDANSETRON 2MG/ML, 2ML IVPush ONE (04:00)
[2020-01-29] MEDS ORDERED: SODIUM CHLORIDE 0.9% 1,000ML IVBOLUS ONE (04:00)
[2020-01-29] MEDS ORDERED: ONDANSETRON 2MG/ML, 2ML ONE (04:09)
[2020-01-29] MEDS ORDERED: MORPHINE SULFATE 4 MG/ML, 1ML ONE (04:09)
[2020-01-29 04:10] LABS: BASOPHILS # (AUTO) 0.02 x10^3/uL (0-0.1); BASOPHILS % (AUTO) 0 % (0-1); EOSINOPHILS # (AUTO) 0.35 x10^3/uL (0-0.4); EOSINOPHILS % (AUTO) 3 % (1-7); LYMPHOCYTES # (AUTO) 1.95 x10^3/uL (1-3.4); LYMPHOCYTES % (AUTO) 19 % (22-44); MD NO; MEAN CORPUSCULAR HEMOGLOBIN 27.6 pg (27.0-34.8); MEAN CORPUSCULAR VOLUME 83.6 fL (80-100); MEAN PLATELET VOLUME 8.4 fL (7.4-10.4); MONOCYTES # (AUTO) 0.51 x10^3/uL (0.2-0.8); MONOCYTES % (AUTO) 5 % (2-9); NEUTROPHILS # (AUTO) 7.27 x10^3/uL (1.8-6.8); NEUTROPHILS % (AUTO) 72 % (42-75); PLATELET COUNT 333 x10^3/uL (130-400); RED CELL DISTRIBUTION WIDTH 16.2 % (9.6-15.2)
[2020-01-29 04:19] LABS: ALBUMIN 2.6 g/dL (3.4-5.0); ANION GAP 7 mmol/L (5-15); CALCIUM 8.3 mg/dL (8.5-10.1); CHLORIDE 101 mmol/L (98-107)
[2020-01-29 04:22] LABS: ALANINE AMINOTRANSFERASE 26 U/L (12-78); ALKALINE PHOSPHATASE 143 U/L (45-117); BILIRUBIN,TOTAL 0.2 mg/dL (0.2-1.0); CREATININE 0.69 mg/dL (0.55-1.02); TOTAL PROTEIN 6.6 g/dL (6.4-8.2)
--- NOTE | 2020-01-29 05:03 | NUR ---
PT RESTING IN BED, PT MEDICATED PER EMAR. PT ON MONITOR, MACHINE STITCHER WILL CONTINUE TO MONITOR PT
[2020-01-29 06:20] VITALS: BP 132/76
== END 2020-01-29 06:23 | disposition home or self-care (01) ==
LOC: ED 04:28
DX: E10.65 Type 1 diabetes mellitus with hyperglycemia (principal); K31.84 Gastroparesis; G89.29 Other chronic pain; R10.13 Epigastric pain; R11.2 Nausea with vomiting, unspecified; E78.5 Hyperlipidemia, unspecified; I10 Essential (primary) hypertension; Z90.49 Acquired absence of other specified parts of digestive tract
CPT/HCPCS: 36415; 80053; 83690; 85025; 96361; 96374; 96375; 99284; J2270; J2405; J7030

== ENCOUNTER 2020-01-30 23:27 | Inpatient (IN) | payer OTHER ==
[~2020-01-30] VITALS: Ht 157.5 cm; Wt 72.0 kg
[2020-01-31] MEDS ORDERED: ONDANSETRON 2MG/ML, 2ML IVPush ONE
[2020-01-31] MEDS ORDERED: SODIUM CHLORIDE 0.9% 1,000ML IVBOLUS ONE
--- NOTE | 2020-01-31 | NUR ---
THIS IS A 39 YO FEMALE COMING IN FOR "PANCREAS PAIN" X 3 DAYS, PATIENT WAS HOSPITALIZED HERE END OF DECEMBER FOR SAME, STATES "I WAS DISCHARGED SOONER THAN I WAS SUPPOSED TO BECAUSE I HAD AN APPT WITH MY GI DOCTOR THE FOLLOWING DAY". C/O EPIGASTRIC/ R AND L UQ ABD PAIN WITH N/V/D AND INABILITY TO TOLERATE FLUIDS OR FOODS. MONITORING IN PLACE. VSS, BUT HYPERTENSIVE. ERP AWARE. CALL LIGHT IN REACH
[2020-01-31] MEDS ORDERED: HYDROmorphone 1 MG/ML, 1ML INJ ONE ×2 (00:11→01:22)
[2020-01-31] MEDS ORDERED: ONDANSETRON 2MG/ML, 2ML ONE (00:11)
[2020-01-31] MEDS: HYDROmorphone 1 MG/ML, 1ML INJ IVPush PRN ×2 (00:13→01:25)
--- NOTE | 2020-01-31 00:15 | NUR ---
PIV PLACED, MEDICATED PER EMAR
[2020-01-31 00:24] LABS: MD NO; MONOCYTES % (AUTO) 10 % (2-9); RED BLOOD COUNT 4.32 x10^6/uL (3.82-5.3)
[2020-01-31 00:28] LABS: PH, VENOUS 7.425 pH (7.320-7.420)
[2020-01-31 00:33] LABS: BASOPHILS # (AUTO) 0.02 x10^3/uL (0-0.1); BASOPHILS % (AUTO) 0 % (0-1); EOSINOPHILS # (AUTO) 0.03 x10^3/uL (0-0.4); EOSINOPHILS % (AUTO) 1 % (1-7); LYMPHOCYTES # (AUTO) 1.11 x10^3/uL (1-3.4); LYMPHOCYTES % (AUTO) 18 % (22-44); MEAN CORPUSCULAR HEMOGLOBIN 27.7 pg (27.0-34.8); MEAN CORPUSCULAR HGB CONC 33.3 g/dL (32.4-35.8); MEAN CORPUSCULAR VOLUME 82.9 fL (80-100); MEAN PLATELET VOLUME 8.6 fL (7.4-10.4); NEUTROPHILS # (AUTO) 4.29 x10^3/uL (1.8-6.8); NEUTROPHILS % (AUTO) 71 % (42-75); PLATELET COUNT 289 x10^3/uL (130-400); RED CELL DISTRIBUTION WIDTH 15.7 % (9.6-15.2)
[2020-01-31 00:39] LABS: ALANINE AMINOTRANSFERASE 31 U/L (12-78); ALBUMIN 2.5 g/dL (3.4-5.0); ANION GAP 9 mmol/L (5-15); CALCIUM 8.3 mg/dL (8.5-10.1); CHLORIDE 97 mmol/L (98-107); CREATININE 1.09 mg/dL (0.55-1.02)
[2020-01-31 00:40] LABS: ALKALINE PHOSPHATASE 156 U/L (45-117); BILIRUBIN,TOTAL 0.2 mg/dL (0.2-1.0); TOTAL PROTEIN 6.6 g/dL (6.4-8.2)
[2020-01-31 00:49] LABS: ACETONE, SERUM Small (20mg/dL) (Negative)
[2020-01-31] MEDS ORDERED: INSULIN SINGLE DOSE, ER IVPush ONE (01:00)
[2020-01-31] MEDS ORDERED: INSULIN SINGLE DOSE, ER SQ-INSULIN ONE (01:00)
[2020-01-31] MEDS ORDERED: INSULIN SINGLE DOSE, ER ONE ×3 (01:04→01:09)
--- NOTE | 2020-01-31 01:17 | NUR ---
SCANNER NOT WORKING DUE TO WAY INSULIN ORDER PLACED, VERIFIED BY MAIA GALINDO RIGHT MEDICATION TO BE ADMINISTERED. 5 RIGHTS COMPLETED.
--- NOTE | 2020-01-31 01:25 | NUR ---
PATIENT MEDICATED PER EMAR FOR RETURNING PAIN
[2020-01-31] MEDS: SODIUM CHLORIDE 0.9% 1,000 ML IV SCH ×4 (01:27→21:15)
[2020-01-31] MEDS ORDERED: BISACODYL 10 MG SUPP PR PRN (01:30)
[2020-01-31] MEDS ORDERED: ACETAMINOPHEN 325 MG TABLET PO PRN (01:30)
[2020-01-31] MEDS ORDERED: ONDANSETRON ODT 4 MG PO PRN (01:30)
[2020-01-31] MEDS ORDERED: POLYETHYLENE GLYCOL 17 GM PACKET PO PRN (01:30)
[2020-01-31] MEDS: HEPARIN 5,000 UNITS/ML, 1ML SQ SCH ×3 (01:30→17:30)
[2020-01-31] MEDS ORDERED: PROMETHAZINE 25 MG/ML, 1ML IM PRN (01:30)
--- NOTE | 2020-01-31 01:50 | NUR ---
REPORT GIVEN TO MAIA SANDOVAL. PLAN OF CARE DISCUSSED. SECOND LITER INFUSING AT TIME OF TRANSFER
[2020-01-31] MEDS ORDERED: INSULIN GLARGINE 100 UNITS/ML, PEN SQ-INSULIN SCH ×2 (02:00→09:00)
[2020-01-31 02:10] LABS: FREE T4 (FREE THYROXINE) 0.83 ng/dL (0.76-1.46)
[2020-01-31 02:24] VITALS: BP 124/86
[2020-01-31] MEDS: INSULIN LISPRO 100 UNITS/ML, PEN SQ-INSULIN SCH ×5 (02:36→19:54)
[2020-01-31] MEDS: morphine SULFATE 10 MG/ML, 1ML IVPush PRN ×6 (04:54→22:51)
[2020-01-31 07:04] VITALS: BP 102/71
[2020-01-31] MEDS ORDERED: DEXTROSE 50%, 50ML SYRINGE IVPush ONE (08:06)
[2020-01-31] MEDS: SENNA/DOCUSATE TABLET PO SCH (09:00)
[2020-01-31] MEDS: LOSARTAN 100 MG TAB PO SCH (09:00)
[2020-01-31] MEDS ORDERED: LOSARTAN 50MG TABLET ONE (09:26)
[2020-01-31] MEDS: GABAPENTIN 400 MG CAPSULE PO SCH ×3 (10:20→19:48)
[2020-01-31] MEDS: DULOXETINE 30 MG CAPSULE.DR PO SCH ×2 (10:20→19:48)
[2020-01-31] MEDS: FERROUS SULFATE 325 MG TABLET PO SCH (10:20)
[2020-01-31] MEDS: OMEPRAZOLE 10 MG CAPSULE.DR PO SCH ×2 (10:20→16:55)
[2020-01-31] MEDS: PANCRELIPASE 24,000 CAPSULE.DR PO SCH ×3 (10:20→16:55)
[2020-01-31 12:13] VITALS: BP 145/65
[2020-01-31] MEDS: ONDANSETRON 2MG/ML, 2ML IVPush PRN (16:54)
[2020-01-31 18:45] VITALS: BP 139/94
[2020-01-31] MEDS: FENOFIBRATE 145 MG TABLET PO SCH (19:48)
[2020-01-31] MEDS: INSULIN GLARGINE 100 UNITS/ML, PEN SQ-INSULIN SCH (19:49)
[2020-01-31] MEDS: ZOLPIDEM 10MG TABLET PO SCH (21:15)
[2020-02-01 01:12] VITALS: BP 158/99
[2020-02-01] MEDS: HEPARIN 5,000 UNITS/ML, 1ML SQ SCH ×3 (01:27→16:54)
[2020-02-01] MEDS: morphine SULFATE 10 MG/ML, 1ML IVPush PRN ×6 (01:51→23:26)
[2020-02-01] MEDS: SODIUM CHLORIDE 0.9% 1,000 ML IV SCH (03:56)
[2020-02-01] MEDS ORDERED: OXYcodone IR 30 MG TABLET PO PRN (07:00)
[2020-02-01 07:12] LABS: ALBUMIN 2.3 g/dL (3.4-5.0); ANION GAP 3 mmol/L (5-15); CALCIUM 7.9 mg/dL (8.5-10.1); CHLORIDE 110 mmol/L (98-107)
[2020-02-01 07:15] LABS: ALANINE AMINOTRANSFERASE 28 U/L (12-78); ALKALINE PHOSPHATASE 110 U/L (45-117); BILIRUBIN,TOTAL 0.1 mg/dL (0.2-1.0); CHOL/HDL RATIO 5.5; CHOLESTEROL, TOTAL 177 mg/dL (140-239); CREATININE 0.47 mg/dL (0.55-1.02); HDL CHOL % 18 % (28-40); HDL CHOLESTEROL (DIRECT) 32 mg/dL (40-60); LDL CHOLESTEROL,CALCULATED 90 mg/dL (54-169); LDL/HDL RATIO 2.8 (0.5-3.0); TOTAL PROTEIN 5.6 g/dL (6.4-8.2); TRIGLYCERIDES 274 mg/dL (50-200); VLDL CHOLESTEROL 55 mg/dL (0-25)
[2020-02-01 07:18] LABS: BASOPHILS # (AUTO) 0.04 x10^3/uL (0-0.1); BASOPHILS % (AUTO) 1 % (0-1); EOSINOPHILS # (AUTO) 0.31 x10^3/uL (0-0.4); EOSINOPHILS % (AUTO) 4 % (1-7); LYMPHOCYTES # (AUTO) 1.82 x10^3/uL (1-3.4); LYMPHOCYTES % (AUTO) 24 % (22-44); MD NO; MEAN CORPUSCULAR HEMOGLOBIN 27.5 pg (27.0-34.8); MEAN CORPUSCULAR HGB CONC 32.6 g/dL (32.4-35.8); MEAN CORPUSCULAR VOLUME 84.4 fL (80-100); MEAN PLATELET VOLUME 8.2 fL (7.4-10.4); MONOCYTES # (AUTO) 0.71 x10^3/uL (0.2-0.8); MONOCYTES % (AUTO) 10 % (2-9); NEUTROPHILS # (AUTO) 4.56 x10^3/uL (1.8-6.8); NEUTROPHILS % (AUTO) 61 % (42-75); PLATELET COUNT 249 x10^3/uL (130-400); RED CELL DISTRIBUTION WIDTH 15.8 % (9.6-15.2)
[2020-02-01 08:02] VITALS: BP 182/118
[2020-02-01] MEDS ORDERED: LOSARTAN 50MG TABLET ONE (08:17)
[2020-02-01] MEDS: PANCRELIPASE 24,000 CAPSULE.DR PO SCH ×3 (08:28→16:53)
[2020-02-01] MEDS: OMEPRAZOLE 10 MG CAPSULE.DR PO SCH ×2 (08:28→16:54)
[2020-02-01] MEDS: DULOXETINE 30 MG CAPSULE.DR PO SCH ×2 (08:28→21:33)
[2020-02-01] MEDS: SENNA/DOCUSATE TABLET PO SCH (08:28)
[2020-02-01] MEDS: GABAPENTIN 400 MG CAPSULE PO SCH ×3 (08:29→21:33)
[2020-02-01] MEDS: LOSARTAN 100 MG TAB PO SCH (08:29)
[2020-02-01] MEDS: INSULIN LISPRO 100 UNITS/ML, PEN SQ-INSULIN SCH ×3 (11:00→21:34)
[2020-02-01] MEDS ORDERED: INSULIN LISPRO 100 UNITS/ML, PEN SQ-INSULIN SCH (11:00)
[2020-02-01] MEDS: OXYcodone IR 30 MG TABLET PO PRN (11:45)
[2020-02-01 13:39] VITALS: BP 173/105
[2020-02-01] MEDS ORDERED: ENALAPRILAT 1.25 MG/ML, 2ML IV PRN (14:30)
[2020-02-01] MEDS: hydrALAzine 20 MG/ML, 1ML IVPush PRN (17:08)
[2020-02-01 17:27] VITALS: BP 158/98
[2020-02-01 19:37] VITALS: BP 152/100
[2020-02-01] MEDS: FENOFIBRATE 145 MG TABLET PO SCH (21:33)
[2020-02-01] MEDS: INSULIN GLARGINE 100 UNITS/ML, PEN SQ-INSULIN SCH (21:34)
[2020-02-01] MEDS: ZOLPIDEM 10MG TABLET PO SCH (22:15)
[2020-02-02 00:14] VITALS: BP 161/96
[2020-02-02] MEDS: HEPARIN 5,000 UNITS/ML, 1ML SQ SCH ×3 (00:59→16:58)
[2020-02-02] MEDS: morphine SULFATE 10 MG/ML, 1ML IVPush PRN ×4 (02:51→21:25)
[2020-02-02] MEDS: ONDANSETRON 2MG/ML, 2ML IVPush PRN (04:09)
[2020-02-02 05:59] LABS: BASOPHILS # (AUTO) 0.03 x10^3/uL (0-0.1); BASOPHILS % (AUTO) 0 % (0-1); EOSINOPHILS # (AUTO) 0.27 x10^3/uL (0-0.4); EOSINOPHILS % (AUTO) 5 % (1-7); LYMPHOCYTES # (AUTO) 1.54 x10^3/uL (1-3.4); LYMPHOCYTES % (AUTO) 26 % (22-44); MD NO; MEAN CORPUSCULAR HEMOGLOBIN 27.5 pg (27.0-34.8); MEAN CORPUSCULAR HGB CONC 32.7 g/dL (32.4-35.8); MEAN CORPUSCULAR VOLUME 84.1 fL (80-100); MEAN PLATELET VOLUME 8.4 fL (7.4-10.4); MONOCYTES # (AUTO) 0.63 x10^3/uL (0.2-0.8); MONOCYTES % (AUTO) 11 % (2-9); NEUTROPHILS % (AUTO) 59 % (42-75); PLATELET COUNT 256 x10^3/uL (130-400); RED BLOOD COUNT 3.93 x10^6/uL (3.82-5.3); RED CELL DISTRIBUTION WIDTH 15.6 % (9.6-15.2)
[2020-02-02] MEDS: INSULIN LISPRO 100 UNITS/ML, PEN SQ-INSULIN SCH ×4 (07:00→21:27)
[2020-02-02 07:54] VITALS: BP 180/126
[2020-02-02] MEDS: LOSARTAN 100 MG TAB PO SCH (09:00)
[2020-02-02] MEDS: SENNA/DOCUSATE TABLET PO SCH (09:00)
[2020-02-02] MEDS ORDERED: LOSARTAN 50MG TABLET ONE (09:01)
[2020-02-02] MEDS: DULOXETINE 30 MG CAPSULE.DR PO SCH ×2 (09:13→21:12)
[2020-02-02] MEDS: OMEPRAZOLE 10 MG CAPSULE.DR PO SCH ×2 (09:13→16:57)
[2020-02-02] MEDS: FERROUS SULFATE 325 MG TABLET PO SCH (09:14)
[2020-02-02] MEDS: GABAPENTIN 400 MG CAPSULE PO SCH ×3 (09:14→21:25)
[2020-02-02] MEDS: PANCRELIPASE 24,000 CAPSULE.DR PO SCH ×3 (09:14→16:58)
[2020-02-02] MEDS: hydrALAzine 20 MG/ML, 1ML IVPush PRN (09:14)
[2020-02-02] MEDS ORDERED: MORPHINE SULFATE 4 MG/ML, 1ML ONE (13:38)
[2020-02-02 13:52] VITALS: BP 154/104
[2020-02-02] MEDS: OXYcodone IR 30 MG TABLET PO PRN (16:59)
[2020-02-02 19:00] VITALS: BP 123/78
[2020-02-02] MEDS: ZOLPIDEM 10MG TABLET PO SCH (21:00)
[2020-02-02] MEDS: FENOFIBRATE 145 MG TABLET PO SCH (21:12)
[2020-02-02] MEDS: INSULIN GLARGINE 100 UNITS/ML, PEN SQ-INSULIN SCH (21:27)
[2020-02-03 00:07] VITALS: BP 146/91
[2020-02-03] MEDS: HEPARIN 5,000 UNITS/ML, 1ML SQ SCH ×2 (01:30→10:16)
[2020-02-03] MEDS: morphine SULFATE 10 MG/ML, 1ML IVPush PRN ×2 (03:41→10:16)
[2020-02-03 06:27] VITALS: BP 148/90
[2020-02-03] MEDS: PANCRELIPASE 24,000 CAPSULE.DR PO SCH ×2 (07:40→12:14)
[2020-02-03] MEDS: OMEPRAZOLE 10 MG CAPSULE.DR PO SCH (07:40)
[2020-02-03] MEDS: OXYcodone IR 30 MG TABLET PO PRN (07:55)
[2020-02-03] MEDS: SENNA/DOCUSATE TABLET PO SCH (08:51)
[2020-02-03] MEDS: DULOXETINE 30 MG CAPSULE.DR PO SCH (08:51)
[2020-02-03] MEDS: GABAPENTIN 400 MG CAPSULE PO SCH (08:52)
[2020-02-03] MEDS: INSULIN LISPRO 100 UNITS/ML, PEN SQ-INSULIN SCH ×2 (08:53→12:28)
[2020-02-03] MEDS: LOSARTAN 100 MG TAB PO SCH (10:16)
[2020-02-03] MEDS: ONDANSETRON 2MG/ML, 2ML IVPush PRN (12:09)
[2020-02-03 12:42] VITALS: BP 144/96
== END 2020-02-03 14:25 | disposition home or self-care (01) | DRG 73 ==
LOC: ED 23:58 → EDIP 01-31 01:27 → 3N 01-31 02:00 → DCLOUNGE 02-03 14:17
PROVIDERS: ADMIT Internal Medicine; ATTEND Hospitalist
DX: E10.43 Type 1 diabetes mellitus with diabetic autonomic (poly)neuropathy (principal); N17.0 Acute kidney failure with tubular necrosis; E87.1 Hypo-osmolality and hyponatremia; K86.1 Other chronic pancreatitis; N39.0 Urinary tract infection, site not specified; E10.65 Type 1 diabetes mellitus with hyperglycemia; E78.1 Pure hyperglyceridemia; E78.5 Hyperlipidemia, unspecified; E86.0 Dehydration; F32.9 Major depressive disorder, single episode, unspecified; F41.9 Anxiety disorder, unspecified; G89.29 Other chronic pain; I10 Essential (primary) hypertension; K21.9 Gastro-esophageal reflux disease without esophagitis; K31.84 Gastroparesis; K59.03 Drug induced constipation; K73.9 Chronic hepatitis, unspecified; T40.2X5A Adverse effect of other opioids, initial encounter; E16.2 Hypoglycemia, unspecified; E28.2 Polycystic ovarian syndrome; G62.9 Polyneuropathy, unspecified; K08.89 Other specified disorders of teeth and supporting structures; M19.90 Unspecified osteoarthritis, unspecified site; Y92.009 Unspecified place in unspecified non-institutional (private) residence as the place of occurrence of the external cause; Z79.4 Long term (current) use of insulin; Z79.84 Long term (current) use of oral hypoglycemic drugs; E10.40 Type 1 diabetes mellitus with diabetic neuropathy, unspecified; Z79.899 Other long term (current) drug therapy; Z98.891 History of uterine scar from previous surgery; Z90.49 Acquired absence of other specified parts of digestive tract
CPT/HCPCS: 36415; 80053; 80061; 82010; 82803; 82947; 82962; 83036; 83690; 83735; 84100; 84439; 84443; 85025; G0378; J1170; J1644; J2405; J0360; J1815; J2270; J7030

== ENCOUNTER 2020-02-08 21:32 | Emergency (ER) | payer OTHER ==
[~2020-02-08] VITALS: Ht 157.5 cm; Wt 52.2 kg
--- NOTE | 2020-02-08 22:56 | NUR ---
Pt presents to ed c/o "pancreas pain". States has had pancreatitis since 11 y/o and admitted usually once per month. States admitted last week for pancreatitis. States epigastric and R side abd pain since yesterday. Monitoring applied. VSS. Call light within reach. ERP at bedside for assessment.
[2020-02-08] MEDS ORDERED: HYDROmorphone 2 MG/ML, 1ML ONE (23:09)
[2020-02-08] MEDS ORDERED: ONDANSETRON 2MG/ML, 2ML ONE (23:12)
[2020-02-08] MEDS: HYDROmorphone 2 MG/ML, 1ML IVPush PRN (23:16)
[2020-02-08] MEDS ORDERED: SODIUM CHLORIDE 0.9% 1,000ML IVBOLUS ONE (23:30)
[2020-02-08] MEDS ORDERED: ONDANSETRON 2MG/ML, 2ML IVPush ONE (23:30)
[2020-02-08] MEDS ORDERED: SODIUM CHLORIDE FLUSH 10ML SYR IVF ONE (23:30)
[2020-02-09 00:04] LABS: BASOPHILS # (AUTO) 0.03 x10^3/uL (0-0.1); BASOPHILS % (AUTO) 0 % (0-1); EOSINOPHILS # (AUTO) 0.17 x10^3/uL (0-0.4); EOSINOPHILS % (AUTO) 2 % (1-7); LYMPHOCYTES # (AUTO) 1.09 x10^3/uL (1-3.4); LYMPHOCYTES % (AUTO) 15 % (22-44); MD NO; MEAN CORPUSCULAR HEMOGLOBIN 27.7 pg (27.0-34.8); MEAN CORPUSCULAR HGB CONC 32.9 g/dL (32.4-35.8); MEAN CORPUSCULAR VOLUME 84.1 fL (80-100); MONOCYTES # (AUTO) 0.51 x10^3/uL (0.2-0.8); MONOCYTES % (AUTO) 7 % (2-9); NEUTROPHILS # (AUTO) 5.58 x10^3/uL (1.8-6.8); NEUTROPHILS % (AUTO) 76 % (42-75); PLATELET COUNT 237 x10^3/uL (130-400); RED BLOOD COUNT 4.21 x10^6/uL (3.82-5.3); RED CELL DISTRIBUTION WIDTH 15.5 % (9.6-15.2)
[2020-02-09 00:14] LABS: ALBUMIN 2.7 g/dL (3.4-5.0); ANION GAP 5 mmol/L (5-15); CALCIUM 8.9 mg/dL (8.5-10.1); CHLORIDE 91 mmol/L (98-107)
[2020-02-09 00:20] LABS: ALANINE AMINOTRANSFERASE 21 U/L (12-78); ALKALINE PHOSPHATASE 201 U/L (45-117); BILIRUBIN,TOTAL 0.3 mg/dL (0.2-1.0); CREATININE 1.07 mg/dL (0.55-1.02); TOTAL PROTEIN 6.6 g/dL (6.4-8.2)
[2020-02-09 00:37] LABS: MICROSCOPIC NOT IND
--- NOTE | 2020-02-09 00:45 | NUR ---
Break RN. assumed care of pt on behalf of primary RN for lunch break only. pt esting in position of comfort with lights dimmed. watching videos on he phone. no apparent distress at this time. no family at bedside
[2020-02-09] MEDS ORDERED: INSULIN REGULAR 100 UNITS/ML, 3ML VIAL SQ-INSULIN ONE ×2 (01:00→02:30)
[2020-02-09] MEDS ORDERED: SODIUM CHLORIDE 0.9% 1,000ML IVBOLUS ONE ×2 (01:00→02:30)
[2020-02-09] MEDS ORDERED: INSULIN SINGLE DOSE, ER ONE (01:11)
[2020-02-09] MEDS: HYDROmorphone 2 MG/ML, 1ML IVPush PRN ×2 (01:29→01:42)
[2020-02-09] MEDS ORDERED: HALOPERIDOL 5 MG/ML ONE (01:29)
[2020-02-09] MEDS ORDERED: HALOPERIDOL 5 MG/ML IV ONE (01:30)
--- NOTE | 2020-02-09 01:42 | NUR ---
Pa at bedside for reassessmen of pt. Pa states not to give 2nd dose of dilaudid and give other medication per mar.
--- NOTE | 2020-02-09 02:02 | NUR ---
PT FSBG reads "hi" after insulin admin. Pa aware.
--- NOTE | 2020-02-09 02:33 | NUR ---
Pa states to "hold off on NS and insulin just ordered" until new cmp comes back w/ updated sugar.
[2020-02-09 03:27] VITALS: BP 117/63
== END 2020-02-09 04:36 | disposition home or self-care (01) ==
LOC: ED 23:22
DX: G89.29 Other chronic pain (principal); R10.84 Generalized abdominal pain; R11.2 Nausea with vomiting, unspecified; E11.65 Type 2 diabetes mellitus with hyperglycemia; E87.1 Hypo-osmolality and hyponatremia; Z90.49 Acquired absence of other specified parts of digestive tract
CPT/HCPCS: 36415; 80053; 81003; 82947; 83690; 84703; 85025; 96361; 96374; 96375; 99285; J1170; J1630; J1815; J2405; J7030

== ENCOUNTER 2020-02-10 23:58 | Emergency (ER) | payer OTHER ==
[~2020-02-10] VITALS: Ht 157.5 cm; Wt 68.4 kg
[2020-02-11] MEDS ORDERED: ONDANSETRON ODT 4 MG PO ONE (00:30)
[2020-02-11] MEDS ORDERED: ONDANSETRON ODT 4 MG ONE (00:32)
[2020-02-11 00:40] LABS: BASOPHILS # (AUTO) 0.02 x10^3/uL (0-0.1); BASOPHILS % (AUTO) 0 % (0-1); EOSINOPHILS # (AUTO) 0.12 x10^3/uL (0-0.4); EOSINOPHILS % (AUTO) 2 % (1-7); LYMPHOCYTES # (AUTO) 1.15 x10^3/uL (1-3.4); LYMPHOCYTES % (AUTO) 14 % (22-44); MD NO; MEAN CORPUSCULAR HEMOGLOBIN 28.2 pg (27.0-34.8); MEAN CORPUSCULAR HGB CONC 32.3 g/dL (32.4-35.8); MEAN CORPUSCULAR VOLUME 87.5 fL (80-100); MEAN PLATELET VOLUME 9.8 fL (7.4-10.4); MONOCYTES # (AUTO) 0.48 x10^3/uL (0.2-0.8); MONOCYTES % (AUTO) 6 % (2-9); NEUTROPHILS # (AUTO) 6.25 x10^3/uL (1.8-6.8); NEUTROPHILS % (AUTO) 78 % (42-75); PLATELET COUNT 299 x10^3/uL (130-400); RED CELL DISTRIBUTION WIDTH 15.4 % (9.6-15.2)
[2020-02-11 00:44] LABS: ALBUMIN 2.8 g/dL (3.4-5.0); ANION GAP 8 mmol/L (5-15); CALCIUM 8.3 mg/dL (8.5-10.1); CHLORIDE 93 mmol/L (98-107); CREATININE 1.28 mg/dL (0.55-1.02)
[2020-02-11 00:46] LABS: ALKALINE PHOSPHATASE 235 U/L (45-117); BILIRUBIN,TOTAL 0.3 mg/dL (0.2-1.0); TOTAL PROTEIN 6.8 g/dL (6.4-8.2)
--- NOTE | 2020-02-11 00:46 | NUR ---
PT SITTING IN BED, NO SIGNS OF DISTRESS. PT STATES SHE HAS N/V, WITH VOMIT BAG IN HAND, NO VOMIT OR SPIT IN BAG. PT UPDATED ON POC. PT ASKING FOR PAIN MEDS. PT STATES "IF YOU'RE NOT GOING TO TREAT ME, I'M GOING TO LEAVE" PT EDUCATED THAT THIS IS HER RIGHT. ERP MADE AWARE OF REQUEST FOR PAIN MEDS, NO ORDERS RECEIVED.
[2020-02-11 00:56] LABS: ALANINE AMINOTRANSFERASE 21 U/L (12-78)
[2020-02-11] MEDS ORDERED: INSULIN REGULAR 100 UNITS/ML, 3ML VIAL IV ONE (01:00)
[2020-02-11] MEDS ORDERED: SODIUM CHLORIDE 0.9% 1,000ML IVBOLUS ONE (01:00)
[2020-02-11] MEDS ORDERED: INSULIN SINGLE DOSE, ER ONE (01:01)
[2020-02-11 01:02] LABS: PH, VENOUS 7.376 pH (7.320-7.420)
[2020-02-11 01:07] VITALS: BP 156/102
--- NOTE | 2020-02-11 01:08 | NUR ---
PT VOMITED APPROX 550CCs PARTIALLY DIGESTED FOOD AND LIQUED. ERP MADE AWARE. Addendum: 02/11/20 at 0228 by KACY UPON RETURN TO THE ROOM PT HAD PARTIALLY DIGESTED FOOD AND LIQUID VOMIT IN EMISIS BAG MEASURING TO APPROX 550CCs. ERP MADE AWARE.
[2020-02-11 01:43] LABS: ACETONE, SERUM Small (20mg/dL) (Negative)
--- NOTE | 2020-02-11 02:00 | NUR ---
Break RN: assumed care of pt on behalf of primary RN for lunch break only. upon entering room, pt hsa disconnected her monitoring equipment and her IV tubing. FSBS completed at bedside. pt advised not to disconnect IV tubing. pt sitting up on gurney in no apparent distress. pt reports that she has been vomiting, empty emesis bag is on pt veronika. ambulatory in room
[2020-02-11] MEDS ORDERED: ACETAMINOPHEN 500 MG TABLET ONE (02:13)
--- NOTE | 2020-02-11 02:18 | NUR ---
PT AMBULATORY TO BATHROOM WITH STEADY GAIT.
--- NOTE | 2020-02-11 02:21 | NUR ---
PT REQUESTING PAIN MEDICINE. PT OFFERED ORDERED PAIN MEDS. PT STATES "I CAME HERE FOR MY PAIN, IF YOU'RE ONLY GOING TO TREAT MY BLOOD SUGAR, I'M GOING SOMEWHERE ELSE. DO I NEED TO CALL MY OR MY MOM BECAUSE THEY'VE COME IN THE PAST WHEN I'M TREATED LIKE THIS." PT UPDATED ON POC, THAT LABS FOR BS NEED TO BE REDRAWN, PT STATES "I DON'T CARE ABOUT MY BLOOD SUGAR."
[2020-02-11] MEDS ORDERED: ACETAMINOPHEN 500 MG TABLET PO ONE (02:30)
--- NOTE | 2020-02-11 02:52 | NUR ---
ERP BACK TO BEDSIDE, GAVE PT EXTENSIVE EDUCATION ON MEDICATIONS, DISEASE PROCESSES, CHRONICITY OF CONDITION AND FOLLOW UP WITH PRIMARY AND GI SPECIALIST. PT STATES "I'M GOING TO HAVE TO GO TO ANOTHER HOSPITAL IF YOU'RE NOT GOING TO HELP ME." PT IN NO SIGNS OF DISTRESS, SITTING UP STRAIGHT ON EDGE OF GURNEY, RESPIRATIONS EVEN AND UNLABORED.
== END 2020-02-11 03:06 | disposition home or self-care (01) ==
LOC: ED 02-11 02:00
DX: R10.13 Epigastric pain (principal); E11.65 Type 2 diabetes mellitus with hyperglycemia; R11.2 Nausea with vomiting, unspecified; R19.7 Diarrhea, unspecified; E78.5 Hyperlipidemia, unspecified; I10 Essential (primary) hypertension; M19.90 Unspecified osteoarthritis, unspecified site; Z90.49 Acquired absence of other specified parts of digestive tract
CPT/HCPCS: 36415; 80053; 82010; 82803; 83690; 85025; 96361; 96374; 99283; J1815; J7030; Q0162

== ENCOUNTER 2020-02-22 20:41 | Inpatient (IN) | payer OTHER ==
[~2020-02-22] VITALS: Ht 157.5 cm; Wt 83.3 kg
[2020-02-22 22:14] LABS: BASOPHILS # (AUTO) 0.05 x10^3/uL (0-0.1); BASOPHILS % (AUTO) 1 % (0-1); EOSINOPHILS # (AUTO) 0.33 x10^3/uL (0-0.4); EOSINOPHILS % (AUTO) 5 % (1-7); LYMPHOCYTES # (AUTO) 2.09 x10^3/uL (1-3.4); LYMPHOCYTES % (AUTO) 32 % (22-44); MD NO; MEAN CORPUSCULAR HEMOGLOBIN 27.7 pg (27.0-34.8); MEAN CORPUSCULAR VOLUME 84.2 fL (80-100); MEAN PLATELET VOLUME 8.5 fL (7.4-10.4); MONOCYTES # (AUTO) 0.62 x10^3/uL (0.2-0.8); MONOCYTES % (AUTO) 10 % (2-9); NEUTROPHILS # (AUTO) 3.42 x10^3/uL (1.8-6.8); NEUTROPHILS % (AUTO) 53 % (42-75); PLATELET COUNT 300 x10^3/uL (130-400); RED BLOOD COUNT 3.98 x10^6/uL (3.82-5.3); RED CELL DISTRIBUTION WIDTH 15.1 % (9.6-15.2)
[2020-02-22 22:24] LABS: ALANINE AMINOTRANSFERASE 23 U/L (12-78); ALBUMIN 2.7 g/dL (3.4-5.0); ANION GAP 5 mmol/L (5-15); CALCIUM 9.3 mg/dL (8.5-10.1); CHLORIDE 105 mmol/L (98-107); CREATININE 0.69 mg/dL (0.55-1.02)
[2020-02-22 22:26] LABS: ALKALINE PHOSPHATASE 95 U/L (45-117); BILIRUBIN,TOTAL 0.2 mg/dL (0.2-1.0); TOTAL PROTEIN 6.5 g/dL (6.4-8.2)
[2020-02-22] MEDS ORDERED: SODIUM CHLORIDE 0.9% 1,000 ML IV ONE (22:31)
[2020-02-22] MEDS ORDERED: HYDROmorphone 1 MG/ML, 1ML INJ ONE (22:36)
[2020-02-22] MEDS ORDERED: ONDANSETRON 2MG/ML, 2ML ONE (22:36)
[2020-02-22] MEDS: HYDROmorphone 2 MG/ML, 1ML IVPush PRN (22:41)
[2020-02-22] MEDS ORDERED: ONDANSETRON 2MG/ML, 2ML IVPush ONE (23:00)
[2020-02-22] MEDS ORDERED: SODIUM CHLORIDE 0.9% 1,000ML IVBOLUS ONE (23:00)
[2020-02-22] MEDS ORDERED: SODIUM CHLORIDE FLUSH 10ML SYR IVF ONE (23:00)
[2020-02-23] MEDS ORDERED: HYDROmorphone 1 MG/ML, 1ML INJ ONE ×2 (00:03→09:31)
[2020-02-23] MEDS: HYDROmorphone 2 MG/ML, 1ML IVPush PRN (00:05)
[2020-02-23] MEDS ORDERED: SODIUM CHLORIDE FLUSH 10ML SYR IVF PRN (00:30)
[2020-02-23] MEDS: LACTATED RINGERS 1,000 ML IV SCH ×4 (00:45→23:34)
[2020-02-23] MEDS ORDERED: KETOROLAC 30 MG/1 ML IV PRN (01:00)
[2020-02-23] MEDS ORDERED: INSULIN LISPRO 100 UNITS/ML, PEN SQ-INSULIN SCH (01:00)
[2020-02-23] MEDS: HEPARIN 5,000 UNITS/ML, 1ML SQ SCH ×3 (01:00→17:00)
[2020-02-23] MEDS ORDERED: BISACODYL 10 MG SUPP PR PRN (01:00)
[2020-02-23] MEDS: PANCRELIPASE 24,000 CAPSULE.DR PO SCH ×4 (01:00→17:00)
[2020-02-23 01:15] VITALS: BP 143/78
[2020-02-23] MEDS: ONDANSETRON 2MG/ML, 2ML IVPush PRN ×2 (02:08→20:27)
[2020-02-23] MEDS: ZOLPIDEM 10MG TABLET PO SCH ×2 (02:08→22:19)
[2020-02-23] MEDS: INSULIN LISPRO 100 UNITS/ML, PEN SQ-INSULIN SCH ×5 (02:30→21:00)
[2020-02-23] MEDS ORDERED: DEXTROSE 4 GM TAB.CHEW PO PRN (02:30)
[2020-02-23] MEDS ORDERED: DEXTROSE 50%, 50ML SYRINGE IVPush PRN (02:30)
[2020-02-23] MEDS ORDERED: GLUCAGON 1 MG IM PRN (02:30)
[2020-02-23 06:19] LABS: BASOPHILS # (AUTO) 0.06 x10^3/uL (0-0.1); BASOPHILS % (AUTO) 1 % (0-1); EOSINOPHILS # (AUTO) 0.28 x10^3/uL (0-0.4); EOSINOPHILS % (AUTO) 5 % (1-7); LYMPHOCYTES # (AUTO) 1.96 x10^3/uL (1-3.4); LYMPHOCYTES % (AUTO) 38 % (22-44); MD NO; MEAN CORPUSCULAR HEMOGLOBIN 27.7 pg (27.0-34.8); MEAN CORPUSCULAR HGB CONC 32.8 g/dL (32.4-35.8); MEAN CORPUSCULAR VOLUME 84.4 fL (80-100); MEAN PLATELET VOLUME 8.8 fL (7.4-10.4); MONOCYTES # (AUTO) 0.49 x10^3/uL (0.2-0.8); MONOCYTES % (AUTO) 10 % (2-9); NEUTROPHILS # (AUTO) 2.33 x10^3/uL (1.8-6.8); NEUTROPHILS % (AUTO) 46 % (42-75); PLATELET COUNT 282 x10^3/uL (130-400); RED BLOOD COUNT 3.87 x10^6/uL (3.82-5.3); RED CELL DISTRIBUTION WIDTH 14.9 % (9.6-15.2)
[2020-02-23 06:30] LABS: ANION GAP 4 mmol/L (5-15); CALCIUM 8.7 mg/dL (8.5-10.1); CHLORIDE 109 mmol/L (98-107)
[2020-02-23 07:40] VITALS: BP 115/78
[2020-02-23] MEDS: NORGESTIMATE ETHINYL ESTRADIOL HOMEMEDPO SCH (09:00)
[2020-02-23] MEDS: OMEPRAZOLE 10 MG CAPSULE.DR PO SCH ×2 (09:38→17:23)
[2020-02-23] MEDS: LOSARTAN 100 MG TAB PO SCH (09:38)
[2020-02-23] MEDS: FERROUS SULFATE 325 MG TABLET PO SCH (09:39)
[2020-02-23] MEDS: HYDROmorphone 1 MG/ML, 1ML INJ IV PRN ×4 (09:39→20:28)
[2020-02-23] MEDS: DULOXETINE 30 MG CAPSULE.DR PO SCH ×2 (09:39→22:20)
[2020-02-23] MEDS: GABAPENTIN 400 MG CAPSULE PO SCH ×3 (09:39→22:19)
[2020-02-23] MEDS: SODIUM CHLORIDE FLUSH 10ML SYR IVF SCH ×2 (09:40→22:22)
[2020-02-23 12:35] VITALS: BP 144/90
[2020-02-23 13:09] LABS: MICROSCOPIC AUTO
[2020-02-23 20:21] VITALS: BP 120/73
[2020-02-23] MEDS: FENOFIBRATE 145 MG TABLET PO SCH (22:20)
[2020-02-23] MEDS: HYDROmorphone 2 MG/ML, 1ML IV PRN (23:34)
[2020-02-24] MEDS: HEPARIN 5,000 UNITS/ML, 1ML SQ SCH ×3 (01:00→16:59)
[2020-02-24] MEDS: HYDROmorphone 2 MG/ML, 1ML IV PRN ×7 (02:36→22:19)
[2020-02-24 02:45] VITALS: BP 103/63
[2020-02-24] MEDS: LACTATED RINGERS 1,000 ML IV SCH ×2 (06:04→12:41)
[2020-02-24] MEDS: ONDANSETRON 2MG/ML, 2ML IVPush PRN ×2 (06:04→15:41)
[2020-02-24 06:11] LABS: ALBUMIN 2.5 g/dL (3.4-5.0); ANION GAP 6 mmol/L (5-15); CALCIUM 8.1 mg/dL (8.5-10.1); CHLORIDE 113 mmol/L (98-107)
[2020-02-24 06:15] LABS: BASOPHILS # (AUTO) 0.04 x10^3/uL (0-0.1); BASOPHILS % (AUTO) 1 % (0-1); EOSINOPHILS # (AUTO) 0.24 x10^3/uL (0-0.4); EOSINOPHILS % (AUTO) 5 % (1-7); LYMPHOCYTES # (AUTO) 2.12 x10^3/uL (1-3.4); LYMPHOCYTES % (AUTO) 41 % (22-44); MD NO; MEAN CORPUSCULAR HEMOGLOBIN 28.1 pg (27.0-34.8); MEAN CORPUSCULAR HGB CONC 32.8 g/dL (32.4-35.8); MEAN CORPUSCULAR VOLUME 85.5 fL (80-100); MEAN PLATELET VOLUME 8.6 fL (7.4-10.4); MONOCYTES # (AUTO) 0.65 x10^3/uL (0.2-0.8); MONOCYTES % (AUTO) 13 % (2-9); NEUTROPHILS # (AUTO) 2.09 x10^3/uL (1.8-6.8); NEUTROPHILS % (AUTO) 41 % (42-75); PLATELET COUNT 270 x10^3/uL (130-400); RED BLOOD COUNT 3.69 x10^6/uL (3.82-5.3); RED CELL DISTRIBUTION WIDTH 14.9 % (9.6-15.2)
[2020-02-24 06:17] LABS: ALANINE AMINOTRANSFERASE 21 U/L (12-78); ALKALINE PHOSPHATASE 72 U/L (45-117); BILIRUBIN,TOTAL 0.1 mg/dL (0.2-1.0); CREATININE 0.76 mg/dL (0.55-1.02); TOTAL PROTEIN 5.6 g/dL (6.4-8.2)
[2020-02-24 06:36] VITALS: BP 106/69
[2020-02-24] MEDS: INSULIN LISPRO 100 UNITS/ML, PEN SQ-INSULIN SCH ×4 (07:00→21:27)
[2020-02-24] MEDS: NORGESTIMATE ETHINYL ESTRADIOL HOMEMEDPO SCH (09:00)
[2020-02-24] MEDS: FERROUS SULFATE 325 MG TABLET PO SCH (09:01)
[2020-02-24] MEDS: LOSARTAN 100 MG TAB PO SCH (09:01)
[2020-02-24] MEDS: OMEPRAZOLE 10 MG CAPSULE.DR PO SCH ×2 (09:01→17:02)
[2020-02-24] MEDS: GABAPENTIN 400 MG CAPSULE PO SCH ×3 (09:02→21:28)
[2020-02-24] MEDS: DULOXETINE 30 MG CAPSULE.DR PO SCH ×2 (09:02→21:27)
[2020-02-24] MEDS: PANCRELIPASE 24,000 CAPSULE.DR PO SCH ×3 (09:03→17:02)
[2020-02-24] MEDS: SODIUM CHLORIDE FLUSH 10ML SYR IVF SCH ×2 (09:03→21:28)
[2020-02-24 12:14] VITALS: BP 124/76
[2020-02-24] MEDS: D5%-LACTATED RINGERS 1,000 ML IV SCH (18:47)
[2020-02-24] MEDS: FENOFIBRATE 145 MG TABLET PO SCH (21:28)
[2020-02-24] MEDS: ZOLPIDEM 10MG TABLET PO SCH (21:28)
[2020-02-24 23:26] VITALS: BP 132/78
[2020-02-25 00:54] VITALS: BP 156/92
[2020-02-25] MEDS: HEPARIN 5,000 UNITS/ML, 1ML SQ SCH ×3 (01:00→17:01)
[2020-02-25] MEDS: D5%-LACTATED RINGERS 1,000 ML IV SCH (01:27)
[2020-02-25] MEDS: HYDROmorphone 2 MG/ML, 1ML IV PRN ×7 (01:28→21:15)
[2020-02-25 07:00] VITALS: BP 144/87
[2020-02-25] MEDS: INSULIN LISPRO 100 UNITS/ML, PEN SQ-INSULIN SCH ×4 (07:30→21:15)
[2020-02-25] MEDS: PANCRELIPASE 24,000 CAPSULE.DR PO SCH ×3 (08:51→17:00)
[2020-02-25] MEDS: NORGESTIMATE ETHINYL ESTRADIOL HOMEMEDPO SCH (08:52)
[2020-02-25] MEDS: GABAPENTIN 400 MG CAPSULE PO SCH ×3 (08:52→21:15)
[2020-02-25] MEDS: OMEPRAZOLE 10 MG CAPSULE.DR PO SCH ×2 (08:52→17:00)
[2020-02-25] MEDS: SODIUM CHLORIDE FLUSH 10ML SYR IVF SCH ×2 (08:52→21:16)
[2020-02-25] MEDS: DULOXETINE 30 MG CAPSULE.DR PO SCH ×2 (08:52→21:15)
[2020-02-25] MEDS: LOSARTAN 100 MG TAB PO SCH (08:52)
[2020-02-25] MEDS: FERROUS SULFATE 325 MG TABLET PO SCH (08:52)
[2020-02-25 12:42] VITALS: BP 148/92
[2020-02-25] MEDS: OXYcodone IR 5MG TABLET PO PRN ×2 (13:43→23:16)
[2020-02-25] MEDS: DEXTROSE 10% 1,000 ML IV SCH (17:00)
[2020-02-25] MEDS ORDERED: D5%-LACTATED RINGERS 1,000 ML IV SCH (18:00)
[2020-02-25 18:42] VITALS: BP 122/73
[2020-02-25] MEDS: FENOFIBRATE 145 MG TABLET PO SCH (21:15)
[2020-02-25] MEDS: ZOLPIDEM 10MG TABLET PO SCH (22:05)
[2020-02-26] MEDS: HYDROmorphone 2 MG/ML, 1ML IV PRN ×7 (00:15→19:37)
[2020-02-26 00:49] VITALS: BP 119/77
[2020-02-26] MEDS: HEPARIN 5,000 UNITS/ML, 1ML SQ SCH ×3 (00:59→15:58)
[2020-02-26 04:57] LABS: BASOPHILS # (AUTO) 0.04 x10^3/uL (0-0.1); BASOPHILS % (AUTO) 1 % (0-1); EOSINOPHILS # (AUTO) 0.26 x10^3/uL (0-0.4); EOSINOPHILS % (AUTO) 5 % (1-7); LYMPHOCYTES # (AUTO) 1.53 x10^3/uL (1-3.4); LYMPHOCYTES % (AUTO) 28 % (22-44); MD NO; MEAN CORPUSCULAR HEMOGLOBIN 28.2 pg (27.0-34.8); MEAN CORPUSCULAR HGB CONC 33.1 g/dL (32.4-35.8); MEAN CORPUSCULAR VOLUME 85.2 fL (80-100); MEAN PLATELET VOLUME 8.4 fL (7.4-10.4); MONOCYTES # (AUTO) 0.51 x10^3/uL (0.2-0.8); MONOCYTES % (AUTO) 9 % (2-9); NEUTROPHILS # (AUTO) 3.16 x10^3/uL (1.8-6.8); NEUTROPHILS % (AUTO) 58 % (42-75); PLATELET COUNT 253 x10^3/uL (130-400); RED BLOOD COUNT 3.53 x10^6/uL (3.82-5.3); RED CELL DISTRIBUTION WIDTH 15.5 % (9.6-15.2)
[2020-02-26 05:08] LABS: CHLORIDE 108 mmol/L (98-107)
[2020-02-26 05:18] LABS: ALANINE AMINOTRANSFERASE 21 U/L (12-78); ALBUMIN 2.5 g/dL (3.4-5.0); ALKALINE PHOSPHATASE 71 U/L (45-117); ANION GAP 5 mmol/L (5-15); BILIRUBIN,TOTAL 0.1 mg/dL (0.2-1.0); CALCIUM 8.7 mg/dL (8.5-10.1); CREATININE 0.73 mg/dL (0.55-1.02); TOTAL PROTEIN 5.5 g/dL (6.4-8.2)
[2020-02-26] MEDS: DEXTROSE 10% 1,000 ML IV SCH ×2 (05:36→19:30)
[2020-02-26] MEDS: INSULIN LISPRO 100 UNITS/ML, PEN SQ-INSULIN SCH ×4 (07:00→21:06)
[2020-02-26 07:09] VITALS: BP 127/89
[2020-02-26] MEDS: DULOXETINE 30 MG CAPSULE.DR PO SCH ×2 (07:49→21:06)
[2020-02-26] MEDS: PANCRELIPASE 24,000 CAPSULE.DR PO SCH ×3 (07:50→15:58)
[2020-02-26] MEDS: GABAPENTIN 400 MG CAPSULE PO SCH ×3 (07:51→21:06)
[2020-02-26] MEDS: OMEPRAZOLE 10 MG CAPSULE.DR PO SCH ×2 (07:51→15:58)
[2020-02-26] MEDS: LOSARTAN 100 MG TAB PO SCH (07:51)
[2020-02-26] MEDS: SODIUM CHLORIDE FLUSH 10ML SYR IVF SCH ×2 (07:52→21:07)
[2020-02-26] MEDS: NORGESTIMATE ETHINYL ESTRADIOL HOMEMEDPO SCH (07:52)
[2020-02-26 13:04] VITALS: BP 147/91
[2020-02-26 19:21] VITALS: BP 142/90
[2020-02-26] MEDS: FENOFIBRATE 145 MG TABLET PO SCH (21:06)
[2020-02-26] MEDS: ZOLPIDEM 10MG TABLET PO SCH (21:06)
[2020-02-27] MEDS: HEPARIN 5,000 UNITS/ML, 1ML SQ SCH ×2 (01:00→07:43)
[2020-02-27 01:10] VITALS: BP 143/86
[2020-02-27] MEDS: HYDROmorphone 2 MG/ML, 1ML IV PRN ×3 (01:23→08:24)
[2020-02-27 06:55] VITALS: BP 138/87
[2020-02-27] MEDS: DULOXETINE 30 MG CAPSULE.DR PO SCH (07:41)
[2020-02-27] MEDS: FERROUS SULFATE 325 MG TABLET PO SCH (07:41)
[2020-02-27] MEDS: OMEPRAZOLE 10 MG CAPSULE.DR PO SCH (07:41)
[2020-02-27] MEDS: LOSARTAN 100 MG TAB PO SCH (07:41)
[2020-02-27] MEDS: NORGESTIMATE ETHINYL ESTRADIOL HOMEMEDPO SCH (07:41)
[2020-02-27] MEDS: GABAPENTIN 400 MG CAPSULE PO SCH (07:41)
[2020-02-27] MEDS: PANCRELIPASE 24,000 CAPSULE.DR PO SCH (07:41)
[2020-02-27] MEDS: INSULIN LISPRO 100 UNITS/ML, PEN SQ-INSULIN SCH (07:42)
[2020-02-27] MEDS: SODIUM CHLORIDE FLUSH 10ML SYR IVF SCH (07:42)
[2020-02-27] MEDS ORDERED: LIPA1CAP61 PO (08:41)
== END 2020-02-27 10:47 | disposition home or self-care (01) | DRG 74 ==
LOC: ED 23:04 → EDIP 02-23 01:13 → 3N 02-23 01:34
PROVIDERS: ADMIT Family Medicine; ATTEND Internal Medicine
DX: E10.43 Type 1 diabetes mellitus with diabetic autonomic (poly)neuropathy (principal); K86.1 Other chronic pancreatitis; Q61.3 Polycystic kidney, unspecified; K31.84 Gastroparesis; D64.9 Anemia, unspecified; Z88.5 Allergy status to narcotic agent; Z88.8 Allergy status to other drugs, medicaments and biological substances; E78.5 Hyperlipidemia, unspecified; I10 Essential (primary) hypertension; Z56.0 Unemployment, unspecified; Z82.49 Family history of ischemic heart disease and other diseases of the circulatory system; Z87.442 Personal history of urinary calculi
CPT/HCPCS: 36415; 96374; 96375; 99285; J7121; 80048; 80053; 81001; 82947; 82962; 83690; 85025; G0378; J1170; J1644; J1885; J2405; J1815; J7030; J7120

== ENCOUNTER 2020-03-05 01:23 | Emergency (ER) | payer OTHER ==
[~2020-03-05] VITALS: Ht 157.5 cm; Wt 68.6 kg
[2020-03-05] MEDS ORDERED: SODIUM CHLORIDE FLUSH 10ML SYR IVF ONE (02:00)
--- NOTE | 2020-03-05 02:19 | NUR ---
"im having pain in my pancreas, juan carlos had it since juan carlos been 11." Pt seen here multiple times for this in the past and has a specialist following her tank terminal gauger for this.
[2020-03-05] MEDS ORDERED: HYDROmorphone 2 MG/ML, 1ML IVPush PRN (02:30)
[2020-03-05] MEDS ORDERED: ONDANSETRON 2MG/ML, 2ML IVPush ONE (02:30)
[2020-03-05] MEDS ORDERED: SODIUM CHLORIDE 0.9% 1,000ML IVBOLUS ONE (02:30)
[2020-03-05] MEDS ORDERED: ONDANSETRON 2MG/ML, 2ML ONE (02:36)
[2020-03-05] MEDS ORDERED: HYDROmorphone 2 MG/ML, 1ML ONE (02:36)
[2020-03-05 02:37] LABS: ALANINE AMINOTRANSFERASE 18 U/L (12-78); ALBUMIN 3.1 g/dL (3.4-5.0); ANION GAP 7 mmol/L (5-15); CALCIUM 8.8 mg/dL (8.5-10.1); CHLORIDE 102 mmol/L (98-107); CREATININE 1.18 mg/dL (0.55-1.02)
[2020-03-05 02:41] LABS: ALKALINE PHOSPHATASE 152 U/L (45-117); BILIRUBIN,TOTAL 0.1 mg/dL (0.2-1.0); TOTAL PROTEIN 7.2 g/dL (6.4-8.2)
[2020-03-05 02:47] LABS: BASOPHILS # (AUTO) 0.03 x10^3/uL (0-0.1); BASOPHILS % (AUTO) 0 % (0-1); EOSINOPHILS # (AUTO) 0.38 x10^3/uL (0-0.4); EOSINOPHILS % (AUTO) 5 % (1-7); LYMPHOCYTES # (AUTO) 1.84 x10^3/uL (1-3.4); LYMPHOCYTES % (AUTO) 23 % (22-44); MD NO; MEAN CORPUSCULAR HEMOGLOBIN 27.6 pg (27.0-34.8); MEAN CORPUSCULAR HGB CONC 32.7 g/dL (32.4-35.8); MEAN CORPUSCULAR VOLUME 84.5 fL (80-100); MEAN PLATELET VOLUME 8.6 fL (7.4-10.4); MONOCYTES # (AUTO) 0.61 x10^3/uL (0.2-0.8); MONOCYTES % (AUTO) 8 % (2-9); NEUTROPHILS # (AUTO) 5.16 x10^3/uL (1.8-6.8); NEUTROPHILS % (AUTO) 64 % (42-75); PLATELET COUNT 293 x10^3/uL (130-400); RED BLOOD COUNT 4.54 x10^6/uL (3.82-5.3); RED CELL DISTRIBUTION WIDTH 15.5 % (9.6-15.2)
[2020-03-05 02:51] VITALS: BP 118/73
--- NOTE | 2020-03-05 03:00 | NUR ---
All results back. Pt up for recheck.
--- NOTE | 2020-03-05 03:31 | NUR ---
Pt given po challenge, water, per md verbal order. Awaiting result.
--- NOTE | 2020-03-05 03:54 | NUR ---
Pt able to tolerate po intake successfully. aware.
== END 2020-03-05 04:09 | disposition home or self-care (01) ==
LOC: ED 02:48
DX: G89.29 Other chronic pain (principal); R10.13 Epigastric pain; R11.2 Nausea with vomiting, unspecified; I10 Essential (primary) hypertension; E10.9 Type 1 diabetes mellitus without complications; E78.5 Hyperlipidemia, unspecified; Z90.49 Acquired absence of other specified parts of digestive tract
CPT/HCPCS: 36415; 80053; 83690; 84703; 85025; 96374; 96375; 99284; J1170; J2405; J7030

== ENCOUNTER 2020-03-05 23:01 | Emergency (ER) | payer OTHER ==
[~2020-03-05] VITALS: Ht 157.5 cm; Wt 69.2 kg
--- NOTE | 2020-03-05 23:15 | NUR ---
FSBS IN TRIAGE WAS "HIGH". INVASIVE MANAGER, MEMO, NOTIFIED AND PT ROOMED IMMEDIATELY.
[2020-03-05] MEDS ORDERED: SODIUM CHLORIDE FLUSH 10ML SYR IVF ONE (23:30)
[2020-03-05] MEDS ORDERED: SODIUM CHLORIDE 0.9% 1,000ML IVBOLUS ONE (23:30)
--- NOTE | 2020-03-05 23:43 | NUR ---
PT CAME INTO ED TONIGHT DUE TO ABDOMINAL PAIN. PAIN LOCATED SUBSTERNALLY, STATES IT RADIATES INTO THE BACK AND EITHER SIDE UNDER THE RIB CAGE. PT REPORTS SHE IS STILL HAVING BOWEL MOVEMENTS, ABDOMINAL PAIN INCREASES UPON PALPATIONS, EATING WORSENS ABDOMINAL PAIN, NO CHANGES IN URINATION PATTERNS, NO ABNORMALITIES NOTED ON PALPATION. WCTM PT NAD, PLACED ON SPO2/BP MONITORING.
[2020-03-06 00:03] LABS: BASOPHILS # (AUTO) 0.03 x10^3/uL (0-0.1); BASOPHILS % (AUTO) 0 % (0-1); EOSINOPHILS # (AUTO) 0.31 x10^3/uL (0-0.4); EOSINOPHILS % (AUTO) 4 % (1-7); LYMPHOCYTES # (AUTO) 1.28 x10^3/uL (1-3.4); LYMPHOCYTES % (AUTO) 16 % (22-44); MD NO; MEAN CORPUSCULAR HEMOGLOBIN 27.4 pg (27.0-34.8); MEAN CORPUSCULAR HGB CONC 32.1 g/dL (32.4-35.8); MEAN CORPUSCULAR VOLUME 85.4 fL (80-100); MEAN PLATELET VOLUME 8.5 fL (7.4-10.4); MONOCYTES # (AUTO) 0.45 x10^3/uL (0.2-0.8); MONOCYTES % (AUTO) 6 % (2-9); NEUTROPHILS # (AUTO) 5.76 x10^3/uL (1.8-6.8); NEUTROPHILS % (AUTO) 74 % (42-75); PLATELET COUNT 236 x10^3/uL (130-400); RED BLOOD COUNT 4.27 x10^6/uL (3.82-5.3); RED CELL DISTRIBUTION WIDTH 15.5 % (9.6-15.2)
--- NOTE | 2020-03-06 00:06 | NUR ---
pt states she is nauseated. pt medicated per mar. pt states she needs something for her pain. Pt informed we need a urine sample , pt stats "i dont know if ill be able to pee because im so dehydrated, i havent been drinking water today." ROMA, WCTM. waiting for labs.
[2020-03-06] MEDS ORDERED: ONDANSETRON 2MG/ML, 2ML ONE (00:10)
[2020-03-06] MEDS ORDERED: HYDROmorphone 1 MG/ML, 1ML INJ IV STA (00:17)
[2020-03-06 00:18] LABS: ALANINE AMINOTRANSFERASE 23 U/L (12-78); ALBUMIN 2.9 g/dL (3.4-5.0); ANION GAP 9 mmol/L (5-15); CALCIUM 8.3 mg/dL (8.5-10.1); CHLORIDE 99 mmol/L (98-107); CREATININE 1.03 mg/dL (0.55-1.02)
[2020-03-06 00:23] LABS: ALKALINE PHOSPHATASE 175 U/L (45-117); BILIRUBIN,TOTAL 0.1 mg/dL (0.2-1.0); TOTAL PROTEIN 6.9 g/dL (6.4-8.2)
[2020-03-06] MEDS ORDERED: ONDANSETRON 2MG/ML, 2ML IVPush ONE (00:30)
[2020-03-06] MEDS ORDERED: HYDROmorphone 1 MG/ML, 1ML INJ ONE (00:40)
[2020-03-06] MEDS ORDERED: INSULIN SINGLE DOSE, ER ONE ×2 (00:41→00:44)
[2020-03-06 00:43] LABS: ACETONE, SERUM Small (20mg/dL) (Negative); MICROSCOPIC NOT IND
[2020-03-06] MEDS ORDERED: INSULIN REGULAR 100 UNITS/ML, 3ML VIAL IVPush ONE (01:00)
[2020-03-06] MEDS ORDERED: SODIUM CHLORIDE 0.9% 1,000ML IVBOLUS ONE (01:00)
--- NOTE | 2020-03-06 01:06 | NUR ---
late entry d/t pt care: pt states nausea is decreased. pt able to manage po water. pt nad, wctm. waiting for test results.
--- NOTE | 2020-03-06 02:02 | NUR ---
pt resting on gurney, appears comfortable, finger stick 273, pt nad, vss, requesting more dilaudid from RN. YIN. Pt to be DC'd
[2020-03-06 02:20] VITALS: BP 156/91
--- NOTE | 2020-03-06 02:33 | NUR ---
Patient given discharge instructions and they have confirmed that they understand the instructions. Patient ambulatory with steady gait. NAD, denies additional needs or questions at this time. no pt belongings left in room after dc.
== END 2020-03-06 02:35 | disposition home or self-care (01) ==
LOC: ED 23:24
DX: E10.43 Type 1 diabetes mellitus with diabetic autonomic (poly)neuropathy (principal); K31.84 Gastroparesis; E10.65 Type 1 diabetes mellitus with hyperglycemia; R11.2 Nausea with vomiting, unspecified; R10.13 Epigastric pain; R10.12 Left upper quadrant pain; G89.29 Other chronic pain; E78.5 Hyperlipidemia, unspecified
CPT/HCPCS: 36415; 80053; 81003; 82010; 82962; 83690; 84703; 85025; 96361; 96374; 96375; 99284; J1170; J1815; J2405; J7030

== ENCOUNTER 2020-03-10 19:53 | Emergency (ER) | payer OTHER ==
[~2020-03-10] VITALS: Ht 157.5 cm; Wt 65.4 kg
[2020-03-10 20:08] VITALS: BP 142/94
--- NOTE | 2020-03-10 20:39 | NUR ---
39 year old female to ED for stomach pain x 1 week that radiates through to her back. She states she suffers from pancreatitis and she has been experiencing pain, nausea, vomiting, and her glucometer has been reading hi.
[2020-03-10] MEDS ORDERED: HYDROmorphone 1 MG/ML, 1ML INJ ONE ×2 (20:42→22:48)
[2020-03-10] MEDS ORDERED: ONDANSETRON 2MG/ML, 2ML ONE ×2 (20:42→22:48)
[2020-03-10 20:45] LABS: HCG UR SG 1.039 (1.003-1.030); MICROSCOPIC AUTO
[2020-03-10 20:56] LABS: ALANINE AMINOTRANSFERASE 34 U/L (12-78); ALBUMIN 3.1 g/dL (3.4-5.0); ANION GAP 12 mmol/L (5-15); CALCIUM 8.8 mg/dL (8.5-10.1); CHLORIDE 93 mmol/L (98-107); CREATININE 1.07 mg/dL (0.55-1.02)
[2020-03-10 20:59] LABS: ALKALINE PHOSPHATASE 196 U/L (45-117); BILIRUBIN,TOTAL 0.2 mg/dL (0.2-1.0); TOTAL PROTEIN 7.2 g/dL (6.4-8.2)
[2020-03-10] MEDS ORDERED: SODIUM CHLORIDE 0.9% 1,000ML IVBOLUS ONE ×2 (21:00→21:30)
[2020-03-10] MEDS ORDERED: ONDANSETRON 2MG/ML, 2ML IVPush ONE ×2 (21:00→23:00)
[2020-03-10] MEDS ORDERED: HYDROmorphone 1 MG/ML, 1ML INJ IV ONE ×2 (21:00→23:00)
[2020-03-10 21:08] LABS: BASOPHILS # (AUTO) 0.01 x10^3/uL (0-0.1); BASOPHILS % (AUTO) 0 % (0-1); EOSINOPHILS # (AUTO) 0.15 x10^3/uL (0-0.4); EOSINOPHILS % (AUTO) 2 % (1-7); LYMPHOCYTES # (AUTO) 1.37 x10^3/uL (1-3.4); LYMPHOCYTES % (AUTO) 17 % (22-44); MD NO; MEAN CORPUSCULAR HEMOGLOBIN 27.8 pg (27.0-34.8); MEAN CORPUSCULAR HGB CONC 33.2 g/dL (32.4-35.8); MEAN CORPUSCULAR VOLUME 83.9 fL (80-100); MEAN PLATELET VOLUME 9.7 fL (7.4-10.4); MONOCYTES % (AUTO) 8 % (2-9); NEUTROPHILS # (AUTO) 5.77 x10^3/uL (1.8-6.8); NEUTROPHILS % (AUTO) 73 % (42-75); PLATELET COUNT 299 x10^3/uL (130-400); RED BLOOD COUNT 4.65 x10^6/uL (3.82-5.3); RED CELL DISTRIBUTION WIDTH 15.6 % (9.6-15.2)
--- NOTE | 2020-03-10 21:22 | NUR ---
Critical Glucose 777. aware.
[2020-03-10] MEDS ORDERED: INSULIN REGULAR 100 UNITS/ML, 3ML VIAL IVPush ONE (21:30)
[2020-03-10] MEDS ORDERED: INSULIN SINGLE DOSE, ER ONE (21:33)
--- NOTE | 2020-03-10 22:30 | NUR ---
Post insulin and 2L bolus [id number]
== END 2020-03-10 23:46 | disposition home or self-care (01) ==
LOC: ED 21:07
DX: R10.13 Epigastric pain (principal); K86.1 Other chronic pancreatitis; E11.65 Type 2 diabetes mellitus with hyperglycemia; E78.5 Hyperlipidemia, unspecified; I10 Essential (primary) hypertension; G89.29 Other chronic pain; Z90.49 Acquired absence of other specified parts of digestive tract
CPT/HCPCS: 36415; 80053; 81001; 81025; 82962; 83690; 85025; 96361; 96374; 96375; 96376; 99284; J1170; J1815; J2405; J7030

== ENCOUNTER 2020-03-12 10:56 | Inpatient (IN) | payer OTHER ==
[~2020-03-12] VITALS: Ht 157.5 cm; Wt 74.6 kg
[~2020-03-12 10:56] MED LIST changes: -HYDR4TAB48 PO; -Senna/Docusate PO
[2020-03-12] MEDS ORDERED: ONDANSETRON ODT 8 MG ONE (11:28)
[2020-03-12] MEDS ORDERED: ONDANSETRON ODT 8 MG PO ONE (11:30)
[2020-03-12 11:32] LABS: BASOPHILS # (AUTO) 0.03 x10^3/uL (0-0.1); BASOPHILS % (AUTO) 0 % (0-1); EOSINOPHILS # (AUTO) 0.05 x10^3/uL (0-0.4); EOSINOPHILS % (AUTO) 1 % (1-7); LYMPHOCYTES # (AUTO) 0.93 x10^3/uL (1-3.4); LYMPHOCYTES % (AUTO) 10 % (22-44); MD NO; MEAN CORPUSCULAR HEMOGLOBIN 27.5 pg (27.0-34.8); MEAN CORPUSCULAR HGB CONC 31.7 g/dL (32.4-35.8); MEAN CORPUSCULAR VOLUME 86.9 fL (80-100); MEAN PLATELET VOLUME 9.4 fL (7.4-10.4); MONOCYTES # (AUTO) 0.47 x10^3/uL (0.2-0.8); MONOCYTES % (AUTO) 5 % (2-9); NEUTROPHILS # (AUTO) 7.56 x10^3/uL (1.8-6.8); NEUTROPHILS % (AUTO) 84 % (42-75); PLATELET COUNT 284 x10^3/uL (130-400); RED BLOOD COUNT 4.63 x10^6/uL (3.82-5.3); RED CELL DISTRIBUTION WIDTH 15.9 % (9.6-15.2)
--- NOTE | 2020-03-12 11:35 | NUR ---
ABDOMINAL PAIN WITH VOMITING. ADDITIONALLY STATES THAT SHE RAN OUT OF HER OXY AND DILAUDID YESTERDAY. REQUESTING PAIN MEDICATION. PROVIDER MADE AWARE AND ORDER RECEIVED FOR TORADOL.
[2020-03-12] MEDS ORDERED: KETOROLAC 30 MG/1 ML ONE (11:39)
[2020-03-12] MEDS: KETOROLAC 30 MG/1 ML IM ONE ×2 (11:40→11:42)
[2020-03-12 11:42] LABS: ALANINE AMINOTRANSFERASE 34 U/L (12-78); ALBUMIN 3.1 g/dL (3.4-5.0); ANION GAP 10 mmol/L (5-15); CHLORIDE 88 mmol/L (98-107); CREATININE 1.25 mg/dL (0.55-1.02)
[2020-03-12 11:45] LABS: MICROSCOPIC NOT IND
[2020-03-12 11:47] LABS: ALKALINE PHOSPHATASE 199 U/L (45-117); BILIRUBIN,TOTAL 0.3 mg/dL (0.2-1.0); TOTAL PROTEIN 7.2 g/dL (6.4-8.2)
[2020-03-12] MEDS ORDERED: ZIPRASIDONE 20 MG INJ IM ONE ×2 (11:52→12:00)
[2020-03-12 11:58] LABS: PH, VENOUS 7.479 pH (7.320-7.420)
[2020-03-12] MEDS ORDERED: SODIUM CHLORIDE 0.9% 1,000ML IVBOLUS ONE (12:00)
[2020-03-12] MEDS ORDERED: INSULIN REGULAR 100 UNITS/ML, 3ML VIAL SQ-INSULIN ONE (12:00)
[2020-03-12] MEDS ORDERED: INSULIN SINGLE DOSE, ER ONE (12:13)
[2020-03-12 12:31] LABS: ACETONE, SERUM Moderate(40mg/dL) (Negative)
--- NOTE | 2020-03-12 12:52 | NUR ---
PT DID NOT TOLERATE PO CHALLANGE, VOMITING X1. BLOOD GLUCOSE OVER 600 ON GLUCOMETER AFTER INSULIN GIVEN. MD MADE AWARE. PT AWARE OF INTENTION TO ADMIT. MD MADE AWARE PT CONTINUES TO HAVE PAIN AND THAT FAUSTINA DID NOT HELP WITH PT STATING IT JUST MADE HER FEEL WEIRD.
--- NOTE | 2020-03-12 12:59 | NUR ---
ER MD JOSEPH STATES TO DEFER TO ADMISSION ORDERS FOR START OF INSULIN DRIP AND PAIN MANAGMENET
[2020-03-12] MEDS ORDERED: BISACODYL 10 MG SUPP PR PRN (13:30)
[2020-03-12] MEDS ORDERED: ENOXAPARIN 40 MG/0.4 ML ONE (13:30)
[2020-03-12] MEDS ORDERED: POLYETHYLENE GLYCOL 17 GM PACKET PO PRN (13:30)
[2020-03-12] MEDS ORDERED: LABETALOL 5MG/ML, 20ML IVPush PRN (13:30)
[2020-03-12] MEDS ORDERED: ACETAMINOPHEN 325 MG TABLET PO PRN (13:30)
[2020-03-12] MEDS ORDERED: ENALAPRILAT 1.25 MG/ML, 2ML IVPush PRN (13:30)
[2020-03-12] MEDS ORDERED: ONDANSETRON 2MG/ML, 2ML ONE (13:31)
[2020-03-12] MEDS: ONDANSETRON 2MG/ML, 2ML IVPush PRN ×2 (13:34→23:00)
[2020-03-12] MEDS: ENOXAPARIN 40 MG/0.4 ML SQ SCH (13:35)
[2020-03-12] MEDS ORDERED: HYDR4TAB48 PO (13:41)
--- NOTE | 2020-03-12 14:10 | NUR ---
REPORT TO FOREST CARVALHO
[2020-03-12 14:15] VITALS: BP 171/103
[2020-03-12] MEDS: SODIUM CHLORIDE 0.9% 1,000 ML IV SCH ×2 (14:30→20:00)
[2020-03-12] MEDS: OXYcodone IR 30 MG TABLET PO PRN ×3 (14:46→23:16)
[2020-03-12] MEDS: KETOROLAC 30 MG/1 ML IV PRN ×2 (14:46→20:48)
[2020-03-12 15:10] LABS: ANION GAP 9 mmol/L (5-15); CALCIUM 9.1 mg/dL (8.5-10.1); CHLORIDE 99 mmol/L (98-107); CREATININE 1.01 mg/dL (0.55-1.02)
[2020-03-12] MEDS: PANCRELIPASE 24,000 CAPSULE.DR PO SCH (16:31)
[2020-03-12] MEDS: GABAPENTIN 400 MG CAPSULE PO SCH ×2 (16:31→20:48)
[2020-03-12] MEDS: INSULIN LISPRO 100 UNITS/ML, PEN SQ-INSULIN SCH ×2 (16:47→20:17)
[2020-03-12 18:13] VITALS: BP 122/79
[2020-03-12] MEDS: INSULIN GLARGINE 100 UNITS/ML, PEN SQ-INSULIN SCH (20:17)
[2020-03-12 20:22] VITALS: BP 105/56
[2020-03-12 20:29] VITALS: BP 131/74
[2020-03-12] MEDS: DULOXETINE 30 MG CAPSULE.DR PO SCH (20:48)
[2020-03-13 00:59] VITALS: BP 149/88
[2020-03-13] MEDS: SODIUM CHLORIDE 0.9% 1,000 ML IV SCH (02:40)
[2020-03-13 05:46] LABS: CHLORIDE 111 mmol/L (98-107)
[2020-03-13 05:54] LABS: ALANINE AMINOTRANSFERASE 19 U/L (12-78); ALBUMIN 2.2 g/dL (3.4-5.0); ALKALINE PHOSPHATASE 105 U/L (45-117); ANION GAP 5 mmol/L (5-15); BILIRUBIN,TOTAL 0.2 mg/dL (0.2-1.0); CALCIUM 7.9 mg/dL (8.5-10.1); CREATININE 0.76 mg/dL (0.55-1.02); TOTAL PROTEIN 5.4 g/dL (6.4-8.2)
[2020-03-13] MEDS: GABAPENTIN 400 MG CAPSULE PO SCH ×4 (06:08→20:53)
[2020-03-13 06:16] LABS: BASOPHILS # (AUTO) 0.02 x10^3/uL (0-0.1); BASOPHILS % (AUTO) 0 % (0-1); EOSINOPHILS # (AUTO) 0.33 x10^3/uL (0-0.4); EOSINOPHILS % (AUTO) 3 % (1-7); LYMPHOCYTES # (AUTO) 1.86 x10^3/uL (1-3.4); LYMPHOCYTES % (AUTO) 20 % (22-44); MD NO; MEAN CORPUSCULAR HEMOGLOBIN 27.5 pg (27.0-34.8); MEAN CORPUSCULAR HGB CONC 32.1 g/dL (32.4-35.8); MEAN CORPUSCULAR VOLUME 85.5 fL (80-100); MEAN PLATELET VOLUME 8.9 fL (7.4-10.4); MONOCYTES # (AUTO) 0.79 x10^3/uL (0.2-0.8); MONOCYTES % (AUTO) 8 % (2-9); NEUTROPHILS # (AUTO) 6.52 x10^3/uL (1.8-6.8); NEUTROPHILS % (AUTO) 69 % (42-75); PLATELET COUNT 236 x10^3/uL (130-400); RED BLOOD COUNT 3.77 x10^6/uL (3.82-5.3); RED CELL DISTRIBUTION WIDTH 15.4 % (9.6-15.2)
[2020-03-13] MEDS: OXYcodone IR 30 MG TABLET PO PRN ×3 (06:16→20:06)
[2020-03-13] MEDS: KETOROLAC 30 MG/1 ML IV PRN ×3 (07:13→22:17)
[2020-03-13 07:38] VITALS: BP 176/109
[2020-03-13] MEDS ORDERED: ACETAMINOPHEN 325 MG TABLET PO PRN (08:00)
[2020-03-13] MEDS: LOSARTAN 25MG TABLET PO SCH (08:13)
[2020-03-13] MEDS: PANCRELIPASE 24,000 CAPSULE.DR PO SCH ×3 (08:14→16:34)
[2020-03-13] MEDS: DULOXETINE 30 MG CAPSULE.DR PO SCH ×2 (08:14→20:52)
[2020-03-13] MEDS: NORGESTIMATE ETHINYL ESTRADIOL HOMEMEDPO SCH (08:15)
[2020-03-13] MEDS: SENNA/DOCUSATE TABLET PO SCH (08:22)
[2020-03-13] MEDS: INSULIN LISPRO 100 UNITS/ML, PEN SQ-INSULIN SCH ×4 (09:15→20:52)
[2020-03-13] MEDS: ONDANSETRON 2MG/ML, 2ML IVPush PRN (09:16)
[2020-03-13] MEDS: INSULIN GLARGINE 100 UNITS/ML, PEN SQ-INSULIN SCH ×2 (09:16→20:51)
[2020-03-13 09:51] VITALS: BP 168/108
[2020-03-13] MEDS: ENOXAPARIN 40 MG/0.4 ML SQ SCH (11:35)
[2020-03-13 11:36] VITALS: BP 155/91
[2020-03-13 12:23] VITALS: BP 150/94
[2020-03-13] MEDS ORDERED: SODIUM CHLORIDE 0.9% 1,000 ML IV SCH (13:20)
[2020-03-13] MEDS ORDERED: BISACODYL 10 MG SUPP PR PRN (16:00)
[2020-03-13] MEDS ORDERED: METHYLNALTREXONE 12 MG/0.6 ML SYR SQ ONE (16:00)
[2020-03-13] MEDS ORDERED: MAGNESIUM CITRATE 300ML ORAL SOL PO ONE ×2 (16:00→17:30)
[2020-03-13 18:36] VITALS: BP 118/84
[2020-03-13] MEDS: ZOLPIDEM 10MG TABLET PO SCH ×2 (20:53)
[2020-03-14 00:05] VITALS: BP_SYST 92; BP_SYST 96; BP_DIAS 58; BP_DIAS 61
[2020-03-14 00:20] VITALS: BP 96/62
[2020-03-14] MEDS: KETOROLAC 30 MG/1 ML IV PRN (04:29)
[2020-03-14 05:02] LABS: BASOPHILS # (AUTO) 0.02 x10^3/uL (0-0.1); BASOPHILS % (AUTO) 0 % (0-1); EOSINOPHILS # (AUTO) 0.32 x10^3/uL (0-0.4); EOSINOPHILS % (AUTO) 5 % (1-7); LYMPHOCYTES # (AUTO) 2.24 x10^3/uL (1-3.4); LYMPHOCYTES % (AUTO) 34 % (22-44); MD NO; MEAN CORPUSCULAR HEMOGLOBIN 27.3 pg (27.0-34.8); MEAN CORPUSCULAR HGB CONC 32.1 g/dL (32.4-35.8); MEAN PLATELET VOLUME 8.6 fL (7.4-10.4); MONOCYTES # (AUTO) 0.68 x10^3/uL (0.2-0.8); MONOCYTES % (AUTO) 10 % (2-9); NEUTROPHILS # (AUTO) 3.41 x10^3/uL (1.8-6.8); NEUTROPHILS % (AUTO) 51 % (42-75); PLATELET COUNT 242 x10^3/uL (130-400); RED BLOOD COUNT 3.63 x10^6/uL (3.82-5.3); RED CELL DISTRIBUTION WIDTH 15.7 % (9.6-15.2)
[2020-03-14] MEDS: GABAPENTIN 400 MG CAPSULE PO SCH ×2 (06:03→11:47)
[2020-03-14] MEDS: OXYcodone IR 30 MG TABLET PO PRN ×2 (06:59→13:36)
[2020-03-14] MEDS: INSULIN LISPRO 100 UNITS/ML, PEN SQ-INSULIN SCH ×2 (07:00→11:00)
[2020-03-14 07:16] VITALS: BP 144/93
[2020-03-14] MEDS: PANCRELIPASE 24,000 CAPSULE.DR PO SCH ×2 (08:07→11:47)
[2020-03-14] MEDS: NORGESTIMATE ETHINYL ESTRADIOL HOMEMEDPO SCH (08:08)
[2020-03-14] MEDS: SENNA/DOCUSATE TABLET PO SCH (08:08)
[2020-03-14] MEDS: LOSARTAN 25MG TABLET PO SCH (08:08)
[2020-03-14] MEDS: DULOXETINE 30 MG CAPSULE.DR PO SCH (08:08)
[2020-03-14] MEDS: INSULIN GLARGINE 100 UNITS/ML, PEN SQ-INSULIN SCH (09:00)
[2020-03-14] MEDS ORDERED: Senna/Docusate PO (09:45)
[2020-03-14] MEDS: ONDANSETRON 2MG/ML, 2ML IVPush PRN (10:43)
[2020-03-14] MEDS: ENOXAPARIN 40 MG/0.4 ML SQ SCH (11:25)
[2020-03-14] MEDS ORDERED: SODIUM CHLORIDE 0.9% 1,000 ML IV SCH (13:20)
== END 2020-03-14 14:10 | disposition home or self-care (01) | DRG 391 ==
LOC: ED 12:21 → EDIP 12:51 → CCU 14:07 → 3N 17:31 → DCLOUNGE 03-14 14:03
PROVIDERS: ADMIT Internal Medicine; ATTEND Internal Medicine
DX: K59.03 Drug induced constipation (principal); E11.00 Type 2 diabetes mellitus with hyperosmolarity without nonketotic hyperglycemic-hyperosmolar coma (NKHHC); N17.0 Acute kidney failure with tubular necrosis; E87.1 Hypo-osmolality and hyponatremia; F11.23 Opioid dependence with withdrawal; K86.1 Other chronic pancreatitis; E11.42 Type 2 diabetes mellitus with diabetic polyneuropathy; E11.43 Type 2 diabetes mellitus with diabetic autonomic (poly)neuropathy; E28.2 Polycystic ovarian syndrome; E66.9 Obesity, unspecified; Z68.30 Body mass index [BMI] 30.0-30.9, adult; Z88.5 Allergy status to narcotic agent; Z88.8 Allergy status to other drugs, medicaments and biological substances; E78.5 Hyperlipidemia, unspecified; G89.29 Other chronic pain; I10 Essential (primary) hypertension; M43.17 Spondylolisthesis, lumbosacral region; M51.36 Other intervertebral disc degeneration, lumbar region; T40.605A Adverse effect of unspecified narcotics, initial encounter; Z76.5 Malingerer [conscious simulation]; Z79.4 Long term (current) use of insulin; Z87.442 Personal history of urinary calculi; Y92.89 Other specified places as the place of occurrence of the external cause; K31.84 Gastroparesis
CPT/HCPCS: 36415; 76700; 80048; 80053; 81003; 82010; 82803; 82947; 82962; 83036; 83690; 83735; 84100; 84703; 85025; 87081; 96360; 96372; G0378; J1650; J1885; J2405; J3486; Q0162; J1815; J7030

== ENCOUNTER → 2020-03-12 | Outpatient (CLI) | payer OTHER ==
[~2020-03-12] MED LIST changes: +HYDR4TAB48 PO; +Senna/Docusate PO
== END | disposition home or self-care (01) ==
LOC: RAD 10:10
PROVIDERS: ATTEND Internal Medicine Gastroenterology
DX: K86.1 Other chronic pancreatitis (principal); R10.13 Epigastric pain; R11.0 Nausea; E10.65 Type 1 diabetes mellitus with hyperglycemia; R10.9 Unspecified abdominal pain
CPT/HCPCS: 74018

== ENCOUNTER 2020-04-04 11:30 | Outpatient (CLI) | payer OTHER ==
[~2020-04-04 11:30] MED LIST changes: +HYDR4TAB48 PO; +Senna/Docusate PO
== END 2020-04-04 23:59 | disposition home or self-care (01) ==
LOC: RAD 11:30
PROVIDERS: ATTEND Internal Medicine
DX: Z45.2 Encounter for adjustment and management of vascular access device (principal); E10.65 Type 1 diabetes mellitus with hyperglycemia; K86.1 Other chronic pancreatitis; Z79.4 Long term (current) use of insulin; Z79.899 Other long term (current) drug therapy; Z88.8 Allergy status to other drugs, medicaments and biological substances; Z82.49 Family history of ischemic heart disease and other diseases of the circulatory system
CPT/HCPCS: 36573; C1751

== ENCOUNTER 2020-04-04 20:03 | Emergency (ER) | payer OTHER ==
[~2020-04-04] VITALS: Ht 162.6 cm; Wt 65.0 kg
--- NOTE | 2020-04-04 20:13 | NUR ---
EKG IN TRIAGE
[2020-04-04] MEDS ORDERED: SODIUM CHLORIDE 0.9% 1,000ML IVBOLUS ONE (21:00)
[2020-04-04] MEDS ORDERED: FAMOTIDINE 20 MG/2 ML IVPush ONE (21:00)
[2020-04-04] MEDS ORDERED: ONDANSETRON 2MG/ML, 2ML IVPush ONE ×2 (21:00→22:30)
[2020-04-04 21:01] LABS: MICROSCOPIC NOT IND
--- NOTE | 2020-04-04 21:25 | NUR ---
LABS COLLECTED VIA PICC LINE AFTER RECEIVING PROPER VIAL FOR LABS. LABS TAKEN TO LAB.
[2020-04-04] MEDS ORDERED: ACETAMINOPHEN 500 MG TABLET PO ONE (21:30)
[2020-04-04] MEDS ORDERED: ONDANSETRON 2MG/ML, 2ML ONE ×2 (21:31→22:19)
[2020-04-04] MEDS ORDERED: FAMOTIDINE 20 MG/2 ML ONE (21:32)
[2020-04-04] MEDS ORDERED: ACETAMINOPHEN 500 MG TABLET ONE (21:32)
--- NOTE | 2020-04-04 21:40 | NUR ---
PT REQUESTING DILAUDID. PA AND NOTIFIED. NO NEW ORDER FOR DILAUDID.
[2020-04-04 21:42] LABS: PH, VENOUS 7.446 pH (7.320-7.420)
[2020-04-04 21:43] LABS: BASOPHILS % (AUTO) 1 % (0-1); EOSINOPHILS % (AUTO) 1 % (1-7); LYMPHOCYTES % (AUTO) 11 % (22-44); MEAN CORPUSCULAR HEMOGLOBIN 26.9 pg (27.0-34.8); MEAN CORPUSCULAR HGB CONC 32.1 g/dL (32.4-35.8); MEAN PLATELET VOLUME 8.3 fL (7.4-10.4); MONOCYTES % (AUTO) 8 % (2-9); NEUTROPHILS % (AUTO) 79 % (42-75); PLATELET COUNT 350 x10^3/uL (130-400); RED BLOOD COUNT 4.54 x10^6/uL (3.82-5.3); RED CELL DISTRIBUTION WIDTH 15.1 % (9.6-15.2)
[2020-04-04 21:45] LABS: MD NO
[2020-04-04 21:48] LABS: ALANINE AMINOTRANSFERASE 20 U/L (12-78); ANION GAP 9 mmol/L (5-15); CALCIUM 9.1 mg/dL (8.5-10.1); CHLORIDE 91 mmol/L (98-107); CREATININE 1.11 mg/dL (0.55-1.02)
[2020-04-04 21:51] LABS: ALKALINE PHOSPHATASE 146 U/L (45-117); BILIRUBIN,TOTAL 0.4 mg/dL (0.2-1.0); TOTAL PROTEIN 7.3 g/dL (6.4-8.2)
[2020-04-04 21:53] VITALS: BP 159/100
[2020-04-04 22:07] LABS: ACETONE, SERUM Large (80mg/dL) (Negative)
--- NOTE | 2020-04-04 22:15 | NUR ---
MD AT BEDSIDE TO UPDATE PT ON POC.
[2020-04-04] MEDS ORDERED: HYDROmorphone 1 MG/ML, 1ML INJ ONE (22:19)
[2020-04-04] MEDS ORDERED: HYDROmorphone 1 MG/ML, 1ML INJ IV ONE (22:30)
== END 2020-04-04 22:37 | disposition home or self-care (01) ==
LOC: ED 21:32
DX: G89.29 Other chronic pain (principal); R10.13 Epigastric pain; E11.65 Type 2 diabetes mellitus with hyperglycemia; I10 Essential (primary) hypertension; E78.5 Hyperlipidemia, unspecified; R11.2 Nausea with vomiting, unspecified
CPT/HCPCS: 36415; 80053; 81003; 82010; 82803; 83690; 85025; 93005; 96361; 96374; 96375; 96376; 99284; J1170; J2405; J3490; J7030

== ENCOUNTER → 2020-05-28 | Outpatient (CLI) | payer OTHER | END | disposition home or self-care (01) | LOC: RAD 10:25 | PROVIDERS: ATTEND Internal Medicine Gastroenterology | DX: K30 Functional dyspepsia (principal); K86.1 Other chronic pancreatitis; E10.65 Type 1 diabetes mellitus with hyperglycemia; R10.9 Unspecified abdominal pain; R11.0 Nausea | CPT/HCPCS: 78264; A9541 ==

== ENCOUNTER 2020-09-13 17:08 | Emergency (ER) | payer OTHER ==
[~2020-09-13] VITALS: Ht 157.5 cm; Wt 59.0 kg
[~2020-09-13 17:08] MED LIST changes: +ALPR1TAB2 PO; -CIPR500T3 PO; +CIPR500T4 PO; +HYDR-1067 PO; -HYDR-3240 PO; -OXYC5TAB3 PO; +OXYC5TAB98 PO
[2020-09-13] MEDS ORDERED: HYDROmorphone 1 MG/ML, 1ML INJ ONE ×3 (17:36→20:09)
[2020-09-13] MEDS ORDERED: ONDANSETRON 2MG/ML, 2ML ONE ×2 (17:37→20:09)
[2020-09-13] MEDS ORDERED: HYDROmorphone 1 MG/ML, 1ML INJ IV ONE ×3 (18:00→20:30)
[2020-09-13] MEDS ORDERED: ONDANSETRON 2MG/ML, 2ML IVPush ONE ×2 (18:00→20:30)
[2020-09-13] MEDS ORDERED: SODIUM CHLORIDE FLUSH 10ML SYR IVF ONE (18:00)
[2020-09-13] MEDS ORDERED: SODIUM CHLORIDE 0.9% 1,000ML IVBOLUS ONE ×2 (18:00→19:30)
[2020-09-13 18:22] LABS: BASOPHILS % (AUTO) 1 % (0-1); EOSINOPHILS % (AUTO) 1 % (1-7); LYMPHOCYTES % (AUTO) 12 % (22-44); MEAN CORPUSCULAR HEMOGLOBIN 29.2 pg (27.0-34.8); MEAN CORPUSCULAR HGB CONC 34.2 g/dL (32.4-35.8); MEAN PLATELET VOLUME 8.5 fL (7.4-10.4); MONOCYTES % (AUTO) 8 % (2-9); NEUTROPHILS % (AUTO) 79 % (42-75); PLATELET COUNT 258 x10^3/uL (130-400); RED BLOOD COUNT 4.78 x10^6/uL (3.82-5.3); RED CELL DISTRIBUTION WIDTH 15.4 % (9.6-15.2)
[2020-09-13 18:28] LABS: MD NO
[2020-09-13 18:29] LABS: ANION GAP 7 mmol/L (5-15); CALCIUM 9.4 mg/dL (8.5-10.1); CHLORIDE 101 mmol/L (98-107); CREATININE 0.76 mg/dL (0.55-1.02)
[2020-09-13 18:30] LABS: ALANINE AMINOTRANSFERASE 47 U/L (12-78); ALBUMIN 2.9 g/dL (3.4-5.0)
[2020-09-13 18:32] LABS: ALKALINE PHOSPHATASE 238 U/L (45-117); BILIRUBIN,TOTAL 0.3 mg/dL (0.2-1.0); TOTAL PROTEIN 7.4 g/dL (6.4-8.2)
--- NOTE | 2020-09-13 19:17 | NUR ---
PT BIB POV DUE TO VOMITING AND PANCREAS IS HURTING. HX OF PANCREATITIS. UNABLE TO KEEP MEDS DOWN. PT RESTING IN RNEY, CECY AT THIS TIME, MONITORING IN PLACE, WARM BLANKET PROVIDED, WCTM. PT STATES PAIN IS 10/10 AT THIS TIME.
--- NOTE | 2020-09-13 19:47 | NUR ---
PT RESTING IN [facility], MONTIORING IN PLACE, NADN AT THIS TIME, PT MEDICATED PER EMAR, PER PT NO NEEDS AT THIS TIME, WCTM.
--- NOTE | 2020-09-13 20:15 | NUR ---
break rn= pt medicated per mar. pt on monitor with vss
[2020-09-13 20:47] VITALS: BP 126/84
--- NOTE | 2020-09-13 20:48 | NUR ---
PT'S MOM TO DRIVE PT HOME VIA POV. PT GIVEN DISCHARGE INSTRUCTIONS AND EDUCATION. ALL QUESTIONS ANSWERED. PIV TAKEN OUT WITH CATH TIP INTACT.
== END 2020-09-13 20:48 | disposition home or self-care (01) ==
LOC: ED 18:18
DX: R11.2 Nausea with vomiting, unspecified (principal); R10.13 Epigastric pain; E11.65 Type 2 diabetes mellitus with hyperglycemia; E78.5 Hyperlipidemia, unspecified; G89.29 Other chronic pain; Z90.49 Acquired absence of other specified parts of digestive tract
CPT/HCPCS: 36415; 80053; 83690; 85025; 96361; 96374; 96375; 96376; 99284; J1170; J2405; J7030

== ENCOUNTER 2020-09-17 23:20 | Emergency (ER) | payer OTHER ==
[~2020-09-17] VITALS: Ht 157.5 cm; Wt 59.0 kg
--- NOTE | 2020-09-18 00:19 | NUR ---
PT HERE FOR RIGHT UPPER ARM ABCESS, N/V "ALL DAY" TODAY. BLOOD SUGAR READ HIGH ON PTS HOME MONITOR AND ON HOSPITAL MONITOR WELL. PIV PLACED, LAB AT BEDSIDE, I/D SET UP.
[2020-09-18] MEDS ORDERED: MORPHINE SULFATE 4 MG/ML, 1ML ONE ×2 (00:21→01:08)
[2020-09-18] MEDS ORDERED: LIDOCAINE-MPF 1%, 5ML ONE (00:23)
[2020-09-18 00:27] LABS: PH, VENOUS 7.477 pH (7.320-7.420)
[2020-09-18] MEDS: MORPHINE SULFATE 4 MG/ML, 1ML IVPush PRN ×2 (00:29→01:10)
[2020-09-18] MEDS ORDERED: SODIUM CHLORIDE 0.9% 1,000ML IVBOLUS ONE ×2 (00:30→01:00)
[2020-09-18] MEDS ORDERED: LIDOCAINE 1%, 10ML INFIL ONE (00:30)
[2020-09-18] MEDS ORDERED: SODIUM CHLORIDE FLUSH 10ML SYR IVF ONE (00:30)
[2020-09-18 00:33] LABS: BASOPHILS % (AUTO) 0 % (0-1); EOSINOPHILS % (AUTO) 1 % (1-7); LYMPHOCYTES % (AUTO) 12 % (22-44); MEAN CORPUSCULAR HEMOGLOBIN 29.1 pg (27.0-34.8); MEAN CORPUSCULAR HGB CONC 32.6 g/dL (32.4-35.8); MEAN PLATELET VOLUME 8.8 fL (7.4-10.4); MONOCYTES % (AUTO) 8 % (2-9); NEUTROPHILS % (AUTO) 80 % (42-75); PLATELET COUNT 311 x10^3/uL (130-400); RED CELL DISTRIBUTION WIDTH 14.8 % (9.6-15.2)
[2020-09-18 00:36] LABS: MD NO
[2020-09-18 00:41] LABS: ALBUMIN 2.4 g/dL (3.4-5.0); ANION GAP 9 mmol/L (5-15); CALCIUM 8.3 mg/dL (8.5-10.1); CHLORIDE 93 mmol/L (98-107); CREATININE 1.21 mg/dL (0.55-1.02)
[2020-09-18] MEDS ORDERED: INSULIN SINGLE DOSE, ER ONE (00:55)
[2020-09-18] MEDS ORDERED: INSULIN REGULAR 100 UNITS/ML, 3ML VIAL IVPush ONE (01:00)
[2020-09-18 01:01] LABS: ACETONE, SERUM Trace (Negative)
--- NOTE | 2020-09-18 01:17 | NUR ---
TASK RN: PT MEDICATED FOR PAIN A SECOND TIME, PER EMAR.
[2020-09-18 02:08] VITALS: BP 107/65
--- NOTE | 2020-09-18 02:13 | NUR ---
BLOOD SUGAR AT 525. ERP AWARE. SUGAR TRENRENDING DOWN. PT ASYMPTOMATIC, PT STATES FEELING BETTER. OK TO D/C
== END 2020-09-18 02:34 | disposition home or self-care (01) ==
LOC: ED 23:46
DX: L02.411 Cutaneous abscess of right axilla (principal); E10.65 Type 1 diabetes mellitus with hyperglycemia; I10 Essential (primary) hypertension; G89.29 Other chronic pain; E78.5 Hyperlipidemia, unspecified; Z90.49 Acquired absence of other specified parts of digestive tract
CPT/HCPCS: 10060; 36415; 80048; 82010; 82040; 82803; 82962; 85025; 96361; 96374; 96375; 96376; 99284; J1815; J2270; J7030

== ENCOUNTER 2020-09-20 17:48 | Emergency (ER) | payer OTHER ==
[~2020-09-20] VITALS: Ht 157.5 cm; Wt 62.5 kg
--- NOTE | 2020-09-20 18:30 | NUR ---
Pt resting in bed, wound noted to R AC, swelling around wound. CMS intact.
--- NOTE | 2020-09-20 18:46 | NUR ---
Report to Joycelyn CARVALHO.
--- NOTE | 2020-09-20 18:54 | NUR ---
pt resting in gurney, site has no drainage at this time, pt has 9/10 pain at this time. pt on continuous pulse ox, awaiting erp eval
[2020-09-20] MEDS ORDERED: HYDROcodone/APAP 5/325 TABLET PO ONE (19:30)
[2020-09-20] MEDS ORDERED: LIDOCAINE 1%, 10ML INFIL ONE (19:30)
[2020-09-20] MEDS ORDERED: LIDOCAINE-MPF 1%, 5ML ONE (19:46)
[2020-09-20] MEDS ORDERED: HYDROcodone/APAP 5/325 TABLET ONE (19:46)
[2020-09-20 20:00] VITALS: BP 123/69
--- NOTE | 2020-09-20 20:10 | NUR ---
erp at bedside for i&d
== END 2020-09-20 20:51 | disposition home or self-care (01) ==
LOC: ED 20:42
DX: L02.413 Cutaneous abscess of right upper limb (principal); M79.631 Pain in right forearm; M79.89 Other specified soft tissue disorders; E11.9 Type 2 diabetes mellitus without complications
CPT/HCPCS: 10060; 99284

== ENCOUNTER 2020-09-29 10:09 | Outpatient (CLI) | payer OTHER | END 2020-09-29 23:59 | disposition home or self-care (01) | LOC: RAD 10:09 | PROVIDERS: ATTEND Internal Medicine | DX: Z45.2 Encounter for adjustment and management of vascular access device (principal); K86.1 Other chronic pancreatitis; Z79.4 Long term (current) use of insulin; Z79.899 Other long term (current) drug therapy; Z88.8 Allergy status to other drugs, medicaments and biological substances | CPT/HCPCS: 36573; C1751 ==

== ENCOUNTER → 2020-11-10 | Outpatient (CLI) | payer OTHER ==
[~2020-11-10] MED LIST changes: -HYDR-1067 PO; +HYDR-2214 PO; +SULF-23 PO; -SULF1TAB24 PO
== END | disposition home or self-care (01) ==
LOC: RAD 08:50
PROVIDERS: ATTEND Internal Medicine
DX: K86.1 Other chronic pancreatitis (principal)
CPT/HCPCS: 36573; C1751

== ENCOUNTER 2020-12-05 09:58 | Day surgery (SDC) | payer OTHER ==
[~2020-12-05] VITALS: Ht 157.5 cm; Wt 61.3 kg
[~2020-12-05 09:58] MED LIST changes: -LACT1CAP40 PO; +LACT1CAP45 PO
[2020-12-05 10:54] VITALS: BP 109/80
[2020-12-05] MEDS ORDERED: CEFAZOLIN PMX 1GM/50ML 50 ML IV ONE (11:00)
[2020-12-05] MEDS ORDERED: SODIUM CHLORIDE 0.9% 1,000 ML IV SCH (11:00)
[2020-12-05] MEDS ORDERED: HYDROmorphone 4MG TABLET PO STA (11:07)
[2020-12-05] MEDS ORDERED: OXYcodone IR 5MG TABLET PO STA (11:08)
[2020-12-05] MEDS ORDERED: HYDROmorphone 2MG TABLET ONE (11:28)
[2020-12-05] MEDS ORDERED: LIDOCAINE 1%, 20ML ONE (11:33)
[2020-12-05] MEDS ORDERED: FENTANYL PF 100 MCG/2ML ONE ×2 (11:40)
[2020-12-05] MEDS ORDERED: MIDAZOLAM 1 MG/ML, 5ML ONE (11:41)
== END 2020-12-05 14:00 | disposition home or self-care (01) ==
LOC: OUT 09:58
PROVIDERS: ATTEND Internal Medicine
DX: Z45.2 Encounter for adjustment and management of vascular access device (principal); K86.1 Other chronic pancreatitis; E78.2 Mixed hyperlipidemia; I10 Essential (primary) hypertension; E10.29 Type 1 diabetes mellitus with other diabetic kidney complication; F32.9 Major depressive disorder, single episode, unspecified; G47.00 Insomnia, unspecified; Z88.5 Allergy status to narcotic agent; Z88.8 Allergy status to other drugs, medicaments and biological substances; Z79.899 Other long term (current) drug therapy; Z98.890 Other specified postprocedural states; Z79.1 Long term (current) use of non-steroidal anti-inflammatories (NSAID); Z82.49 Family history of ischemic heart disease and other diseases of the circulatory system
CPT/HCPCS: 36561; 76937; 77001; 99156; 99157; C1788; J0690; J1642; J2250; J3010; J7030

== ENCOUNTER 2020-12-31 15:37 | Emergency (ER) | payer OTHER ==
[~2020-12-31] VITALS: Ht 157.5 cm; Wt 57.0 kg
[2020-12-31] MEDS ORDERED: HYDROcodone/APAP 5/325 TABLET PO ONE (16:30)
[2020-12-31] MEDS ORDERED: HYDROcodone/APAP 5/325 TABLET ONE (16:50)
--- NOTE | 2020-12-31 17:26 | NUR ---
CC OF EPIGASTRIC PAIN 02/03. PT ALSO WITH BROKEN FOOT IN CAST. HAS PICC IN UPPER RIGHT ARM FOR CORRECTION ABX. PT STATES SHE FINISHED ABX TX 3 WEEKS AGO AND "THEY WANT TO LEAVE THE PICC IN UNTIL I CAN GET SURGERY ON MY FOOT BUT I DON'T HAVE ANYTHING SCHEDULED". PT WITH COLD FINGERS, SP02 SHOWS 80% RA. PULSE SENSOR PLACED ON EAR LOBE WITH READINGS OF 93-95% RA. PT HAS NO SOB OR DIFFICULTY BREATHING. PER EMS BLOOD SUGAR OVER 500. PT REFUSING LABS AND IV FLUIDS HERE. PT STATES " MY SUGARS ARE ALWAYS UP AND DOWN, I CAN MANAGE THIS AT HOME". PT REQUESTING TO GO HOME AFTER PAIN MEDICATION ADMIN.
[2020-12-31 17:41] VITALS: BP 121/82
== END 2020-12-31 17:43 | disposition left against medical advice (07) ==
LOC: ED 17:30
DX: G89.29 Other chronic pain (principal); R10.13 Epigastric pain; R06.4 Hyperventilation; E11.65 Type 2 diabetes mellitus with hyperglycemia; I45.19 Other right bundle-branch block; I10 Essential (primary) hypertension; E78.5 Hyperlipidemia, unspecified; Z90.49 Acquired absence of other specified parts of digestive tract
CPT/HCPCS: 93005; 99283

== ENCOUNTER 2021-01-01 07:36 | Inpatient (IN) | payer OTHER ==
[~2021-01-01] VITALS: Ht 157.5 cm; Wt 58.3 kg
--- NOTE | 2021-01-01 07:55 | NUR ---
PT BIB [facility] FROM HOME. PT IS CURRENTLY ALERT AND ORIENTED X4, REMAINS LETHARGIC HOWEVER, PROTECTING OWN AIRWAY WELL. PT ARRIVED TO ER WEARING C COLLAR, CURRENTLY DENIES ANY NECK/BACK PAIN, STATES DID NOT HIT HEAD WHEN WHEN FELL OFF TOILET THIS AM. PT PLACED ON er MONITORS AND CONTINUED ON 02. DR MAY AT BEDSIDE FOR ASSESSMENT.
[2021-01-01] MEDS ORDERED: SODIUM CHLORIDE FLUSH 10ML SYR IVF ONE (08:00)
[2021-01-01] MEDS ORDERED: SODIUM CHLORIDE 0.9% 1,000ML IVBOLUS ONE (08:00)
--- NOTE | 2021-01-01 08:05 | NUR ---
DR. MAY REMOVED PT'S C COLLAR. PICC LINE IV USED FOR FLUID BOLUS, OK TO USE PER DR. MAY. PT REMAINS AWAKE AND A&OX4, STILL LETHARGIC.
--- NOTE | 2021-01-01 08:21 | NUR ---
LAB AT BEDSIDE FOR LAB DRAW.
--- NOTE | 2021-01-01 08:38 | NUR ---
UA COLLECTED, SENT TO LAB.
[2021-01-01 08:43] LABS: ALANINE AMINOTRANSFERASE 49 U/L (12-78); ALBUMIN 2.5 g/dL (3.4-5.0); ANION GAP 16 mmol/L (5-15); CALCIUM 8.3 mg/dL (8.5-10.1); CHLORIDE 84 mmol/L (98-107); CREATININE 1.79 mg/dL (0.55-1.02)
[2021-01-01 08:44] LABS: O2 FLOW 15L L/min
[2021-01-01 08:48] LABS: MICROSCOPIC AUTO
[2021-01-01 08:55] LABS: ACETONE, SERUM Large (80mg/dL) (Negative)
[2021-01-01 09:04] LABS: ALKALINE PHOSPHATASE 289 U/L (45-117); BILIRUBIN,TOTAL 0.9 mg/dL (0.2-1.0)
--- NOTE | 2021-01-01 09:04 | NUR ---
PT RESTING IN BED, REMAINS ON MONITORS. PICC DRSG CHANGED AND PT REPOSITIONED IN BED FOR COMFORT. CRITICAL LABS REPORTED TO DR. MAY.
[2021-01-01 09:07] LABS: TROPONIN I 0.601 ng/mL (0.000-0.045)
[2021-01-01 09:18] LABS: MEAN CORPUSCULAR HEMOGLOBIN 28.3 pg (27.0-34.8); MEAN CORPUSCULAR HGB CONC 30.7 g/dL (32.4-35.8); MEAN PLATELET VOLUME 9.5 fL (7.4-10.4); PLATELET COUNT 101 x10^3/uL (130-400); RED BLOOD COUNT 4.53 x10^6/uL (3.82-5.3); RED CELL DISTRIBUTION WIDTH 15.9 % (9.6-15.2)
[2021-01-01] MEDS: NOREPINEPHRINE 8 MG in SODIUM CHLORIDE 0.9% 242 ML IV SCH (09:30)
[2021-01-01] MEDS ORDERED: SODIUM CHLORIDE 0.9%, 500ML IVBOLUS ONE (09:30)
[2021-01-01] MEDS ORDERED: REGULAR INSULIN 100 UNITS in SODIUM CHLORIDE 0.9% 99 ML IV PRN ×2 (09:30→11:00)
[2021-01-01 09:35] LABS: <PLATELET ESTIMATE> DECREASED; ANISOCYTOSIS 1+; BAND#(MANUAL) 1.08 x10^3/uL; BANDS%(MANUAL) 12 % (0-7); EOS#(MANUAL) 0.09 x10^3/uL (0.0-0.4); EOS% (MANUAL) 1 % (1-7); LARGE PLATELETS 1+; LYMPH#(MANUAL) 0.72 x10^3/uL (1-3.4); LYMPHS% (MANUAL) 8 % (22-44); MONOS#(MANUAL) 0.27 x10^3/uL (0.3-2.7); MONOS% (MANUAL) 3 % (2-9); SEG#(MANUAL) 6.84 x10^3/uL (1.8-6.8); SEGS% (MANUAL) 76 % (42-75)
[2021-01-01 09:36] LABS: D-DIMER 3.19 ug/mlFEU (0.00-0.52); INTERNATIONAL NORMALIZED RATIO 1.33 (0.93-1.1)
--- NOTE | 2021-01-01 09:46 | NUR ---
PT RESTING IN BED, SPEAKING ON PHONE TO FAMILY. PT IN NO DISTRESS, PROTECTING OWN AIRWAY WELL. PER ERMD DR MAY, DO NOT HANG LEVO GTT YET, INFUSE IV BOLUS' FIRST. PT REMAINS ON MONITORS. CCU BED REQUESTED. CONT TO MONITOR.
--- NOTE | 2021-01-01 09:53 | NUR ---
SPOKE WITH PHARMACIST MAURICE TO VERIFY CORRECT INITIAL INSULIN DOSE, INITIAL DOSE 5.45UNITS/HR VERIFIED WITH PHARMACY.
[2021-01-01] MEDS ORDERED: CEFTRIAXONE 1,000 MG in DEXTROSE 5% 50 ML IVPB ONE (10:00)
--- NOTE | 2021-01-01 10:18 | NUR ---
REPORT TO HERRERA CARVALHO. ADMITTING MD AT BEDSIDE FOR ASSESSMENT.
--- NOTE | 2021-01-01 10:47 | NUR ---
PT BROUGHT TO CT BEFORE TRANSFERING TO CCU.
[2021-01-01] MEDS ORDERED: MELATONIN 5 MG TABLET PO PRN (11:00)
[2021-01-01] MEDS: D5%-0.45NACL+KCL 20MEQ 1,000 ML IV SCH ×2 (11:00→19:37)
[2021-01-01] MEDS ORDERED: ACETAMINOPHEN 325 MG TABLET PO PRN (11:00)
[2021-01-01] MEDS ORDERED: PIPERACILLIN/TAZO 2.25 GM in SODIUM CHLORIDE 0.9% 50 ML IV SCH (11:00)
--- NOTE | 2021-01-01 11:10 | NUR ---
PT TRANSFERED TO CCU RM 548. ALL PT BELONGINGS LEFT WITH PT.
[2021-01-01 12:05] LABS: TROPONIN I 0.628 ng/mL (0.000-0.045)
[2021-01-01 12:10] VITALS: BP 114/62
[2021-01-01] MEDS ORDERED: OMNIPAQUE 350 MG/ML, 100ML BOTTLE ONE (12:15)
[2021-01-01] MEDS: HYDROmorphone 2 MG/ML, 1ML IVPush PRN ×3 (12:35→22:13)
[2021-01-01] MEDS: ENOXAPARIN 40 MG/0.4 ML SQ SCH (12:35)
[2021-01-01] MEDS: GABAPENTIN 400 MG CAPSULE PO SCH ×3 (12:35→20:06)
[2021-01-01] MEDS: PANCRELIPASE 24,000 CAPSULE.DR PO SCH ×2 (12:35→16:05)
[2021-01-01] MEDS: SODIUM CHLORIDE 0.9% 1,000 ML IV SCH ×4 (13:08→23:53)
[2021-01-01] MEDS: PANTOPRAZOLE 40 MG IV IVPush SCH (13:09)
[2021-01-01 15:28] LABS: ANION GAP 8 mmol/L (5-15); CALCIUM 7.9 mg/dL (8.5-10.1); CHLORIDE 101 mmol/L (98-107); CREATININE 1.22 mg/dL (0.55-1.02)
[2021-01-01] MEDS ORDERED: POTASSIUM CHLORIDE 40 MEQ in SODIUM CHLORIDE 0.9% 100 ML IV ONE ×2 (16:00→22:00)
[2021-01-01] MEDS ORDERED: MAGNESIUM SULFATE PMX 2GM/50ML 50 ML IV ONE (16:00)
[2021-01-01] MEDS: PIPERACILLIN/TAZO 3.375 GM in DEXTROSE 5% 50 ML IV SCH ×2 (17:57→23:50)
[2021-01-01] MEDS ORDERED: PIPERACILLIN/TAZO 3.375 GM in SODIUM CHLORIDE 0.9% 50 ML IV SCH (18:00)
[2021-01-01] MEDS ORDERED: PIPERACILLIN/TAZO 3.375 GM in DEXTROSE 5% 50 ML IV SCH (18:00)
[2021-01-01] MEDS: DULOXETINE 30 MG CAPSULE.DR PO SCH (20:06)
[2021-01-01] MEDS: FENOFIBRATE 145 MG TABLET PO SCH (20:06)
[2021-01-01 20:47] LABS: ANION GAP 5 mmol/L (5-15); CHLORIDE 107 mmol/L (98-107)
[2021-01-02 00:26] LABS: MICROSCOPIC INDICATED
[2021-01-02 00:27] LABS: ANION GAP 5 mmol/L (5-15); CALCIUM 7.9 mg/dL (8.5-10.1); CHLORIDE 106 mmol/L (98-107); CREATININE 0.87 mg/dL (0.55-1.02)
[2021-01-02] MEDS: HYDROmorphone 2 MG/ML, 1ML IVPush PRN ×2 (01:41→05:24)
[2021-01-02 03:36] LABS: BASOPHILS % (AUTO) 1 % (0-1); EOSINOPHILS % (AUTO) 5 % (1-7); LYMPHOCYTES % (AUTO) 12 % (22-44); MEAN CORPUSCULAR HEMOGLOBIN 28.2 pg (27.0-34.8); MEAN CORPUSCULAR HGB CONC 33.1 g/dL (32.4-35.8); MEAN PLATELET VOLUME 8.6 fL (7.4-10.4); MONOCYTES % (AUTO) 9 % (2-9); NEUTROPHILS % (AUTO) 73 % (42-75); PLATELET COUNT 98 x10^3/uL (130-400); RED BLOOD COUNT 4.76 x10^6/uL (3.82-5.3); RED CELL DISTRIBUTION WIDTH 15.8 % (9.6-15.2)
[2021-01-02 03:39] LABS: ALBUMIN 2.1 g/dL (3.4-5.0); ANION GAP 5 mmol/L (5-15); CHLORIDE 106 mmol/L (98-107)
[2021-01-02 03:47] LABS: ALANINE AMINOTRANSFERASE 46 U/L (12-78); ALKALINE PHOSPHATASE 203 U/L (45-117); BILIRUBIN,TOTAL 0.3 mg/dL (0.2-1.0); CREATININE 0.91 mg/dL (0.55-1.02); TOTAL PROTEIN 6.2 g/dL (6.4-8.2); TROPONIN I 0.957 ng/mL (0.000-0.045)
[2021-01-02] MEDS: SODIUM CHLORIDE 0.9% 1,000 ML IV SCH ×3 (04:59→17:32)
[2021-01-02] MEDS: GABAPENTIN 400 MG CAPSULE PO SCH ×4 (05:14→20:20)
[2021-01-02] MEDS: ONDANSETRON 2MG/ML, 2ML IVPush PRN ×2 (05:23→11:57)
[2021-01-02] MEDS: PIPERACILLIN/TAZO 3.375 GM in DEXTROSE 5% 50 ML IV SCH ×4 (05:28→23:34)
[2021-01-02] MEDS: PANTOPRAZOLE 40 MG IV IVPush SCH (06:50)
[2021-01-02] MEDS: INSULIN LISPRO 100 UNITS/ML, PEN SQ-INSULIN SCH ×4 (07:00→20:21)
[2021-01-02] MEDS ORDERED: OXYcodone IR 5MG TABLET ONE (07:28)
[2021-01-02] MEDS ORDERED: VANCOMYCIN PER PHARMACY MC PRN (07:30)
[2021-01-02] MEDS ORDERED: OXYcodone IR 5MG TABLET PO PRN (07:30)
[2021-01-02] MEDS: INSULIN GLARGINE 100 UNITS/ML, PEN SQ-INSULIN SCH ×2 (07:34→20:19)
[2021-01-02] MEDS: OXYcodone IR 5MG TABLET PO PRN ×4 (07:40→21:29)
[2021-01-02] MEDS ORDERED: PHARMACOKINETIC CONSULTATION MC ONE (08:00)
[2021-01-02] MEDS ORDERED: PHARMACOKINETIC MONITORING MC PRN (08:00)
[2021-01-02] MEDS ORDERED: VANCOMYCIN 1,500 MG in SODIUM CHLORIDE 0.9% 250 ML IV ONE (08:30)
[2021-01-02] MEDS: DULOXETINE 30 MG CAPSULE.DR PO SCH ×2 (09:17→20:19)
[2021-01-02] MEDS: PANCRELIPASE 24,000 CAPSULE.DR PO SCH ×3 (09:17→16:31)
[2021-01-02] MEDS: ASPIRIN 81 MG TABLET CHEW PO SCH (09:17)
[2021-01-02] MEDS: NOREPINEPHRINE 8 MG in SODIUM CHLORIDE 0.9% 242 ML IV SCH (09:19)
[2021-01-02] MEDS ORDERED: SODIUM CHLORIDE 0.9% 1,000ML IVBOLUS ONE (09:30)
[2021-01-02] MEDS: HYDROmorphone 2MG TABLET PO PRN ×3 (09:38→18:02)
[2021-01-02] MEDS ORDERED: D5%-0.45NACL+KCL 20MEQ 1,000 ML IV SCH (11:00)
[2021-01-02] MEDS ORDERED: SODIUM CHLORIDE 0.9% 1,000 ML IV SCH (11:00)
[2021-01-02] MEDS: ENOXAPARIN 40 MG/0.4 ML SQ SCH (11:53)
[2021-01-02 14:48] LABS: AMPHETAMINE SCREEN, URINE Negative (Negative); BARBITURATE SCREEN, URINE Negative (Negative); BENZODIAZEPINE SCREEN, URINE Positive (Negative); CANNABINOID SCREEN, URINE Negative (Negative); COCAINE SCREEN, URINE Negative (Negative); METHADONE SCREEN, URINE Negative (Negative); OPIATE SCREEN, URINE Positive (Negative)
[2021-01-02 20:02] VITALS: BP 148/77
[2021-01-02] MEDS: TEMAZEPAM 15 MG CAPSULE PO PRN (20:20)
[2021-01-02] MEDS: FENOFIBRATE 145 MG TABLET PO SCH (20:20)
[2021-01-02] MEDS: VANCOMYCIN 1,200 MG in SODIUM CHLORIDE 0.9% 250 ML IV SCH (21:29)
[2021-01-03 01:24] VITALS: BP 144/82
[2021-01-03] MEDS: HYDROmorphone 2MG TABLET PO PRN ×4 (02:36→20:05)
[2021-01-03] MEDS: SODIUM CHLORIDE 0.9% 1,000 ML IV SCH ×3 (02:37→23:20)
[2021-01-03] MEDS: OXYcodone IR 5MG TABLET PO PRN ×4 (05:01→23:21)
[2021-01-03] MEDS: GABAPENTIN 400 MG CAPSULE PO SCH ×4 (05:01→20:07)
[2021-01-03] MEDS: PANTOPRAZOLE 40MG TABLET PO SCH (05:02)
[2021-01-03] MEDS: PIPERACILLIN/TAZO 3.375 GM in DEXTROSE 5% 50 ML IV SCH ×4 (05:03→23:20)
[2021-01-03 05:57] LABS: MEAN CORPUSCULAR HEMOGLOBIN 28.3 pg (27.0-34.8); MEAN CORPUSCULAR HGB CONC 33.3 g/dL (32.4-35.8); PLATELET COUNT 101 x10^3/uL (130-400); RED BLOOD COUNT 4.41 x10^6/uL (3.82-5.3); RED CELL DISTRIBUTION WIDTH 15.6 % (9.6-15.2)
[2021-01-03 06:18] LABS: ALANINE AMINOTRANSFERASE 42 U/L (12-78); ALBUMIN 2.1 g/dL (3.4-5.0); ANION GAP 4 mmol/L (5-15); CALCIUM 8.1 mg/dL (8.5-10.1); CHLORIDE 106 mmol/L (98-107); CREATININE 0.56 mg/dL (0.55-1.02)
[2021-01-03 06:20] LABS: ALKALINE PHOSPHATASE 175 U/L (45-117); BILIRUBIN,TOTAL 0.4 mg/dL (0.2-1.0); TOTAL PROTEIN 6.1 g/dL (6.4-8.2)
[2021-01-03 06:25] LABS: ANISOCYTOSIS 1+; BAND#(MANUAL) 0.08 x10^3/uL; BANDS%(MANUAL) 1 % (0-7); EOS#(MANUAL) 1.33 x10^3/uL (0.0-0.4); EOS% (MANUAL) 16 % (1-7); LYMPH#(MANUAL) 0.91 x10^3/uL (1-3.4); LYMPHS% (MANUAL) 11 % (22-44); MONOS#(MANUAL) 0.33 x10^3/uL (0.3-2.7); MONOS% (MANUAL) 4 % (2-9); SEG#(MANUAL) 5.64 x10^3/uL (1.8-6.8); SEGS% (MANUAL) 68 % (42-75)
[2021-01-03 06:26] LABS: <PLATELET ESTIMATE> DECREASED; <PLT MORPHOLOGY> NORMAL PLT MORPH
[2021-01-03] MEDS: INSULIN LISPRO 100 UNITS/ML, PEN SQ-INSULIN SCH ×4 (07:00→20:07)
[2021-01-03 07:14] VITALS: BP 152/98
[2021-01-03] MEDS: ASPIRIN 81 MG TABLET CHEW PO SCH (07:51)
[2021-01-03] MEDS: DULOXETINE 30 MG CAPSULE.DR PO SCH ×2 (07:51→20:07)
[2021-01-03] MEDS: PANCRELIPASE 24,000 CAPSULE.DR PO SCH ×3 (07:52→17:18)
[2021-01-03] MEDS: VANCOMYCIN 1,200 MG in SODIUM CHLORIDE 0.9% 250 ML IV SCH ×2 (09:45→20:05)
[2021-01-03] MEDS: INSULIN GLARGINE 100 UNITS/ML, PEN SQ-INSULIN SCH ×2 (09:48→20:06)
[2021-01-03] MEDS: ENOXAPARIN 40 MG/0.4 ML SQ SCH (11:23)
[2021-01-03 15:23] VITALS: BP 149/86
[2021-01-03 19:13] VITALS: BP 132/86
[2021-01-03] MEDS: FENOFIBRATE 145 MG TABLET PO SCH (20:07)
[2021-01-03] MEDS: TEMAZEPAM 15 MG CAPSULE PO PRN (20:07)
[2021-01-04 02:52] VITALS: BP 141/86
[2021-01-04] MEDS: PIPERACILLIN/TAZO 3.375 GM in DEXTROSE 5% 50 ML IV SCH ×2 (05:34→11:26)
[2021-01-04] MEDS: PANTOPRAZOLE 40MG TABLET PO SCH (05:34)
[2021-01-04] MEDS: GABAPENTIN 400 MG CAPSULE PO SCH ×2 (05:34→11:15)
[2021-01-04] MEDS: HYDROmorphone 2MG TABLET PO PRN ×2 (05:35→11:37)
[2021-01-04] MEDS: SODIUM CHLORIDE 0.9% 1,000 ML IV SCH (07:00)
[2021-01-04] MEDS: INSULIN LISPRO 100 UNITS/ML, PEN SQ-INSULIN SCH ×2 (07:00→11:26)
[2021-01-04] MEDS: PANCRELIPASE 24,000 CAPSULE.DR PO SCH ×2 (08:00→11:15)
[2021-01-04] MEDS: ASPIRIN 81 MG TABLET CHEW PO SCH (08:01)
[2021-01-04] MEDS: DULOXETINE 30 MG CAPSULE.DR PO SCH (08:01)
[2021-01-04] MEDS: INSULIN GLARGINE 100 UNITS/ML, PEN SQ-INSULIN SCH (08:07)
[2021-01-04] MEDS: VANCOMYCIN 1,200 MG in SODIUM CHLORIDE 0.9% 250 ML IV SCH (08:08)
[2021-01-04] MEDS: OXYcodone IR 5MG TABLET PO PRN ×3 (09:55→14:59)
[2021-01-04 09:59] VITALS: BP 146/99
[2021-01-04] MEDS: ENOXAPARIN 40 MG/0.4 ML SQ SCH (11:15)
[2021-01-04 15:01] VITALS: BP 156/92
== END 2021-01-04 15:50 | disposition home or self-care (01) | DRG 637 ==
LOC: ED 07:53 → EDIP 09:23 → CCU 11:00 → 4WST 01-02 17:45 → DCLOUNGE 01-04 15:36
PROVIDERS: ADMIT Hospitalist; ATTEND Hospitalist
PROC: 0T9B70Z Drainage of Bladder with Drainage Device, Via Natural or Artificial Opening (ICD-10-PCS; principal; 2021-01-01)
PROC: 02HV33Z Insertion of Infusion Device into Superior Vena Cava, Percutaneous Approach (ICD-10-PCS; 2021-01-01)
DX: E11.00 Type 2 diabetes mellitus with hyperosmolarity without nonketotic hyperglycemic-hyperosmolar coma (NKHHC) (principal); G93.41 Metabolic encephalopathy; I21.A1 Myocardial infarction type 2; J96.01 Acute respiratory failure with hypoxia; N17.0 Acute kidney failure with tubular necrosis; K86.1 Other chronic pancreatitis; R78.81 Bacteremia; D69.6 Thrombocytopenia, unspecified; E28.2 Polycystic ovarian syndrome; E55.9 Vitamin D deficiency, unspecified; R55 Syncope and collapse; E86.0 Dehydration; F32.9 Major depressive disorder, single episode, unspecified; F43.20 Adjustment disorder, unspecified; I95.9 Hypotension, unspecified; G89.29 Other chronic pain; I10 Essential (primary) hypertension; R63.4 Abnormal weight loss; J45.909 Unspecified asthma, uncomplicated; Z87.442 Personal history of urinary calculi; Z90.49 Acquired absence of other specified parts of digestive tract; Z68.23 Body mass index [BMI] 23.0-23.9, adult; Z88.8 Allergy status to other drugs, medicaments and biological substances; Z88.5 Allergy status to narcotic agent
CPT/HCPCS: 36415; 70450; 71045; 71275; 80048; 80053; 80202; 80307; 81001; 82010; 82803; 82947; 82962; 83036; 83605; 83690; 83735; 84100; 84443; 84484; 85025; 85379; 85610; 85651; 86850; 86900; 87040; 87081; 93005; 93306; 93970; 96361; 96374; 99291; G0378; J0696; J1170; J1650; J1815; J2405; J2543; J3370; J3480; Q9967; C9113; J3475; J7030; J7040; J7050

== ENCOUNTER 2021-01-05 17:48 | Inpatient (IN) | payer BC, OTHER ==
[~2021-01-05] VITALS: Ht 165.1 cm; Wt 56.9 kg
[2021-01-05] MEDS ORDERED: SODIUM CHLORIDE 0.9% 1,000ML IVBOLUS ONE (18:00)
[2021-01-05] MEDS ORDERED: NALOXONE 0.4 MG/ML, 1ML IVPush ONE ×2 (18:00→21:12)
[2021-01-05] MEDS ORDERED: ONDANSETRON 2MG/ML, 2ML IVPush ONE (18:00)
--- NOTE | 2021-01-05 18:06 | NUR ---
BIB code 3 for OD, pt found ALOC, hypoxic, decrease RR injecting opiates into her portacath. On arrival given 0.16 Narcan to desired effect. Pt with spontaneous respirations, GCS 14. EKG, PCXR, Portacath needle d/c by this nurse. Lab drawing blood.
[2021-01-05] MEDS ORDERED: NALOXONE 0.4 MG/ML, 1ML ONE (18:20)
[2021-01-05 18:22] LABS: PH, VENOUS 7.314 pH (7.320-7.420)
--- NOTE | 2021-01-05 18:25 | NUR ---
End tidal 26, RR 12, o2 sat 88% IVP 0.16 narcan IVF remain infusing.
[2021-01-05 18:27] LABS: BASOPHILS % (AUTO) 0 % (0-1); EOSINOPHILS % (AUTO) 4 % (1-7); LYMPHOCYTES % (AUTO) 13 % (22-44); MEAN CORPUSCULAR HEMOGLOBIN 27.9 pg (27.0-34.8); MEAN CORPUSCULAR HGB CONC 32.1 g/dL (32.4-35.8); MONOCYTES % (AUTO) 10 % (2-9); NEUTROPHILS % (AUTO) 73 % (42-75); PLATELET COUNT 142 x10^3/uL (130-400); RED BLOOD COUNT 4.29 x10^6/uL (3.82-5.3); RED CELL DISTRIBUTION WIDTH 16.1 % (9.6-15.2)
[2021-01-05 18:35] LABS: ALANINE AMINOTRANSFERASE 25 U/L (12-78); ALBUMIN 2.4 g/dL (3.4-5.0); ANION GAP 3 mmol/L (5-15); CALCIUM 8.4 mg/dL (8.5-10.1); CHLORIDE 97 mmol/L (98-107); CREATININE 1.51 mg/dL (0.55-1.02)
[2021-01-05 18:37] LABS: ALKALINE PHOSPHATASE 149 U/L (45-117); BILIRUBIN,TOTAL 0.2 mg/dL (0.2-1.0); TOTAL PROTEIN 7.1 g/dL (6.4-8.2)
[2021-01-05 18:40] LABS: ACETONE, SERUM Negative (Negative)
--- NOTE | 2021-01-05 18:41 | NUR ---
Total dose Narcan: 0.24mg, remains responsive to verbal, GCS14 end tidal 28, o2 sat 95
--- NOTE | 2021-01-05 18:51 | NUR ---
Report to MAIA Motley
--- NOTE | 2021-01-05 18:58 | NUR ---
pt a and o x 4 talkative, pt talking about the unexpected of her a month and a half ago, pt states that she wanted to feel numb and was not trying to hurt herself
--- NOTE | 2021-01-05 18:58 | NUR ---
report from joshua assumed care of pt
--- NOTE | 2021-01-05 19:44 | NUR ---
Alli borden in [facility] - 01/05/21 at 1946 by RADHMAES 0.24 narcan given slowly ivp
--- NOTE | 2021-01-05 19:46 | NUR ---
0.16 narcan given slow ivp
--- NOTE | 2021-01-05 20:10 | NUR ---
pt resting tolerating 6l nc
--- NOTE | 2021-01-05 20:53 | NUR ---
pt void on bed betancur
[2021-01-05] MEDS ORDERED: ACETAMINOPHEN 325 MG TABLET PO PRN (21:30)
[2021-01-05] MEDS ORDERED: NALOXONE 0.4 MG/ML, 1ML IVPush PRN (21:30)
[2021-01-05] MEDS ORDERED: MELATONIN 5 MG TABLET PO PRN (22:00)
--- NOTE | 2021-01-05 22:01 | NUR ---
awaiting card tele bed
--- NOTE | 2021-01-05 22:27 | NUR ---
REPORT TO PROSPER PT TO FLOOR WITH TECH
[2021-01-05 23:12] VITALS: BP 110/69
[2021-01-06] MEDS: ENOXAPARIN 30 MG/0.3 ML SQ SCH (00:07)
[2021-01-06 00:09] VITALS: BP 114/68
[2021-01-06] MEDS: INSULIN GLARGINE 100 UNITS/ML, PEN SQ-INSULIN SCH ×2 (00:30→20:31)
[2021-01-06 01:36] VITALS: BP 105/68
[2021-01-06] MEDS: FENOFIBRATE 145 MG TABLET PO SCH ×2 (01:44→20:26)
[2021-01-06] MEDS: NORGESTIMATE ETHINYL ESTRADIOL MC SCH ×3 (01:44→17:00)
[2021-01-06 05:47] LABS: BASOPHILS % (AUTO) 0 % (0-1); EOSINOPHILS % (AUTO) 11 % (1-7); LYMPHOCYTES % (AUTO) 7 % (22-44); MEAN CORPUSCULAR HEMOGLOBIN 28.4 pg (27.0-34.8); MEAN CORPUSCULAR HGB CONC 33.4 g/dL (32.4-35.8); MEAN PLATELET VOLUME 8.7 fL (7.4-10.4); MONOCYTES % (AUTO) 7 % (2-9); NEUTROPHILS % (AUTO) 75 % (42-75); PLATELET COUNT 149 x10^3/uL (130-400); RED BLOOD COUNT 3.97 x10^6/uL (3.82-5.3); RED CELL DISTRIBUTION WIDTH 16.2 % (9.6-15.2)
[2021-01-06 05:55] LABS: ANION GAP 4 mmol/L (5-15); CALCIUM 8.4 mg/dL (8.5-10.1); CHLORIDE 109 mmol/L (98-107)
[2021-01-06 05:56] LABS: CREATININE 1.07 mg/dL (0.55-1.02)
[2021-01-06] MEDS: OMEPRAZOLE 10 MG CAPSULE.DR PO SCH ×2 (06:01→17:18)
[2021-01-06] MEDS: INSULIN LISPRO 100 UNITS/ML, PEN SQ-INSULIN SCH ×4 (06:08→20:31)
[2021-01-06 06:31] VITALS: BP 112/70
[2021-01-06] MEDS: NORGESTIMATE ETHINYL ESTRADIOL PO SCH (08:05)
[2021-01-06] MEDS: FERROUS SULFATE 325 MG TABLET PO SCH (08:29)
[2021-01-06] MEDS: DULOXETINE 30 MG CAPSULE.DR PO SCH ×2 (08:30→20:26)
[2021-01-06] MEDS: LOSARTAN 100 MG TAB PO SCH (08:30)
[2021-01-06] MEDS: PANCRELIPASE 24,000 CAPSULE.DR PO SCH ×3 (08:30→17:18)
[2021-01-06] MEDS ORDERED: VANCOMYCIN PER PHARMACY MC PRN (14:00)
[2021-01-06] MEDS ORDERED: PHARMACOKINETIC MONITORING MC PRN (14:30)
[2021-01-06 14:59] VITALS: BP 130/83
[2021-01-06] MEDS ORDERED: VANCOMYCIN 1,400 MG in SODIUM CHLORIDE 0.9% 250 ML IV ONE (15:00)
[2021-01-06] MEDS: MICAFUNGIN 100 MG in SODIUM CHLORIDE 0.9% 100 ML IV SCH (15:00)
[2021-01-06] MEDS ORDERED: LIDOCAINE 1%, 20ML ONE (15:33)
[2021-01-06] MEDS ORDERED: FENTANYL PF 100 MCG/2ML ONE ×2 (15:41)
[2021-01-06] MEDS ORDERED: NALOXONE 1 MG/ML, 2ML ONE (15:41)
[2021-01-06 20:14] VITALS: BP 164/98
[2021-01-06] MEDS ORDERED: TRAZODONE 100MG TABLET PO ONE (21:00)
[2021-01-07] MEDS: ENOXAPARIN 30 MG/0.3 ML SQ SCH (00:35)
[2021-01-07] MEDS: NORGESTIMATE ETHINYL ESTRADIOL MC SCH ×3 (01:00→17:35)
[2021-01-07 01:56] VITALS: BP 148/80
[2021-01-07 02:16] LABS: AMPHETAMINE SCREEN, URINE Negative (Negative); BARBITURATE SCREEN, URINE Negative (Negative); BENZODIAZEPINE SCREEN, URINE Negative (Negative); CANNABINOID SCREEN, URINE Negative (Negative); COCAINE SCREEN, URINE Negative (Negative); METHADONE SCREEN, URINE Negative (Negative); OPIATE SCREEN, URINE Positive (Negative)
[2021-01-07] MEDS: INSULIN LISPRO 100 UNITS/ML, PEN SQ-INSULIN SCH ×4 (07:00→21:57)
[2021-01-07 07:06] VITALS: BP 163/92
[2021-01-07] MEDS: OXYcodone IR 5MG TABLET PO PRN ×4 (07:48→21:56)
[2021-01-07] MEDS: DULOXETINE 30 MG CAPSULE.DR PO SCH ×2 (07:50→21:56)
[2021-01-07] MEDS: PANCRELIPASE 24,000 CAPSULE.DR PO SCH ×3 (07:51→17:36)
[2021-01-07] MEDS: OMEPRAZOLE 10 MG CAPSULE.DR PO SCH ×2 (07:51→17:35)
[2021-01-07] MEDS: LOSARTAN 100 MG TAB PO SCH (07:51)
[2021-01-07] MEDS: VANCOMYCIN 1,200 MG in SODIUM CHLORIDE 0.9% 250 ML IV SCH (08:16)
[2021-01-07] MEDS: NORGESTIMATE ETHINYL ESTRADIOL PO SCH (09:00)
[2021-01-07] MEDS ORDERED: MICAFUNGIN 100 MG IV SCH (09:00)
[2021-01-07 12:40] VITALS: BP 173/104
[2021-01-07] MEDS: MICAFUNGIN 100 MG in SODIUM CHLORIDE 0.9% 100 ML IV SCH (15:01)
[2021-01-07 15:54] VITALS: BP 124/84
[2021-01-07 19:08] VITALS: BP 136/86
[2021-01-07] MEDS: ZOLPIDEM 5MG TABLET PO PRN (21:56)
[2021-01-07] MEDS: FENOFIBRATE 145 MG TABLET PO SCH (21:56)
[2021-01-07] MEDS: INSULIN GLARGINE 100 UNITS/ML, PEN SQ-INSULIN SCH (21:57)
[2021-01-08 00:07] VITALS: BP 128/78
[2021-01-08] MEDS: NORGESTIMATE ETHINYL ESTRADIOL MC SCH ×3 (00:11→16:28)
[2021-01-08] MEDS: VANCOMYCIN 1,200 MG in SODIUM CHLORIDE 0.9% 250 ML IV SCH ×2 (03:15→20:48)
[2021-01-08] MEDS: OXYcodone IR 5MG TABLET PO PRN ×5 (03:15→20:49)
[2021-01-08 05:30] LABS: BASOPHILS % (AUTO) 1 % (0-1); EOSINOPHILS % (AUTO) 11 % (1-7); LYMPHOCYTES % (AUTO) 10 % (22-44); MEAN CORPUSCULAR HEMOGLOBIN 27.8 pg (27.0-34.8); MEAN CORPUSCULAR HGB CONC 33.1 g/dL (32.4-35.8); MONOCYTES % (AUTO) 8 % (2-9); NEUTROPHILS % (AUTO) 70 % (42-75); PLATELET COUNT 274 x10^3/uL (130-400); RED BLOOD COUNT 4.68 x10^6/uL (3.82-5.3); RED CELL DISTRIBUTION WIDTH 15.6 % (9.6-15.2)
[2021-01-08 05:31] LABS: HCT (SEDRATE) 39.4 % (34.6-47.8)
[2021-01-08 05:45] LABS: ALBUMIN 2.8 g/dL (3.4-5.0); ANION GAP 4 mmol/L (5-15); CALCIUM 9.6 mg/dL (8.5-10.1); CHLORIDE 100 mmol/L (98-107)
[2021-01-08 05:52] LABS: ALANINE AMINOTRANSFERASE 19 U/L (12-78); ALKALINE PHOSPHATASE 133 U/L (45-117); BILIRUBIN,TOTAL 0.4 mg/dL (0.2-1.0)
[2021-01-08 06:36] VITALS: BP 161/95
[2021-01-08] MEDS: INSULIN LISPRO 100 UNITS/ML, PEN SQ-INSULIN SCH ×3 (07:00→16:47)
[2021-01-08] MEDS: OMEPRAZOLE 10 MG CAPSULE.DR PO SCH ×2 (08:46→16:28)
[2021-01-08] MEDS: ENOXAPARIN 40 MG/0.4 ML SQ SCH (08:47)
[2021-01-08] MEDS: PANCRELIPASE 24,000 CAPSULE.DR PO SCH ×3 (08:47→16:28)
[2021-01-08] MEDS: DULOXETINE 30 MG CAPSULE.DR PO SCH ×2 (08:47→20:48)
[2021-01-08] MEDS: FERROUS SULFATE 325 MG TABLET PO SCH (08:47)
[2021-01-08] MEDS: LOSARTAN 100 MG TAB PO SCH (08:48)
[2021-01-08] MEDS: NORGESTIMATE ETHINYL ESTRADIOL PO SCH (08:53)
[2021-01-08 12:01] VITALS: BP 144/92
[2021-01-08] MEDS ORDERED: DEXTROSE 4 GM TAB.CHEW PO PRN (13:00)
[2021-01-08] MEDS ORDERED: GLUCAGON 1 MG IM PRN (13:00)
[2021-01-08] MEDS: MICAFUNGIN 100 MG in SODIUM CHLORIDE 0.9% 100 ML IV SCH (13:03)
[2021-01-08] MEDS: HYDROmorphone 1 MG/ML, 1ML INJ IV PRN ×2 (13:09→22:55)
[2021-01-08] MEDS: DEXTROSE 50%, 50ML SYRINGE IVPush PRN (16:48)
[2021-01-08] MEDS: ONDANSETRON 2MG/ML, 2ML IVPush PRN (18:31)
[2021-01-08 20:00] VITALS: BP 137/94
[2021-01-08] MEDS: FENOFIBRATE 145 MG TABLET PO SCH (20:49)
[2021-01-08] MEDS: SODIUM CHLORIDE FLUSH 10ML SYR IVF SCH (20:49)
[2021-01-08] MEDS: INSULIN GLARGINE 100 UNITS/ML, PEN SQ-INSULIN SCH (20:50)
[2021-01-08] MEDS: ZOLPIDEM 5MG TABLET PO PRN (22:55)
[2021-01-09] MEDS: NORGESTIMATE ETHINYL ESTRADIOL MC SCH ×3 (00:42→16:00)
[2021-01-09 02:16] VITALS: BP 145/95
[2021-01-09] MEDS: DEXTROSE 50%, 50ML SYRINGE IVPush PRN (05:59)
[2021-01-09] MEDS: OMEPRAZOLE 10 MG CAPSULE.DR PO SCH ×2 (06:30→16:38)
[2021-01-09 06:48] VITALS: BP 138/87
[2021-01-09] MEDS: NORGESTIMATE ETHINYL ESTRADIOL PO SCH (07:14)
[2021-01-09] MEDS: SODIUM CHLORIDE FLUSH 10ML SYR IVF SCH ×2 (07:40→20:47)
[2021-01-09] MEDS: HYDROmorphone 1 MG/ML, 1ML INJ IV PRN ×2 (07:43→13:34)
[2021-01-09] MEDS: DULOXETINE 30 MG CAPSULE.DR PO SCH ×2 (07:45→20:44)
[2021-01-09] MEDS: LOSARTAN 100 MG TAB PO SCH (07:45)
[2021-01-09] MEDS: PANCRELIPASE 24,000 CAPSULE.DR PO SCH ×3 (07:45→16:38)
[2021-01-09] MEDS: ENOXAPARIN 40 MG/0.4 ML SQ SCH (07:48)
[2021-01-09] MEDS: ONDANSETRON 2MG/ML, 2ML IVPush PRN (08:36)
[2021-01-09] MEDS: OXYcodone IR 5MG TABLET PO PRN ×3 (10:31→20:44)
[2021-01-09] MEDS: MICAFUNGIN 100 MG in SODIUM CHLORIDE 0.9% 100 ML IV SCH (14:37)
[2021-01-09 14:41] VITALS: BP 107/70
[2021-01-09 19:52] VITALS: BP 115/85
[2021-01-09] MEDS: FENOFIBRATE 145 MG TABLET PO SCH (20:45)
[2021-01-10] MEDS: HYDROmorphone 1 MG/ML, 1ML INJ IV PRN ×2 (00:02→08:10)
[2021-01-10] MEDS: ZOLPIDEM 5MG TABLET PO PRN ×2 (00:02→21:50)
[2021-01-10] MEDS: INSULIN GLARGINE 100 UNITS/ML, PEN SQ-INSULIN SCH ×2 (00:04→21:31)
[2021-01-10 00:19] VITALS: BP 112/72
[2021-01-10] MEDS: NORGESTIMATE ETHINYL ESTRADIOL MC SCH ×4 (01:00→23:41)
[2021-01-10] MEDS: NORGESTIMATE ETHINYL ESTRADIOL PO SCH (07:10)
[2021-01-10 07:27] VITALS: BP 125/78
[2021-01-10] MEDS: OMEPRAZOLE 10 MG CAPSULE.DR PO SCH ×2 (07:38→16:49)
[2021-01-10] MEDS: PANCRELIPASE 24,000 CAPSULE.DR PO SCH ×3 (07:38→16:49)
[2021-01-10] MEDS: LOSARTAN 100 MG TAB PO SCH (07:38)
[2021-01-10] MEDS: DULOXETINE 30 MG CAPSULE.DR PO SCH ×2 (07:38→21:12)
[2021-01-10] MEDS: FERROUS SULFATE 325 MG TABLET PO SCH (07:39)
[2021-01-10] MEDS: ENOXAPARIN 40 MG/0.4 ML SQ SCH (07:39)
[2021-01-10] MEDS: SODIUM CHLORIDE FLUSH 10ML SYR IVF SCH ×2 (07:46→21:15)
[2021-01-10] MEDS: ONDANSETRON 2MG/ML, 2ML IVPush PRN (08:25)
[2021-01-10] MEDS: OXYcodone IR 5MG TABLET PO PRN ×3 (11:08→21:30)
[2021-01-10 12:58] VITALS: BP 144/98
[2021-01-10] MEDS: MICAFUNGIN 100 MG in SODIUM CHLORIDE 0.9% 100 ML IV SCH (13:29)
[2021-01-10] MEDS: FENOFIBRATE 145 MG TABLET PO SCH (21:12)
[2021-01-10 21:33] VITALS: BP 131/86
[2021-01-11 02:20] VITALS: BP 109/70
[2021-01-11 06:59] VITALS: BP 118/72
[2021-01-11] MEDS: OMEPRAZOLE 10 MG CAPSULE.DR PO SCH ×2 (07:36→18:30)
[2021-01-11] MEDS: OXYcodone IR 5MG TABLET PO PRN (07:37)
[2021-01-11] MEDS: DULOXETINE 30 MG CAPSULE.DR PO SCH ×2 (08:29→20:08)
[2021-01-11] MEDS: LOSARTAN 100 MG TAB PO SCH (08:30)
[2021-01-11] MEDS: PANCRELIPASE 24,000 CAPSULE.DR PO SCH ×3 (08:30→18:30)
[2021-01-11] MEDS: SODIUM CHLORIDE FLUSH 10ML SYR IVF SCH ×2 (08:32→20:08)
[2021-01-11] MEDS: NORGESTIMATE ETHINYL ESTRADIOL MC SCH ×3 (08:32→20:10)
[2021-01-11] MEDS: ENOXAPARIN 40 MG/0.4 ML SQ SCH (08:33)
[2021-01-11] MEDS: NORGESTIMATE ETHINYL ESTRADIOL PO SCH (08:33)
[2021-01-11 13:34] VITALS: BP 136/78
[2021-01-11] MEDS: HYDROmorphone 1 MG/ML, 1ML INJ IV PRN (13:45)
[2021-01-11] MEDS: MICAFUNGIN 100 MG in SODIUM CHLORIDE 0.9% 100 ML IV SCH (13:57)
[2021-01-11] MEDS: INSULIN LISPRO 100 UNITS/ML, PEN SQ-INSULIN SCH ×2 (18:30→20:08)
[2021-01-11 18:41] VITALS: BP 124/80
[2021-01-11] MEDS: FENOFIBRATE 145 MG TABLET PO SCH (20:08)
[2021-01-11] MEDS: INSULIN GLARGINE 100 UNITS/ML, PEN SQ-INSULIN SCH (20:09)
[2021-01-12 00:41] VITALS: BP 119/86
[2021-01-12] MEDS: HYDROmorphone 1 MG/ML, 1ML INJ IV PRN ×2 (00:47→12:55)
[2021-01-12] MEDS: ZOLPIDEM 5MG TABLET PO PRN ×2 (00:47→19:53)
[2021-01-12 05:33] LABS: BASOPHILS % (AUTO) 1 % (0-1); EOSINOPHILS % (AUTO) 6 % (1-7); HCT (SEDRATE) 37.3 % (34.6-47.8); LYMPHOCYTES % (AUTO) 11 % (22-44); MEAN CORPUSCULAR HEMOGLOBIN 28.1 pg (27.0-34.8); MEAN PLATELET VOLUME 7.8 fL (7.4-10.4); MONOCYTES % (AUTO) 9 % (2-9); NEUTROPHILS % (AUTO) 74 % (42-75); PLATELET COUNT 407 x10^3/uL (130-400); RED BLOOD COUNT 4.33 x10^6/uL (3.82-5.3); RED CELL DISTRIBUTION WIDTH 15.3 % (9.6-15.2)
[2021-01-12 05:45] LABS: ALBUMIN 2.6 g/dL (3.4-5.0); CALCIUM 9.4 mg/dL (8.5-10.1)
[2021-01-12 05:55] LABS: ALANINE AMINOTRANSFERASE 11 U/L (12-78); ALKALINE PHOSPHATASE 106 U/L (45-117); ANION GAP 4 mmol/L (5-15); BILIRUBIN,TOTAL 0.3 mg/dL (0.2-1.0); CHLORIDE 96 mmol/L (98-107); CREATININE 0.99 mg/dL (0.55-1.02); TOTAL PROTEIN 7.5 g/dL (6.4-8.2)
[2021-01-12] MEDS: PANCRELIPASE 24,000 CAPSULE.DR PO SCH ×3 (07:32→15:55)
[2021-01-12] MEDS: SODIUM CHLORIDE FLUSH 10ML SYR IVF SCH ×2 (07:32→19:58)
[2021-01-12] MEDS: NORGESTIMATE ETHINYL ESTRADIOL PO SCH (07:32)
[2021-01-12] MEDS: INSULIN LISPRO 100 UNITS/ML, PEN SQ-INSULIN SCH ×4 (07:32→19:57)
[2021-01-12] MEDS: NORGESTIMATE ETHINYL ESTRADIOL MC SCH ×3 (07:32→18:55)
[2021-01-12] MEDS: OMEPRAZOLE 10 MG CAPSULE.DR PO SCH ×2 (07:32→15:55)
[2021-01-12] MEDS: ENOXAPARIN 40 MG/0.4 ML SQ SCH (08:52)
[2021-01-12] MEDS: LOSARTAN 100 MG TAB PO SCH (08:53)
[2021-01-12] MEDS: FERROUS SULFATE 325 MG TABLET PO SCH (08:53)
[2021-01-12] MEDS: DULOXETINE 30 MG CAPSULE.DR PO SCH ×2 (08:53→19:54)
[2021-01-12 08:54] VITALS: BP 149/91
[2021-01-12] MEDS: OXYcodone IR 5MG TABLET PO PRN ×4 (08:55→23:10)
[2021-01-12] MEDS: MICAFUNGIN 100 MG in SODIUM CHLORIDE 0.9% 100 ML IV SCH (13:46)
[2021-01-12 13:55] VITALS: BP 140/93
[2021-01-12 19:00] VITALS: BP 149/96
[2021-01-12] MEDS: FENOFIBRATE 145 MG TABLET PO SCH (19:53)
[2021-01-12] MEDS: INSULIN GLARGINE 100 UNITS/ML, PEN SQ-INSULIN SCH (19:57)
[2021-01-12] MEDS ORDERED: MAGNESIUM HYDROXIDE 8%, 30ML UDC PO PRN (21:00)
[2021-01-12] MEDS: POLYETHYLENE GLYCOL 17 GM PACKET PO SCH (21:11)
[2021-01-12] MEDS: SENNA/DOCUSATE TABLET PO SCH (21:11)
[2021-01-13] VITALS (7 sets, daily range): BP systolic 146–165; BP diastolic 89–103
[2021-01-13] MEDS: HYDROmorphone 1 MG/ML, 1ML INJ IV PRN ×2 (00:16→12:15)
[2021-01-13] MEDS: LABETALOL 5MG/ML, 20ML IVPush PRN (00:45)
[2021-01-13] MEDS: ONDANSETRON 2MG/ML, 2ML IVPush PRN ×3 (03:07→18:29)
[2021-01-13] MEDS: OXYcodone IR 5MG TABLET PO PRN ×5 (04:17→21:23)
[2021-01-13] MEDS: INSULIN LISPRO 100 UNITS/ML, PEN SQ-INSULIN SCH ×4 (07:00→20:03)
[2021-01-13] MEDS: OMEPRAZOLE 10 MG CAPSULE.DR PO SCH ×2 (08:21→16:17)
[2021-01-13] MEDS: ENOXAPARIN 40 MG/0.4 ML SQ SCH (08:21)
[2021-01-13] MEDS: PANCRELIPASE 24,000 CAPSULE.DR PO SCH ×3 (08:21→16:17)
[2021-01-13] MEDS: DULOXETINE 30 MG CAPSULE.DR PO SCH ×2 (08:22→20:00)
[2021-01-13] MEDS: SENNA/DOCUSATE TABLET PO SCH (08:22)
[2021-01-13] MEDS: LOSARTAN 100 MG TAB PO SCH (08:22)
[2021-01-13] MEDS: POLYETHYLENE GLYCOL 17 GM PACKET PO SCH (08:22)
[2021-01-13] MEDS: NORGESTIMATE ETHINYL ESTRADIOL MC SCH ×2 (08:23→16:17)
[2021-01-13] MEDS: SODIUM CHLORIDE FLUSH 10ML SYR IVF SCH ×2 (08:23→21:30)
[2021-01-13] MEDS: NORGESTIMATE ETHINYL ESTRADIOL PO SCH (08:23)
[2021-01-13] MEDS: MICAFUNGIN 100 MG in SODIUM CHLORIDE 0.9% 100 ML IV SCH (13:32)
[2021-01-13] MEDS: FENOFIBRATE 145 MG TABLET PO SCH (20:00)
[2021-01-13] MEDS ORDERED: BISACODYL 10 MG SUPP PR PRN (20:00)
[2021-01-13] MEDS: ZOLPIDEM 10MG TABLET PO PRN (20:00)
[2021-01-13] MEDS: INSULIN GLARGINE 100 UNITS/ML, PEN SQ-INSULIN SCH (20:02)
[2021-01-14] VITALS (8 sets, daily range): BP systolic 150–168; BP diastolic 86–118
[2021-01-14] MEDS: NORGESTIMATE ETHINYL ESTRADIOL MC SCH ×3 (01:00→17:00)
[2021-01-14] MEDS: OXYcodone IR 5MG TABLET PO PRN ×6 (01:36→22:05)
[2021-01-14] MEDS: ONDANSETRON 2MG/ML, 2ML IVPush PRN ×4 (03:26→22:05)
[2021-01-14] MEDS: INSULIN LISPRO 100 UNITS/ML, PEN SQ-INSULIN SCH ×4 (07:58→20:43)
[2021-01-14] MEDS: SENNA/DOCUSATE TABLET PO SCH (07:59)
[2021-01-14] MEDS: ENOXAPARIN 40 MG/0.4 ML SQ SCH (07:59)
[2021-01-14] MEDS: OMEPRAZOLE 10 MG CAPSULE.DR PO SCH ×2 (08:00→17:51)
[2021-01-14] MEDS: FERROUS SULFATE 325 MG TABLET PO SCH (08:00)
[2021-01-14] MEDS: POLYETHYLENE GLYCOL 17 GM PACKET PO SCH (08:00)
[2021-01-14] MEDS: LOSARTAN 100 MG TAB PO SCH (08:00)
[2021-01-14] MEDS: DULOXETINE 30 MG CAPSULE.DR PO SCH ×2 (08:00→20:43)
[2021-01-14] MEDS: PANCRELIPASE 24,000 CAPSULE.DR PO SCH ×3 (08:12→17:51)
[2021-01-14] MEDS: SODIUM CHLORIDE FLUSH 10ML SYR IVF SCH ×2 (09:00→20:43)
[2021-01-14] MEDS: NORGESTIMATE ETHINYL ESTRADIOL PO SCH (09:00)
[2021-01-14] MEDS: LABETALOL 5MG/ML, 20ML IVPush PRN ×3 (10:45→15:10)
[2021-01-14] MEDS: HYDROmorphone 2MG TABLET PO PRN ×2 (12:21)
[2021-01-14] MEDS ORDERED: ONDANSETRON ODT 4 MG ONE (14:53)
[2021-01-14] MEDS: MICAFUNGIN 100 MG in SODIUM CHLORIDE 0.9% 100 ML IV SCH (15:09)
[2021-01-14] MEDS: FENOFIBRATE 145 MG TABLET PO SCH (20:43)
[2021-01-14] MEDS: DOXYCYCLINE 100MG TABLET PO SCH (20:43)
[2021-01-14] MEDS: INSULIN GLARGINE 100 UNITS/ML, PEN SQ-INSULIN SCH (20:44)
[2021-01-14] MEDS: ZOLPIDEM 10MG TABLET PO PRN (20:47)
[2021-01-15 00:09] VITALS: BP 124/83
[2021-01-15] MEDS: HYDROmorphone 2MG TABLET PO PRN ×2 (00:36→12:39)
[2021-01-15] MEDS: NORGESTIMATE ETHINYL ESTRADIOL MC SCH ×3 (01:00→16:49)
[2021-01-15] MEDS: OXYcodone IR 5MG TABLET PO PRN ×5 (03:39→20:05)
[2021-01-15 07:35] VITALS: BP 138/92
[2021-01-15] MEDS: ENOXAPARIN 40 MG/0.4 ML SQ SCH (07:53)
[2021-01-15] MEDS: INSULIN LISPRO 100 UNITS/ML, PEN SQ-INSULIN SCH ×4 (07:53→20:06)
[2021-01-15] MEDS: LOSARTAN 100 MG TAB PO SCH (07:54)
[2021-01-15] MEDS: OMEPRAZOLE 10 MG CAPSULE.DR PO SCH ×2 (07:54→15:59)
[2021-01-15] MEDS: PANCRELIPASE 24,000 CAPSULE.DR PO SCH ×3 (07:55→15:59)
[2021-01-15] MEDS: DULOXETINE 30 MG CAPSULE.DR PO SCH ×2 (07:55→20:05)
[2021-01-15] MEDS: DOXYCYCLINE 100MG TABLET PO SCH ×2 (07:55→20:05)
[2021-01-15] MEDS: NORGESTIMATE ETHINYL ESTRADIOL PO SCH (07:58)
[2021-01-15] MEDS: SODIUM CHLORIDE FLUSH 10ML SYR IVF SCH ×2 (07:58→20:18)
[2021-01-15] MEDS: SENNA/DOCUSATE TABLET PO SCH (07:59)
[2021-01-15] MEDS: POLYETHYLENE GLYCOL 17 GM PACKET PO SCH (09:00)
[2021-01-15] MEDS: ONDANSETRON 2MG/ML, 2ML IVPush PRN ×2 (11:15→17:39)
[2021-01-15 13:10] VITALS: BP 129/87
[2021-01-15] MEDS: MICAFUNGIN 100 MG in SODIUM CHLORIDE 0.9% 100 ML IV SCH (14:04)
[2021-01-15 19:28] VITALS: BP 160/100
[2021-01-15] MEDS: FENOFIBRATE 145 MG TABLET PO SCH (20:05)
[2021-01-15] MEDS: INSULIN GLARGINE 100 UNITS/ML, PEN SQ-INSULIN SCH (20:07)
[2021-01-15] MEDS ORDERED: ONDANSETRON 4 MG TABLET ONE (23:05)
[2021-01-15] MEDS ORDERED: ONDANSETRON 0.8 MG/ML ORAL SOL PO PRN (23:30)
[2021-01-16 00:29] VITALS: BP 141/97
[2021-01-16] MEDS: OXYcodone IR 5MG TABLET PO PRN ×2 (00:35→04:43)
[2021-01-16] MEDS: HYDROmorphone 2MG TABLET PO PRN (00:40)
[2021-01-16] MEDS: NORGESTIMATE ETHINYL ESTRADIOL MC SCH ×2 (01:00→07:30)
[2021-01-16] MEDS ORDERED: PHARMACY INSTRUCTION MC PRN (05:30)
[2021-01-16 06:51] VITALS: BP 125/79
[2021-01-16] MEDS: NORGESTIMATE ETHINYL ESTRADIOL PO SCH (07:30)
[2021-01-16] MEDS: INSULIN LISPRO 100 UNITS/ML, PEN SQ-INSULIN SCH ×4 (08:00→20:19)
[2021-01-16] MEDS: FERROUS SULFATE 325 MG TABLET PO SCH (08:01)
[2021-01-16] MEDS: PANCRELIPASE 24,000 CAPSULE.DR PO SCH ×3 (08:01→17:07)
[2021-01-16] MEDS: DULOXETINE 30 MG CAPSULE.DR PO SCH ×2 (08:01→20:16)
[2021-01-16] MEDS: OMEPRAZOLE 10 MG CAPSULE.DR PO SCH ×2 (08:01→17:07)
[2021-01-16] MEDS: DOXYCYCLINE 100MG TABLET PO SCH ×2 (08:02→20:16)
[2021-01-16] MEDS: LOSARTAN 100 MG TAB PO SCH (08:02)
[2021-01-16] MEDS: SENNA/DOCUSATE TABLET PO SCH (08:02)
[2021-01-16] MEDS: POLYETHYLENE GLYCOL 17 GM PACKET PO SCH ×2 (08:02→08:11)
[2021-01-16] MEDS: ENOXAPARIN 40 MG/0.4 ML SQ SCH (08:02)
[2021-01-16] MEDS: SODIUM CHLORIDE FLUSH 10ML SYR IVF SCH ×2 (08:06→20:16)
[2021-01-16] MEDS: ONDANSETRON ODT 4 MG PO PRN ×2 (08:31→15:12)
[2021-01-16] MEDS: METHADONE 10 MG TABLET PO SCH (09:04)
[2021-01-16 12:24] VITALS: BP 132/91
[2021-01-16] MEDS: MICAFUNGIN 100 MG in SODIUM CHLORIDE 0.9% 100 ML IV SCH (14:16)
[2021-01-16 18:36] VITALS: BP 138/90
[2021-01-16] MEDS: FENOFIBRATE 145 MG TABLET PO SCH (20:16)
[2021-01-16] MEDS: INSULIN GLARGINE 100 UNITS/ML, PEN SQ-INSULIN SCH (20:19)
[2021-01-16] MEDS: ZOLPIDEM 10MG TABLET PO PRN (20:27)
[2021-01-16] MEDS: ONDANSETRON 2MG/ML, 2ML IVPush PRN (20:27)
[2021-01-17 02:28] VITALS: BP 128/87
[2021-01-17] MEDS: ONDANSETRON 2MG/ML, 2ML IVPush PRN ×3 (02:29→18:09)
[2021-01-17 05:21] LABS: BASOPHILS % (AUTO) 0 % (0-1); EOSINOPHILS % (AUTO) 2 % (1-7); LYMPHOCYTES % (AUTO) 8 % (22-44); MEAN CORPUSCULAR HEMOGLOBIN 27.9 pg (27.0-34.8); MEAN CORPUSCULAR HGB CONC 33.8 g/dL (32.4-35.8); MEAN PLATELET VOLUME 8.1 fL (7.4-10.4); MONOCYTES % (AUTO) 8 % (2-9); NEUTROPHILS % (AUTO) 82 % (42-75); PLATELET COUNT 214 x10^3/uL (130-400); RED CELL DISTRIBUTION WIDTH 15.8 % (9.6-15.2)
[2021-01-17 05:31] LABS: CHLORIDE 95 mmol/L (98-107)
[2021-01-17 05:39] LABS: ALANINE AMINOTRANSFERASE 9 U/L (12-78); ALBUMIN 2.3 g/dL (3.4-5.0); ALKALINE PHOSPHATASE 100 U/L (45-117); ANION GAP 5 mmol/L (5-15); BILIRUBIN,TOTAL 0.4 mg/dL (0.2-1.0); CALCIUM 8.8 mg/dL (8.5-10.1); CREATININE 0.66 mg/dL (0.55-1.02); TOTAL PROTEIN 7.6 g/dL (6.4-8.2)
[2021-01-17 06:03] LABS: HCT (SEDRATE) 40.5 % (34.6-47.8)
[2021-01-17 06:47] VITALS: BP 139/93
[2021-01-17] MEDS: INSULIN LISPRO 100 UNITS/ML, PEN SQ-INSULIN SCH ×4 (07:04→21:08)
[2021-01-17] MEDS: NORGESTIMATE ETHINYL ESTRADIOL PO SCH (07:05)
[2021-01-17] MEDS: OMEPRAZOLE 10 MG CAPSULE.DR PO SCH ×2 (07:26→16:18)
[2021-01-17] MEDS: PANCRELIPASE 24,000 CAPSULE.DR PO SCH ×3 (07:26→16:19)
[2021-01-17] MEDS: SENNA/DOCUSATE TABLET PO SCH (08:13)
[2021-01-17] MEDS: METHADONE 10 MG TABLET PO SCH (08:13)
[2021-01-17] MEDS: LOSARTAN 100 MG TAB PO SCH (08:13)
[2021-01-17] MEDS: DULOXETINE 30 MG CAPSULE.DR PO SCH ×2 (08:13→21:06)
[2021-01-17] MEDS: DOXYCYCLINE 100MG TABLET PO SCH (08:14)
[2021-01-17] MEDS: ENOXAPARIN 40 MG/0.4 ML SQ SCH (08:15)
[2021-01-17] MEDS: SODIUM CHLORIDE FLUSH 10ML SYR IVF SCH ×2 (08:25→21:48)
[2021-01-17] MEDS: POLYETHYLENE GLYCOL 17 GM PACKET PO SCH (08:26)
[2021-01-17 12:55] VITALS: BP 125/87
[2021-01-17] MEDS: MICAFUNGIN 100 MG in SODIUM CHLORIDE 0.9% 100 ML IV SCH (13:55)
[2021-01-17 19:23] VITALS: BP 125/93
[2021-01-17] MEDS ORDERED: BUPRENORPHINE /NALOXONE 2-0.5MG FILM SL SCH (21:00)
[2021-01-17] MEDS: FENOFIBRATE 145 MG TABLET PO SCH (21:05)
[2021-01-17] MEDS: ZOLPIDEM 10MG TABLET PO PRN (21:05)
[2021-01-17] MEDS: INSULIN GLARGINE 100 UNITS/ML, PEN SQ-INSULIN SCH (21:07)
[2021-01-18 01:12] VITALS: BP 104/70
[2021-01-18 06:39] VITALS: BP 100/71
[2021-01-18] MEDS: INSULIN LISPRO 100 UNITS/ML, PEN SQ-INSULIN SCH ×4 (07:47→19:52)
[2021-01-18] MEDS: OMEPRAZOLE 10 MG CAPSULE.DR PO SCH ×2 (08:14→16:00)
[2021-01-18] MEDS: FERROUS SULFATE 325 MG TABLET PO SCH (08:14)
[2021-01-18] MEDS: LOSARTAN 100 MG TAB PO SCH (08:14)
[2021-01-18] MEDS: DULOXETINE 30 MG CAPSULE.DR PO SCH ×2 (08:14→19:50)
[2021-01-18] MEDS: PANCRELIPASE 24,000 CAPSULE.DR PO SCH ×3 (08:14→15:59)
[2021-01-18] MEDS: ENOXAPARIN 40 MG/0.4 ML SQ SCH (08:15)
[2021-01-18] MEDS: BUPRENORPHINE /NALOXONE 2-0.5MG FILM SL SCH ×2 (08:15→20:53)
[2021-01-18] MEDS: SODIUM CHLORIDE FLUSH 10ML SYR IVF SCH ×2 (08:15→19:50)
[2021-01-18] MEDS: NORGESTIMATE ETHINYL ESTRADIOL PO SCH (08:15)
[2021-01-18] MEDS: POLYETHYLENE GLYCOL 17 GM PACKET PO SCH (08:16)
[2021-01-18] MEDS: SENNA/DOCUSATE TABLET PO SCH (08:16)
[2021-01-18 08:26] LABS: CREATININE 1.38 mg/dL (0.55-1.02)
[2021-01-18 13:51] VITALS: BP 90/62
[2021-01-18] MEDS: MICAFUNGIN 100 MG in SODIUM CHLORIDE 0.9% 100 ML IV SCH (14:04)
[2021-01-18] MEDS: ONDANSETRON 2MG/ML, 2ML IVPush PRN ×2 (16:00→22:02)
[2021-01-18 18:41] VITALS: BP 95/63
[2021-01-18] MEDS: ZOLPIDEM 10MG TABLET PO PRN (19:50)
[2021-01-18] MEDS: FENOFIBRATE 145 MG TABLET PO SCH (19:50)
[2021-01-18] MEDS: INSULIN GLARGINE 100 UNITS/ML, PEN SQ-INSULIN SCH (19:52)
[2021-01-19 00:46] VITALS: BP 83/57
[2021-01-19 01:40] VITALS: BP 85/55
[2021-01-19 06:14] LABS: BASOPHILS % (AUTO) 1 % (0-1); EOSINOPHILS % (AUTO) 1 % (1-7); LYMPHOCYTES % (AUTO) 7 % (22-44); MEAN CORPUSCULAR HEMOGLOBIN 27.5 pg (27.0-34.8); MEAN CORPUSCULAR HGB CONC 33.2 g/dL (32.4-35.8); MEAN PLATELET VOLUME 8.7 fL (7.4-10.4); MONOCYTES % (AUTO) 10 % (2-9); NEUTROPHILS % (AUTO) 81 % (42-75); PLATELET COUNT 166 x10^3/uL (130-400); RED BLOOD COUNT 4.46 x10^6/uL (3.82-5.3); RED CELL DISTRIBUTION WIDTH 16.1 % (9.6-15.2)
[2021-01-19 06:24] LABS: CALCIUM 8.7 mg/dL (8.5-10.1)
[2021-01-19 06:27] LABS: ALANINE AMINOTRANSFERASE 8 U/L (12-78); ALKALINE PHOSPHATASE 109 U/L (45-117); BILIRUBIN,TOTAL 0.4 mg/dL (0.2-1.0); CREATININE 1.18 mg/dL (0.55-1.02); TOTAL PROTEIN 6.8 g/dL (6.4-8.2)
[2021-01-19 06:32] LABS: ANION GAP 6 mmol/L (5-15); CHLORIDE 93 mmol/L (98-107)
[2021-01-19 06:47] VITALS: BP 95/63
[2021-01-19 06:55] VITALS: BP 103/67
[2021-01-19] MEDS: INSULIN LISPRO 100 UNITS/ML, PEN SQ-INSULIN SCH ×4 (07:43→20:22)
[2021-01-19] MEDS: OMEPRAZOLE 10 MG CAPSULE.DR PO SCH ×2 (09:07→16:36)
[2021-01-19] MEDS: LOSARTAN 100 MG TAB PO SCH (09:07)
[2021-01-19] MEDS: DULOXETINE 30 MG CAPSULE.DR PO SCH ×2 (09:07→20:21)
[2021-01-19] MEDS: FERROUS SULFATE 325 MG TABLET PO SCH (09:08)
[2021-01-19] MEDS: PANCRELIPASE 24,000 CAPSULE.DR PO SCH ×3 (09:08→16:36)
[2021-01-19] MEDS: SENNA/DOCUSATE TABLET PO SCH (09:11)
[2021-01-19] MEDS: POLYETHYLENE GLYCOL 17 GM PACKET PO SCH (09:11)
[2021-01-19] MEDS: SODIUM CHLORIDE FLUSH 10ML SYR IVF SCH ×2 (09:11→20:21)
[2021-01-19] MEDS: NORGESTIMATE ETHINYL ESTRADIOL PO SCH (09:12)
[2021-01-19] MEDS: BUPRENORPHINE /NALOXONE 2-0.5MG FILM SL SCH ×2 (09:12→20:18)
[2021-01-19] MEDS: ENOXAPARIN 40 MG/0.4 ML SQ SCH (09:13)
[2021-01-19 12:17] VITALS: BP 91/56
[2021-01-19] MEDS: MICAFUNGIN 100 MG in SODIUM CHLORIDE 0.9% 100 ML IV SCH (14:13)
[2021-01-19 19:19] VITALS: BP 97/63
[2021-01-19] MEDS: FENOFIBRATE 145 MG TABLET PO SCH (20:21)
[2021-01-19] MEDS: INSULIN GLARGINE 100 UNITS/ML, PEN SQ-INSULIN SCH (20:23)
[2021-01-19] MEDS: ONDANSETRON 2MG/ML, 2ML IVPush PRN (20:52)
[2021-01-19] MEDS: ZOLPIDEM 10MG TABLET PO PRN ×2 (20:53→21:40)
[2021-01-20 00:09] VITALS: BP 94/58
[2021-01-20 04:39] LABS: BASOPHILS % (AUTO) 1 % (0-1); EOSINOPHILS % (AUTO) 4 % (1-7); LYMPHOCYTES % (AUTO) 6 % (22-44); MEAN CORPUSCULAR HEMOGLOBIN 27.5 pg (27.0-34.8); MEAN CORPUSCULAR HGB CONC 33.5 g/dL (32.4-35.8); MEAN PLATELET VOLUME 8.9 fL (7.4-10.4); MONOCYTES % (AUTO) 10 % (2-9); NEUTROPHILS % (AUTO) 79 % (42-75); PLATELET COUNT 172 x10^3/uL (130-400); RED BLOOD COUNT 4.19 x10^6/uL (3.82-5.3); RED CELL DISTRIBUTION WIDTH 15.9 % (9.6-15.2)
[2021-01-20 04:49] LABS: ALANINE AMINOTRANSFERASE 8 U/L (12-78); ALBUMIN 1.9 g/dL (3.4-5.0); ANION GAP 4 mmol/L (5-15); CALCIUM 8.3 mg/dL (8.5-10.1); CHLORIDE 94 mmol/L (98-107)
[2021-01-20 04:52] LABS: ALKALINE PHOSPHATASE 105 U/L (45-117); BILIRUBIN,TOTAL 0.3 mg/dL (0.2-1.0); TOTAL PROTEIN 6.7 g/dL (6.4-8.2)
[2021-01-20] MEDS: NORGESTIMATE ETHINYL ESTRADIOL PO SCH (08:12)
[2021-01-20] MEDS: SENNA/DOCUSATE TABLET PO SCH (08:13)
[2021-01-20] MEDS: POLYETHYLENE GLYCOL 17 GM PACKET PO SCH (08:13)
[2021-01-20] MEDS: ENOXAPARIN 40 MG/0.4 ML SQ SCH (08:19)
[2021-01-20] MEDS: ONDANSETRON 2MG/ML, 2ML IVPush PRN ×2 (08:19→20:42)
[2021-01-20] MEDS: OMEPRAZOLE 10 MG CAPSULE.DR PO SCH ×2 (08:20→16:31)
[2021-01-20] MEDS: DULOXETINE 30 MG CAPSULE.DR PO SCH ×2 (08:20→20:28)
[2021-01-20] MEDS: PANCRELIPASE 24,000 CAPSULE.DR PO SCH ×3 (08:20→16:31)
[2021-01-20] MEDS: FERROUS SULFATE 325 MG TABLET PO SCH (08:20)
[2021-01-20] MEDS: LOSARTAN 100 MG TAB PO SCH (08:20)
[2021-01-20] MEDS: INSULIN LISPRO 100 UNITS/ML, PEN SQ-INSULIN SCH ×4 (08:22→20:43)
[2021-01-20] MEDS: SODIUM CHLORIDE FLUSH 10ML SYR IVF SCH ×2 (08:22→20:28)
[2021-01-20] MEDS: BUPRENORPHINE /NALOXONE 2-0.5MG FILM SL SCH ×2 (08:23→20:29)
[2021-01-20 08:40] VITALS: BP 121/84
[2021-01-20] MEDS ORDERED: ERTAPENEM 1 GM in SODIUM CHLORIDE 0.9% 50 ML IV SCH (10:00)
[2021-01-20 13:32] VITALS: BP 104/68
[2021-01-20] MEDS: MICAFUNGIN 100 MG in SODIUM CHLORIDE 0.9% 100 ML IV SCH (13:45)
[2021-01-20 19:32] VITALS: BP 110/71
[2021-01-20] MEDS: ZOLPIDEM 10MG TABLET PO PRN (20:28)
[2021-01-20] MEDS: FENOFIBRATE 145 MG TABLET PO SCH (20:28)
[2021-01-20] MEDS: INSULIN GLARGINE 100 UNITS/ML, PEN SQ-INSULIN SCH (20:42)
[2021-01-21 02:14] VITALS: BP 102/68
[2021-01-21] MEDS ORDERED: FOSFOMYCIN 3 GM PACKET PO ONE (07:30)
[2021-01-21] MEDS: ONDANSETRON 2MG/ML, 2ML IVPush PRN (08:02)
[2021-01-21] MEDS: INSULIN LISPRO 100 UNITS/ML, PEN SQ-INSULIN SCH ×3 (08:02→16:23)
[2021-01-21] MEDS: SODIUM CHLORIDE FLUSH 10ML SYR IVF SCH (08:04)
[2021-01-21 08:34] VITALS: BP 118/80
[2021-01-21] MEDS: BUPRENORPHINE /NALOXONE 2-0.5MG FILM SL SCH (09:24)
[2021-01-21] MEDS: LOSARTAN 100 MG TAB PO SCH (09:25)
[2021-01-21] MEDS: PANCRELIPASE 24,000 CAPSULE.DR PO SCH ×2 (09:25→13:22)
[2021-01-21] MEDS: OMEPRAZOLE 10 MG CAPSULE.DR PO SCH (09:25)
[2021-01-21] MEDS: SENNA/DOCUSATE TABLET PO SCH (09:25)
[2021-01-21] MEDS: DULOXETINE 30 MG CAPSULE.DR PO SCH (09:27)
[2021-01-21] MEDS: POLYETHYLENE GLYCOL 17 GM PACKET PO SCH (09:28)
[2021-01-21] MEDS: NORGESTIMATE ETHINYL ESTRADIOL PO SCH (09:28)
[2021-01-21] MEDS: ENOXAPARIN 40 MG/0.4 ML SQ SCH (09:29)
[2021-01-21] MEDS ORDERED: ONDA4TAB13 PO (12:28)
[2021-01-21] MEDS ORDERED: FOSF3PAC PO (12:28)
[2021-01-21 12:52] VITALS: BP 120/85
[2021-01-21] MEDS: MICAFUNGIN 100 MG in SODIUM CHLORIDE 0.9% 100 ML IV SCH (13:23)
== END 2021-01-21 16:35 | disposition home or self-care (01) | DRG 314 ==
LOC: ED 18:00 → 5SO 21:12 → 4EST 01-07 10:28 → 4WST 01-08 01:00
PROVIDERS: ADMIT Internal Medicine; ATTEND Internal Medicine
PROC: 0JPT0XZ Removal of Tunneled Vascular Access Device from Trunk Subcutaneous Tissue and Fascia, Open Approach (ICD-10-PCS; principal; 2021-01-06)
DX: T80.219A Unspecified infection due to central venous catheter, initial encounter (principal); E11.10 Type 2 diabetes mellitus with ketoacidosis without coma; G93.41 Metabolic encephalopathy; F13.20 Sedative, hypnotic or anxiolytic dependence, uncomplicated; N17.9 Acute kidney failure, unspecified; K86.1 Other chronic pancreatitis; J81.1 Chronic pulmonary edema; B49 Unspecified mycosis; F33.2 Major depressive disorder, recurrent severe without psychotic features; N39.0 Urinary tract infection, site not specified; Z16.12 Extended spectrum beta lactamase (ESBL) resistance; F11.20 Opioid dependence, uncomplicated; T40.602A Poisoning by unspecified narcotics, intentional self-harm, initial encounter; Z88.5 Allergy status to narcotic agent; Z88.8 Allergy status to other drugs, medicaments and biological substances; Y83.8 Other surgical procedures as the cause of abnormal reaction of the patient, or of later complication, without mention of misadventure at the time of the procedure; Y92.89 Other specified places as the place of occurrence of the external cause; D69.6 Thrombocytopenia, unspecified; E28.2 Polycystic ovarian syndrome; E55.9 Vitamin D deficiency, unspecified; E86.0 Dehydration; G89.4 Chronic pain syndrome; Z82.49 Family history of ischemic heart disease and other diseases of the circulatory system; Z82.3 Family history of stroke; J45.909 Unspecified asthma, uncomplicated; I80.9 Phlebitis and thrombophlebitis of unspecified site; M14.679 Charcot's joint, unspecified ankle and foot; I10 Essential (primary) hypertension; Z76.5 Malingerer [conscious simulation]; Z79.4 Long term (current) use of insulin; Z81.8 Family history of other mental and behavioral disorders; Z83.2 Family history of diseases of the blood and blood-forming organs and certain disorders involving the immune mechanism; Z87.442 Personal history of urinary calculi; Z90.49 Acquired absence of other specified parts of digestive tract; Z91.14 Patient's other noncompliance with medication regimen; Z91.5 Personal history of self-harm
CPT/HCPCS: 36415; 73630; 77001; 96374; 99285; J3490; 36590; 71045; 71046; 80048; 80053; 80307; 82010; 82565; 82803; 82947; 82962; 83690; 85025; 85651; 86140; 87040; 87070; 87077; 87086; 87186; 87205; 93005; 93308; 93321; 93325; G0378; J1170; J1335; J1650; J2248; J2310; J2405; J3010; J3370; Q0162; J1815; J7030; J7050